=== PATIENT | female | born 1950 | race Caucasian/White ===

== ENCOUNTER 2020-03-06 08:06 | Outpatient (CLI) | payer MEDICARE, SELFPAY ==
--- NOTE | ~2020-03-06 | MM_ITS ---
EXAMINATION: MM screening [facility] BI w debra HISTORY: Screening TECHNIQUE: Craniocaudal and mediolateral oblique 3-D tomosynthesis images were obtained and synthetic 2-D images were generated. CAD analysis was submitted and interpreted. COMPARISON: Comparison to multiple prior studies sequentially, with oldest reviewed study dated 10/04. BREAST PARENCHYMAL COMPOSITION: There are scattered areas of fibroglandular density. FINDINGS: There is no evidence of suspicious mass, calcification, or architectural distortion to sugg est malignancy in either breast. There has been no suspicious interval change. IMPRESSION: 1. No mammographic evidence of malignancy. 2. Recommend routine screening mammography in one year. BI-RADS Category 1: Negative Reviewed, dictated and finalized at location A. ENGINEER
== END 2020-03-06 08:07 | disposition home or self-care (01) ==
LOC: ANHIMG 08:14
PROVIDERS: PCP Family Medicine; Visit Provider Family Medicine
DX: Z12.31 Encounter for screening mammogram for malignant neoplasm of breast (principal)
CPT/HCPCS: 77063; 77067

== ENCOUNTER 2020-03-23 08:46 | Outpatient (CLI) | payer MEDICARE, SELFPAY ==
--- NOTE | ~2020-03-23 | DEXA_ITS ---
Bone Density Report Name: Ankita Perez Age: 69 Sex: Female Ethnicity: White Date of : 1950 Indication: postmenopausal; Referring Provider: Kyle, Clive Us Study: Bone densitometry was performed. Exam Date: March 23, 2020 Accession number: [id number] Bone Density: Region BMD T-score Z-score Classification AP Spine (L1-L4) 1.008 -0.4 1.8 Normal Femoral Neck (Left) 0.648 -1.8 0.0 Osteopenia Total Hip (Left) 0.787 -1.3 0.3 Osteopenia Total Hip Bilateral Avg 0.811 -1.1 0.5 Osteopenia Femoral Neck (Right) 0.671 -1.6 0.2 Osteopenia Total Hip (Right) 0.835 -0.9 0.7 Normal World Health Organization criteria for BMD impression classify patients as: Normal (T-score at or above -1.0), Osteopenia (T-score between -1.0 and -2.5), or Osteoporosis (T-score at or below -2.5). 10-year Fracture Risk(1): Major Osteoporotic Fracture 10% Hip Fracture 1.8% Reported Risk Factors: [place] (), Neck BMD=0.648, BMI=23.2 (1) FRAX(R) Version 3.08. Fracture probability calculated for an untreated patient. Fracture probability may be lower if the patient has received treatment. Clinical Information Provided by Patient: Patient maximum height was 64 Menopause Age: 49 Drinks caffeinated beverages Onset of menses at age 11 Number of children 2 Impression: The patient has low bone mass, based on the Left Femoral Neck T-score. The patient has an estimated ten-year risk of hip fracture of 1.8% and an estimated ten-year risk of major fracture of 10%, based on the WHO FRAX algorithm. Discussion: BONE DENSITY IS LOW AT ONE OR MORE SKELETAL SITES. This patient's lowest T-score is low at one or more skeletal sites. It meets the World Health Organization's (WHO) criteria for ?low bone mass? (T-score between -1.0 and -2.5). The patient's 10-year risk of fracture as calculated by FRAX is less than the threshold where pharmacological therapy is recommended by the National Osteoporosis Foundation (NOF). However, all treatment decisions require clinical judgment and consideration of individual patient factors, including patient preferences, comorbidities, previous drug use, risk factors not captured in the FRAX model (e.g., frailty, falls, vitamin D deficiency, increased bone turnover, interval significant decline in bone density) and possible under or overestimation of fracture risk by FRAX. The patient should follow a healthful lifestyle (good nutrition with adequate calcium and vitamin D, and appropriate weight-bearing exercise). Follow-Up: Consider repeating this study in 2 to 3 years to reassess this patient's status, or sooner if there is some new clinical indication. Reported by: PHI on 03/23/2020 9:20:00 AM. Reviewed, dictated and finalized at location A.
== END 2020-03-23 08:47 | disposition home or self-care (01) ==
LOC: ANHIMG 08:48
PROVIDERS: PCP Family Medicine; Visit Provider Family Medicine
DX: Z78.0 Asymptomatic menopausal state (principal); M85.89 Other specified disorders of bone density and structure, multiple sites
CPT/HCPCS: 77080

== ENCOUNTER 2022-07-08 08:10 | Outpatient (CLI) | payer MEDICARE, SELFPAY ==
--- NOTE | ~2022-07-08 | DEXA_ITS ---
Bone Density Report Name: SHAGUFTA BESS Age: 71 Sex: Female Ethnicity: White Date of : 1950 Indication: osteopenia; postmenopausal Referring Provider: GANESH, RAJ Us Study: Bone densitometry was performed. Exam Date: July 08, 2022 Accession number: [id number] Bone Density: Region BMD T-score Z-score Classification AP Spine(L1-L4) 1.038 -0.1 2.2 Normal Femoral Neck (Left) 0.635 -1.9 0.0 Osteopenia Total Hip (Left) 0.795 -1.2 0.5 Osteopenia Femoral Neck (Right) 0.642 -1.9 0.1 Osteopenia Total Hip (Right) 0.866 -0.6 1.0 Normal Total Hip Mean 0.830 -0.9 0.8 Normal World Health Organization criteria for BMD impression classify patients as: Normal (T-score at or above -1.0), Osteopenia (T-score between -1.0 and -2.5), or Osteoporosis (T-score at or below -2.5). 10-year Fracture Risk(1): Major Osteoporotic Fracture 12% Hip Fracture 2.6% Reported Risk Factors: [place] (), Neck BMD=0.635, BMI=23.2 (1) FRAX(R) Version 3.08. Fracture probability calculated for an untreated patient. Fracture probability may be lower if the patient has received treatment. Previous Exams: Region Exam Age BMD T-score BMD Change BMD Change Date g/cm2 vs Baseline vs Previous AP Spine (L1-L4) 07/08/2022 71 1.038 -0.1 0.030 (3.0%)* 0.030 (3.0%)* 03/23/2020 69 1.008 -0.4 Total Hip(Left) 07/08/2022 71 0.795 -1.2 0.008 (1.0%) 0.008 (1.0%) 03/23/2020 69 0.787 -1.3 Total Hip(Right) 07/08/2022 71 0.866 -0.6 0.031 (3.7%)* 0.031 (3.7%)* 03/23/2020 69 0.835 -0.9 *Denotes significance at 95% confidence level, LSC for AP Spine = 0.022 g/cm2, LSC for Total Hip = 0.027 g/cm2 Clinical Information Provided by Patient: Has used the following medications: Calcium Patient maximum height was 64 Menopause Age: 49 Does not regularly consume dairy products Onset of menses at age 11 Number of children 2 Impression: The patient has low bone mass, based on the Left Femoral Neck T-score. The patient has an estimated ten-year risk of hip fracture of 2.6% and an estimated ten-year risk of major fracture of 12%, based on the WHO FRAX algorithm. No significant bone loss was observed. Discussion: BONE DENSITY IS LOW AT ONE OR MORE SKELETAL SITES. This patient's lowest T-score is low at one or more skeletal sites. It meets the World Health Organization's (WHO) criteria for ?low bone mass? (T-score between -1.0 and -2.5).
--- NOTE | ~2022-07-08 | MM_ITS ---
EXAMINATION: MM screening [facility] BI w debra HISTORY: Screening mammogram TECHNIQUE: Craniocaudal and mediolateral oblique 3-D tomosynthesis images were obtained and synthetic 2-D images were generated. CAD analysis was submitted and interpreted. COMPARISON: 03/06/2020, 02/11/2014 BREAST PARENCHYMAL COMPOSITION: There are scattered areas of fibroglandular density. FINDINGS: No suspicious mass, calcification, or architectural distortion are identified in either rosemary ast to suggest malignancy. There has been no suspicious interval change. IMPRESSION: 1. No mammographic evidence of malignancy. 2. Recommend routine screening mammography in one year. BI-RADS Category 1: Negative Reviewed, dictated and finalized at location A.
== END 2022-07-08 08:11 | disposition home or self-care (01) ==
PROVIDERS: PCP Family Medicine; Visit Provider Family Medicine
DX: Z12.31 Encounter for screening mammogram for malignant neoplasm of breast (principal); Z78.0 Asymptomatic menopausal state; M85.852 Other specified disorders of bone density and structure, left thigh; M85.851 Other specified disorders of bone density and structure, right thigh
CPT/HCPCS: 77063; 77067; 77080

== ENCOUNTER 2024-02-13 16:03 | Inpatient (IN) | payer MEDICARE, SELFPAY ==
--- NOTE | ~2024-02-13 | CT_ITS ---
EXAMINATION: CT brain wo con DATE: 02/13/2024 17:19 INDICATION: Confusion TECHNIQUE: Computed tomography (CT) of the head was performed without intravenous contrast. The mA wa s adjusted according to patient size. Iterative reconstruction technique was employed. Exam dose: 60 5.33 mGy-cm total exam DLP. COMPARISON: None FINDINGS: Prominent bilateral vertebral artery and carotid siphon internal carotid artery calcificati ons. Nonspecific diminished attenuation the cerebral white matter, likely due to chronic small vessel ischemic changes. Bilateral chronic lacunar basal ganglia infarcts. No intracranial mass lesion or hemorrhage, midline shift or mass effect. No subdural or epidural yobani bonilla. There is moderate cerebral and cerebellar volume loss. No fracture or bone destruction of the cranial vault. There is mild patchy soft tissue thickening in the ethmoid air cells. The paranasal sinuses and mastoid air cells are otherwise unremarkable. IMPRESSION: Cerebral atherosclerosis and chronic small vessel ischemic changes of the cerebral white matter Bilateral chronic basal ganglia lacunar infarcts No acute intracranial finding Reviewed, dictated and finalized at Location A. Reviewed, dictated and finalized at location A. OPERATOR
--- NOTE | ~2024-02-13 | XR_ITS ---
EXAMINATION: XR chest 1V portable DATE: 02/13/2024 19:47 INDICATION: Altered mental status. TECHNIQUE: A single frontal view of the chest was obtained. COMPARISON: None. FINDINGS: There is no pneumonia, pleural effusion, or pneumothorax. The heart size is normal. IMPRESSION: 1. No acute cardiopulmonary disease. Reviewed, dictated and finalized at location A. NTER HELPER
--- NOTE | ~2024-02-13 | MR_ITS ---
EXAMINATION: MR brain/brain stem wo/w con DATE: 02/16/2024 14:55 INDICATION: confusion TECHNIQUE: Magnetic resonance imaging (MRI) of the brain and brainstem was performed with 11 mL Multi Emily intravenous contrast. Sequences included sagittal and axial T1-weighted SE, axial diffusion-landen ghted FS EPI ASSET, axial T2*-weighted GRE, axial T2-weighted FLAIR Propeller, and axial T2-weighted Propeller. Postcontrast axial and coronal T1-weighted SE was obtained. Apparent diffusion coefficient (ADC) maps were created. COMPARISON: CT brain 02/13/2024. FINDINGS: No abnormal restricted diffusion to suggest acute ischemic infarct. Focal old bilateral basal ganglia lacunar infarcts. No MRI evidence of hemorrhage or extra-axial collection. No suspicious foci of rusty ceptibility to suggest prior intraparenchymal hemorrhage. Moderate patchy white matter hyperintensity , likely representing moderate small vessel ischemic disease. Mild generalized parenchymal volume los s. The basilar cisterns are patent. Flow voids are preserved. Ethmoid mucosal thickening, the remaini ng aerated spaces are clear. Left lens replacement. Globes and orbital contents are otherwise within normal limits. No abnormal enhancement. IMPRESSION: No acute intracranial process. Reviewed, dictated and finalized at location K. CLASSIFIER
--- NOTE | ~2024-02-13 | US_ITS ---
EXAMINATION: US thyroid DATE: 02/14/2024 11:09 INDICATION: Enlargement of right thyroid lobe. TECHNIQUE: Multiple ultrasound images of the thyroid were obtained. COMPARISON: None. FINDINGS: The right thyroid lobe measures 4.2 x 1.6 x 1.3 cm. The left thyroid lobe measures 3.6 x 1.3 x 1.0 c m. In the right thyroid lobe, there is a 7 mm solid, isoechoic, wider than tall nodule with ill-defi elissa margin and punctate echogenic foci (TI-RADS TR4). In the left thyroid lobe, there is a 5 mm solid , hypoechoic, wider than tall nodule with smooth margin without echogenic foci (TR4). IMPRESSION: 1. Small thyroid nodules, likely not clinically significant. No follow-up is needed. Reviewed, dictated and finalized at location A. IFIED PERSONAL CHEF IMPRESSION: 1. Small thyroid nodules, likely not clinically significant. No follow-up is ne eded.
--- NOTE | ~2024-02-13 | XR_ITS ---
EXAMINATION: XR lumbar puncture diagnostic DATE: 02/18/2024 17:26 INDICATION: Altered mental status TECHNIQUE: The procedure including the risks and benefits was discussed with the patient. Risks discu ssed included spinal headache, cerebrospinal fluid leak, bleeding, and infection. The patient underst ood the risks and agreed to proceed. A timeout was performed to verify the patient's name, date of , and procedure to be performed. The skin overlying the L4-L5 level was prepped and draped in usual sterile fashion. Subcutaneous 1% lidocaine was used for local anesthesia. A 22 gauge spinal n eedle was advanced under fluoroscopic guidance. The needle was removed and the entry site was cleaned and dressed. There were no immediate complications. A total of 2 fluoroscopic image(s) were obtaine d. The amount of fluoroscopy time used during this procedure was 0.2 minutes. Total DAP was 0.568 Gyc m^2. The patient was returned to the floor in unchanged condition. FINDINGS: Real-time fluoroscopy demonstrates the needle at the L4-L5 level. Opening pressure was 16 c m water. (Normal range is variably defined as 6-20 cm water and up to 25 cm water in obese patients. Pressure >25 cm water is one of the modified Dandy criteria for idiopathic intracranial hypertension) . 12 mL of clear, colorless fluid was collected in 4 tubes. IMPRESSION: 1. Successful fluoro-guided lumbar puncture with normal opening pressure of 16 cm water. Reviewed, dictated and finalized at location A. RY WRAPPER
--- NOTE | ~2024-02-13 | CT_ITS ---
EXAMINATION: CTA brain carotid DATE: 02/17/2024 14:01 INDICATION: Altered mental status. TECHNIQUE: Computed tomographic angiography (CTA) of the head was performed without and with 100 mL O mnipaque-350 intravenous contrast. CTA of the neck was performed with intravenous contrast. Automated exposure control and iterative reconstruction technique were employed. The dose-length product was 1 367.72 mGy-cm. Maximum intensity projection and volume rendered 3D-reconstructions were created by bry gamez technologist on a separate workstation. COMPARISON: Head CT 02/13/2024, brain MRI 02/16/2024 FINDINGS: HEAD CTA: There are scattered areas of low attenuation in the cerebral white matter. There is no intr acranial hemorrhage, acute infarction, or abnormal intracranial mass lesion. The ventricles are gloria l in size. There is mucosal thickening in the paranasal sinuses. There are likely changes of left ocu lar lens replacement surgery. The mastoid air cells are normal. Left vertebral artery is dominant. Th ere is no significant stenosis of basilar artery or the posterior cerebral arteries. There is no sign ificant stenosis of the intracranial internal carotid arteries or anterior or middle cerebral arterie s. Anterior communicating artery is normal. There is no aneurysm. The posterior communicating arterie s are normal. NECK CTA: There are no pathologically enlarged lymph nodes. There is no significant stenosis of the v ertebral arteries. There is plaque in the proximal internal carotid arteries. There is 0% stenosis of the proximal right internal carotid artery relative to normal distal artery lumen diameter (NASCET c riteria). There is 0% stenosis of the proximal left internal carotid artery relative to normal distal artery lumen diameter. There is severe cervical spondylosis. IMPRESSION: 1. Stable moderate nonspecific cerebral white matter disease, which likely represents chronic small v essel ischemic disease. 2. No aneurysm or significant intracranial axial stenosis. 3. 0% stenosis of the proximal internal carotid arteries relative to normal distal artery lumen diame ters (NASCET criteria). Reviewed, dictated and finalized at location A. MENT CONTROL MANAGER IMPRESSION: 1. Stable moderate nonspecific cerebral white matter disease, which likely repr esents chronic small vessel ischemic disease. 2. No aneurysm or significant intracranial axial stenosis. 3. 0% stenosis of the proximal internal carotid arteries relative to normal dis boris artery lumen diameters (NASCET criteria).
[2024-02-13 16:18] VITALS: BP 227/108; PULSE 82; RESP 20; TEMP 37.3; O2SAT 100
[2024-02-13 16:23] VITALS: O2SAT 100
--- NOTE | 2024-02-13 16:26 | ECG_ITS ---
Test Date: 2024-02-13 16:34:08 Measurements Intervals Tanner Rate: 81 P: 54 TN: 163 QRS: -5 QRSD: 92 T: 55 QT: 386 QTc: 449 Interpretive Statements SINUS RHYTHM MINIMAL VOLTAGE CRITERIA FOR LVH, CONSIDER NORMAL VARIANT [MEETS CRITERIA IN ONE OF: R(aVL), S(V1), R(V5), R(V5/V6)+S(V1)] NONSPECIFIC T-WAVE ABNORMALITY No previous ECG available for comparison Electronically Signed On 02-14-2024 14:47:20 FINE ARTIST by Adam Cameron M.D.
[2024-02-13 16:46] LABS: Basophils Percent Auto 0.7 % (0.2-1.2); Eosinophils Percent Auto 0.4 % (0-4.4); Hematocrit 33.2 % (37.0-47.0); Hemoglobin 11.2 g/dL (12.0-15.0); Immature Granulocyte Absolute 0.02 K/mm3 (0.00-0.031); Immature Granulocyte Percent A 0.4 % (0-0.5); Lymphocytes Absolute Auto 1.13 K/mm3 (0.9-3.2); Lymphocytes Percent Auto 20.5 % (18.3-44.2); Mean Corpuscular HGB Conc 33.7 g/dl (32-36); Mean Corpuscular Hemoglobin 37.8 pg (26-34); Mean Corpuscular Volume 112.2 fl (80-100); Monocytes Absolute Auto 0.4 K/mm3 (0.1-0.6); Monocytes Percent Auto 7.8 % (2.6-8.5); Neutrophils Absolute Auto 3.9 K/mm3 (1.3-6.7); Neutrophils Percent Auto 70.2 % (45.5-73.1); Platelet Count Result 638 k/mm3 (150-375); Red Blood Count 2.96 M/mm3 (4.2-5.4); Red Cell Distribution Width 14.1 % (11.5-14.5); White Blood Count 5.5 K/mm3 (4.5-10.0)
[2024-02-13 16:56] LABS: Alanine Aminotransferase 9 U/L (6-35); Albumin Level 4.1 g/dL (3.5-5.1); Alkaline Phosphatase 64 U/L (38-126); Anion Gap 7 mmol/L (4-12); Aspartate Amino Transferase 26 U/L (14-36); Bilirubin,Total 0.7 mg/dL (0.2-1.3); Blood Urea Nitrogen 23 mg/dL (7-17); Calcium 9.3 mg/dL (8.4-10.2); Carbon Dioxide 31 mmol/L (22-30); Chloride 95 mmol/L (98-107); Estimated CRCL calculation 30 ml/min; Estimated Glomerular Filt Rate 44; Glucose 228 mg/dL (65-110); Potassium 2.9 mmol/L (3.4-5.0); Sodium 133 mmol/L (137-145)
[2024-02-13 16:57] LABS: Prothrombin Time 13.6 Seconds (11.1-14.7)
[2024-02-13 16:58] LABS: Partial Thromboplastin Time 26.8 Seconds (22.3-36.8)
[2024-02-13 17:19] LABS: Platelet Estimate Increased (Adequate)
[2024-02-13 17:20] LABS: Macrocytosis 1+ (NORMAL); Schistocytes None Seen
[2024-02-13 17:37] VITALS: BP 215/103; PULSE 80; RESP 17; O2SAT 99
[2024-02-13 17:44] LABS: Add Urine Microscopic? YES; Appearance Urine Turbid (Clear); Bacteria Urine 4+ /hpf; Bilirubin Urine Negative (Negative); Blood Urine 1+ (Negative); Color Urine Yellow (Yellow); Glucose Urine UA Negative (Negative); Ketones Urine 1+ mg/dL (Negative); Leukocyte Esterase Ur Trace LEU/UL (Negative); Need Manual Microscopic Reviewed; Nitrate Urine Negative (Negative); Protein Urine 4+ mg/dL (Negative); Specific Grav Ur 1.021 (1.001-1.035); Squamous Epithelial Cell Urine None Seen /hpf (Few); Urobilinogen Urine 0.2 mg/dL (<2.0); WBC Urine 51-100 /hpf (0-3)
[2024-02-13 18:47] VITALS: BP 200/96; PULSE 83; RESP 20; O2SAT 100
[2024-02-13] MEDS: POTASSIUM CHLORIDE 20 MEQ ER TABLET 40 MEQ PO (19:39)
[2024-02-13] MEDS: SODIUM CHLORIDE 0.9% IV 1,000 ML 999 ML IV CONT (19:39)
[2024-02-13 19:44] VITALS: BP 199/101; PULSE 87; RESP 14; TEMP 36.8; O2SAT 100
[2024-02-13] MEDS: MAGNESIUM SULF 2 GM/WATER 50ML 2 GM/50 ML BAG IVPB (20:21)
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
[2024-02-13] MEDS: lisinopriL 20 MG TABLET PO (22:18)
[2024-02-13] MEDS: hydroCHLOROthiazide 25 MG TABLET PO (22:18)
[2024-02-13 23:19] LABS: Influenza A QL RT-PCR Negative (Negative); Influenza B QL RT-PCR Negative (Negative); RSV RNA, RT-PCR Negative (Negative); SARS-CoV-2 RNA PCR Negative (Negative)
[2024-02-13 23:26] VITALS: BP 191/90; PULSE 84; RESP 15; O2SAT 99
[2024-02-14] VITALS (23 sets, daily range): BP systolic 111–189; BP diastolic 68–92; PULSE 57–103; RESP 14–18; TEMP 36.6–36.9; O2SAT 94–100; BMI 21.1
--- NOTE | 2024-02-14 05:02 | ADMGEN ---
This patient, Ankita Perez, was admitted to IMU Room 205-01. Patient/family oriented to hospital policies and general routines including ID bracelet, bed and alarms, visiting hours, pain management, procedures, bathroom and other care routines, personal items, smoking policy, room service/diet, and visiting hours. Information on how to activate the Rapid Response Team has been discussed. Patient/Family are encouraged to report perceived risks to care and to ask questions if they do not understand what they are told or what they should do.
[2024-02-14] MEDS: hydrALAZINE HCL 20 MG/ML VIAL 10 MG IV PUSH (05:15)
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
[2024-02-14 07:30] LABS: Glucose Point of Care 249 mg/dl (65-105)
[2024-02-14 08:15] LABS: Hematocrit 33.8 % (37.0-47.0); Hemoglobin 11.2 g/dL (12.0-15.0); Mean Corpuscular HGB Conc 33.1 g/dl (32-36); Mean Corpuscular Hemoglobin 37.3 pg (26-34); Mean Corpuscular Volume 112.7 fl (80-100); Mean Platelet Volume 8.9 fl (7.4-10.4); Platelet Count Result 674 k/mm3 (150-375); Red Cell Distribution Width 14.1 % (11.5-14.5); White Blood Count 7.3 K/mm3 (4.5-10.0)
[2024-02-14] MEDS: METOPROLOL SUCCINATE EXT REL 25 MG TABCR PO (08:42)
[2024-02-14] MEDS: ATORVASTATIN 20 MG TABLET PO (08:42)
[2024-02-14] MEDS: ASPIRIN 81 MG ENTERIC TABLET PO (08:42)
[2024-02-14] MEDS: FERROUS SULFATE 325 MG TABLET DR PO ×2 (08:42→17:13)
[2024-02-14] MEDS: lisinopriL 20 MG TABLET PO (08:43)
[2024-02-14 08:56] LABS: Anion Gap 4 mmol/L (4-12); Blood Urea Nitrogen 17 mg/dL (7-17); Carbon Dioxide 31 mmol/L (22-30); Chloride 98 mmol/L (98-107); Estimated CRCL calculation 33 ml/min; Estimated Glomerular Filt Rate 49; Glucose 230 mg/dL (65-110); Magnesium 2.2 mg/dL (1.6-2.3); Potassium 3.3 mmol/L (3.4-5.0); Sodium 133 mmol/L (137-145)
[2024-02-14 10:00] LABS: Folic Acid 9.3 ng/mL (2.76->20); Vitamin B12 > 1000.0 pg/mL (239-931)
[2024-02-14 10:08] LABS: Hemoglobin A1C 7.3 % (<5.7)
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
[2024-02-14 11:33] LABS: Glucose Point of Care 266 mg/dl (65-105)
[2024-02-14] MEDS: POTASSIUM CHLORIDE 20 MEQ ER TABLET 40 MEQ PO (12:17)
[2024-02-14] MEDS: INSULIN ASPART (*BKC) 100 UNITS/ML SUB-Q (12:17)
[2024-02-14 16:03] LABS: Glucose Point of Care 140 mg/dl (65-105)
[2024-02-14 20:18] LABS: Glucose Point of Care 200 mg/dl (65-105)
[2024-02-15] VITALS (15 sets, daily range): BP systolic 145–181; BP diastolic 63–97; PULSE 52–77; RESP 16–20; TEMP 36.7–37.6; O2SAT 95–98
[2024-02-15 04:56] LABS: Potassium 3.9 mmol/L (3.4-5.0)
[2024-02-15 05:19] LABS: Anion Gap 4 mmol/L (4-12); Blood Urea Nitrogen 19 mg/dL (7-17); Carbon Dioxide 28 mmol/L (22-30); Chloride 101 mmol/L (98-107); Estimated CRCL calculation 30 ml/min; Estimated Glomerular Filt Rate 44; Glucose 172 mg/dL (65-110); Sodium 133 mmol/L (137-145)
[2024-02-15 08:12] LABS: Glucose Point of Care 214 mg/dl (65-105)
[2024-02-15] MEDS: FERROUS SULFATE 325 MG TABLET DR PO ×2 (08:33→16:46)
[2024-02-15] MEDS: ASPIRIN 81 MG ENTERIC TABLET PO (08:33)
[2024-02-15] MEDS: lisinopriL 20 MG TABLET PO (08:33)
[2024-02-15] MEDS: METOPROLOL SUCCINATE EXT REL 25 MG TABCR PO (08:33)
[2024-02-15] MEDS: ATORVASTATIN 20 MG TABLET PO (08:34)
[2024-02-15] MEDS: INSULIN ASPART (*BKC) 100 UNITS/ML SUB-Q ×2 (08:34→16:46)
[2024-02-15 12:01] LABS: Glucose Point of Care 196 mg/dl (65-105)
[2024-02-15 16:18] LABS: Glucose Point of Care 253 mg/dl (65-105)
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
[2024-02-15 20:24] LABS: Glucose Point of Care 149 mg/dl (65-105)
[2024-02-15] MEDS: INSULIN GLARGINE (*BKC) 100 UNITS/ML 8 UNITS SUB-Q (21:07)
--- NOTE | 2024-02-15 22:59 | PC.NURSE ---
patient arrived from IMU to room 258. patient oriented to new environment. no signs of distress at this time.
[2024-02-16] VITALS (8 sets, daily range): BP systolic 142–176; BP diastolic 67–90; PULSE 64–76; RESP 18–20; TEMP 35.8–36.9; O2SAT 94–100
[2024-02-16] MEDS: hydrALAZINE HCL 20 MG/ML VIAL 10 MG IV PUSH (06:50)
--- NOTE | 2024-02-16 09:00 | PC.NURSE ---
Patient disoriented and refusing care. Daughter is present at bedside to assist with mental status and orientation. Patient is refusing glucose checks and lab work. Daughter felt it's best to forgo lab work to potentially calm patient into having scheduled MRI today.
--- NOTE | 2024-02-16 09:29 | PCOTNOTE ---
Attempted OT evaluation. Patient and family declined evaluation this date due to altered mental status and patient refusing care. Will follow.
[2024-02-16 12:07] LABS: Glucose Point of Care 181 mg/dl (65-105)
[2024-02-16] MEDS: ATORVASTATIN 20 MG TABLET PO (12:35)
[2024-02-16] MEDS: ASPIRIN 81 MG ENTERIC TABLET PO (12:35)
[2024-02-16] MEDS: lisinopriL 20 MG TABLET PO (12:35)
[2024-02-16] MEDS: METOPROLOL SUCCINATE EXT REL 25 MG TABCR PO (12:36)
[2024-02-16] MEDS: FERROUS SULFATE 325 MG TABLET DR PO ×2 (12:38→17:35)
[2024-02-16] MEDS: HYDROXYUREA (*CHEMO) 500 MG CAPSULE PO (12:39)
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
[2024-02-16 13:03] LABS: Basophils Absolute Auto 0.1 K/mm3 (0.0-0.1); Basophils Percent Auto 0.9 % (0.2-1.2); Eosinophils Absolute Auto 0.1 K/mm3 (0-0.3); Eosinophils Percent Auto 0.9 % (0-4.4); Hematocrit 33.9 % (37.0-47.0); Hemoglobin 11.2 g/dL (12.0-15.0); Immature Granulocyte Absolute 0.02 K/mm3 (0.00-0.031); Immature Granulocyte Percent A 0.4 % (0-0.5); Lymphocytes Absolute Auto 1.23 K/mm3 (0.9-3.2); Lymphocytes Percent Auto 22.4 % (18.3-44.2); Mean Corpuscular Hemoglobin 37.6 pg (26-34); Mean Corpuscular Volume 113.8 fl (80-100); Mean Platelet Volume 8.7 fl (7.4-10.4); Monocytes Absolute Auto 0.5 K/mm3 (0.1-0.6); Monocytes Percent Auto 9.1 % (2.6-8.5); Neutrophils Absolute Auto 3.6 K/mm3 (1.3-6.7); Neutrophils Percent Auto 66.3 % (45.5-73.1); Platelet Count Result 622 k/mm3 (150-375); Red Blood Count 2.98 M/mm3 (4.2-5.4); Red Cell Distribution Width 14.6 % (11.5-14.5); White Blood Count 5.5 K/mm3 (4.5-10.0)
[2024-02-16 13:22] LABS: Albumin Level 3.7 g/dL (3.5-5.1); Anion Gap 2 mmol/L (4-12); Blood Urea Nitrogen 22 mg/dL (7-17); Calcium 9.1 mg/dL (8.4-10.2); Carbon Dioxide 32 mmol/L (22-30); Chloride 98 mmol/L (98-107); Estimated CRCL calculation 30 ml/min; Estimated Glomerular Filt Rate 44; Glucose 211 mg/dL (65-110); Magnesium 1.7 mg/dL (1.6-2.3); Phosphorus 3.4 mg/dL (2.5-4.5); Potassium 3.7 mmol/L (3.4-5.0); Sodium 132 mmol/L (137-145)
[2024-02-16 13:30] LABS: Macrocytosis 1+ (NORMAL); Platelet Estimate Adequate (Adequate); Schistocytes None Seen
[2024-02-16 13:39] LABS: Free T4 Free Thyroxine 1.54 ng/dL (0.78-2.19)
[2024-02-16 14:52] LABS: Folic Acid 8.7 ng/mL (2.76->20); Vitamin B12 > 1000.0 pg/mL (239-931)
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
[2024-02-16 17:23] LABS: Glucose Point of Care 174 mg/dl (65-105)
[2024-02-16 20:00] LABS: Glucose Point of Care 243 mg/dl (65-105)
[2024-02-16] MEDS: HALOPERIDOL LACTATE 5 MG/ML VIAL IM (21:21)
--- NOTE | 2024-02-17 | ECHO_ITS ---
Patient Info Name: Ankita Perez Age: 73 years : 1950 Gender: Female Ht: 63 in Wt: 123 lbs BSA: 1.58 m2 HR: 67 bpm BP: 172 / 72 mmHg Technical Quality: Fair Exam Date: 02/17/2024 2:15 PM Exam Location: Echo Lab Patient Status: Inpatient Admit Date: 02/15/2024 Staff Ordering Physician: Segundo De Leon MD Bulldozer Engineer: Torin Funez RDCS Attending Provider: Deann Mcleod DO Exam Type: CA echo doppler color flow Study Info Indications - confusion Complete two-dimensional, color flow and Doppler transthoracic echocardiogram is performed. Summary 1. Complete two-dimensional, color flow and Doppler transthoracic echocardiogram is performed. 2. Left ventricular chamber dimension is normal. 3. Left ventricular wall thickness is normal. 4. Left ventricular systolic function is normal with an ejection fraction by Biplane Method of Discs of 72 %. 5. The left ventricular diastolic function is grade I diastolic dysfunction. 6. Right ventricular chamber dimension is normal. 7. Right ventricular systolic function is normal. Left Ventricle Left ventricular chamber dimension is normal. Left ventricular wall thickness is normal. Left ventricular systolic function is normal with an ejection fraction by Biplane Method of Discs of 72 %. The left ventricular diastolic function is grade I diastolic dysfunction. Right Ventricle Right ventricular chamber dimension is normal. Right ventricular systolic function is normal. Left Atria Left atrial chamber dimension is normal. Right Atria Right atrial chamber dimension is normal. Aortic Valve There is no aortic valve stenosis with a peak velocity of 185 cm/s, mean gradient of 5 mmHg, and aortic valve area of 2.5 cm2. There is no aortic valve regurgitation. Mitral Valve There is no mitral valve regurgitation. There is no mitral valve stenosis. Moderate posterior mitral annular calcification. Tricuspid Valve There is mild tricuspid valve regurgitation. No pulmonary hypertension, estimated pulmonary arterial systolic pressure is 20 +/- 8. Pericardium/Pleural There is no pericardial effusion. Inferior Vena Cava Inferior vena cava is not well visualized. Aorta The prox ascending aorta size is normal. The ascending aorta arch size is normal. Left Ventricular Outflow Tract Name Value Normal LVOT 2D LVOT Diameter 2.0 cm LVOT Doppler LVOT Peak Gradient 7 mmHg LVOT Mean Gradient 3 mmHg LVOT VTI 26 cm LVOT VTI/AV VTI Ratio 0.8 LVOT Stroke Volume 81 ml LVOT CO 4.9 l/min LVOT CI 3.1 l/min/m2 Pulmonic Valve Name Value Normal PV Doppler PV Peak Gradient 3 mmHg Mitral Valve Name Value Normal MV Doppler MV Decel Patrick 389 cm/s2 MV PHT 81 ms MV Area (PHT) 2.7 cm2 4.0-5.0 MV Diastolic Function MV E Peak Velocity 109 cm/s MV A Peak Velocity 137 cm/s MV E/A 0.8 MV Decel Time 280 ms Tricuspid Valve Name Value Normal TV Regurgitation Doppler TR Peak Velocity 228 cm/s TR Peak Gradient 20 mmHg Aorta Name Value Normal Ascending Aorta Ao Root Diameter (MM) 2.8 cm Ao Root Diam Index (MM) 1.8 cm/m2 Aortic Valve Name Value Normal AV Doppler AV Peak Velocity 185 cm/s AV Peak Gradient 14 mmHg AV Mean Gradient 5 mmHg AV VTI 33 cm AV Area (Cont Eq VTI) 2.5 cm2 >=3.0 AV Area (Cont Eq Jean-Pierre) 2.2 cm2 AV Regurgitation 2D LVOT Area 3.2 cm2 Ventricles Name Value Normal LV Dimensions 2D/MM IVS Diastolic Thickness (2D) 1.0 cm 0.6-1.0 IVS Diastole Thickness (MM) 0.8 cm 0.6-0.9 LVID Diastole (2D) 4.2 cm 3.8-5.2 LVID Diastole (MM) 5.0 cm 3.8-5.2 LVIW Diastolic Thickness (2D) 1.0 cm 0.6-0.9 LVIW Diastolic Thickness (MM) 1.0 cm 0.6-0.9 LVID Systole (2D) 2.3 cm 2.2-3.5 LVID Systole (MM) 2.6 cm 2.2-3.5 LVOT Diameter 2.0 cm LV Mass (2D Cubed) 132.38 g 67.00-162.00 LV Mass Index (2D Cubed) 84 g/m2 43-95 Relative Wall Thickness (2D) 0.46 LV Mass (MM Cubed) 157.87 g 67.00-162.00 LV Mass Index (MM Cubed) 100 g/m2 43-95 Relative Wall Thickness (MM) 0.40 LV Fractional Shortening/Ejection Fraction 2D/MM LV Fractional Shortening (2D) 45 % 27-45 LV Fractional Shortening (MM) 47 % 27-45 LV EF (MM Teicholz) 78 % 54-74 LV EF (2D Teicholz) 77 % 54-74 LV Diastolic Volume (4C MOD) 76 ml LV EF (4C MOD) 71 % LV Diastolic Volume (2C MOD) 57 ml LV EF (2C MOD) 72 % LV Diastolic Volume (BP MOD) 67 ml 46-106 LV Diastolic Volume Index (BP MOD) 42 ml/m2 29-61 LV Systolic Volume (BP MOD) 18 ml 14-42 LV Systolic Volume Index (BP MOD) 12 ml/m2 8-24 LV EF (BP MOD) 72 % 54-74 LV Diastolic Length (4C) 7.7 cm LV Systolic Length (4C) 5.9 cm LV Stroke Volume (4C MOD) 54 ml Atria Name Value Normal LA Dimensions LA Dimension (MM) 4.3 cm 2.7-3.8 LA Volume (4C A-L) 55 ml LA Volume (BP A-L) 69 ml RA Dimensions RA Area (4C) 11.9 cm2 <=18.0 Report Signatures
[2024-02-17 04:00] VITALS: BP 172/72; PULSE 67; RESP 18; TEMP 36.8; O2SAT 98
[2024-02-17 05:55] LABS: Hematocrit 30.7 % (37.0-47.0); Hemoglobin 10.1 g/dL (12.0-15.0); Mean Corpuscular HGB Conc 32.9 g/dl (32-36); Mean Corpuscular Hemoglobin 37.7 pg (26-34); Mean Corpuscular Volume 114.6 fl (80-100); Mean Platelet Volume 9.1 fl (7.4-10.4); Platelet Count Result 483 k/mm3 (150-375); Red Blood Count 2.68 M/mm3 (4.2-5.4); Red Cell Distribution Width 14.5 % (11.5-14.5); White Blood Count 5.3 K/mm3 (4.5-10.0)
[2024-02-17 06:14] LABS: Anion Gap 2 mmol/L (4-12); Blood Urea Nitrogen 25 mg/dL (7-17); Calcium 8.7 mg/dL (8.4-10.2); Carbon Dioxide 28 mmol/L (22-30); Chloride 102 mmol/L (98-107); Estimated CRCL calculation 28 ml/min; Estimated Glomerular Filt Rate 40; Glucose 180 mg/dL (65-110); Potassium 3.5 mmol/L (3.4-5.0); Sodium 132 mmol/L (137-145)
[2024-02-17 08:00] VITALS: BP 158/78; PULSE 64; RESP 17; TEMP 36.6; O2SAT 98
[2024-02-17 08:18] LABS: Glucose Point of Care 196 mg/dl (65-105)
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
[2024-02-17 10:14] VITALS: PULSE 65
[2024-02-17] MEDS: METOPROLOL SUCCINATE EXT REL 25 MG TABCR PO (10:14)
[2024-02-17] MEDS: ASPIRIN 81 MG ENTERIC TABLET PO (10:15)
[2024-02-17] MEDS: amLODIPine BESYLATE 10 MG TABLET PO (10:15)
[2024-02-17] MEDS: ATORVASTATIN 20 MG TABLET PO (10:15)
[2024-02-17] MEDS: FERROUS SULFATE 325 MG TABLET DR PO ×2 (10:16→17:21)
[2024-02-17] MEDS: POTASSIUM CHLORIDE 20 MEQ PACKET (FOR LIQUID) PO (10:16)
[2024-02-17] MEDS: hydrALAZINE 5 MG TABLET PO ×2 (10:16→17:21)
[2024-02-17] MEDS: HEPARIN SODIUM 5,000 UNITS/ML VIAL 5000 UNITS SUB-Q ×2 (10:17→20:14)
[2024-02-17] MEDS: INSULIN ASPART (*BKC) 100 UNITS/ML SUB-Q ×4 (10:18→17:22)
--- NOTE | 2024-02-17 11:41 | PCOTNOTE ---
The patient treatment was not able to be completed. Patient having a test done at this time. Will plan to continue treatment per plan of care.
[2024-02-17 12:00] VITALS: BP 154/80; PULSE 68; RESP 19; TEMP 36.4; O2SAT 99
[2024-02-17 12:24] LABS: Glucose Point of Care 258 mg/dl (65-105)
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
--- NOTE | 2024-02-17 14:20 | PCOTNOTE ---
Attempted x 2 this afternoon to see Patient for OT treatment session. Patient going down for a head CT, then getting an ECHO. Will try back tomorrow.
[2024-02-17 16:00] VITALS: BP 150/82; PULSE 70; RESP 19; TEMP 36.5; O2SAT 98
[2024-02-17 17:13] LABS: Glucose Point of Care 136 mg/dl (65-105)
[2024-02-17 20:00] VITALS: BP 139/65; PULSE 66; RESP 16; TEMP 36.5; O2SAT 99
[2024-02-17] MEDS: INSULIN GLARGINE (*BKC) 100 UNITS/ML 8 UNITS SUB-Q (20:03)
[2024-02-17 20:32] LABS: Glucose Point of Care 163 mg/dl (65-105)
[2024-02-18] VITALS (9 sets, daily range): BP systolic 132–174; BP diastolic 58–86; PULSE 58–77; RESP 16–20; TEMP 36.1–36.9; O2SAT 95–100
[2024-02-18 07:57] LABS: Glucose Point of Care 155 mg/dl (65-105)
[2024-02-18 09:06] LABS: Basophils Absolute Auto 0.1 K/mm3 (0.0-0.1); Basophils Percent Auto 0.8 % (0.2-1.2); Eosinophils Percent Auto 0.6 % (0-4.4); Hematocrit 31.2 % (37.0-47.0); Hemoglobin 10.5 g/dL (12.0-15.0); Immature Granulocyte Absolute 0.02 K/mm3 (0.00-0.031); Immature Granulocyte Percent A 0.3 % (0-0.5); Lymphocytes Absolute Auto 0.92 K/mm3 (0.9-3.2); Lymphocytes Percent Auto 12.8 % (18.3-44.2); Mean Corpuscular HGB Conc 33.7 g/dl (32-36); Monocytes Absolute Auto 0.7 K/mm3 (0.1-0.6); Neutrophils Absolute Auto 5.4 K/mm3 (1.3-6.7); Neutrophils Percent Auto 75.5 % (45.5-73.1); Platelet Count Result 469 k/mm3 (150-375); Red Blood Count 2.76 M/mm3 (4.2-5.4); Red Cell Distribution Width 14.9 % (11.5-14.5); White Blood Count 7.2 K/mm3 (4.5-10.0)
[2024-02-18 09:16] LABS: Anion Gap 1 mmol/L (4-12); Blood Urea Nitrogen 22 mg/dL (7-17); Carbon Dioxide 29 mmol/L (22-30); Chloride 101 mmol/L (98-107); Estimated CRCL calculation 30 ml/min; Estimated Glomerular Filt Rate 44; Glucose 151 mg/dL (65-110); Potassium 3.6 mmol/L (3.4-5.0); Sodium 131 mmol/L (137-145)
[2024-02-18 09:27] LABS: Macrocytosis 1+ (NORMAL); Platelet Estimate Increased (Adequate)
[2024-02-18 09:28] LABS: Schistocytes None Seen
[2024-02-18] MEDS: hydrALAZINE 5 MG TABLET PO (09:46)
[2024-02-18] MEDS: FERROUS SULFATE 325 MG TABLET DR PO (09:47)
[2024-02-18] MEDS: METOPROLOL SUCCINATE EXT REL 25 MG TABCR PO (09:47)
[2024-02-18] MEDS: ASPIRIN 81 MG ENTERIC TABLET PO (09:47)
[2024-02-18] MEDS: amLODIPine BESYLATE 10 MG TABLET PO (09:49)
[2024-02-18] MEDS: HEPARIN SODIUM 5,000 UNITS/ML VIAL 5000 UNITS SUB-Q ×2 (09:49→20:34)
[2024-02-18] MEDS: ATORVASTATIN 20 MG TABLET PO (09:49)
[2024-02-18] MEDS: INSULIN ASPART (*BKC) 100 UNITS/ML SUB-Q ×3 (09:56→11:51)
[2024-02-18 11:25] LABS: Glucose Point of Care 303 mg/dl (65-105)
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
[2024-02-18 13:27] LABS: Vitamin D 25 Hydroxy 13.7 ng/mL
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
[2024-02-18 15:05] LABS: Glucose Point of Care 148 mg/dl (65-105)
[2024-02-18 15:22] LABS: Partial Thromboplastin Time 28.5 Seconds (22.3-36.8); Prothrombin Time 13.4 Seconds (11.1-14.7)
[2024-02-18 17:22] LABS: Glucose Point of Care 150 mg/dl (65-105)
[2024-02-18 17:28] LABS: Appearance CSF Clear (Clear); CSF source CSF; Color CSF Colorless (Colorless); Nucleated Cell CSF 1 /uL (0-5); Red Blood Cell CSF 1 (0-2)
[2024-02-18 17:29] LABS: Lymphocytes CSF 65 % (40-80); Monocytes CSF 35 % (15-45)
[2024-02-18 17:30] LABS: Glucose CSF 97 mg/dL (40-70); Total Protein CSF 51 mg/dL (12-60)
[2024-02-18 20:14] LABS: Glucose Point of Care 134 mg/dl (65-105)
[2024-02-18] MEDS: INSULIN GLARGINE (*BKC) 100 UNITS/ML 10 UNITS SUB-Q (20:57)
[2024-02-19] VITALS (8 sets, daily range): BP systolic 97–140; BP diastolic 46–69; PULSE 57–80; RESP 16–18; TEMP 36.1–37.1; O2SAT 97–100
[2024-02-19 05:44] LABS: Basophils Absolute Auto 0.1 K/mm3 (0.0-0.1); Basophils Percent Auto 0.4 % (0.2-1.2); Eosinophils Percent Auto 0.2 % (0-4.4); Immature Granulocyte Absolute 0.07 K/mm3 (0.00-0.031); Immature Granulocyte Percent A 0.4 % (0-0.5); Lymphocytes Absolute Auto 0.95 K/mm3 (0.9-3.2); Lymphocytes Percent Auto 5.8 % (18.3-44.2); Mean Corpuscular HGB Conc 33.3 g/dl (32-36); Mean Corpuscular Hemoglobin 37.6 pg (26-34); Mean Corpuscular Volume 112.8 fl (80-100); Mean Platelet Volume 9.2 fl (7.4-10.4); Monocytes Absolute Auto 1.3 K/mm3 (0.1-0.6); Monocytes Percent Auto 7.6 % (2.6-8.5); Neutrophils Percent Auto 85.6 % (45.5-73.1); Platelet Count Result 452 k/mm3 (150-375); Red Blood Count 2.66 M/mm3 (4.2-5.4); Red Cell Distribution Width 14.8 % (11.5-14.5); White Blood Count 16.4 K/mm3 (4.5-10.0)
[2024-02-19 05:53] LABS: Anion Gap 3 mmol/L (4-12); Blood Urea Nitrogen 27 mg/dL (7-17); Calcium 8.9 mg/dL (8.4-10.2); Carbon Dioxide 28 mmol/L (22-30); Chloride 103 mmol/L (98-107); Estimated CRCL calculation 28 ml/min; Estimated Glomerular Filt Rate 40; Glucose 132 mg/dL (65-110); Potassium 3.6 mmol/L (3.4-5.0); Sodium 134 mmol/L (137-145)
[2024-02-19 06:50] LABS: Macrocytosis 1+ (NORMAL); Platelet Estimate Increased (Adequate); Schistocytes None Seen
[2024-02-19 07:54] LABS: Glucose Point of Care 161 mg/dl (65-105)
[2024-02-19] MEDS: FERROUS SULFATE 325 MG TABLET DR PO ×2 (08:37→17:49)
[2024-02-19] MEDS: ATORVASTATIN 20 MG TABLET PO (08:37)
[2024-02-19] MEDS: METOPROLOL SUCCINATE EXT REL 25 MG TABCR PO (08:37)
[2024-02-19] MEDS: HEPARIN SODIUM 5,000 UNITS/ML VIAL 5000 UNITS SUB-Q ×2 (08:37→20:34)
[2024-02-19] MEDS: amLODIPine BESYLATE 10 MG TABLET PO (08:37)
[2024-02-19] MEDS: hydrALAZINE 5 MG TABLET PO (08:37)
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
[2024-02-19] MEDS: INSULIN ASPART (*BKC) 100 UNITS/ML 6 UNITS SUB-Q ×3 (09:33→17:49)
[2024-02-19 11:24] LABS: Glucose Point of Care 213 mg/dl (65-105)
[2024-02-19] MEDS: SODIUM CHLORIDE 0.9% IV 1,000 ML 100 ML IV CONT (11:47)
[2024-02-19] MEDS: cefTRIAXone 2 GM/NS 100 ML 2 GM/100 ML BAG IVPB (11:48)
[2024-02-19] MEDS: INSULIN ASPART (*BKC) 100 UNITS/ML SUB-Q ×2 (12:16→20:36)
[2024-02-19] MEDS: THIAMINE 500 MG/NS 100 ML 500 MG/100 ML BAG 200 MG IVPB ×2 (13:10→20:33)
[2024-02-19] MEDS: WATER IVPB (15:02)
[2024-02-19] MEDS: DEXTROSE 5% IVPB (15:02)
[2024-02-19] MEDS: ACYCLOVIR SODIUM IVPB (15:02)
[2024-02-19 16:27] LABS: Glucose Point of Care 161 mg/dl (65-105)
[2024-02-19 20:19] LABS: Glucose Point of Care 238 mg/dl (65-105)
[2024-02-19] MEDS: INSULIN GLARGINE (*BKC) 100 UNITS/ML 10 UNITS SUB-Q (20:35)
[2024-02-20] VITALS (8 sets, daily range): BP systolic 110–153; BP diastolic 52–82; PULSE 59–87; RESP 16–18; TEMP 36.3–36.9; O2SAT 96–100
[2024-02-20] MEDS: cefTRIAXone 2 GM/NS 100 ML 2 GM/100 ML BAG IVPB ×3 (00:29→23:49)
[2024-02-20] MEDS: ACYCLOVIR SODIUM IVPB ×2 (01:06→13:46)
[2024-02-20] MEDS: DEXTROSE 5% IVPB ×2 (01:06→13:46)
[2024-02-20] MEDS: WATER IVPB ×2 (01:06→13:46)
[2024-02-20] MEDS: THIAMINE 500 MG/NS 100 ML 500 MG/100 ML BAG 200 MG IVPB (03:48)
[2024-02-20 07:54] LABS: Glucose Point of Care 118 mg/dl (65-105)
[2024-02-20 08:33] LABS: Basophils Absolute Auto 0.1 K/mm3 (0.0-0.1); Basophils Percent Auto 0.4 % (0.2-1.2); Eosinophils Absolute Auto 0.1 K/mm3 (0-0.3); Eosinophils Percent Auto 0.7 % (0-4.4); Hematocrit 30.9 % (37.0-47.0); Hemoglobin 10.1 g/dL (12.0-15.0); Immature Granulocyte Absolute 0.05 K/mm3 (0.00-0.031); Immature Granulocyte Percent A 0.4 % (0-0.5); Immature Platelet Fraction Pct 3.5 % (0.9-11.2); Lymphocytes Absolute Auto 1.02 K/mm3 (0.9-3.2); Lymphocytes Percent Auto 8.7 % (18.3-44.2); Mean Corpuscular HGB Conc 32.7 g/dl (32-36); Mean Corpuscular Hemoglobin 37.4 pg (26-34); Mean Corpuscular Volume 114.4 fl (80-100); Mean Platelet Volume 9.8 fl (7.4-10.4); Monocytes Absolute Auto 0.8 K/mm3 (0.1-0.6); Monocytes Percent Auto 6.9 % (2.6-8.5); Neutrophils Absolute Auto 9.8 K/mm3 (1.3-6.7); Neutrophils Percent Auto 82.9 % (45.5-73.1); Platelet Count Result 494 k/mm3 (150-375); Red Cell Distribution Width 14.6 % (11.5-14.5); White Blood Count 11.8 K/mm3 (4.5-10.0)
[2024-02-20 08:55] LABS: Alanine Aminotransferase 7 U/L (6-35); Albumin Level 2.8 g/dL (3.5-5.1); Alkaline Phosphatase 57 U/L (38-126); Anion Gap 2 mmol/L (4-12); Aspartate Amino Transferase 24 U/L (14-36); Bilirubin,Total 0.3 mg/dL (0.2-1.3); Blood Urea Nitrogen 29 mg/dL (7-17); Calcium 8.5 mg/dL (8.4-10.2); Carbon Dioxide 26 mmol/L (22-30); Chloride 104 mmol/L (98-107); Estimated CRCL calculation 25 ml/min; Estimated Glomerular Filt Rate 34; Glucose 99 mg/dL (65-110); Potassium 3.4 mmol/L (3.4-5.0); Sodium 132 mmol/L (137-145)
[2024-02-20 09:02] LABS: Macrocytosis 2+ (NORMAL); Platelet Estimate Increased (Adequate); Schistocytes None Seen
[2024-02-20] MEDS: ATORVASTATIN 20 MG TABLET PO (10:07)
[2024-02-20] MEDS: FERROUS SULFATE 325 MG TABLET DR PO ×2 (10:07→17:23)
[2024-02-20] MEDS: amLODIPine BESYLATE 10 MG TABLET PO (10:07)
[2024-02-20] MEDS: METOPROLOL SUCCINATE EXT REL 25 MG TABCR PO (10:07)
[2024-02-20] MEDS: HEPARIN SODIUM 5,000 UNITS/ML VIAL 5000 UNITS SUB-Q ×2 (10:14→20:38)
[2024-02-20] MEDS: SODIUM CHLORIDE 0.9% IV 1,000 ML 100 ML IV CONT (12:22)
[2024-02-20 12:32] LABS: Glucose Point of Care 224 mg/dl (65-105)
[2024-02-20] MEDS: INSULIN ASPART (*BKC) 100 UNITS/ML 6 UNITS SUB-Q (12:33)
[2024-02-20] MEDS: INSULIN ASPART (*BKC) 100 UNITS/ML SUB-Q ×2 (12:33→20:38)
[2024-02-20 14:55] LABS: Add Urine Microscopic? YES; Appearance Urine Cloudy (Clear); Bacteria Urine None Seen /hpf; Bilirubin Urine Negative (Negative); Blood Urine 2+ (Negative); Color Urine Yellow (Yellow); Glucose Urine UA Negative (Negative); Ketones Urine Negative (Negative); Leukocyte Esterase Ur 2+ LEU/UL (Negative); Need Manual Microscopic Reviewed; Nitrate Urine Negative (Negative); Protein Urine 3+ mg/dL (Negative); Squamous Epithelial Cell Urine None Seen /hpf (Few); Urobilinogen Urine 0.2 mg/dL (<2.0); WBC Urine 51-100 /hpf (0-3)
[2024-02-20 15:04] LABS: Creatinine Urine 127.4 mg/dL
[2024-02-20 15:12] LABS: Sodium Urine Random 44 meq/L
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
[2024-02-20 16:47] LABS: Glucose Point of Care 94 mg/dl (65-105)
[2024-02-20 17:06] LABS: Anion Gap 3 mmol/L (4-12); Blood Urea Nitrogen 29 mg/dL (7-17); Calcium 8.5 mg/dL (8.4-10.2); Carbon Dioxide 25 mmol/L (22-30); Chloride 103 mmol/L (98-107); Estimated CRCL calculation 22 ml/min; Estimated Glomerular Filt Rate 29; Glucose 100 mg/dL (65-110); Potassium 3.5 mmol/L (3.4-5.0); Sodium 131 mmol/L (137-145)
[2024-02-20 17:46] LABS: HIV 1/2 Ab P24 Ag Result Negative (Negative)
[2024-02-20 20:02] LABS: Glucose Point of Care 213 mg/dl (65-105)
[2024-02-20] MEDS: INSULIN GLARGINE (*BKC) 100 UNITS/ML 10 UNITS SUB-Q (20:37)
[2024-02-21] VITALS (8 sets, daily range): BP systolic 140–169; BP diastolic 60–76; PULSE 60–82; RESP 14–18; TEMP 36.2–36.7; O2SAT 93–99
[2024-02-21] MEDS: DEXTROSE 5% IVPB (00:40)
[2024-02-21] MEDS: WATER IVPB (00:40)
[2024-02-21] MEDS: ACYCLOVIR SODIUM IVPB (00:40)
[2024-02-21] MEDS: SODIUM CHLORIDE 0.9% IV 1,000 ML 100 ML IV CONT ×2 (00:43→13:35)
[2024-02-21 08:10] LABS: Glucose Point of Care 161 mg/dl (65-105)
[2024-02-21 08:27] LABS: Alanine Aminotransferase 7 U/L (6-35); Albumin Level 2.9 g/dL (3.5-5.1); Alkaline Phosphatase 58 U/L (38-126); Anion Gap 4 mmol/L (4-12); Aspartate Amino Transferase 22 U/L (14-36); Bilirubin,Total 0.3 mg/dL (0.2-1.3); Blood Urea Nitrogen 21 mg/dL (7-17); Calcium 8.2 mg/dL (8.4-10.2); Carbon Dioxide 24 mmol/L (22-30); Chloride 105 mmol/L (98-107); Estimated CRCL calculation 28 ml/min; Estimated Glomerular Filt Rate 40; Glucose 161 mg/dL (65-110); Potassium 3.5 mmol/L (3.4-5.0); Sodium 133 mmol/L (137-145)
[2024-02-21 08:28] LABS: Vitamin B6 2.8 ng/mL (2.1-21.7)
[2024-02-21] MEDS: ATORVASTATIN 20 MG TABLET PO (09:00)
[2024-02-21] MEDS: amLODIPine BESYLATE 10 MG TABLET PO (09:00)
[2024-02-21] MEDS: FERROUS SULFATE 325 MG TABLET DR PO ×2 (09:00→17:10)
[2024-02-21] MEDS: METOPROLOL SUCCINATE EXT REL 25 MG TABCR PO (09:00)
[2024-02-21] MEDS: INSULIN ASPART (*BKC) 100 UNITS/ML 6 UNITS SUB-Q (09:02)
[2024-02-21 10:36] LABS: Rapid Plasma Reagin Non-Reactive (NonReactive)
[2024-02-21] MEDS: cefTRIAXone 2 GM/NS 100 ML 2 GM/100 ML BAG IVPB (11:24)
[2024-02-21 11:54] LABS: Glucose Point of Care 112 mg/dl (65-105)
[2024-02-21 17:01] LABS: Glucose Point of Care 189 mg/dl (65-105)
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
[2024-02-21] MEDS: hydrALAZINE 12.5 MG TABLET PO (17:59)
[2024-02-21] MEDS: QUEtiapine FUMARATE 25 MG TABLET 75 MG PO (19:56)
[2024-02-21] MEDS: INSULIN ASPART (*BKC) 100 UNITS/ML SUB-Q (19:57)
[2024-02-21] MEDS: HALOPERIDOL LACTATE 5 MG/ML VIAL IM (19:57)
[2024-02-21] MEDS: INSULIN GLARGINE (*BKC) 100 UNITS/ML 10 UNITS SUB-Q (19:59)
[2024-02-21 20:08] LABS: Vitamin B1 10 nmol/L (8-30)
[2024-02-22] VITALS (8 sets, daily range): BP systolic 124–154; BP diastolic 53–97; PULSE 54–91; RESP 12–18; TEMP 36.3–36.6; O2SAT 97–99
[2024-02-22] MEDS: cefTRIAXone 2 GM/NS 100 ML 2 GM/100 ML BAG IVPB ×2 (00:14→11:26)
[2024-02-22 04:10] LABS: Glucose Point of Care 254 mg/dl (65-105)
[2024-02-22] MEDS: SODIUM CHLORIDE 0.9% IV 1,000 ML 100 ML IV CONT (05:06)
[2024-02-22 07:03] LABS: Basophils Absolute Auto 0.1 K/mm3 (0.0-0.1); Basophils Percent Auto 0.8 % (0.2-1.2); Eosinophils Absolute Auto 0.2 K/mm3 (0-0.3); Eosinophils Percent Auto 2.2 % (0-4.4); Hematocrit 28.4 % (37.0-47.0); Hemoglobin 9.2 g/dL (12.0-15.0); Immature Granulocyte Absolute 0.03 K/mm3 (0.00-0.031); Immature Granulocyte Percent A 0.4 % (0-0.5); Lymphocytes Absolute Auto 1.53 K/mm3 (0.9-3.2); Lymphocytes Percent Auto 19.5 % (18.3-44.2); Mean Corpuscular HGB Conc 32.4 g/dl (32-36); Mean Corpuscular Hemoglobin 37.6 pg (26-34); Mean Corpuscular Volume 115.9 fl (80-100); Mean Platelet Volume 9.1 fl (7.4-10.4); Monocytes Percent Auto 12.5 % (2.6-8.5); Neutrophils Absolute Auto 5.1 K/mm3 (1.3-6.7); Neutrophils Percent Auto 64.6 % (45.5-73.1); Platelet Count Result 504 k/mm3 (150-375); Red Blood Count 2.45 M/mm3 (4.2-5.4); Red Cell Distribution Width 14.6 % (11.5-14.5); White Blood Count 7.8 K/mm3 (4.5-10.0)
[2024-02-22 07:19] LABS: Anion Gap 3 mmol/L (4-12); Blood Urea Nitrogen 16 mg/dL (7-17); Calcium 8.4 mg/dL (8.4-10.2); Carbon Dioxide 25 mmol/L (22-30); Chloride 110 mmol/L (98-107); Estimated CRCL calculation 30 ml/min; Estimated Glomerular Filt Rate 44; Glucose 67 mg/dL (65-110); Potassium 3.2 mmol/L (3.4-5.0); Sodium 138 mmol/L (137-145)
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
[2024-02-22 07:49] LABS: Macrocytosis 2+ (NORMAL); Platelet Estimate Increased (Adequate); Schistocytes None Seen
[2024-02-22 07:50] LABS: Glucose Point of Care 74 mg/dl (65-105)
[2024-02-22 08:27] LABS: Source CSF
[2024-02-22 08:28] LABS: Source Epstein Barr Virus CSF
[2024-02-22 08:29] LABS: Epstein Barr Virus DNA PCR Not Detected
[2024-02-22 08:30] LABS: Herpes Simplex Type 2 DNA PCR Not Detected
[2024-02-22 08:31] LABS: Herpes Simplex Type 1 DNA PCR Not Detected
[2024-02-22 08:32] LABS: CMV DNA Quant PCR IU/mL Not Detected; Cytomegalovirus DNA Source CSF
[2024-02-22] MEDS: FERROUS SULFATE 325 MG TABLET DR PO ×2 (09:42→16:52)
[2024-02-22] MEDS: hydrALAZINE 12.5 MG TABLET PO ×3 (09:42→16:52)
[2024-02-22] MEDS: amLODIPine BESYLATE 10 MG TABLET PO (09:42)
[2024-02-22] MEDS: ATORVASTATIN 20 MG TABLET PO (09:42)
[2024-02-22] MEDS: ASPIRIN 81 MG ENTERIC TABLET PO (09:42)
[2024-02-22] MEDS: METOPROLOL SUCCINATE EXT REL 25 MG TABCR PO (09:42)
[2024-02-22] MEDS: HEPARIN SODIUM 5,000 UNITS/ML VIAL 5000 UNITS SUB-Q ×2 (09:44→21:54)
[2024-02-22 11:50] LABS: Glucose Point of Care 174 mg/dl (65-105)
--- NOTE | 2024-02-22 13:24 | PCNWS ---
Weekly nutritional screen. Patient is tolerating current diet with adequate intake. No weight loss reported. No nutritional needs at this time.
[2024-02-22 13:37] LABS: Lyme Disease Ab (IgM), Blot NEGATIVE (NEGATIVE); Lyme Disease Ab(IgG), Blot NEGATIVE (NEGATIVE)
[2024-02-22 17:07] LABS: Glucose Point of Care 169 mg/dl (65-105)
[2024-02-22] MEDS: INSULIN ASPART (*BKC) 100 UNITS/ML SUB-Q (21:51)
[2024-02-22] MEDS: INSULIN GLARGINE (*BKC) 100 UNITS/ML 10 UNITS SUB-Q (21:51)
[2024-02-22] MEDS: QUEtiapine FUMARATE 25 MG TABLET 50 MG PO (21:52)
[2024-02-22 21:54] LABS: Glucose Point of Care 313 mg/dl (65-105)
[2024-02-23] MEDS: cefTRIAXone 2 GM/NS 100 ML 2 GM/100 ML BAG IVPB (02:44)
[2024-02-23 05:22] LABS: Basophils Absolute Auto 0.1 K/mm3 (0.0-0.1); Basophils Percent Auto 1.2 % (0.2-1.2); Eosinophils Absolute Auto 0.2 K/mm3 (0-0.3); Eosinophils Percent Auto 2.9 % (0-4.4); Hematocrit 28.2 % (37.0-47.0); Hemoglobin 9.1 g/dL (12.0-15.0); Immature Granulocyte Absolute 0.02 K/mm3 (0.00-0.031); Immature Granulocyte Percent A 0.3 % (0-0.5); Lymphocytes Absolute Auto 1.13 K/mm3 (0.9-3.2); Lymphocytes Percent Auto 15.1 % (18.3-44.2); Mean Corpuscular HGB Conc 32.3 g/dl (32-36); Mean Corpuscular Hemoglobin 37.6 pg (26-34); Mean Corpuscular Volume 116.5 fl (80-100); Mean Platelet Volume 9.3 fl (7.4-10.4); Monocytes Percent Auto 13.8 % (2.6-8.5); Neutrophils Percent Auto 66.7 % (45.5-73.1); Platelet Count Result 486 k/mm3 (150-375); Red Blood Count 2.42 M/mm3 (4.2-5.4); Red Cell Distribution Width 14.7 % (11.5-14.5); White Blood Count 7.5 K/mm3 (4.5-10.0)
[2024-02-23 05:45] LABS: Anion Gap -2 mmol/L (4-12); Blood Urea Nitrogen 15 mg/dL (7-17); Calcium 8.2 mg/dL (8.4-10.2); Carbon Dioxide 26 mmol/L (22-30); Chloride 109 mmol/L (98-107); Estimated CRCL calculation 33 ml/min; Estimated Glomerular Filt Rate 49; Glucose 87 mg/dL (65-110); Potassium 2.8 mmol/L (3.4-5.0); Sodium 133 mmol/L (137-145)
[2024-02-23 05:59] LABS: Anisocytosis 1+; Macrocytosis 1+ (NORMAL); Ovalocytes 1+; Platelet Estimate Increased (Adequate); Schistocytes None Seen
[2024-02-23 06:45] VITALS: BP 165/72; PULSE 64; RESP 16; TEMP 36.9; O2SAT 100
[2024-02-23 07:52] LABS: Glucose Point of Care 71 mg/dl (65-105)
[2024-02-23] MEDS: POTASSIUM CHLORIDE INJ 40 MEQ in SODIUM CHLORIDE 0.9% IV 500 ML 130 MEQ IVPB (08:48)
[2024-02-23 08:53] VITALS: BP 178/84; PULSE 81; RESP 16; TEMP 36.4; O2SAT 96
[2024-02-23] MEDS: POTASSIUM CHLORIDE 20 MEQ ER TABLET 60 MEQ PO (08:54)
[2024-02-23 08:55] VITALS: O2SAT 96
[2024-02-23] MEDS: ASPIRIN 81 MG ENTERIC TABLET PO (08:55)
[2024-02-23] MEDS: HEPARIN SODIUM 5,000 UNITS/ML VIAL 5000 UNITS SUB-Q ×2 (08:55→20:56)
[2024-02-23] MEDS: amLODIPine BESYLATE 10 MG TABLET PO (08:55)
[2024-02-23] MEDS: ATORVASTATIN 20 MG TABLET PO (08:55)
[2024-02-23] MEDS: FERROUS SULFATE 325 MG TABLET DR PO ×2 (08:55→16:23)
[2024-02-23 08:56] VITALS: PULSE 78
[2024-02-23 08:56] LABS: Magnesium 1.6 mg/dL (1.6-2.3)
[2024-02-23] MEDS: METOPROLOL SUCCINATE EXT REL 25 MG TABCR PO (08:56)
[2024-02-23] MEDS: hydrALAZINE 12.5 MG TABLET PO ×3 (08:56→16:23)
--- NOTE | 2024-02-23 10:15 | PM.DS ---
DS: Summary Time Spent with Patient Time attestation: Total time spent providing and/or coordinating discharge services: DS: Data Data Completed and Pending Completed studies during hospitalization: Pending at discharge 02/18/24 11:49 Cytology [PTH] Routine Labs on day of discharge: Labs from last 24 hours 02/23/24 02/23/24 02/23/24 07:37 05:09 05:06 WBC 7.5 RBC 2.42 L Hgb 9.1 L Hct 28.2 L MCV 116.5 H MCH 37.6 H MCHC 32.3 RDW 14.7 H Plt Count 486 H MPV 9.3 Immature Gran % (Auto) 0.3 Neut % (Auto) 66.7 Lymph % (Auto) 15.1 L [place] % (Auto) 13.8 H Eos % (Auto) 2.9 Baso % (Auto) 1.2 Lymph # (Auto) 1.13 [place] # (Auto) 1.0 H Eos # (Auto) 0.2 Baso # (Auto) 0.1 Abs Immat Gran (auto) 0.02 Absolute Neuts (auto) 5.0 Absolute Nucleated RBC 0.000 Nucleated RBC % 0.0 Platelet Estimate Increased Anisocytosis 1+ Macrocytosis 1+ Ovalocytes 1+ Schistocytes None seen Sodium 133 L Potassium 2.8 L* Chloride 109 H Carbon Dioxide 26 Anion Gap -2 L BUN 15 Creatinine 1.10 H Estim Creat Clear Calc 33 Estimated GFR 49 L Glucose 87 POC Capillary Glucose 71 Calcium 8.2 L Magnesium 1.6 Lyme IgG 18 kDa Band Lyme IgG 23 kDa Band Lyme IgG 28 kDa Band Lyme IgG 30 kDa Band Lyme IgG 39 kDa Band Lyme IgG 41 kDa Band Lyme IgG 45 kDa Band Lyme IgG 58 kDa Band Lyme IgG 66 kDa Band Lyme IgG 93 kDa Band Lyme IgG Ab (Immblot) Lyme IgM Ab (Immblot) Lyme IgM 23 kDa Band Lyme IgM 39 kDa Band Lyme IgM 41 kDa Band 02/22/24 02/22/24 02/22/24 21:35 17:01 11:45 WBC RBC Hgb Hct MCV MCH MCHC RDW Plt Count MPV Immature Gran % (Auto) Neut % (Auto) Lymph % (Auto) [place] % (Auto) Eos % (Auto) Baso % (Auto) Lymph # (Auto) [place] # (Auto) Eos # (Auto) Baso # (Auto) Abs Immat Gran (auto) Absolute Neuts (auto) Absolute Nucleated RBC Nucleated RBC % Platelet Estimate Anisocytosis Macrocytosis Ovalocytes Schistocytes Sodium Potassium Chloride Carbon Dioxide Anion Gap BUN Creatinine Estim Creat Clear Calc Estimated GFR Glucose POC Capillary Glucose 313 H 169 H 174 H Calcium Magnesium Lyme IgG 18 kDa Band Lyme IgG 23 kDa Band Lyme IgG 28 kDa Band Lyme IgG 30 kDa Band Lyme IgG 39 kDa Band Lyme IgG 41 kDa Band Lyme IgG 45 kDa Band Lyme IgG 58 kDa Band Lyme IgG 66 kDa Band Lyme IgG 93 kDa Band Lyme IgG Ab (Immblot) Lyme IgM Ab (Immblot) Lyme IgM 23 kDa Band Lyme IgM 39 kDa Band Lyme IgM 41 kDa Band 02/18/24 12:11 WBC RBC Hgb Hct MCV MCH MCHC RDW Plt Count MPV Immature Gran % (Auto) Neut % (Auto) Lymph % (Auto) [place] % (Auto) Eos % (Auto) Baso % (Auto) Lymph # (Auto) [place] # (Auto) Eos # (Auto) Baso # (Auto) Abs Immat Gran (auto) Absolute Neuts (auto) Absolute Nucleated RBC Nucleated RBC % Platelet Estimate Anisocytosis Macrocytosis Ovalocytes Schistocytes Sodium Potassium Chloride Carbon Dioxide Anion Gap BUN Creatinine Estim Creat Clear Calc Estimated GFR Glucose POC Capillary Glucose Calcium Magnesium Lyme IgG 18 kDa Band Non-reactive Lyme IgG 23 kDa Band Non-reactive Lyme IgG 28 kDa Band Non-reactive Lyme IgG 30 kDa Band Non-reactive Lyme IgG 39 kDa Band Non-reactive Lyme IgG 41 kDa Band Non-reactive Lyme IgG 45 kDa Band Non-reactive Lyme IgG 58 kDa Band Reactive A Lyme IgG 66 kDa Band Non-reactive Lyme IgG 93 kDa Band Non-reactive Lyme IgG Ab (Immblot) Negative Lyme IgM Ab (Immblot) Negative Lyme IgM 23 kDa Band Non-reactive Lyme IgM 39 kDa Band Non-reactive Lyme IgM 41 kDa Band Non-reactive Preliminary micro results at discharge 02/18/24 16:02 Fungal Culture and Stain - Preliminary Cerebral Spinal Fluid Discharge Plan Discharge Consulting providers: Amita Sykes Discharge Instructions: Per Care Coordination, patient to discharge with [facility] ([phone]) for PT /OT and senior living . Agency will call to arrange initial visit. Patient Instructions: Urinary Tract Infection in Older Adults (DC) Patient Language: Spanish Discharge Medications: No Action metformin 500 mg tablet 500 mg PO BID hydroxyurea 500 mg capsule 500 mg PO DAILY atorvastatin 20 mg tablet 20 mg PO DAILY lisinopril 20 mg tablet 20 mg PO DAILY ferrous sulfate [FeroSul] 325 mg (65 mg iron) tablet 325 mg PO BID hydrochlorothiazide 25 mg tablet 25 mg PO DAILY metoprolol succinate 25 mg tablet extended release 24 hr 25 mg PO DAILY Tradjenta 5 mg tablet 5 mg PO DAILY aspirin [Adult Aspirin EC Low Strength] 81 mg Tablet,Delayed Release (Dr/Ec) 81 mg PO DAILY Date of admission: 02/15/24 16:22 Primary Care Provider: Kyle,Clive Us Admitting Provider: Deann Mcleod Attending physician on admission: Sabrina Urbano Condition: Stable
[2024-02-23 11:48] LABS: Glucose Point of Care 157 mg/dl (65-105)
[2024-02-23 12:26] VITALS: BP 139/60; PULSE 73; RESP 16; TEMP 36.4; O2SAT 98
--- NOTE | 2024-02-23 12:31 | P.PNIM_ITS ---
Progress Note: A&P Assessment and Plan (1) Metabolic encephalopathy: Code(s): G93.41 - Metabolic encephalopathy Status: Resolved Assessment and Plan: [place] to be related to acute infection, underwent workup for meningitis but ultimately negative cultures with the exception of urine culture. Resolved (2) Altered mental status: Qualifiers: Altered mental status type: unspecified Qualified Code(s): R41.82 - Altered mental status, unspecified Code(s): R41.82 - Altered mental status, unspecified Status: Resolved Assessment and Plan: Seroquel 50 mg HS to help maintain wake/sleep cycles, feel this helped significantly. See above, resolved (3) Acute UTI: Code(s): N39.0 - Urinary tract infection, site not specified Status: Acute Assessment and Plan: Klebsiella on urine culture 02/12 (4) Hypertensive urgency: Code(s): I16.0 - Hypertensive urgency Status: Acute Assessment and Plan: Potentially a contributing factor to encephalopathy, medications changed and patient is improving. (5) Type 2 diabetes mellitus with hyperglycemia, without long-term current use of insulin: Code(s): E11.65 - Type 2 diabetes mellitus with hyperglycemia Status: Acute Assessment and Plan: Restart metformin, decrease Lantus to 8 units daily and continue moderate dose SSI, on discharge resume Tradjenta and discontinue Lantus, continue sliding scale as needed Plan DVT prophylaxis: Continue with heparin SQ Code status: Full Disposition: SNF placement pending insurance authorization Time Spent With Patient Time with patient: Greater than 35 minutes Subjective Date/time seen: 02/23/24 12:31 Interval history: Patient appears back to baseline status. Discharge plan set for [facility] with insurance auth started today. Will plan UA with culture in one week at [place], this has been ordered already. LONG discussion with patient's daughter Sarai regarding current condition, hospital course and plans for discharge. Patient would be stable for discharge today but only started to improve yesterday. Reviewed labs, supplemented potassium and magnesium. Discontinued antibiotics as Rocephin has been in place since 02/12 with Klebsiella UTI as only cultured infection found. Blood sugars have been low with morning checks. Decrease lantus back to 8 units HS, medium dose SSI and restart metformin. Patient will restart Trajenta on discharge with only SSI. Also discontinue lisinopril/HCTZ due to recent IQRA. BP improved with amlodipine and hydralazine. Addition of Seroquel at night also seems to be making a big difference. Review of Systems Review of Systems: All systems reviewed & are unremarkable except as noted in HPI and below Exam Narrative: GENERAL: Well-appearing, well-nourished, and in no acute distress. HEAD: Normocephalic, atraumatic. ENT:? Mucous membranes moist. CHEST: Clear to auscultation.? No respiratory distress. HEART: Regular rate and rhythm. ? Normal peripheral pulses. ABDOMEN: Soft, nontender, nondistended. EXTREMITIES: Normal range of motion. No peripheral edema. SKIN: Warm dry normal color NEURO: Alert and oriented x3. PSYCH: Normal mood and affect Objective Data Vital Signs Vital Signs: Vital Signs - 24 hr 02/22/24 12:44 02/22/24 16:00 02/22/24 20:00 Temperature 36.6 C 36.6 C Pulse Rate 73 66 Respiratory Rate 16 12 Blood Pressure 150/64 H 137/60 Pulse Oximetry 98 97 Oxygen Delivery Room Air 02/22/24 22:00 02/23/24 06:45 02/23/24 08:53 Temperature 36.4 C 36.9 C 36.4 C L Pulse Rate 54 L 64 81 Respiratory Rate 18 16 16 Blood Pressure 124/57 L 165/72 H 178/84 H Pulse Oximetry 99 100 96 Oxygen Delivery 02/23/24 08:55 02/23/24 08:56 02/23/24 12:26 Temperature 36.4 C L Pulse Rate 78 73 Respiratory Rate 16 Blood Pressure 139/60 Pulse Oximetry 96 98 Oxygen Delivery Room Air Intake/Output Intake/Output: Intake & Output 02/20/24 02/21/24 02/22/24 02/23/24 23:59 23:59 23:59 23:59 Intake Total 2961.8 3930.9 1580 440 Output Total 200 1050 1385 700 Balance 2761.8 2880.9 195 -260 Meds/Results Medications: Active Medications Generic Name Dose Route Start Last Admin Trade Name Freq PRN Reason Stop Dose Admin Amlodipine Besylate 10 mg 02/17/24 09:00 02/23/24 08:55 Amlodipine Besylate 10 Mg Tablet PO 10 mg DAILY [place] Administration Aspirin 81 mg 02/14/24 09:00 02/23/24 08:55 Aspirin 81 Mg Enteric Tablet PO 81 mg DAILY [place] Administration Atorvastatin Calcium 20 mg 02/14/24 09:00 02/23/24 08:55 Atorvastatin 20 Mg Tablet PO 20 mg DAILY [place] Administration Dextrose 12.5 gm 02/14/24 09:21 Dextrose 50% 25 Gm/50 Ml Syringe IV PUSH PRN PRN Hypoglycemia Protocol Ferrous Sulfate 325 mg 02/14/24 08:00 02/23/24 08:55 Ferrous Sulfate [address] PO 325 mg BIDWM [place] Administration Glucagon 1 mg 02/14/24 09:21 Glucagon For Inj 1 Mg Vial IM PRN PRN Hypoglycemia Protocol Glucose 15 gm 02/14/24 09:21 Glucose Oral Gel 15 Gm Of Glucse In 37.5 Gm Tube PO PRN PRN Hypoglycemia Protocol Heparin Sodium (Porcine) 5,000 units 02/17/24 09:00 02/23/24 08:55 Heparin Sodium 5,000 Units/Ml Vial SUB-Q 5,000 units Q12HR [place] Administration Hydralazine HCl 12.5 mg 02/21/24 17:00 02/23/24 12:28 Hydralazine 12.5 Mg Tablet PO 12.5 mg TID [place] Administration Dextrose 1,000 mls @ 100 mls/hr 02/14/24 09:21 Dextrose 5% 1,000 Ml IVPB PRN PRN Hypoglycemia Protocol Insulin Aspart 3 - 6 units 02/14/24 12:00 02/23/24 12:28 Insulin Aspart (*Bkc) 100 Units/Ml SUB-Q Not Given TIDWM [facility] Protocol Insulin Glargine 8 units 02/23/24 21:00 Insulin Glargine (*Bkc) 100 Units/Ml SUB-Q HS [facility] Lisinopril 20 mg 02/14/24 09:00 02/16/24 12:35 Lisinopril 20 Mg Tablet PO 20 mg DAILY [place] Administration Metformin HCl 500 mg 02/23/24 17:00 Metformin Hcl 500 Mg Tablet PO BIDWM [place] Metoprolol Succinate 25 mg 02/14/24 09:00 02/23/24 08:56 Metoprolol Succinate Ext Rel 25 Mg Tabcr PO 25 mg DAILY [place] Administration Quetiapine Fumarate 50 mg 02/22/24 21:00 02/22/24 21:52 Quetiapine Fumarate 25 Mg Tablet PO 50 mg HS [place] Administration Radiology Results: ITS Impressions Head CT 02/13/24 17:19 IMPRESSION: Cerebral atherosclerosis and chronic small vessel ischemic changes of the cerebral white matter Bilateral chronic basal ganglia lacunar infarcts No acute intracranial finding Chest X-Ray 02/13/24 20:38 IMPRESSION: 1. No acute cardiopulmonary disease. Thyroid Ultrasound 02/14/24 11:15 IMPRESSION: 1. Small thyroid nodules, likely not clinically significant. No follow-up is needed. Brain MRI 02/16/24 15:05 IMPRESSION: No acute intracranial process. Head/Neck CTA 02/17/24 15:01 IMPRESSION: 1. Stable moderate nonspecific cerebral white matter disease, which likely represents chronic small vessel ischemic disease. 2. No aneurysm or significant intracranial axial stenosis. 3. 0% stenosis of the proximal internal carotid arteries relative to normal distal artery lumen diameters (NASCET criteria). Lumbar Puncture Fluoroscopy 02/18/24 18:15 IMPRESSION: 1. Successful fluoro-guided lumbar puncture with normal opening pressure of 16 cm water. Labs Labs: Laboratory Results - last 24 hr 02/18/24 02/22/24 02/22/24 12:11 17:01 21:35 WBC RBC Hgb Hct MCV MCH MCHC RDW Plt Count MPV Immature Gran % (Auto) Neut % (Auto) Lymph % (Auto) [place] % (Auto) Eos % (Auto) Baso % (Auto) Lymph # (Auto) [place] # (Auto) Eos # (Auto) Baso # (Auto) Abs Immat Gran (auto) Absolute Neuts (auto) Absolute Nucleated RBC Nucleated RBC % Platelet Estimate Anisocytosis Macrocytosis Ovalocytes Schistocytes Sodium Potassium Chloride Carbon Dioxide Anion Gap BUN Creatinine Estim Creat Clear Calc Estimated GFR Glucose POC Capillary Glucose 169 H 313 H Calcium Magnesium Lyme IgG 18 kDa Band Non-reactive [place] IgG 23 kDa Band Non-reactive [place] IgG 28 kDa Band Non-reactive [place] IgG 30 kDa Band Non-reactive [place] IgG 39 kDa Band Non-reactive [place] IgG 41 kDa Band Non-reactive [place] IgG 45 kDa Band Non-reactive [place] IgG 58 kDa Band Reactive A [place] IgG 66 kDa Band Non-reactive [place] IgG 93 kDa Band Non-reactive [place] IgG Ab (Immblot) Negative Lyme IgM Ab (Immblot) Negative Lyme IgM 23 kDa Band Non-reactive [place]yme IgM 39 kDa Band Non-reactive [place] IgM 41 kDa Band Non-reactive 02/23/24 02/23/24 02/23/24 05:06 05:09 07:37 WBC 7.5 RBC 2.42 L Hgb 9.1 L Hct 28.2 L MCV 116.5 H MCH 37.6 H MCHC 32.3 RDW 14.7 H Plt Count 486 H MPV 9.3 Immature Gran % (Auto) 0.3 Neut % (Auto) 66.7 Lymph % (Auto) 15.1 L [place] % (Auto) 13.8 H Eos % (Auto) 2.9 Baso % (Auto) 1.2 Lymph # (Auto) 1.13 [place] # (Auto) 1.0 H Eos # (Auto) 0.2 Baso # (Auto) 0.1 Abs Immat Gran (auto) 0.02 Absolute Neuts (auto) 5.0 Absolute Nucleated RBC 0.000 Nucleated RBC % 0.0 Platelet Estimate Increased Anisocytosis 1+ Macrocytosis 1+ Ovalocytes 1+ Schistocytes None seen Sodium 133 L Potassium 2.8 L* Chloride 109 H Carbon Dioxide 26 Anion Gap -2 L BUN 15 Creatinine 1.10 H Estim Creat Clear Calc 33 Estimated GFR 49 L Glucose 87 POC Capillary Glucose 71 Calcium 8.2 L Magnesium 1.6 Lyme IgG 18 kDa Band Lyme IgG 23 kDa Band Lyme IgG 28 kDa Band Lyme IgG 30 kDa Band Lyme IgG 39 kDa Band Lyme IgG 41 kDa Band Lyme IgG 45 kDa Band Lyme IgG 58 kDa Band Lyme IgG 66 kDa Band Lyme IgG 93 kDa Band Lyme IgG Ab (Immblot) Lyme IgM Ab (Immblot) Lyme IgM 23 kDa Band Lyme IgM 39 kDa Band Lyme IgM 41 kDa Band 02/23/24 11:42 WBC RBC Hgb Hct MCV MCH MCHC RDW Plt Count MPV Immature Gran % (Auto) Neut % (Auto) Lymph % (Auto) [place] % (Auto) Eos % (Auto) Baso % (Auto) Lymph # (Auto) [place] # (Auto) Eos # (Auto) Baso # (Auto) Abs Immat Gran (auto) Absolute Neuts (auto) Absolute Nucleated RBC Nucleated RBC % Platelet Estimate Anisocytosis Macrocytosis Ovalocytes Schistocytes Sodium Potassium Chloride Carbon Dioxide Anion Gap BUN Creatinine Estim Creat Clear Calc Estimated GFR Glucose POC Capillary Glucose 157 H Calcium Magnesium Lyme IgG 18 kDa Band Lyme IgG 23 kDa Band Lyme IgG 28 kDa Band Lyme IgG 30 kDa Band Lyme IgG 39 kDa Band Lyme IgG 41 kDa Band Lyme IgG 45 kDa Band Lyme IgG 58 kDa Band Lyme IgG 66 kDa Band Lyme IgG 93 kDa Band Lyme IgG Ab (Immblot) Lyme IgM Ab (Immblot) Lyme IgM 23 kDa Band Lyme IgM 39 kDa Band Lyme IgM 41 kDa Band Pulse Oximetry SpO2 results: 96-100% room air Attestation: I personally reviewed and interpreted this pulse oximetry as follows: Interpretation: No need for supplemental oxygenation at this time ECG Attestation: I personally reviewed and interpreted this ECG as follows: Quality VTE Prophylaxis VTE prophylaxis: pharmacologic ordered Hospitalist [facility] Advance Care Plan I have confirmed that the patient's Advanced Care Plan is present, code status is documented, or surrogate decision maker is listed in patient medical record.: Yes Medication Reconciliation I have utilized all available resources to obtain, update and review the patients current medications (includes all prescriptions, OTC, herbals, cannabis, and nutritional supplements).: Yes
[2024-02-23] MEDS: MAGNESIUM SULF 2 GM/WATER 50ML 2 GM/50 ML BAG IVPB (13:00)
[2024-02-23] MEDS: metFORMIN HCL 500 MG TABLET PO (16:23)
[2024-02-23 16:54] LABS: Glucose Point of Care 219 mg/dl (65-105)
[2024-02-23] MEDS: INSULIN ASPART (*BKC) 100 UNITS/ML SUB-Q (17:10)
[2024-02-23] MEDS: QUEtiapine FUMARATE 25 MG TABLET 50 MG PO (20:56)
[2024-02-23] MEDS: INSULIN GLARGINE (*BKC) 100 UNITS/ML 8 UNITS SUB-Q (20:57)
[2024-02-23 21:15] VITALS: BP 137/62; PULSE 64; RESP 20; TEMP 36.5; O2SAT 98
[2024-02-24] VITALS (7 sets, daily range): BP systolic 125–148; BP diastolic 50–69; PULSE 60–75; RESP 16–20; TEMP 35.9–37.3; O2SAT 93–100
[2024-02-24 00:19] LABS: Glucose Point of Care 217 mg/dl (65-105)
[2024-02-24 05:47] LABS: Basophils Absolute Auto 0.1 K/mm3 (0.0-0.1); Basophils Percent Auto 0.7 % (0.2-1.2); Eosinophils Absolute Auto 0.2 K/mm3 (0-0.3); Hematocrit 28.5 % (37.0-47.0); Hemoglobin 9.3 g/dL (12.0-15.0); Immature Granulocyte Absolute 0.04 K/mm3 (0.00-0.031); Immature Granulocyte Percent A 0.4 % (0-0.5); Lymphocytes Absolute Auto 1.35 K/mm3 (0.9-3.2); Lymphocytes Percent Auto 14.4 % (18.3-44.2); Mean Corpuscular HGB Conc 32.6 g/dl (32-36); Mean Corpuscular Hemoglobin 37.8 pg (26-34); Mean Corpuscular Volume 115.9 fl (80-100); Mean Platelet Volume 9.4 fl (7.4-10.4); Monocytes Absolute Auto 1.1 K/mm3 (0.1-0.6); Monocytes Percent Auto 11.4 % (2.6-8.5); Neutrophils Absolute Auto 6.7 K/mm3 (1.3-6.7); Neutrophils Percent Auto 71.1 % (45.5-73.1); Platelet Count Result 523 k/mm3 (150-375); Red Blood Count 2.46 M/mm3 (4.2-5.4); Red Cell Distribution Width 14.7 % (11.5-14.5); White Blood Count 9.4 K/mm3 (4.5-10.0)
[2024-02-24 06:06] LABS: Anion Gap -1 mmol/L (4-12); Blood Urea Nitrogen 16 mg/dL (7-17); Calcium 8.4 mg/dL (8.4-10.2); Carbon Dioxide 26 mmol/L (22-30); Chloride 109 mmol/L (98-107); Estimated CRCL calculation 30 ml/min; Estimated Glomerular Filt Rate 44; Glucose 58 mg/dL (65-110); Potassium 4.2 mmol/L (3.4-5.0); Sodium 134 mmol/L (137-145)
[2024-02-24 06:24] LABS: Macrocytosis 2+ (NORMAL); Platelet Estimate Increased (Adequate); Schistocytes None Seen
[2024-02-24 07:03] LABS: Glucose Point of Care 59 mg/dl (65-105)
[2024-02-24 07:03] LABS: Glucose Point of Care 89 mg/dl (65-105)
[2024-02-24 07:46] LABS: Glucose Point of Care 151 mg/dl (65-105)
[2024-02-24 07:58] LABS: Methylmalonic Acid 175 nmol/L (69-390)
[2024-02-24] MEDS: ASPIRIN 81 MG ENTERIC TABLET PO (08:19)
[2024-02-24] MEDS: amLODIPine BESYLATE 10 MG TABLET PO (08:19)
[2024-02-24] MEDS: HEPARIN SODIUM 5,000 UNITS/ML VIAL 5000 UNITS SUB-Q ×2 (08:19→20:39)
[2024-02-24] MEDS: metFORMIN HCL 500 MG TABLET PO ×2 (08:19→16:52)
[2024-02-24] MEDS: FERROUS SULFATE 325 MG TABLET DR PO ×2 (08:19→16:52)
[2024-02-24] MEDS: hydrALAZINE 12.5 MG TABLET PO ×3 (08:19→16:52)
[2024-02-24] MEDS: ATORVASTATIN 20 MG TABLET PO (08:19)
[2024-02-24] MEDS: METOPROLOL SUCCINATE EXT REL 25 MG TABCR PO (08:20)
[2024-02-24 10:40] LABS: Cryptococcus Antigen Not Detected
[2024-02-24 10:41] LABS: Cryptococcus Specimen Source CSF
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
[2024-02-24 11:58] LABS: Glucose Point of Care 133 mg/dl (65-105)
[2024-02-24 18:20] LABS: Glucose Point of Care 190 mg/dl (65-105)
[2024-02-24] MEDS: QUEtiapine FUMARATE 25 MG TABLET 50 MG PO (20:34)
[2024-02-24 21:05] LABS: Glucose Point of Care 187 mg/dl (65-105)
[2024-02-25 05:31] VITALS: BP 131/63; PULSE 62; RESP 16; TEMP 36.8; O2SAT 97
[2024-02-25 07:00] LABS: Anion Gap -2 mmol/L (4-12); Blood Urea Nitrogen 18 mg/dL (7-17); Calcium 8.5 mg/dL (8.4-10.2); Carbon Dioxide 25 mmol/L (22-30); Chloride 105 mmol/L (98-107); Estimated CRCL calculation 26 ml/min; Estimated Glomerular Filt Rate 37; Glucose 148 mg/dL (65-110); Potassium 4.3 mmol/L (3.4-5.0); Sodium 128 mmol/L (137-145)
[2024-02-25 07:52] LABS: Glucose Point of Care 145 mg/dl (65-105)
[2024-02-25 08:22] VITALS: PULSE 62
[2024-02-25] MEDS: METOPROLOL SUCCINATE EXT REL 25 MG TABCR PO (08:22)
[2024-02-25] MEDS: metFORMIN HCL 500 MG TABLET PO ×2 (08:23→16:46)
[2024-02-25] MEDS: ATORVASTATIN 20 MG TABLET PO (08:23)
[2024-02-25] MEDS: FERROUS SULFATE 325 MG TABLET DR PO ×2 (08:23→16:46)
[2024-02-25] MEDS: ASPIRIN 81 MG ENTERIC TABLET PO (08:23)
[2024-02-25] MEDS: hydrALAZINE 12.5 MG TABLET PO ×3 (08:23→16:46)
[2024-02-25] MEDS: amLODIPine BESYLATE 10 MG TABLET PO (08:23)
[2024-02-25] MEDS: HEPARIN SODIUM 5,000 UNITS/ML VIAL 5000 UNITS SUB-Q (08:23)
[2024-02-25] MEDS: SODIUM CHLORIDE 0.9% IV 500 ML 100 ML IV CONT (08:23)
[2024-02-25 11:56] LABS: Glucose Point of Care 144 mg/dl (65-105)
[2024-02-25 12:21] LABS: Anion Gap 3 mmol/L (4-12); Blood Urea Nitrogen 19 mg/dL (7-17); Calcium 8.5 mg/dL (8.4-10.2); Carbon Dioxide 26 mmol/L (22-30); Chloride 104 mmol/L (98-107); Estimated CRCL calculation 26 ml/min; Estimated Glomerular Filt Rate 37; Glucose 147 mg/dL (65-110); Potassium 4.5 mmol/L (3.4-5.0); Sodium 133 mmol/L (137-145)
[2024-02-25 13:27] VITALS: BP 125/56; PULSE 78; RESP 16; TEMP 36.6; O2SAT 96
[2024-02-25 15:19] LABS: Cytomegalovirus DNA Quant PCR Not Detected Log IU/mL (Not Detected); Varicella IgG Antibody 3.58 S/CO; Varicella IgM Antibody 0.19
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
[2024-02-25 16:52] LABS: Glucose Point of Care 152 mg/dl (65-105)
[2024-02-25 17:27] LABS: West Nile Virus, IgM <0.90 index
[2024-02-25] MEDS: QUEtiapine FUMARATE 25 MG TABLET 50 MG PO (19:42)
[2024-02-29 09:36] LABS: VDRL Quantitative CSF Non-Reactive
== END 2024-02-25 20:00 | DRG 304 ==
LOC: ANHED 02-14 00:46 → ANHIMU 02-14 07:38 → ANH2MED 02-15 22:55
PROVIDERS: Internal Medicine; Nurse Practitioner; Nurse Practitioner Acute Care; Nurse Practitioner Adult Health; Psychiatry & Neurology Neurology; Student in an Organized Health Care Education/Training Program; Admitting Provider Internal Medicine; Emergency Provider Emergency Medicine; PCP Family Medicine; Visit Provider Internal Medicine
DX: I16.0 Hypertensive urgency (principal); G93.41 Metabolic encephalopathy; N39.0 Urinary tract infection, site not specified; E87.1 Hypo-osmolality and hyponatremia; N17.9 Acute kidney failure, unspecified; I67.4 Hypertensive encephalopathy; E11.65 Type 2 diabetes mellitus with hyperglycemia; E11.22 Type 2 diabetes mellitus with diabetic chronic kidney disease; G40.909 Epilepsy, unspecified, not intractable, without status epilepticus; N18.9 Chronic kidney disease, unspecified; E87.6 Hypokalemia; D47.3 Essential (hemorrhagic) thrombocythemia; E78.5 Hyperlipidemia, unspecified; I49.9 Cardiac arrhythmia, unspecified; D50.9 Iron deficiency anemia, unspecified; Z96.1 Presence of intraocular lens; Z98.42 Cataract extraction status, left eye
CPT/HCPCS: 36415; 62328; 70450; 70496; 70498; 70553; 71045; 76536; 80048; 80053; 80069; 81001; 82306; 82570; 82607; 82746; 82945; 82948; 83036; 83605; 83735; 83921; 84157; 84207; 84300; 84425; 84436; 84439; 84443; 85025; 85027; 85055; 85610; 85730; 86140; 86403; 86592; 86617; 86703; 86787; 86788; 87040; 87070; 87086; 87102; 87186; 87206; 87497; 87529; 87637; 87798; 88108; 89051; 93005; 93306; 95816; 96365; 96367; 96375; 97110; 97116; 97161; 97166; 97530; 97535; 99285; A9270; A9577; G0378; G0432; J0133; J0360; J0696; J1630; J1644; J1815; J3411; J3475; J3480; J7030; J7040; J7060; Q9967

== ENCOUNTER 2024-03-03 08:46 | Outpatient (CLI) | payer MEDICARE, SELFPAY ==
[2024-03-03 09:54] LABS: Appearance Urine Clear (Clear); Color Urine Colorless (Yellow); Glucose Urine UA Negative (Negative); Ketones Urine Negative (Negative); Protein Urine 2+ mg/dL (Negative)
[2024-03-03 09:55] LABS: Add Urine Microscopic? YES; Bilirubin Urine Negative (Negative); Blood Urine Trace-intact (Negative); Leukocyte Esterase Ur Negative LEU/UL (Negative); Nitrate Urine Negative (Negative); Urobilinogen Urine 0.2 mg/dL (<2.0)
--- OUTSIDE RECORDS SUMMARY | 2024-03-10 20:14 | XMS_ITS | Encounter Summary ---
Author Organization [facility] Healthcare Address [address] [place] [address] Care Team Providers Care Tile Professional Name Role Phone Clive Wright MD Primary Care Provider [phone] Karthikeyan Elaine DO Unavailable [phone] Encounter Details Date Type Department Care Team (Late st Contact Info) Description 01/28/2024 8:30 AM METAL LOADER Lab [facility] Medical Office Bldg 3 OP Lab [facility] [address] [address] 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, without long-term current use of insulin ([facility]/HCC) (HCC); Essential hypertension; Mixed hyperlipidemia Social History Tobacco Use Types Packs/Day Years Used Date Smoking Tobacco: Never Smokeless Tobacco: Never Alcohol Use Standard Drinks/Week Comments Not Currently 0 (1 standard drink = 0.6 oz pur e alcohol) occasion AUDIT-C Answer Date Recorded Q1: How often do you have a drink containing alc ohol? Never 04/30/2023 Average Number of Drinks Not on file 024 Frequency of Binge Drinking Not on file 04/10 PHQ-2 Answer Date Recorded PHQ-2 Total Score (If total score is 3 or more points, staff should administer the PHQ-9) 0 11/05/2023 Comments Unknown Sex and Gender Information Value Date Recorded Sex Assigned at Not on file Legal Sex Female 8:44 PM METAL LOADER Gender Identity Not on file Sexual Orientation Not on file Occupation Industry Job Start Date Job End Date Retired Not on file Not on file Not on file documented as of this encounter Plan of Treatment Not on file documented as of this encounter Procedures Procedure Name Priority Date/Time Associated Diagnosis Comments ALBUMIN CREATININE RATIO, URINE Routine 01/28/2024 9:21 AM METAL LOADER 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, without long-term current use of insulin ([facility]) (HCC) EGFR Routine 01/28/2024 8:48 AM METAL LOADER Essential hypertension Mixed hyperlipidemia DIFFERENTIAL AUTO Routine 01/28/2024 8:4 8 AM METAL LOADER Essential hypertension CBC WITH AUTO DIFFERENTIAL Routine 01/28/2024 8:48 AM METAL LOADER Essential hypertension HEMOGLOBIN A1C Routine 01/28/2024 8:48 AM METAL LOADER 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, without long-term current use of insulin ([facility]) (HCC) LIPID PANEL Routine 01/28/2024 8:48 AM METAL LOADER Mixed hyperlipidemia COMPREHENSIVE METABOLIC PANEL Routine 01/28/2024 8:48 AM METAL LOADER Essential hypertension Mixed hyperlipidemia documented in this encounter Results * (ABNORMAL) Albumin Creatinine Ratio, Urine (01/28/2024 9:21 AM METAL LOADER) Albumin Ur 3,802.0 mg/L Comment: Interpretive Data No reference range established. Current interpretive data was last revised 2018. Creatinine Ur 94.8 mg/dL [facility] Comment: Interpretive Data No reference range established. Current interpretive data was last revised 2018. Albumin Creatinine Ratio, Ur 4,011(H) 1 - 29 mg/g [facility] Urine 01/28/2024 9:21 AM METAL LOADER 01/28/2024 1:12 PM METAL LOADER us Clive Wright MD LAB URINE ORDERABLES Final Re sult [facility] [address] [facility] Department [place] [address] * eGFR (01/28/2024 8:48 AM METAL LOADER) eGFR 64 >=60 mL/min/1. 73 m2 Comment: Interpretive Data Reference Interval Normal ?>/= 90 mL/min/1.73m2 Mildly decreased* ? 60 - 89 mL/min/1.73m2 Mildly to moderately decreased ?45 - 59 mL/min/1.73m2 Moderately to severely decreased ??30 - 44 mL/min/1.73m2 Severely decreased ?15 - 29 mL/min/1.73m2 Kidney Failure ?< 15 ??mL/min/1.73m2 *Relative to young adult level Estimated glomerular filtration rate is determined by the 2020 CKD-EPI equation recommended by the National Kidney Foundation (A Unifying Approach to GFR Estimation: Recommendations of the NKF-ASK Task Force on Reassessing the Inclusion of Race in Diagnosing Kidney Disease, JASN 2020). The CKD-EPI equation should not be used for patients with unstable renal function and has not been validated in children and those over 70. Current interpretive data was last reviewed 2021. Blood 01/28/2024 8:48 AM METAL LOADER 01/28/2024 12:45 PM METAL LOADER Clive Wright MD LAB BLOOD ORDERABLES Final Re sult [facility] [address] [facility] Department [place] [address] * (ABNORMAL) Differential, auto (01/28/2024 8:48 AM METAL LOADER) Pathologist [facility] Neutrophil abs 7.3(H) 1.5 - 6.5 K/cumm Imm gran abs 0.0 0.0 - 0.1 K/cumm [facility] Lymphocyte abs 1.4 0.8 - 3.3 K/cumm [facility] Monocyte abs 0.5 0.2 - 0.8 K/cumm [facility] Eosinophil abs 0.1 0.0 - 0.5 K/cumm [facility] Basophil abs 0.1 0.0 - 0.1 K/cumm [facility] Neutrophil pct 77.9 % [facility] Comment: Interpretive Data Percent cell count reference ranges are not reported, since discordance with absolute values may lead to misinterpretation of CBC data. Current Interpretive Data was last revised on 2017. Imm gran pct 0.3 % [facility] Comment: Interpretive Data Percent cell count reference ranges are not reported, since discordance with absolute values may lead to misinterpretation of CBC data. Current Interpretive Data was last revised on 2017. Lymphocyte pct 15.2 % [facility] Comment: Interpretive Data Percent cell count reference ranges are not reported, since discordance with absolute values may lead to misinterpretation of CBC data. Current Interpretive Data was last revised on 2017. Monocyte pct 5.3 % [facility] Comment: Interpretive Data Percent cell count reference ranges are not reported, since discordance with absolute values may lead to misinterpretation of CBC data. Current Interpretive Data was last revised on 2017. Eosinophil pct 0.7 % [facility] Comment: Interpretive Data Percent cell count reference ranges are not reported, since discordance with absolute values may lead to misinterpretation of CBC data. Current Interpretive Data was last revised on 2017. Basophil pct 0.6 % [facility] Comment: Interpretive Data Percent cell count reference ranges are not reported, since discordance with absolute values may lead to misinterpretation of CBC data. Current Interpretive Data was last revised on 2017. Blood 01/28/2024 8:48 AM METAL LOADER 01/28/2024 12:48 PM METAL LOADER us Clive Wright MD LAB BLOOD ORDERABLES Final Re sult [facility] [address] [facility] Department [place] [address] * (ABNORMAL) Hemoglobin A1c (01/28/2024 8:48 AM METAL LOADER) Hgb A1C 7.1(H) 4.0 - 5.6 % Estimated Average Glucose 157 mg/dL [facility] Comment: The ADA recommends reporting an estimated Average Glucose (eAG) with all Hemoglobin A1c results using the equation derived from a study of 507 normal and diabetic adults. ??Minority populations were underrepresented and children were not included. ?? (Diabetes Care 31:5928-2499, 2008). ??The eAG is not equivalent to a fasting glucose. Blood 01/28/2024 8:48 AM METAL LOADER 01/28/2024 12:48 PM METAL LOADER us Clive Wright MD LAB BLOOD ORDERABLES Final Re sult [facility] [address] [facility] Department [place] [address] * Lipid panel (01/28/2024 8:48 AM METAL LOADER) Cholesterol 184 30 - 199 mg/dL Comment: Interpretive Data Ages < or = 19 years ??Acceptable: ? <170 mg/dL ??Borderline high: ??170-199 mg/dL ??High: ? >or= 200 mg/dL Ages > or = 20 years ??Desirable: ?<200 mg/dL ??Borderline high: ??200-239 mg/dL ??High: ? >or= 240 mg/dL Literature References: 1. Expert Panel on Integrated Guidelines for Cardiovascular Health and Risk Reduction in Children and Adolescents. Pediatrics 2011;128:S213 2. NCEP Expert Panel. Circulation 2004;110:227 Current Interpretive Data was last revised on 2017. Triglycerides 145 <=149 mg/dL [facility] Comment: Interpretive Data Ages < or = 9 years ??Acceptable: ? <75 mg/dL ??Borderline high: ??75-99 mg/dL ??High: ? >or= 100 mg/dL Ages 10 to 20 years ??Acceptable: ? <90 mg/dL ??Borderline high: ??90-129 mg/dL ??High: ? >or= 130 mg/dL Ages > or = 20 years ??Desirable: ?<150 mg/dL ??Borderline high: ??150-199 mg/dL ??High: ? 200-499 mg/dL ?Very high: ?? >or= 499 mg/dL Literature References: 1. Expert Panel on Integrated Guidelines for Cardiovascular Health and Risk Reduction in Children and Adolescents. Pediatrics 2011;128:S213 2. NCEP Expert Panel. Circulation 2004;110:227 Current Interpretive Data was last revised on 2017. HDL 59 >=40 mg/dL [facility] Comment: Interpretive Data Ages < or = 19 years ??Acceptable: ? >45 mg/dL ??Borderline low: ?? 40-45 mg/dL ??Low: ? <40 mg/dL Ages > or = 20 years ??Desirable: ?>or= 60 mg/dL ??Low: ? <40 mg/dL Literature References: 1. Expert Panel on Integrated Guidelines for Cardiovascular Health and Risk Reduction in Children and Adolescents. Pediatrics 2011;128:S213 2. NCEP Expert Panel. Circulation 2004;110:227 Current Interpretive Data was last revised on 2017. LDL, calculated 100 <=129 mg/dL [facility] Comment: Interpretive Data Ages < or = 19 years ??Acceptable: ? <110 mg/dL ??Borderline high: ??110-129 mg/dL ??High: ?>or= 130 mg/dL Ages > or = 20 years ??Optimal: ? <100 mg/dL ??Near optimal: ?100-129 mg/dL ??Borderline high: ?? 130-159 mg/dL ??High: ?>160 mg/dL Calculated using the Izaguirre LDL-C estimating equation. This equation was implemented on 2023. Prior to this date LDL-C was estimated using the Friedewald equation. Literature References: 1. Expert Panel on Integrated Guidelines for Cardiovascular Health and Risk Reduction in Children and Adolescents. Pediatrics 2011;128:S213 2. NCEP Expert Panel. Circulation 2004;110:227 3. Dmitriy Blackwell et al. CARRIE Cardiol. 2019July 07;5(5):540-548. doi: 10.1001/[email or web address].2020.0013 Current Interpretive Data was last revised on 2023. Non-HDL Cholesterol 125 mg/dL [facility] Comment: Interpretive Data Ages < or = 19 years ??Acceptable: ?<120 mg/dL ??Borderline high: ??120-144 mg/dL ??High: ?>145 mg/dL Ages > or = 20 years ??When triglycerides are >200 mg/dL, Non-HDL cholesterol is a secondary target of ? therapy with treatment goals that are 30 mg/dL greater than the LDL cholesterol target. ? Literature References: 1. Expert Panel on Integrated Guidelines for Cardiovascular Health and Risk Reduction in Children and Adolescents. Pediatrics 2011;128:S213 2. NCEP Expert Panel. Circulation 2004;110:227 Current Interpretive Data was last revised on 2017. Chol/HDL ratio 3 [facility] Blood 01/28/2024 8:48 AM METAL LOADER 01/28/2024 12:45 PM METAL LOADER Clive Wright MD LAB BLOOD ORDERABLES Final Re sult [facility] [address] [facility] Department [place] [address] * (ABNORMAL) Comprehensive metabolic panel (01/28/2024 8:48 AM METAL LOADER) Pathologist [facility] Sodium 137 135 - 145 mmol/L Potassium, pl 4.1 3.3 - 4.9 mmol/L [facility] Chloride 99 97 - 110 mmol/L [facility] CO2 25 22 - 32 mmol/L [facility] Anion gap 13 2 - 15 mmol/L [facility] BUN 17 6 - 25 mg/dL [facility] Creatinine 0.94 0.60 - 1.10 mg/dL [facility] Glucose 181 70 - 199 mg/dL [facility] Comment: Interpretive Data Fasting glucose >/= 126 mg/dl is diagnostic for diabetes. ?? Fasting is defined as no caloric intake for at least 8 hours. Fasting glucose between 100 mg/dl to 125 mg/dl is diagnostic of prediabetes. In a patient with classic symptoms of hyperglycemia or hyperglycemic crisis, a random glucose >/= 200 mg/dl is diagnostic for diabetes. In the absence of unequivocal hyperglycemia, results should be confirmed by repeat testing. The classification and Diagnosis of Diabetes Diabetes Care 2021; 46: S19-S40. Current interpretive data was last revised 2022. Calcium 9.5 8.5 - 10.3 mg/dL [facility] Bilirubin, total 0.4 0.1 - 1.2 mg/dL [facility] Protein, pl 6.9 6.5 - 8.5 g/dL [facility] Albumin 4.0 3.5 - 5.0 g/dL [facility] Alk phos 51 40 - 130 Units/L [facility] ALT <5(L) 7 - 45 Units/L [facility] Comment:Specimen is Lipemic; results may be inaccurate due to high levels of lipids. AST 24 10 - 45 Units/L [facility] Comment:Specimen is Lipemic; results may be inaccurate due to high levels of lipids. Blood 01/28/2024 8:48 AM METAL LOADER 01/28/2024 12:45 PM METAL LOADER Clive Wright MD LAB BLOOD ORDERABLES Final Re sult [facility] [address] [facility] Department [place] [address] * (ABNORMAL) CBC with auto differential (01/28/2024 8:48 AM METAL LOADER) Pathologist [facility] WBC 9.4 3.8 - 9.9 K/cumm Hgb 11.5(L) 11.9 - 15.5 g/dL [facility] Hct 35.0(L) 35.6 - 45.5 % [facility] Plt 672(H) 150 - 400 K/cumm [facility] MPV 9.5 9.1 - 12.3 fL [facility] RBC 3.06(L) 3.90 - 5.20 M/cumm [facility] MCV 114.4(H) 81.3 - 96.4 fL [facility] MCH 37.6(H) 27.1 - 33.3 pg [facility] MCHC 32.9 32.3 - 35.7 g/dL [facility] RDW CV 13.1 11.1 - 14.9 % [facility] RDW SD 54.0(H) 35.7 - 48.1 fL [facility] NRBC abs 0.00 0.00 - 0.01 K/cumm [facility] Blood 01/28/2024 8:48 AM METAL LOADER 01/28/2024 12:48 PM METAL LOADER us Clive Wright MD LAB BLOOD ORDERABLES Final Re sult [facility] [address] [facility] Department [place] [address] documented in this encounter Visit Diagnoses Diagnosis 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, without long-term current use of insulin (CMS/HCC) (HCC) Essential hypertension Unspecified essential hypertension Mixed hyperlipidemia documented in this encounter Care Teams Tile Professional Relationship Specialty Start Date End Date Clive Wright MD PCP - General Family Medicine 09/15/18 Karthikeyan Elaine DO [address] [place] [address] Medical Oncologist/Gardening Supervisor Hematology and Oncology 10/27/18 documented as of this encounter
--- OUTSIDE RECORDS SUMMARY | 2024-03-10 20:14 | XMS_ITS | Encounter Summary ---
Author Organization [facility] Healthcare Address [address] [place] [address] Care Team Providers Care Director Gift Name Role Phone Clive Wright MD Primary Care Provider [phone] Karthikeyan Elaine DO Unavailable [phone] Alyssa Jones RN Unavailable [phone] Encounter Details Date Type Department Care Team (Late st Contact Info) Description 02/23/2024 Telephone [facility] Family Medicine at [address] [place] [address] Clive Wright MD [facility] [address] [address] Social History Tobacco Use Types Packs/Day Years [...] on file 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 Gender Identity Not on file Sexual Orientation Not on file Occupation Industry Job Start Date Job End Date Retired Not on file Not on file Not on file documented as of this encounter Plan of Treatment Not on file documented as of this encounter Visit Diagnoses Not on filedocumented in this encounter Care Teams Director Gift Relationship Specialty Start Date End Date Clive Wright MD PCP - General Family Medicine 09/15/18 Karthikeyan Elaine DO [address] [place] [address] Medical Oncologist/Form Maker Plaster Hematology and Oncology 10/27/18 Alyssa Jones, JAMES [address] [place] [address] [address] [place] [address] Manager Enterprise Content Management 02/29/24 documented as of this encounter
--- OUTSIDE RECORDS SUMMARY | 2024-03-10 20:14 | XMS_ITS | Encounter Summary ---
Author Organization [facility] Healthcare Address [address] [place] [address] Care Team Providers Care Preparing Box Tender Name Role Phone Clive Wright MD Primary Care Provider [phone] Karthikeyan Elaine DO Unavailable [phone] Reason for Visit * Reason Onset Date Comments ROMÁN Questions 02/26/2024 Encounter Details Date Type Department Care Team (Late st Contact Info) Description 02/26/2024 Telephone [facility] Medical Group Family Medicine at [address] [place] [address] Clive Wright MD [address] [place] [id number] ROMÁN Questions Social History Tobacco Use Types Packs/Day Years [...] on file 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 Gender Identity Not on file Sexual Orientation Not on file Occupation Industry Job Start Date Job End Date Retired Not on file Not on file Not on file documented as of this encounter Miscellaneous Notes * Telephone Encounter - Nenita Barahona RN - 02/26/2024 12:36 PM CST TRANSITION OF CARE Called and talked to patient today regarding the following: Hospital patient was admitted to: [facility] Date patient was admitted to hospital: 02/13/24 Date patient was discharged from hospital: 02/25/24 Reason for patient's admission to hospital: Altered Mental status How is patient feeling since being released from hospital? Admitted to assisted living- still with some confusion Was patient prescribed any new medications? Yes If patient was prescribed new medications are they taking them as prescribed? yes Any symptoms? Still with some confusion. Appt 03/07/24 Kori Mulligan RN have personally reviewed pertinent Hospital/ER data including [employer] and Care Everywhere if available. This patient's discharge medication list has been reviewed and reconciled with her medication list in the office chart and has also been reviewed with patient and/or caregiver. I have noted any changes. If patient has any questions or concerns, please feel free to call back T PATHOLOGIST * Telephone Encounter - Etta June - 02/26/2024 12:08 PM CST ROMÁN Questions (Message from [facility]-Piano Accompanist): Has patient been discharged at time of call? Yes Date Admitted: 02/12 Date Discharged: 02/24 Facility Admitted To: [facility] Reason for Stay? Altered mental status If prescribed new medications, do you have any questions or concerns? yes Do you have enough medication to get you to your follow-up appointment? yes Since being released do you feel better, the same, or worse? better Date of ROMÁN Appointment: 03/07 Do you have transportation to the appointment? yes Additional Comments: please call the daughter if needed Does message need to be routed? Yes-Action Needed T PATHOLOGIST documented in this encounter Plan of Treatment Not on file documented as of this encounter Visit Diagnoses Not on filedocumented in this encounter Discontinued Medications Medication Sig Discontinue Reason Start Date End Da te lisinopriL (PRINIVIL,ZESTRIL) 20 mg tablet Take 1 tablet by mouth once daily Alternate therapy 02/12/2024 02/26/2024 Tradjenta 5 mg tablet Take 1 tablet (5 mg total) by mouth daily Alternate therapy 04/30/2023 02/26/2024 documented as of this encounter Historical Medications * This list may reflect changes made after this encounter. hydrALAZINE (APRESOLINE) 25 mg tablet Take 0.5 tablets (12.5 mg total) by mouth 3 (three) times a day 02/25/2024 QUEtiapine (SEROquel) 50 mg tablet Take 1 tablet (50 mg total) by mouth nightly 02/25/2024 amLODIPine (NORVASC) 10 mg tablet Take 1 tablet (10 mg total) by mouth daily 02/25/2024 03/09/2024 added in this encounter Care Teams Preparing Box Tender Relationship Specialty Start Date End Date Clive Wright MD PCP - General Family Medicine 09/15/18 Karthikeyan Elaine DO [address] [place] [id number] Medical Oncologist/Bridges Supervisor Hematology and Oncology 10/27/18 documented as of this encounter
--- OUTSIDE RECORDS SUMMARY | 2024-03-10 20:14 | XMS_ITS | Encounter Summary ---
Author Organization [facility] Healthcare Address [address] [place] [address] Care Team Providers Care Head Of Cytogenetics Name Role Phone Clive Wright MD Primary Care Provider [phone] Karthikeyan Elaine DO Unavailable [phone] Reason for Visit * Reason Onset Date Comments Medical Question/Miscellaneous 01/26/2024 Encounter Details Date Type Department Care Team (Late st Contact Info) Description 01/26/2024 Telephone [facility] Medical Group Family Medicine at [address] [place] [address] Clive Wright MD [address] [place] [phone] Medical Question/Miscellaneous Social History Tobacco Use Types Packs/Day Years [...] on file 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 G[employer] SALES [employer] MARKET[employer] * Telephone Encounter - Genoveva Macario - 01/26/2024 9:34 AM CST Medical Question/Miscellaneous Caller???s Concern: Patient has labs that were ordered on 11/05/23 that she's going to get done tomorrow but they were entered for [facility], she's changed her mind and wants to come to our building to get them done. Can someone please re- enter them for [facility]? Does message need to be routed? Yes-Action Needed G[employer]ETING documented in this encounter Plan of Treatment Not on file documented as of this encounter Visit Diagnoses Not on filedocumented in this encounter Care Teams Head Of Cytogenetics Relationship Specialty Start Date End Date Clive Wright MD PCP - General Family Medicine 09/15/18 Karthikeyan Elaine DO [address] [place] [id number] Medical Oncologist/Telegraphic Typewriter Operator Chief Hematology and Oncology 10/27/18 documented as of this encounter
--- OUTSIDE RECORDS SUMMARY | 2024-03-10 20:14 | XMS_ITS | Encounter Summary ---
Author Organization [facility] Healthcare Address [address] [place] [address] Care Team Providers Care Cut File Clerk Name Role Phone Clive Wright MD Primary Care Provider [phone] Karthikeyan Elaine DO Unavailable [phone] Encounter Details Date Type Department Care Team (Late st Contact Info) Description 02/16/2024 Orders Only [facility] Health Information Management [address] [place] [id number] Clive Wright MD 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 Gender Identity Not on file Sexual Orientation Not on file Occupation Industry Job Start Date Job End Date Retired Not on file Not on file Not on file documented as of this encounter Plan of Treatment Not on file documented as of this encounter Procedures Procedure Name Priority Date/Time Associated Diagnosis Comments SCAN - RADIOLOGY/IMAGING 02/16/2024 documented in this encounter Results * SCAN - RADIOLOGY/IMAGING (02/16/2024) Anatomical Region Laterality Modality Other us Clive Wright MD Final Result documented in this encounter Visit Diagnoses Not on filedocumented in this encounter Care Teams Cut File Clerk Relationship Specialty Start Date End Date Clive Wright MD PCP - General Family Medicine 09/15/18 Karthikeyan Elaine DO [address] [place] [id number] Medical Oncologist/Operations [place] [facility] 10/27/18 documented as of this encounter
--- OUTSIDE RECORDS SUMMARY | 2024-03-10 20:14 | XMS_ITS | Referral Summary ---
Author Organization [facility] Address [address] [place] [address] Care Team Providers Care Media Technician Name Role Phone Clive Wright MD Primary Care Provider Karthikeyan Elaine DO Unavailable [phone] Alyssa Jones RN Unavailable Encounters Date Type Department Care Team Description 03/10/2024 Telephone [facility] at [address] [phone] Clive Wright MD Med Refill 03/07/2024 10:45 AM EMPLOYMENT SERVICE SPECIALIST Office Visit [facility] at [address] [place] [phone] Clive Wright MD Acute cystitis without hematuria (Primary Dx); Encephalopathy, unspecified type; Mild cognitive impairment; Essential hypertension; 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, without long-term current use of insulin ([facility]/HCC) (HCC); Thrombocytosis; Edema, lower extremity; Nonspecific abnormal electroencephalogram (EEG) 03/03/2024 Orders Only [facility] Health Information Management [address] [place] [address] Clive Wright MD 02/26/2024 Telephone [facility] Family [facility] at [address] [place] [address] Clive Wright MD ROMÁN Questions 02/23/2024 Telephone [facility] Family Medicine at [address] [place] [address] Clive Wright MD 02/22/2024 Telephone [facility] Family Medicine at [address] [place] [address] Clive Wright MD Medical Question/Miscellaneous 02/18/2024 Orders Only [facility] Health Information Management [address] [place] [address] Gaby Swartz MD 02/17/2024 Orders Only [facility] Health Information Management [address] [place] [address] Clive Wright MD 02/16/2024 Orders Only [facility] Health Information Management [address] [place] [address] Clive Wright MD 02/14/2024 Orders Only [facility] Health Information Management [address] [place] [address] Deann Mcleod DO 02/13/2024 Orders Only [facility] Health Information Management [address] [place] [address] Clive Wright MD 01/28/2024 8:30 AM EMPLOYMENT SERVICE SPECIALIST Lab [facility] Medical Office Bldg [address] [place] [address] 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, without long-term current use of insulin (CMS/HCC) (HCC); Essential hypertension; Mixed hyperlipidemia 01/26/2024 Telephone [facility] Family Medicine at [address] [place] [address] Clive Wright MD Medical Question/Miscellaneous 01/15/2024 9:30 AM EMPLOYMENT SERVICE SPECIALIST Office Visit [facility] Oncology [address] [place] [address] [address] [place] [address] Karthikeyan Elaine DO Myeloproliferative disease (HCC) (Primary Dx); Thrombocytosis; Macrocytic anemia 12/21/2023 Telephone [facility] Organization [address] [place] [address] Philly Oneal Unsuccessful Phone Call 1 ([employer] dm eye exam) from Last 3 Months Allergies No known active allergies Medications aspirin 81 mg enteric coated tablet Take 1 tablet (81 mg total) by mouth daily 30 tablet 11/03/19 19 Active cyanocobalami n (Vitamin B-12) 1,000 mcg tabletIndicat ions:Preventi on of Vitamin B12 Deficiency Take 1 tablet (1,000 mcg total) by mouth daily Active ascorbic acid (VITAMIN C) 500 mg tablet,chewab le Take 1 tablet/chew tab (500 mg total) by mouth daily Active blood glucose diagnostic (Proofpointuch Ultra Blue Test Strip) stripIndicati ons: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, without long-term current use of insulin (CMS/HCC) ([facility]) 1 each by other route as directed Checks blood sugar daily 100 each 3 10/23/19 22 Active blood-glucose meter miscIndicatio ns: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, without long-term current use of insulin (CMS/HCC) ([facility]) Use daily or as directed for monitoring of diabetes. 1 each 10/23/19 22 Active vitamin D3-vitamin K2 25 mcg (1,000 unit)-90 mcg tablet,disint egrating Take 1,000 Units by mouth daily Active hydroxyurea (HYDREA) 500 mg capsule Take 2 capsules by mouth once daily 60 capsule 9 03/13/19 24 Active Additional Information Patient not taking.Reported on 03/07/2024 metoprolol XL (TOPROL-XL) 25 mg extended release tablet Take 1 tablet (25 mg total) by mouth daily 90 tablet 3 04/30/19 24 Active metFORMIN (GLUCOPHAGE) 500 mg tabletIndicat ions: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, without long-term current use of insulin (CMS/HCC) ([facility]) Take 1 tablet (500 mg total) by mouth 2 (two) times a day 180 tablet 3 04/30/19 24 Active atorvastatin (LIPITOR) 20 mg tablet Take 1 tablet (20 mg total) by mouth daily 90 tablet 3 04/30/19 24 Active Iron, ferrous sulfate, 325 mg (65 mg iron) tablet Take 1 tablet by mouth twice daily 180 tablet 12/01/19 24 Active QUEtiapine (SEROquel) 50 mg tablet Take 1 tablet (50 mg total) by mouth nightly 02/25/20 24 Active hydrALAZINE (APRESOLINE) 25 mg tablet Take 0.5 tablets (12.5 mg total) by mouth 3 (three) times a day 02/25/20 Active hydroCHLOROth iazide (HYDRODIURIL) 25 mg tablet Take 1 tablet (25 mg total) by mouth daily 03/07/20 24 Active Tradjenta 5 mg tablet Take 1 tablet (5 mg total) by mouth daily 90 tablet 3 04/30/19 24 024 Discontinued(Al ternate therapy) lisinopriL (PRINIVIL,ZES TRIL) 20 mg tablet Take 1 tablet by mouth once daily 90 tablet 3 04/30/19 24 024 Discontinued hydroCHLOROth iazide (HYDRODIURIL) 25 mg tablet Take 1 tablet (25 mg total) by mouth daily 90 tablet 3 04/30/19 24 024 Discontinued(Re order) lisinopriL (PRINIVIL,ZES TRIL) 20 mg tablet Take 1 tablet by mouth once daily 90 tablet 02/12/20 24 024 Discontinued(Al ternate therapy) amLODIPine (NORVASC) 10 mg tablet Take 1 tablet (10 mg total) by mouth daily 02/25/20 24 025 Discontinued(Th erapy completed) Active Problems Problem Noted Date Diagnosed Date Myeloproliferative disease 04/28/2022 Iron deficiency anemia 09/15/2018 Thrombocytosis 09/15/2018 Essential hypertension 03/25/2016 Overview (09/15/2018): controlled Mixed hyperlipidemia 07/18/2015 Overview (09/15/2018): Controlled with atorvastatin Type 2 diabetes mellitus wit h stage 2 chronic kidney disease, without long-term current use of insulin ([facility]) 07/18/2015 Overview (09/15/2018): Controlled Resolved Problems Problem Noted Date Diagnosed Date Resolved Date CKD (chronic kidney disease) stage 3, GFR 30-59 ml/min 10/22/2021 03/07/2024 Chronic kidney disease, stage III (moderate) 6 09/15/2018 Overview (09/15/2018): stable Immunizations Name Administration Dates Next Due Influenza, Unspecified 12/08/2022(Deferr ed: Patient Refused),01/16/2022(Deferred: Patient Refused),01/05/2022(Deferred: Patient Refused),04/22/2021(Deferred: Patient Refused),12/07/2018(Deferred: Patient Refused) Social History Tobacco Use Types Packs/Day Years Used Date Smoking Tobacco: Never Smokeless Tobacco: Never Tobacco Cessation:Counseling Given: Not Answered Alcohol Use Standard Drinks/Week Comments Not Currently 0 (1 standard drink = 0.6 oz pur e alcohol) occasion [facility] Utilities Answer Date Recorded In the past 12 months has [employer], gas, oil, or water [employer] threatened to shut off services in your home? No 03/01/2024 Social Connection and Isolat ion Panel [NHANES] Answer Date Recorded In a typical week, how many times do you talk on the phone with family, friends, or neighbors? More than three times a week 03/01/2024 How often do you get togethe r with friends or relatives? Once a week 03/01/2024 How often do you attend chur ch or christian services? Never 03/01/2024 Do you belong to any clubs o r organizations such as taoism groups, unions, fraternal or athletic groups, or school groups? No 03/01/2024 How often do you attend meet ings of the clubs or organizations you belong to? Never 03/01/2024 Are you , , di vorced, , never , or living with a partner? 03/01/2024 AUDIT-C Answer Date Recorded Q1: How often do you have a drink containing alcohol? Never 03/07/2024 Q2: How many drinks containi ng alcohol do you have on a typical day when you are drinking? Patient does not drink Frequency of Binge Drinking Not on file 02/08 Overall Financial Resource Strain (CARDIA) Answe r Date Recorded How hard is it for you to pa y for the very basics like food, housing, medical care, and heating? Not hard at all 03/01/2024 PHQ-2 Answer Date Recorded PHQ-2 Total Score (If total score is 3 or more points, staff should administer the PHQ-9) 0 11/05/2023 Hunger Vital Sign Answer Date Recorded Within the past 12 months, y ou worried that your food would run out before you got the money to buy more. Never true 03/01/20 Within the past 12 months, t he food you bought just didn't last and you didn't have money to get more. Never true 03/01/2024 PRAPARE - Transportation Answer Date Re corded In the past 12 months, has l ack of transportation kept you from medical appointments or from getting medications? No 02/07 In the past 12 months, has l ack of transportation kept you from meetings, work, or from getting things needed for daily living? No 03/01/2024 Housing Stability Vital Sign Answer Glen e Recorded In the last 12 months, was t here a time when you were not able to pay the mortgage or rent on time? No 03/01/2024 In the past 12 months, how m any times have you moved where you were living? 0 03/01/2024 At any time in the past 12 m [facility], were you homeless or living in a half-way (including now)? No 03/01/2024 Comments Unknown Sex and Gender Information Value Date Recorded Sex Assigned at Not on file Legal Sex Female 8:44 PM EMPLOYMENT SERVICE SPECIALIST Gender Identity Not on file Sexual Orientation Not on file Occupation Industry Job Start Date Job End Date Retired Not on file Not on file Not on file Last Filed Vital Signs Vital Sign Reading Time Taken Comments Blood Pressure 130/70 03/07/2024 11:13 AM EMPLOYMENT SERVICE SPECIALIST Pulse 69 03/07/2024 11:13 AM EMPLOYMENT SERVICE SPECIALIST Temperature 37.1 ??C (98.7 ??F) 03/07/2024 1 1:13 AM EMPLOYMENT SERVICE SPECIALIST Respiratory Rate 18 03/07/2024 11:1 3 AM EMPLOYMENT SERVICE SPECIALIST Oxygen Saturation 95% 03/07/2024 11: 13 AM EMPLOYMENT SERVICE SPECIALIST Inhaled Oxygen Concentration - - Weight 64.7 kg (142 lb 11.2 oz) 024 11:13 AM EMPLOYMENT SERVICE SPECIALIST Height 161.3 cm (5' 3.5 ) 03/07/2024 11 :13 AM EMPLOYMENT SERVICE SPECIALIST Body Mass Index 24.88 03/07/2024 11:13 AM EMPLOYMENT SERVICE SPECIALIST Plan of Treatment Not on file Procedures Procedure Name Priority Date/Time Associated Diagnosis Comments SCAN - LABS 03/03/2024 SCAN - RADIOLOGY/IMAGING 02/18/2024 SCAN - NEUROLOGY 02/17/2024 CARDIOLOGY DOCUMENT SCAN 02/17/2024 SCAN - RADIOLOGY/IMAGING 02/17/2024 SCAN - RADIOLOGY/IMAGING 02/16/2024 SCAN - RADIOLOGY/IMAGING 02/14/2024 SCAN - RADIOLOGY/IMAGING 02/13/2024 ALBUMIN CREATININE RATIO, URINE Routine 01/28/2024 9:21 AM EMPLOYMENT SERVICE SPECIALIST 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, without long-term current use of insulin ([facility]) ([facility]) EGFR Routine 01/28/2024 8:48 AM EMPLOYMENT SERVICE SPECIALIST Essential hypertension Mixed hyperlipidemia DIFFERENTIAL AUTO Routine 01/28/2024 8:4 8 AM EMPLOYMENT SERVICE SPECIALIST Essential hypertension HEMOGLOBIN A1C Routine 01/28/2024 8:48 AM EMPLOYMENT SERVICE SPECIALIST 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, without long-term current use of insulin ([facility]) ([facility]) LIPID PANEL Routine 01/28/2024 8:48 AM EMPLOYMENT SERVICE SPECIALIST Mixed hyperlipidemia COMPREHENSIVE METABOLIC PANEL Routine 01/28/2024 8:48 AM EMPLOYMENT SERVICE SPECIALIST Essential hypertension Mixed hyperlipidemia CBC WITH AUTO DIFFERENTIAL Routine 01/28/2024 8:48 AM EMPLOYMENT SERVICE SPECIALIST Essential hypertension COMPREHENSIVE METABOLIC PANEL Routine 01/13/2024 7:52 AM EMPLOYMENT SERVICE SPECIALIST Thrombocytosis CBC WITH AUTO DIFFERENTIAL Routine 01/13/2024 7:52 AM EMPLOYMENT SERVICE SPECIALIST Thrombocytosis DEXA AXIAL SKELETON BONE DENSITY 1 OR MORE SITES Schedule Routine, Read Routine (OP Routine) 07/08/2022 Postmenopausal SCREENING MAMMOGRAM BILATERAL W ARPAN Schedule Routine, Read Routine (OP Routine) 07/08/2022 Encounter for screening mammogram for malignant neoplasm of breast STOOL DNA ? COLOGUARD Routine 11/15/2021 9:05 AM CDT Screening for colon cancer from Last 3 Months or Most Recently Relevant to Health Maintenance Results * SCAN - LABS (03/03/2024) Result José Wright MD Final Result * SCAN - RADIOLOGY/IMAGING (02/18/2024) Anatomical Region Laterality Modality Other us Gaby Swartz MD Final Result * SCAN - RADIOLOGY/IMAGING (02/17/2024) Anatomical Region Laterality Modality Other Result José Wright MD Final Result * SCAN - NEUROLOGY (02/17/2024) Anatomical Region Laterality Modality Other Result José Wright MD Final Result * Cardiology Document Scan (02/17/2024) Anatomical Region Laterality Modality Other Result José Wright MD CV CARDIAC SERVICES PROCEDURE S Final Result * SCAN - RADIOLOGY/IMAGING (02/16/2024) Anatomical Region Laterality Modality Other Result José Wright MD Final Result * SCAN - RADIOLOGY/IMAGING (02/14/2024) Anatomical Region Laterality Modality Other Result José Mcleod DO Final Result * SCAN - RADIOLOGY/IMAGING (02/13/2024) Anatomical Region Laterality Modality Other Result José Wright MD Edited Result - Final * (ABNORMAL) Albumin Creatinine Ratio, Urine (01/28/2024 9:21 AM EMPLOYMENT SERVICE SPECIALIST) Albumin Ur 3,802.0 mg/L Comment: Interpretive Data No reference range established. Current interpretive data was last revised 2018. Creatinine Ur 94.8 mg/dL JUAN F Comment: Interpretive Data No reference range established. Current interpretive data was last revised 2018. Albumin Creatinine Ratio, Ur 4,011(H) 1 - 29 mg/g [facility]UAN F [facility]S Urine 01/28/2024 9:21 AM EMPLOYMENT SERVICE SPECIALIST 01/28/2024 1:12 PM EMPLOYMENT SERVICE SPECIALIST us Clive Wright MD LAB URINE ORDERABLES Final Re sult JUAN F [address] [facility] Department [place] [address] * eGFR (01/28/2024 8:48 AM EMPLOYMENT SERVICE SPECIALIST) eGFR 64 >=60 mL/min/1. 73 m2 Comment: [...] last reviewed 2021. Blood 01/28/2024 8:48 AM EMPLOYMENT SERVICE SPECIALIST 01/28/2024 12:45 PM EMPLOYMENT SERVICE SPECIALIST Clive Wright MD LAB BLOOD ORDERABLES Final Re sult JUAN F [address] [facility] Department [place] [address] * (ABNORMAL) Differential, auto (01/28/2024 8:48 AM EMPLOYMENT SERVICE SPECIALIST) Neutrophil abs 7.3(H) 1.5 - 6.5 K/cumm Imm gran abs 0.0 0.0 - 0.1 K/cumm [facility] Lymphocyte abs 1.4 0.8 - 3.3 K/cumm [facility] Monocyte abs 0.5 0.2 - 0.8 K/cumm [facility] Eosinophil abs 0.1 0.0 - 0.5 K/cumm [facility] Basophil abs 0.1 0.0 - 0.1 K/cumm [facility] Neutrophil pct 77.9 % [facility] Comment: Interpretive Data Percent cell count reference ranges are not reported, since discordance with absolute values may lead to misinterpretation of CBC data. Current Interpretive Data was last revised on 2017. Imm gran pct 0.3 % [facility] Comment: Interpretive Data Percent cell count reference ranges are not reported, since discordance with absolute values may lead to misinterpretation of CBC data. Current Interpretive Data was last revised on 2017. Lymphocyte pct 15.2 % [facility] Comment: Interpretive Data Percent cell count reference ranges are not reported, since discordance with absolute values may lead to misinterpretation of CBC data. Current Interpretive Data was last revised on 2017. Monocyte pct 5.3 % [facility] Comment: Interpretive Data Percent cell count reference ranges are not reported, since discordance with absolute values may lead to misinterpretation of CBC data. Current Interpretive Data was last revised on 2017. Eosinophil pct 0.7 % [facility] Comment: Interpretive Data Percent cell count reference ranges are not reported, since discordance with absolute values may lead to misinterpretation of CBC data. Current Interpretive Data was last revised on 2017. Basophil pct 0.6 % [facility] Comment: Interpretive Data Percent cell count reference ranges are not reported, since discordance with absolute values may lead to misinterpretation of CBC data. Current Interpretive Data was last revised on 2017. Blood 01/28/2024 8:48 AM EMPLOYMENT SERVICE SPECIALIST 01/28/2024 12:48 PM EMPLOYMENT SERVICE SPECIALIST Clive Wright MD LAB BLOOD ORDERABLES Final Re sult Performing Organization Address [facility] Co de Phone Number [address] [employer] [place], [place] [id number] * (ABNORMAL) CBC with auto differential (01/28/2024 8:48 AM EMPLOYMENT SERVICE SPECIALIST) WBC 9.4 3.8 - 9.9 K/cumm Hgb 11.5(L) 11.9 - 15.5 g/dL [facility] Hct 35.0(L) 35.6 - 45.5 % [facility] Plt 672(H) 150 - 400 K/cumm [facility] MPV 9.5 9.1 - 12.3 fL [facility] RBC 3.06(L) 3.90 - 5.20 M/cumm [facility] MCV 114.4(H) 81.3 - 96.4 fL [facility] MCH 37.6(H) 27.1 - 33.3 pg [facility] MCHC 32.9 32.3 - 35.7 g/dL [facility] RDW CV 13.1 11.1 - 14.9 % [facility] RDW SD 54.0(H) 35.7 - 48.1 fL [facility] NRBC abs 0.00 0.00 - 0.01 K/cumm [facility] Blood 01/28/2024 8:48 AM EMPLOYMENT SERVICE SPECIALIST 01/28/2024 12:48 PM EMPLOYMENT SERVICE SPECIALIST Clive Wright MD LAB BLOOD ORDERABLES Final Re sult Performing Organization Address [facility] Co de Phone Number [address] [employer] [place], [place] [phone] * (ABNORMAL) Hemoglobin A1c (01/28/2024 8:48 AM EMPLOYMENT SERVICE SPECIALIST) Hgb A1C 7.1(H) 4.0 - 5.6 % Estimated Average Glucose 157 mg/dL [facility]S Comment: The ADA recommends reporting an estimated Average Glucose (eAG) with all Hemoglobin A1c results using the equation derived from a study of 507 normal and diabetic adults. ??Minority populations were underrepresented and children were not included. ?? (Diabetes Care 31:5244-8317, 2008). ??The eAG is not equivalent to a fasting glucose. Blood 01/28/2024 8:48 AM EMPLOYMENT SERVICE SPECIALIST 01/28/2024 12:48 PM EMPLOYMENT SERVICE SPECIALIST us Clive Wright MD LAB BLOOD ORDERABLES Final Re sult JUAN F [address] [facility] Department [place] [address] * Lipid panel (01/28/2024 8:48 AM EMPLOYMENT SERVICE SPECIALIST) Cholesterol 184 30 - 199 mg/dL Comment: [...] 2017. HDL 59 >=40 mg/dL JUAN F Comment: Interpretive Data Ages < or = [...] mg/dL ??High: ?>160 mg/dL Calculated using the Dmitriy LDL-C estimating equation. This equation was implemented on 2023. Prior to this date LDL-C was estimated using the Friedewald equation. Literature References: 1. Expert Panel on Integrated Guidelines for Cardiovascular Health and Risk Reduction in Children and Adolescents. Pediatrics 2011;128:S213 2. NCEP Expert Panel. Circulation 2004;110:227 3. Dmitriy Blackwell et al. CARRIE Cardiol. 2020 July 07;5(5):540-548. doi: 10.1001/jamacardio.2020.0013 Current Interpretive Data was last revised on 2023. Non-HDL Cholesterol 125 mg/dL [facility]S Comment: Interpretive Data [...] last revised on 2017. Chol/HDL ratio 3 JUAN F Blood 01/28/2024 8:48 AM EMPLOYMENT SERVICE SPECIALIST 01/28/2024 12:45 PM EMPLOYMENT SERVICE SPECIALIST us Clive Wright MD LAB BLOOD ORDERABLES Final Re sult JUAN F [address] [facility] Department [place] [address] * (ABNORMAL) Comprehensive metabolic panel (01/28/2024 8:48 AM EMPLOYMENT SERVICE SPECIALIST) Sodium 137 135 - 145 mmol/L Potassium, pl 4.1 3.3 - 4.9 mmol/L JUAN F Chloride 99 97 - 110 mmol/L [facility] CO2 25 22 - 32 mmol/L [facility] Anion gap 13 2 - 15 mmol/L [facility] BUN 17 6 - 25 mg/dL [facility] Creatinine 0.94 0.60 - 1.10 mg/dL [facility] Glucose 181 70 - 199 mg/dL [facility] Comment: Interpretive Data Fasting glucose >/= [...] 2022. Calcium 9.5 8.5 - 10.3 mg/dL [facility] Bilirubin, total 0.4 0.1 - 1.2 mg/dL [facility] Protein, pl 6.9 6.5 - 8.5 g/dL [facility] Albumin 4.0 3.5 - 5.0 g/dL [facility] Alk phos 51 40 - 130 Units/L [facility] ALT <5(L) 7 - 45 Units/L [facility] Comment:Specimen is Lipemic; results may be inaccurate due to high levels of lipids. AST 24 10 - 45 Units/L [facility] Comment:Specimen is Lipemic; results may be inaccurate due to high levels of lipids. Blood 01/28/2024 8:48 AM EMPLOYMENT SERVICE SPECIALIST 01/28/2024 12:45 PM EMPLOYMENT SERVICE SPECIALIST us Clive Wright MD LAB BLOOD ORDERABLES Final Re sult [facility] [address] [facility] Department [place] [address] * (ABNORMAL) CBC with auto differential (01/13/2024 7:52 AM EMPLOYMENT SERVICE SPECIALIST) WBC 7.6 3.8 - 10.8 Thousand/u L [facility] RBC, POC 3.04(L) 3.80 - 5.10 Million/uL [facility] Hgb 11.5(L) 11.7 - 15.5 g/dL [facility] Hct 34.4(L) 35.0 - 45.0 % [facility] MCV 113.2(H) 80.0 - 100.0 fL [facility] MCH 37.8(H) 27.0 - 33.0 pg [facility] MCHC 33.4 32.0 - 36.0 g/dL [facility] Comment: For adults, a slight decrease in the calculated MCHC value (in the range of 30 to 32 g/dL) is most likely not clinically significant; however, it should be interpreted with caution in correlation with other red cell parameters and the patient's clinical condition. Rdw 11.7 11.0 - 15.0 % [facility] Platelets 748(H) 140 - 400 Thousand/u L [facility] MPV 9.3 7.5 - 12.5 fL [facility] Neutrophils, abs 5,670 1,500 - 7,800 cells/uL [facility] Lymphocytes, abs 1,148 850 - 3,900 cells/uL [facility] Monocyte abs 646 200 - 950 cells/uL [facility] Eosinophils, abs 99 15 - 500 cells/uL [facility] Basophils, abs 38 0 - 200 cells/uL [facility] Neutrophils 74.6 % [facility] Lymphocyte pct 15.1 % [facility] Monocytes 8.5 % [facility] Eosinophils 1.3 % [facility] Basophils 0.5 % [facility] Blood 01/13/2024 7:52 AM EMPLOYMENT SERVICE SPECIALIST 01/13/2024 7:52 AM EMPLOYMENT SERVICE SPECIALIST us Karthikeyan Elaine DO LAB BLOOD ORDERABLES Final R esult [facility] [place] [address] [address] [phone] * (ABNORMAL) Comprehensive metabolic panel (01/13/2024 7:52 AM EMPLOYMENT SERVICE SPECIALIST) Glucose 226(H) 65 - 99 mg/dL [facility] Comment: ? Fasting reference interval For someone without known diabetes, a glucose value >125 mg/dL indicates that they may have diabetes and this should be confirmed with a follow-up test. BUN 25 7 - 25 mg/dL [facility] Creatinine 1.20(H) 0.60 - 1.00 mg/dL [facility] [facility] eGFR 48(L) > OR = 60 mL/min/1.7 3m2 [facility] BUN/creat ratio 21 6 - 22 (calc) [facility] Sodium 138 135 - 146 mmol/L [facility] Potassium, pl 4.7 3.5 - 5.3 mmol/L [facility] Chloride 100 98 - 110 mmol/L [facility] CO2 29 20 - 32 mmol/L [facility] Calcium 10.0 8.6 - 10.4 mg/dL [facility] Protein, sr 6.8 6.1 - 8.1 g/dL [facility] Albumin 3.9 3.6 - 5.1 g/dL [facility] GLOBULIN 2.9 1.9 - 3.7 g/dL (calc) [facility] Alb/glob ratio 1.3 1.0 - 2.5 (calc) [facility] Bilirubin, total 0.4 0.2 - 1.2 mg/dL [facility] Alk phos 46 37 - 153 U/L [facility] AST 13 10 - 35 U/L [facility] ALT (SGPT) 7 6 - 29 U/L [facility] Blood 01/13/2024 7:52 AM EMPLOYMENT SERVICE SPECIALIST 01/13/2024 7:52 AM EMPLOYMENT SERVICE SPECIALIST Karthikeyan Elaine DO LAB BLOOD ORDERABLES Final R esult [facility] [employer] [address] [facility] [place] [address] * SCREENING MAMMOGRAM BILATERAL W ARPAN (07/08/2022) Anatomical Region Laterality Modality Breast Bilateral Mammography 07/08/2022 Clive Wright MD IMG MAMMO PROCEDURES Final Re sult * Dexa Axial Skeleton Bone Density 1 Or 2 Site (07/08/2022) Anatomical Region Laterality Modality Body N/A Radiographic Sonal ging 07/08/2022 Clive Wright MD [facility] DXA PROCEDURES Final Resu lt * Stool DNA - Cologuard (11/15/2021 9:05 AM CDT) Stool DNA - Cologuard Negative Negative [facility] (CLIA #:[id number]) Comment: NEGATIVE TEST RESULT. A negative Cologuard result indicates a low likelihood that a colorectal cancer (CRC) or advanced adenoma (adenomatous polyps with more advanced pre-malignant features) ??is present. The chance that a person with a negative Cologuard test has a colorectal cancer is less than 1 in 1500 (negative predictive value >99.9%) or has an ??advanced adenoma is less than ??5.3% (negative predictive value 94.7%). These data are based on a prospective cross-sectional study of 10,000 individuals at average risk for colorectal cancer who were screened with both Cologuard and colonoscopy. (Corona Espinoza al, N Engl J Med 2014;370(14):1286- 1297) The normal value (reference range) for this assay is negative. COLOGUARD RE-SCREENING RECOMMENDATION: Periodic colorectal cancer screening is an important part of preventive healthcare for asymptomatic individuals at average risk for colorectal cancer. ??Following a negative Cologuard result, the [place] [employer] and U.S. Multi-Society Task Force screening guidelines recommend a Cologuard re-screening interval of 3 years. References: [place] [employer] Guideline for Colorectal Cancer Screening: https://www.cancer.org/cancer/gpxan-nersix-mfmtkq/rxgthpbto-iebqmahsy-tzsrzwf/ac s-rec ommendations.html.; Tio OLEARY, Urbano PANCHAL, Sam MILAN, Colorectal Cancer Screening: Recommendations for Physicians and Patients from the U.S. Multi-Society Task Force on Colorectal Cancer Screening , Am J Gastroenterology 2017; 112:2707-7819. TEST DESCRIPTION: Composite algorithmic analysis of stool DNA-biomarkers with hemoglobin immunoassay. ?? Quantitative values of individual biomarkers are not reportable and are not associated with individual biomarker result reference ranges. Cologuard is intended for colorectal cancer screening of adults of either sex, 45 years or older, who are at average-risk for colorectal cancer (CRC). Cologuard has been approved for use by the U.S. FDA. The performance of Cologuard was established in a cross sectional study of average-risk adults aged 50-84. Cologuard performance in patients ages 45 to 49 years was estimated by sub-group analysis of near-age groups. Colonoscopies performed for a positive result may find as the most clinically significant lesion: colorectal cancer [4.0%], advanced adenoma (including sessile serrated polyps greater than or equal to 1cm diameter) [20%] or non- advanced adenoma [31%]; or no colorectal neoplasia [45%]. These estimates are derived from a prospective cross-sectional screening study of 10,000 individuals at average risk for colorectal cancer who were screened with both Cologuard and colonoscopy. (Corona Hughes et al, N Engl J Med 2014;370(14):4481-1112.) Cologuard may produce a false negative or false positive result (no colorectal cancer or precancerous polyp present at colonoscopy follow up). A negative Cologuard test result does not guarantee the absence of CRC or advanced adenoma (pre-cancer). The current Cologuard screening interval is every 3 years. ([place] [employer] and U.S. Multi-Society Task Force). Cologuard performance data in a 10,000 patient pivotal study using colonoscopy as the reference method can be accessed at the following location: www.[employer]/results. Additional description of the Cologuard test process, warnings and precautions can be found at www.cologuard.com. Stool 11/15/2021 9:05 AM CDT 11/16/2021 6:26 PM CDT us Clive Wright MD LAB BODY FLUIDS AND STOOLS OR DERABLES Final Result [facility] (CLIA #:[id number]) [address] [place] [address] from Last 3 Months or Most Recently Relevant to Health Maintenance Insurance [place] [employer] [facility] [employer] [facility] [employer] [facility] [employer] Advance Directives For more information, please contact: [phone] Documents on File Type Date Recorded Patient Check Grader Expl anation Power of Assistant Shift Supervisor 03/07/2024 10:52 AM pow er of environmental attorney 2024 Care Teams Media Technician Relationship Specialty Start Date End Date Clive Wright MD PCP - General Family Medicine 09/15/18 Karthikeyan Elaine DO [address] [place] [id number] Medical Oncologist/Senior Firewall Engineer Hematology and Oncology 10/27/18 Alyssa Jones, RN [address] [place] [address] [address] [place] [address] Vp Customer Service 02/29/24
--- OUTSIDE RECORDS SUMMARY | 2024-03-10 20:14 | XMS_ITS | Encounter Summary ---
Author Organization [facility] Healthcare Address [address] [place] [address] Care Team Providers Care Hand Shoe Cutter Name Role Phone Clive Wright MD Primary Care Provider [phone] Karthikeyan Elaine DO Unavailable [phone] Encounter Details Date Type Department Care Team (Late st Contact Info) Description 02/17/2024 Orders Only [facility] [address] [place] [id number] Clive Wright MD [facility] [address] [id number] Social History Tobacco Use Types Packs/Day Years [...] on file Legal 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 Gender Identity Not on file Sexual Orientation Not on file Occupation Industry Job Start Date Job End Date Retired Not on file Not on file Not on file documented as of this encounter Plan of Treatment Not on file documented as of this encounter Procedures Procedure Name Priority Date/Time Associated Diagnosis Comments SCAN - RADIOLOGY/IMAGING 02/17/2024 SCAN - NEUROLOGY 02/17/2024 CARDIOLOGY DOCUMENT SCAN 02/17/2024 documented in this encounter Results * Cardiology Document Scan (02/17/2024) Anatomical Region Laterality Modality Other us Clive Wright MD [facility] CARDIAC SERVICES PROCEDURE S Final Result * SCAN - NEUROLOGY (02/17/2024) Anatomical Region Laterality Modality Other us Clive Wright MD Final Result * SCAN - RADIOLOGY/IMAGING (02/17/2024) Anatomical Region Laterality Modality Other us Clive Wright MD Final Result documented in this encounter Visit Diagnoses Not on filedocumented in this encounter Care Teams Hand Shoe Cutter Relationship Specialty Start Date End Date Clive Wright MD PCP - General Family Medicine 09/15/18 Karthikeyan Elaine DO [address] [place] [id number] Medical Oncologist/Superintendent Distribution Hematology and Oncology 10/27/18 documented as of this encounter
--- OUTSIDE RECORDS SUMMARY | 2024-03-10 20:14 | XMS_ITS | Clinical Summary ---
Author Organization [facility] at [facility] Address [address] [place] [address] Care Team Providers Care Client Analyst Name Role Phone Clive Wright MD Primary Care Provider [phone] Karthikeyan Elaine DO Unavailable [phone] Alyssa Jones RN Unavailable [phone] Allergies No known active allergies Medications aspirin [...] by mouth daily Active blood glucose diagnostic (OneTouch Ultra Blue Test Strip) stripIndicati ons: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, without long-term current use of insulin (CMS/HCC) ([facility]) 1 each by other route as directed Checks blood sugar daily 100 each 3 10/23/19 22 Active blood-glucose meter miscIndicatio ns: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, without long-term current use of insulin (CMS/HCC) ([facility]) Use daily or as directed for monitoring of diabetes. 1 each 10/23/19 22 Active vitamin D3-vitamin K2 25 mcg (1,000 unit)-90 mcg tablet,disint egrating Take 1,000 Units by mouth daily Active hydroxyurea (HYDREA) 500 mg capsule Take 2 capsules by mouth once daily 60 capsule 9 03/13/19 Active Additional Information Patient not taking.Reported on 03/07/2024 metoprolol XL (TOPROL-XL) 25 mg extended release tablet Take 1 tablet (25 mg total) by mouth daily 90 tablet 3 04/30/19 24 Active metFORMIN (GLUCOPHAGE) 500 mg tabletIndicat ions: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, without long-term current use of insulin (CMS/HCC) (HCC) Take 1 tablet (500 mg total) by [...] (50 mg total) by mouth nightly 02/25/20 Active hydrALAZINE (APRESOLINE) 25 mg tablet Take [...] disease, without long-term current use of insulin ([facility]) 07/18/2015 Overview (09/15/2018): Controlled Resolved Problems Problem Noted Date Diagnosed Date Resolved Date CKD (chronic kidney disease) stage 3, GFR 30-59 ml/min 10/22/2021 03/07/2024 Chronic kidney disease, stage III (moderate) 6 09/15/2018 Overview (09/15/2018): stable Encounters Date Type Department Care Team Description 03/10/2024 Telephone [facility] Family Medicine at [address] [address] Clive Wright MD Med Refill 03/07/2024 10:45 AM BLOCKING MACHINE OPERATOR Office Visit [facility] at [address] [address] Clive Wright MD Acute cystitis without hematuria (Primary Dx); Encephalopathy, unspecified type; Mild cognitive impairment; Essential hypertension; 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, without long-term current use of insulin ([facility]) ([facility]); Thrombocytosis; Edema, lower extremity; Nonspecific abnormal electroencephalogram (EEG) 03/03/2024 Orders Only [facility] Information Management [address] [place] [address] Clive Wright MD 02/26/2024 Telephone [facility] Family [facility] at [address] [address] Clive Wright MD ROMÁN Questions 02/23/2024 Telephone [facility] Medical [facility] Family Medicine at [address] [place] [address] Clive Wright MD 02/22/2024 Telephone [facility] Medicine at [address] [place] [address] Clive Wright MD Medical Question/Miscellaneous 02/18/2024 Orders Only [facility] [place] [address] [place] [address] Gaby Swartz MD 02/17/2024 Orders Only [facility] Information Management [address] [place] [address] Clive Wright MD 02/16/2024 Orders Only [facility] Information Management [address] [place] [address] Clive Wright MD 02/14/2024 Orders Only [facility] Information Management [address] [place] [address] Deann Mcleod DO 02/13/2024 Orders Only [facility] Information Management [address] [place] [address] Clive Wright MD 01/28/2024 8:30 AM BLOCKING MACHINE OPERATOR Lab [facility] B[address] [place] [address] 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, without long-term current use of insulin (CMS/HCC) (HCC); Essential hypertension; Mixed hyperlipidemia 01/26/2024 Telephone [facility] Family Medicine at [address] [place] [address] Clive Wright MD Medical Question/Miscellaneous 01/15/2024 9:30 AM BLOCKING MACHINE OPERATOR Office Visit [facility] Oncology [address] [place] [address] [address] [place] [address] Karthikeyan Elaine DO Myeloproliferative disease (HCC) (Primary Dx); Thrombocytosis; Macrocytic anemia 12/21/2023 Telephone [facility] Accountable Care Organization [address] [place], [place] [id number] Philly Oneal Unsuccessful Phone Call 1 ([employer] dm eye exam) from Last 3 Months Immunizations Name Administration Dates Next Due Influenza, Unspecified 12/08/2022(Deferr ed: Patient Refused),01/16/2022(Deferred: Patient Refused),01/05/2022(Deferred: Patient Refused),04/22/2021(Deferred: Patient Refused),12/07/2018(Deferred: Patient Refused) Surgical History Surgery Date Site/Laterality Comments CATARACT EXTRACTION 03/09/2011 - 03/08/2012 Left Medical History Medical History Date Comments Diabetes mellitus (HCC) Hypertension Hyperlipidemia Family History Medical History Relation Name Comments No Known Problems Father No Known Problems Maternal Grandfather No Known Problems Maternal Grandmother Diabetes Mother Heart disease Mother Hypertension Mother No Known Problems Paternal Grandfather No Known Problems Paternal Grandmother Stomach cancer Sister Relation Name Status Comments Father Maternal Grandfather Maternal Grandmother Mother Paternal Grandfather Paternal Grandmother Sister Social History Tobacco Use Types Packs/Day Years Used Date Smoking Tobacco: Never Smokeless Tobacco: Never Tobacco Cessation:Counseling Given: Not Answered Alcohol Use Standard Drinks/Week Comments Not Currently 0 (1 standard drink = 0.6 oz pur e alcohol) occasion [facility] Utilities Answer Date Recorded In the past 12 months has e electric, gas, oil, or water company threatened to shut off services in your [...] often do you attend chur ch or christianity services? Never 03/01/2024 Do you belong to any clubs o r organizations such as confucianism groups, unions, fraternal or athletic groups, or [...] any time in the past 12 [facility], were you homeless or living in a long-term (including now)? No 03/01/2024 Comments Unknown Sex and Gender Information Value Date Recorded Sex Assigned at Not on file Legal Sex Female 8:44 PM BLOCKING MACHINE OPERATOR Gender Identity Not on file Sexual Orientation Not on file Occupation Industry Job Start Date Job End Date Retired Not on file Not on file Not on file Obstetrics History Last Filed Vital Signs Vital Sign Reading Time Taken Comments Blood Pressure 130/70 03/07/2024 11:13 AM BLOCKING MACHINE OPERATOR Pulse 69 03/07/2024 11:13 AM BLOCKING MACHINE OPERATOR Temperature 37.1 ??C (98.7 ??F) 03/07/2024 1 1:13 AM BLOCKING MACHINE OPERATOR Respiratory Rate 18 03/07/2024 11:1 3 AM BLOCKING MACHINE OPERATOR Oxygen Saturation 95% 03/07/2024 11: 13 AM BLOCKING MACHINE OPERATOR Inhaled Oxygen Concentration - - Weight 64.7 kg (142 lb 11.2 oz) 024 11:13 AM BLOCKING MACHINE OPERATOR Height 161.3 cm (5' 3.5 ) 03/07/2024 11 :13 AM BLOCKING MACHINE OPERATOR Body Mass Index 24.88 03/07/2024 11:13 AM BLOCKING MACHINE OPERATOR Plan of Treatment Health Maintenance Due Date Last Done Comments Hepatitis C Screening 1950 Dilated Eye Exam 1950 Pneumococcal vaccine 65+ (1 of 2 - PCV) 08/12/1955 DTaP/Tdap/Td Vaccine (1 - Tdap) 1960 Hepatitis B Screening 08/12/1967 Zoster Vaccine (1 of 2) 1968 Breast Cancer Screening-Mammogram 07/09/2023 023 Osteoporosis Screening-Bone Density Scan 07/08/2024 07/08/2022 Hemoglobin A1C 07/27/2024 01/28/2024, 05/0 03/2023, 04/15/2023, Additional history exists Depression Screening 11/04/2024 11/05/2023, 10/27/2022, 10/22/2021, Additional history exists Fall Risk Assessment 11/04/2024 11/05/2023, 10/27/2022, 10/22/2021, Additional history exists Foot Exam 11/04/2024 11/05/2023, 04/10, 04/22/2021, Additional history exists Well Visit 65+ 11/04/2024 11/05/2023, 10/08, 10/22/2021, Additional history exists Colon Cancer Screening-DNA Stool 11/15/2024 11/16/19 22 Albumin Creatinine Ratio, Urine 01/27/2025 01/28/2024, 10/16/2022, 10/17/2021, Additional history exists Lipid Panel 01/27/2025 01/28/2024, 03/2023, 04/15/2023, Additional history exists eGFR 01/27/2025 01/28/2024, 08/2023, 07/08/2023, Additional history exists Colon Cancer Screening-FIT Discontinued 11/15/2021, Influenza Vaccine Discontinued Procedures Procedure Name Priority Date/Time Associated Diagnosis Comments SCAN - LABS 03/03/2024 SCAN - RADIOLOGY/IMAGING 02/18/2024 SCAN - NEUROLOGY 02/17/2024 CARDIOLOGY DOCUMENT SCAN 02/17/2024 SCAN - RADIOLOGY/IMAGING 02/17/2024 SCAN - RADIOLOGY/IMAGING 02/16/2024 SCAN - RADIOLOGY/IMAGING 02/14/2024 SCAN - RADIOLOGY/IMAGING 02/13/2024 ALBUMIN CREATININE RATIO, URINE Routine 01/28/2024 9:21 AM BLOCKING MACHINE OPERATOR 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, without long-term current use of insulin ([facility] ([facility]) EGFR Routine 01/28/2024 8:48 AM BLOCKING MACHINE OPERATOR Essential hypertension Mixed hyperlipidemia DIFFERENTIAL AUTO Routine 01/28/2024 8:4 8 AM BLOCKING MACHINE OPERATOR Essential hypertension HEMOGLOBIN A1C Routine 01/28/2024 8:48 AM BLOCKING MACHINE OPERATOR 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, without long-term current use of insulin ([facility]) ([facility]) LIPID PANEL Routine 01/28/2024 8:48 AM BLOCKING MACHINE OPERATOR Mixed hyperlipidemia COMPREHENSIVE METABOLIC PANEL Routine 01/28/2024 8:48 AM BLOCKING MACHINE OPERATOR Essential hypertension Mixed hyperlipidemia CBC WITH AUTO DIFFERENTIAL Routine 01/28/2024 8:48 AM BLOCKING MACHINE OPERATOR Essential hypertension COMPREHENSIVE METABOLIC PANEL Routine 01/13/2024 7:52 AM BLOCKING MACHINE OPERATOR Thrombocytosis CBC WITH AUTO DIFFERENTIAL Routine 01/13/2024 7:52 AM BLOCKING MACHINE OPERATOR Thrombocytosis DEXA AXIAL SKELETON BONE DENSITY 1 [...] Albumin Creatinine Ratio, Urine (01/28/2024 9:21 AM BLOCKING MACHINE OPERATOR) Albumin Ur 3,802.0 mg/L Comment: Interpretive Data No reference range established. Current interpretive data was last revised 2018. Creatinine Ur 94.8 mg/dL [facility] Comment: Interpretive Data No reference range established. Current interpretive data was last revised 2018. Albumin Creatinine Ratio, Ur 4,011(H) 1 - 29 mg/g JUAN F Urine 01/28/2024 9:21 AM BLOCKING MACHINE OPERATOR 01/28/2024 1:12 PM BLOCKING MACHINE OPERATOR us Clive Wright MD LAB URINE ORDERABLES Final Re sult JUAN F [address] [facility] [place] [address] * eGFR (01/28/2024 8:48 AM BLOCKING MACHINE OPERATOR) Pathologist [facility] eGFR 64 >=60 mL/min/1. 73 m2 Comment: [...] last reviewed 2021. Blood 01/28/2024 8:48 AM BLOCKING MACHINE OPERATOR 01/28/2024 12:45 PM BLOCKING MACHINE OPERATOR us Clive Wright MD LAB BLOOD ORDERABLES Final Re sult [facility] [address] [facility] [place] [address] * (ABNORMAL) Differential, auto (01/28/2024 8:48 AM BLOCKING MACHINE OPERATOR) Neutrophil abs 7.3(H) 1.5 - 6.5 K/cumm Imm gran abs 0.0 0.0 - 0.1 K/cumm [facility] Lymphocyte abs 1.4 0.8 - 3.3 K/cumm [facility] Monocyte abs 0.5 0.2 - 0.8 K/cumm [facility] Eosinophil abs 0.1 0.0 - 0.5 K/cumm [facility] Basophil abs 0.1 0.0 - 0.1 K/cumm [facility] Neutrophil pct 77.9 % [facility] Comment: Interpretive Data Percent cell count reference ranges are not reported, since discordance with absolute values may lead to misinterpretation of CBC data. Current Interpretive Data was last revised on 2017. Imm gran pct 0.3 % [facility] Comment: Interpretive Data Percent cell count reference ranges are not reported, since discordance with absolute values may lead to misinterpretation of CBC data. Current Interpretive Data was last revised on 2017. Lymphocyte pct 15.2 % [facility] Comment: Interpretive Data Percent cell count reference ranges are not reported, since discordance with absolute values may lead to misinterpretation of CBC data. Current Interpretive Data was last revised on 2017. Monocyte pct 5.3 % [facility] Comment: Interpretive Data Percent cell count reference ranges are not reported, since discordance with absolute values may lead to misinterpretation of CBC data. Current Interpretive Data was last revised on 2017. Eosinophil pct 0.7 % [facility] Comment: Interpretive Data Percent cell count reference ranges are not reported, since discordance with absolute values may lead to misinterpretation of CBC data. Current Interpretive Data was last revised on 2017. Basophil pct 0.6 % [facility] Comment: Interpretive Data Percent cell count reference ranges are not reported, since discordance with absolute values may lead to misinterpretation of CBC data. Current Interpretive Data was last revised on 2017. Blood 01/28/2024 8:48 AM BLOCKING MACHINE OPERATOR 01/28/2024 12:48 PM BLOCKING MACHINE OPERATOR us Clive Wright MD LAB BLOOD ORDERABLES Final Re sult [facility] [address] [facility] [place] [address] * (ABNORMAL) CBC with auto differential (01/28/2024 8:48 AM BLOCKING MACHINE OPERATOR) Pathologist [facility] WBC 9.4 3.8 - 9.9 K/cumm Hgb 11.5(L) 11.9 - 15.5 g/dL [facility] Hct 35.0(L) 35.6 - 45.5 % [facility] Plt 672(H) 150 - 400 K/cumm [facility] MPV 9.5 9.1 - 12.3 fL [facility] RBC 3.06(L) 3.90 - 5.20 M/cumm [facility] MCV 114.4(H) 81.3 - 96.4 fL [facility] MCH 37.6(H) 27.1 - 33.3 pg [facility] MCHC 32.9 32.3 - 35.7 g/dL [facility] RDW CV 13.1 11.1 - 14.9 % [facility] RDW SD 54.0(H) 35.7 - 48.1 fL [facility] NRBC abs 0.00 0.00 - 0.01 K/cumm [facility] Blood 01/28/2024 8:48 AM BLOCKING MACHINE OPERATOR 01/28/2024 12:48 PM BLOCKING MACHINE OPERATOR Clive Wright MD LAB BLOOD ORDERABLES Final Re sult [address] [place] [address] * (ABNORMAL) Hemoglobin A1c (01/28/2024 8:48 AM BLOCKING MACHINE OPERATOR) [facility] Hgb A1C 7.1(H) 4.0 - 5.6 % Estimated Average Glucose 157 mg/dL [facility]UAN F Comment: The ADA recommends reporting an estimated Average Glucose (eAG) with all Hemoglobin A1c results using the equation derived from a study of 507 normal and diabetic adults. ??Minority populations were underrepresented and children were not included. ?? (Diabetes Care 31:9289-8622, 2008). ??The eAG is not equivalent to a fasting glucose. Blood 01/28/2024 8:48 AM BLOCKING MACHINE OPERATOR 01/28/2024 12:48 PM BLOCKING MACHINE OPERATOR Clive Wright MD LAB BLOOD ORDERABLES Final [facility] Performing Organization Address [facility] de Phone Number [place] [address] [facility] [place] [place] [address] * Lipid panel (01/28/2024 8:48 AM BLOCKING MACHINE OPERATOR) [facility] Cholesterol 184 30 - 199 mg/dL Comment: [...] 2017. Triglycerides 145 <=149 mg/dL [facility] Comment: Interpretive Data Ages [...] 2023. Non-HDL Cholesterol 125 mg/dL [facility] Comment: Interpretive Data Ages [...] 3 JUAN F Blood 01/28/2024 8:48 AM BLOCKING MACHINE OPERATOR 01/28/2024 12:45 PM BLOCKING MACHINE OPERATOR us Clive Wright MD LAB BLOOD ORDERABLES Final Re sult [facility] [address] [facility] Department [place] [address] * (ABNORMAL) Comprehensive metabolic panel (01/28/2024 8:48 AM BLOCKING MACHINE OPERATOR) Sodium 137 135 - 145 mmol/L Potassium, pl 4.1 3.3 - 4.9 mmol/L [facility] Chloride 99 97 - 110 mmol/L [facility] CO2 25 22 - 32 mmol/L [facility] Anion gap 13 2 - 15 mmol/L [facility] BUN 17 6 - 25 mg/dL [facility] Creatinine 0.94 0.60 - 1.10 mg/dL [facility] Glucose 181 70 - 199 mg/dL [facility] Comment: Interpretive Data Fasting glucose >/= [...] 2022. Calcium 9.5 8.5 - 10.3 mg/dL [facility] Bilirubin, total 0.4 0.1 - 1.2 mg/dL [facility] Protein, pl 6.9 6.5 - 8.5 g/dL [facility] Albumin 4.0 3.5 - 5.0 g/dL [facility] Alk phos 51 40 - 130 Units/L [facility] ALT <5(L) 7 - 45 Units/L [facility] Comment:Specimen is Lipemic; results may be inaccurate due to high levels of lipids. AST 24 10 - 45 Units/L [facility] Comment:Specimen is Lipemic; results may be inaccurate due to high levels of lipids. Blood 01/28/2024 8:48 AM BLOCKING MACHINE OPERATOR 01/28/2024 12:45 PM BLOCKING MACHINE OPERATOR us Clive Wright MD LAB BLOOD ORDERABLES Final Re sult [facility] [address] [facility] [place] [address] * (ABNORMAL) CBC with auto differential (01/13/2024 7:52 AM BLOCKING MACHINE OPERATOR) [facility] WBC 7.6 3.8 - 10.8 Thousand/u L [...] [facility] Blood 01/13/2024 7:52 AM BLOCKING MACHINE OPERATOR 01/13/2024 7:52 AM BLOCKING MACHINE OPERATOR Karthikeyan Elaine DO LAB BLOOD ORDERABLES Final R esult [facility] [address] [address] * (ABNORMAL) Comprehensive metabolic panel (01/13/2024 7:52 AM BLOCKING MACHINE OPERATOR) Glucose 226(H) 65 - 99 mg/dL [facility] [...] [facility] Blood 01/13/2024 7:52 AM BLOCKING MACHINE OPERATOR 01/13/2024 7:52 AM BLOCKING MACHINE OPERATOR Karthikeyan Elaine DO LAB BLOOD ORDERABLES Final R esult [facility] [address] [address] * SCREENING MAMMOGRAM BILATERAL W ARPAN (07/08/2022) Anatomical Region Laterality Modality Breast Bilateral Mammography 07/08/2022 Clive Wright MD IMG MAMMO PROCEDURES Final Re sult * Dexa Axial Skeleton Bone Density 1 Or 2 Site (07/08/2022) Anatomical Region Laterality Modality Body N/A Radiographic Sonal ging 07/08/2022 Clive Wright MD [facility] DXA PROCEDURES Final Resu lt * Stool DNA - Cologuard (11/15/2021 9:05 AM CDT) Stool DNA - Cologuard Negative Negative [facility] (CLIA #:[id number]) Comment: NEGATIVE TEST RESULT. A negative Cologuard [...] cancer. ??Following a negative Cologuard result, the [place] [employer] Society and U.S. Multi-Society Task Force screening guidelines recommend a Cologuard re-screening interval of 3 years. References: [place] [employer] Guideline for Colorectal Cancer Screening: https://www.cancer.org/cancer/vmyre-vsaeyl-cbuugz/xbyttnqss-irtgrmgdy-gqsjkay/ac s-rec ommendations.html.; Tio DK, Urbano CR, Sam NevilleK, Colorectal Cancer Screening: Recommendations for Physicians and Patients from the U.S. Multi-Society Task Force on Colorectal Cancer Screening , Am J Gastroenterology 2017; 112:3901-1387. TEST DESCRIPTION: Composite algorithmic analysis of stool [...] (Corona Espinoza al, N Engl J Med 2014;370(14):9470-1600.) Cologuard may produce a false negative or false positive result (no colorectal cancer or precancerous polyp present at colonoscopy follow up). A negative Cologuard test result does not guarantee the absence of CRC or advanced adenoma (pre-cancer). The current Cologuard screening interval is every 3 years. ([place] [employer] and U.S. Multi-Society Task Force). Cologuard performance data in a 10,000 patient pivotal study using colonoscopy as the reference method can be accessed at the following location: www.TapTap.Synchronica/results. Additional description of the Cologuard test process, warnings and precautions can be found at www.colCliftonrd.com. Stool 11/15/2021 9:05 AM CDT 11/16/2021 6:26 PM CDT us Clive Wright MD LAB BODY FLUIDS AND STOOLS OR DERABLES Final Result [facility] (CLIA #:[id number]) [address] [place] [address] from Last 3 Months or Most Recently Relevant to Health Maintenance [place] [address] [address] [facility] [employer] [facility] [employer] [facility] ADVANT Advance Directives For more information, please contact: [phone] Documents on File Type Date Recorded Patient Newspaper Carriers Supervisor Expl anation Power of Inspector [employer] 03/07/2024 10:52 AM [facility] er of banking attorney 2024 Care Teams Client Analyst Relationship Specialty Start Date End Date Clive Wright MD PCP - General Family Medicine 09/15/18 Karthikeyan Elaine DO [address] [place] [address] Medical Oncologist/[place] Upholsterer Hematology and Oncology 10/27/18 Alyssa Jones RN [address] [place] [address] [address] [place] [address] Meat And Seafood Manager 02/29/24
--- OUTSIDE RECORDS SUMMARY | 2024-03-10 20:14 | XMS_ITS | Encounter Summary ---
Author Organization [facility] Healthcare Address [address] [place] [address] Care Team Providers Care Marketing Communication Manager Name Role Phone Clive Wright MD Primary Care Provider [phone] Karthikeyan Elaine DO Unavailable [phone] Encounter Details Date Type Department Care Team (Late st Contact Info) Description 02/18/2024 Orders Only [facility] [place] Information Management [address] [place] [address] Gaby Swartz MD [address] [place] [address] [place] [address] Social History Tobacco Use Types Packs/Day Years [...] on file Legal Sex Female 8:44 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 Gender Identity Not on file Sexual Orientation Not on file Occupation Industry Job Start Date Job End Date Retired Not on file Not on file Not on file documented as of this encounter Plan of Treatment Not on file documented as of this encounter Procedures Procedure Name Priority Date/Time Associated Diagnosis Comments SCAN - RADIOLOGY/IMAGING 02/18/2024 documented in this encounter Results * SCAN - RADIOLOGY/IMAGING (02/18/2024) Anatomical Region Laterality Modality Other us Gaby Swartz MD Final Result documented in this encounter Visit Diagnoses Not on filedocumented in this encounter Care Teams Marketing Communication Manager Relationship Specialty Start Date End Date Clive Wright MD PCP - General Family Medicine 09/15/18 Karthikeyan Elaine DO [address] [place] [address] Medical Oncologist/Bedspread Cutter Hematology and Oncology 10/27/18 documented as of this encounter
--- OUTSIDE RECORDS SUMMARY | 2024-03-10 20:14 | XMS_ITS | Encounter Summary ---
Author Organization [facility] Healthcare Address [address] [place] [address] Care Team Providers Care School Guard Name Role Phone Clive Wright MD Primary Care Provider [phone] Karthikeyan Elaine DO Unavailable [phone] Encounter Details Date Type Department Care Team (Late st Contact Info) Description 02/13/2024 Orders Only [facility] [place] Information Management [address] [place] [address] Clive Wright MD [facility] [address] [id number] Social History Tobacco Use Types Packs/Day Years [...] on file 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 Gender Identity Not on file Sexual Orientation Not on file Occupation Industry Job Start Date Job End Date Retired Not on file Not on file Not on file documented as of this encounter Plan of Treatment Not on file documented as of this encounter Procedures Procedure Name Priority Date/Time Associated Diagnosis Comments SCAN - RADIOLOGY/IMAGING 02/13/2024 documented in this encounter Results * SCAN - RADIOLOGY/IMAGING (02/13/2024) Anatomical Region Laterality Modality Other us Clive Wright MD Edited Result - Final documented in this encounter Visit Diagnoses Not on filedocumented in this encounter Care Teams School Guard Relationship Specialty Start Date End Date Clive Wright MD PCP - General Family Medicine 09/15/18 Karthikeyan Elaine DO [address] [place] [address] Medical Oncologist/Pulp Plant Supervisor Hematology and Oncology 10/27/18 documented as of this encounter
--- OUTSIDE RECORDS SUMMARY | 2024-03-10 20:14 | XMS_ITS | Encounter Summary ---
Author Organization [facility] Healthcare Address [address] [place] [address] Care Team Providers Care Bead Cutter Name Role Phone Clive Wright MD Primary Care Provider [phone] Karthikeyan Elaine DO Unavailable [phone] Encounter Details Date Type Department Care Team (Late st Contact Info) Description 02/14/2024 Orders Only [facility] [place] [address] [place] [address] Deann Mcleod DO [address] [place] [address] Social History Tobacco Use Types Packs/Day Years [...] on file Legal Sex Female 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 Gender Identity Not on file Sexual Orientation Not on file Occupation Industry Job Start Date Job End Date Retired Not on file Not on file Not on file documented as of this encounter Plan of Treatment Not on file documented as of this encounter Procedures Procedure Name Priority Date/Time Associated Diagnosis Comments SCAN - RADIOLOGY/IMAGING 02/14/2024 documented in this encounter Results * SCAN - RADIOLOGY/IMAGING (02/14/2024) Anatomical Region Laterality Modality Other us Deann Mcleod DO Final Result documented in this encounter Visit Diagnoses Not on filedocumented in this encounter Care Teams Bead Cutter Relationship Specialty Start Date End Date Clive Wright MD PCP - General Family Medicine 09/15/18 Karthikeyan Elaine DO [address] [place] [address] Medical Oncologist/Disbursing Agent Hematology and Oncology 10/27/18 documented as of this encounter
--- OUTSIDE RECORDS SUMMARY | 2024-03-10 20:14 | XMS_ITS | Encounter Summary ---
Author Organization [facility] Healthcare Address [address] [place] [address] Care Team Providers Care Cpr Ambulance Driver Name Role Phone Clive Wright MD Primary Care Provider [phone] Karthikeyan Elaine DO Unavailable [phone] Reason for Visit * Reason Onset Date Comments Medical Question/Miscellaneous 02/22/2024 Encounter Details Date Type Department Care Team (Late st Contact Info) Description 02/22/2024 Telephone [facility] Medical Group Family Medicine at [address] [place] [address] Clive Wright MD [address] [place] [address] Medical Question/Miscellaneous Social History Tobacco Use [...] on file Legal Sex Female 8:44 PM PELOTA MAKER Gender Identity Not on file Sexual Orientation Not on file Occupation Industry Job Start Date Job End Date Retired Not on file Not on file Not on file documented as of this encounter Miscellaneous Notes * Telephone Encounter - Nenita Barahona RN - 02/24/2024 3:56 PM CST Gave verbal auth that we will follow her HC per Dr Wright. TA MAKER * Telephone Encounter - Nenita Jacob - 02/24/2024 3:53 PM CST Call Back Caller???s Concern: Klarissa returning call, AC reviewed notes and warm transferred to the backline. Does message need to be routed? No TA MAKER * Telephone Encounter - Nenita Barahona RN - 02/24/2024 3:14 PM CST Left VM to call back TA MAKER * Telephone Encounter - Garima Bal - 02/24/2024 2:09 PM CST Medical Question/Miscellaneous Caller???s Concern: Klarissa is calling to get a verbal that Dr. Wright will follow for patient's nursing, PT, and OT home health. Please advise. Does message need to be routed? Yes-Action Needed TA MAKER * Telephone Encounter - Desirae Higginbotham - 02/23/2024 9:19 AM CST Call Back Caller???s Concern: Patient's daughter, Sarai calling to say that [facility] informed her yesterday that they wouldn't released the records to her. Was able to confirm for her that we had received some information from [facility] already (referenced the Media Tab). She was happy to hear that and stated she would be in touch. She wasn't aware that they had sent anything over. She wanted to ensure that Dr Wright knew what was going on. Mom is still currently in the hospital. Does message need to be routed? Yes-FYI Only TA MAKER * Telephone Encounter - Nenita Barahona RN - 02/22/2024 3:55 PM CST Spoke with Sarai and the provider there will not do the paperwork for memory care as he hasn't knownher long enough but her memory isn't improving at all. She will have them fax over last couple evaluations and her last scan. Informed she will need FU here to do the papers as we haven't seen since October and no mention of dementia. Sarai will call back and we will work her in for ROMÁN and papers. TA MAKER * Telephone Encounter - Fabiola Barron - 02/22/2024 3:21 PM CST Call Back Caller???s Concern: Pt's daughter Sarai calling back asking if Nenita can return her call regarding belwo Does message need to be routed? Yes-Action Needed TA MAKER * Telephone Encounter - Nenita Barahona RN - 02/22/2024 9:42 AM CST Spoke with daughter and informed the neonatal social worker at the hospital will help her get admitted. Informed we could remain her PCP but they would have to bring her to appointments but if too cumbersome can have the MD on staff at the facility care for her mother. TA MAKER * Telephone Encounter - Genoveva Macario - 02/22/2024 8:38 AM CST Medical Question/Miscellaneous Caller???s Concern: Patient's daughter Sarai called, on HIPAA, Patient is currently admitted to [facility] in [place]. She drove over a street sign but didn't stop and drove home. Police arrived and when she spoke to them patient told them she was 46 and she didn't know what year it was or who the president was. Patient had a severe UTI which is now clearing up but her memory deficits arenot. Hospital doctor thinks she may have dementia. Family is considering having her placed in a memory care clinic and not bringing her home. Sarai is asking if this is something Dr. Wright would helpadmit her to or if the hospital does this? Does patient need an office visit appointment? Sarai is new to all of this and is asking for advice and call back please. Does message need to be routed? Yes-Action Needed TA MAKER documented in this encounter Plan of Treatment Not on file documented as of this encounter Visit Diagnoses Not on filedocumented in this encounter Care Teams Cpr Ambulance Driver Relationship Specialty Start Date End Date Clive Wright MD PCP - General Family Medicine 09/15/18 Karthikeyan Elaine DO [address] [place] [address] Medical Oncologist/Occupational Therapist Rehab Manager Hematology and Oncology 10/27/18 documented as of this encounter
--- OUTSIDE RECORDS SUMMARY | 2024-03-10 20:14 | XMS_ITS | Encounter Summary ---
Author Organization [facility] Address [address] [place] [address] Phone Care Team Providers Care Fire Range Technician Name Role Phone Clive Wright MD Primary Care Provider [phone] Sarai Vargas DO Unavailable [phone] Reason for Visit * Reason Comments Follow-up * Consultation (Routine) - Authorized Specialty Diagnoses / Procedures Referred By Estrella kapadia Referred To Contact Oncology Diagnoses Myeloproliferative disease (HCC) Macrocytic anemia Sarai Vargas DO [address] [place] [address] Phone: tel: fax: [facility] [address] [place] [phone] Phone: tel: fax: Referral ID Status Reason Start Date Expiration Date Visits Requested Visits Authorized [id number] Authorized Specialty Services Required 01/29/2025 99 99 Encounter Details Date Type Department Care Team (Latest Contact Info) Description 01/15/2024 9:30 AM ENGRAVED ROLLER INSPECTOR Office Visit [facility] Oncology [address] [place] [address] [address] [place] [address] Sarai Vargas DO [address] [place] [address] Myeloproliferative disease (HCC) (Primary Dx); Thrombocytosis; Macrocytic anemia Social History Tobacco Use Types Packs/Day Years [...] on file Legal Sex Female 8:44 PM ENGRAVED ROLLER INSPECTOR Gender Identity Not on file Sexual Orientation Not on file Occupation Industry Job Start Date Job End Date Retired Not on file Not on file Not on file documented as of this encounter Last Filed Vital Signs Vital Sign Reading Time Taken Comments Blood Pressure 183/101 01/15/2024 9:02 AM ENGRAVED ROLLER INSPECTOR RN notified Pulse 82 01/15/2024 9:02 AM ENGRAVED ROLLER INSPECTOR Temperature 36.5 ??C (97.7 ??F) 01/15/2024 9 :02 AM ENGRAVED ROLLER INSPECTOR Respiratory Rate 18 01/15/2024 9:02 AM ENGRAVED ROLLER INSPECTOR Oxygen Saturation 98% 01/15/2024 9:0 2 AM ENGRAVED ROLLER INSPECTOR Inhaled Oxygen Concentration - - Weight 56.6 kg (124 lb 12.5 oz) 01/15/2024 9:02 AM ENGRAVED ROLLER INSPECTOR Height - - Body Mass Index 21.76 11/05/2023 11:06 AM CDT documented in this encounter Progress Notes * Sarai Vargas, - 01/15/2024 9:30 AM CST Patient ID: Ankita Perez is a 73 y.o. female. Primary Care Provider: Clive Wright MD Assessment/Plan Chronic myeloproliferative disorder with thrombocytosis -JAK2 negative. Chronic macrocytic anemia. -secondary to nutritional deficiencies plus Hydrea side effect Recommendations: 1. Due the fact that her platelet count has increased over the past 3-6 months, I will now increaseher Hydrea to 1500 mg daily. 2. She will continue with surveillance CBC every 3 months. 3. I will see her back here in 1 year for follow-up. 4. Regarding her anemia, this has slowly improved over the last year. 5. She will continue with 81 mg of aspirin for anti-platelet effect. 6. She will continue with ferrous sulfate 325 mg b.i.d. for her ongoing iron- deficiency anemia. My total encounter time on 01/15/2024 was 20 minutes which was spent in the activities documented inthe note. This includes time spent prior to the visit and after the visit in direct care of the patient. This time does not include time spent in any separately reportable services. Patient Active Problem List Diagnosis Essential hypertension Mixed hyperlipidemia 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, without long-term current use of insulin ([facility]/HCC) (HCC) Iron deficiency anemia Thrombocytosis CKD (chronic kidney disease) stage 3, GFR 30-59 ml/min (HCC) Myeloproliferative disease (HCC) Diagnoses and all orders for this visit: Myeloproliferative disease (HCC) (Primary) - Comprehensive metabolic panel; Future - CBC with auto differential; Future - Clinic Appointment Request Follow up; SARAI VARGAS MD; Clinic Appointment Location: [facility] ([facility]); Future - Clinic Appointment Request Follow up; SARAI VARGAS; Clinic Appointment Location: [facility] - Ambulatory referral to Oncology Thrombocytosis - CBC with auto differential; Future - Comprehensive metabolic panel; Future - Comprehensive metabolic panel; Future - CBC with auto differential; Future - Clinic Appointment Request Follow up; SARAI VARGAS MD; Clinic Appointment Location: [facility] ([facility]); Future - CBC with auto differential; Future - Comprehensive metabolic panel; Future - CBC with auto differential; Standing Macrocytic anemia - Comprehensive metabolic panel; Future - CBC with auto differential; Future - Clinic Appointment Request Follow up; SARAI VARGAS MD; Clinic Appointment Location: [facility] ([facility]); Future - Ambulatory referral to Oncology Subjective Interval History: A. Chronic myeloproliferative disorder 1. Patient changed primary care physicians in August 2018 and saw for the 1st time Dr. Wright. He performed extensive evaluation of the patient including laboratory assessment. 2. CBC at that time showed hemoglobin of 9.0 with an elevated platelet count of 860. 3. He repeated the CBC in September 2018 showing the same type of anemia with a hemoglobin of 9.3 and the platelet count was still elevated. 4. She underwent stool sample for occult blood and this was negative. She refuses a colonoscopy andtherefore she has never had this type of procedure before. 5. Laboratory testing in October 2018 showed the following: FRANSISCO 2 mutation negative. JULIA is positive. C reactive protein is negative/normal at 0.47. TSH, vitamin B12 and RBC folate were all normal. Platelet count in early fall was up to 932 6. Patient was started on hydroxyurea 500 mg in December 2018. Subsequently thereafter, I titrate her hydroxyurea to a 1000 mg to normalize her platelet count completely. 7. One year follow-up visit: Patient is currently on hydroxyurea 1000 mg daily. Patient is complain of fatigue. She is currently on ferrous sulfate 325 mg b.i.d.. Recent CBC shows increase in platelet count to 748 Interval Notes: I have reviewed: allergies, current medications, past family history, past medical history, past social history, past surgical history and problem list HPI Review of Systems Constitutional: Positive for fatigue. Negative for appetite change and chills. HENT: Negative. Eyes: Negative. Respiratory: Negative. Cardiovascular: Negative. Gastrointestinal: Negative. Negative for abdominal distention, abdominal pain, blood in stool, constipation, diarrhea and nausea. Endocrine: Negative. Genitourinary: Negative. Musculoskeletal: Negative for arthralgias and back pain. Skin: Negative. Neurological: Positive for extremity weakness, light-headedness and numbness. Hematological: Bruises/bleeds easily. Psychiatric/Behavioral: Negative. Objective Physical Exam: Vital Signs for this encounter: BSA: 1.59 meters squared BP (!) 183/101 (BP Location: Left arm) Comment: RN notified Pulse 82 Temp 36.5 ??C (97.7 ??F) (Oral) Resp 18 Wt 56.6 kg (124 lb 12.5 oz) SpO2 98% BMI 21.76 kg/m?? Physical Exam Constitutional: Appearance: She is well-developed. HENT: Head: Normocephalic and atraumatic. Right Ear: External ear normal. Left Ear: External ear normal. Nose: Nose normal. Eyes: Conjunctiva/sclera: Conjunctivae normal. Pupils: Pupils are equal, round, and reactive to light. Cardiovascular: Rate and Rhythm: Normal rate and regular rhythm. Heart sounds: Normal heart sounds. Pulmonary: Effort: Pulmonary effort is normal. Breath sounds: Normal breath sounds. Abdominal: General: Bowel sounds are normal. Palpations: Abdomen is soft. Musculoskeletal: General: Normal range of motion. Cervical back: Normal range of motion and neck supple. Skin: General: Skin is warm and dry. Coloration: Skin is pale. Neurological: Mental Status: She is alert and oriented to person, place, and time. Motor: Tremor present. Psychiatric: Behavior: Behavior normal. Performance Status: Asymptomatic Results: WBC Date Value Ref Range Status 01/13/2024 7.6 3.8 - 10.8 Thousand/uL Final 01/04/2019 9.3 3.4 - 10.8 x10E3/uL Final Hgb Date Value Ref Range Status 01/13/2024 11.5 (L) 11.7 - 15.5 g/dL Final 01/04/2019 10.8 (L) 11.1 - 15.9 g/dL Final Hct Date Value Ref Range Status 01/13/2024 34.4 (L) 35.0 - 45.0 % Final 01/04/2019 33.8 (L) 34.0 - 46.6 % Final Platelets Date Value Ref Range Status 01/13/2024 748 (H) 140 - 400 Thousand/uL Final 01/04/2019 932 (HH) 150 - 450 x10E3/uL Final Comment: Results verified by repeat testing Lactate dehydrogenase (LDH) Date Value Ref Range Status 10/19/2018 164 119 - 226 IU/L Final Lactate Dehydrogenase Date Value Ref Range Status 10/04/2019 131 100 - 250 U/L Final Creatinine Date Value Ref Range Status 01/13/2024 1.20 (H) 0.60 - 1.00 mg/dL Final AST Date Value Ref Range Status 01/13/2024 13 10 - 35 U/L Final AVED ROLLER INSPECTOR documented in this encounter Plan of Treatment Scheduled Orders Name Type Priority Associated Diagnoses Orde r Schedule Comprehensive metabolic panel Lab Routine Thrombocytosis Myeloproliferative disease (HCC) Macrocytic anemia Expected: 01/15/2024, Expires: 01/14/2025 CBC with auto differential Lab Routine Thrombocytosis Myeloproliferative disease (HCC) Macrocytic anemia Expected: 01/15/2024, Expires: 01/14/2025 CBC with auto differential Lab Routine Thrombocytosis Expected: 02/25/2024, Expires: 01/14/2025 Comprehensive metabolic panel Lab Routine Thrombocytosis Expected: 01/13/2025, Expires: 01/14/2025 CBC with auto differential Lab Routine Thrombocytosis Every 3 months for 4 Occurrences starting 01/15/2024 until 01/14/2025 documented as of this encounter Procedures Procedure Name Priority Date/Time Associated Diagnosis Comments CBC WITH AUTO DIFFERENTIAL Routine 01/13/2024 7:52 AM ENGRAVED ROLLER INSPECTOR Thrombocytosis COMPREHENSIVE METABOLIC PANEL Routine 01/13/2024 7:52 AM ENGRAVED ROLLER INSPECTOR Thrombocytosis documented in this encounter Results * (ABNORMAL) Comprehensive metabolic panel (01/13/2024 7:52 AM ENGRAVED ROLLER INSPECTOR) Glucose 226(H) 65 - 99 mg/dL [facility] [...] [facility] Blood 01/13/2024 7:52 AM ENGRAVED ROLLER INSPECTOR 01/13/2024 7:52 AM ENGRAVED ROLLER INSPECTOR Sarai Vargas DO LAB BLOOD ORDERABLES Final R esult [facility] [address] [facility] [place] [address] * (ABNORMAL) CBC with auto differential (01/13/2024 7:52 AM ENGRAVED ROLLER INSPECTOR) WBC 7.6 3.8 - 10.8 Thousand/u L [...] [facility] Blood 01/13/2024 7:52 AM ENGRAVED ROLLER INSPECTOR 01/13/2024 7:52 AM ENGRAVED ROLLER INSPECTOR Sarai Vargas DO LAB BLOOD ORDERABLES Final R esult [facility] [address] [place] [address] documented in this encounter Visit Diagnoses Diagnosis Myeloproliferative disease (HCC)- Primary 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 Thrombocytosis Essential thrombocythemia Macrocytic anemia documented in this encounter Orders Outpatient Referral Count Last Ordered Date Fir st Ordered Date AMB REFERRAL TO ONCOLOGY 1 01/15/2024 Appointment Requests Count Last Ordered Date Fi rst Ordered Date ONCBCN CLINIC APPOINTMENT REQUEST 2 024 documented in this encounter Care Teams Fire Range Technician Relationship Specialty Start Date End Date Clive Wright MD PCP - General Family Medicine 09/15/18 Sarai Vargas DO [address] [place] [address] Medical Oncologist/Assembler Arranger Hematology and Oncology 10/27/18 documented as of this encounter
--- OUTSIDE RECORDS SUMMARY | 2024-03-10 20:15 | XMS_ITS | Encounter Summary ---
Author Organization [facility] Address [address] [place] [address] Phone Care Team Providers Care Turbine Measurements Engineer Name Role Phone Clive Wright MD Primary Care Provider [phone] Karthikeyan Elaine DO Unavailable [phone] Encounter Details Date Type Department Care Team (Late st Contact Info) Description 07/31/2020 11:00 AM CDT Lab [facility] Oncology [address] [place] [phone] Thrombocytosis (CMS/HCC) Social History Tobacco Use Types Packs/Day Years Used Date Smoking Tobacco: Never Smokeless Tobacco: Never Alcohol Use Standard Drinks/Week Comments Not Currently 0 (1 standard drink = 0.6 oz pur e alcohol) occasion AUDIT-C Answer Date Recorded Frequency of Alcohol Consumption Never 04/14/2019 Average Number of Drinks Not on file 020 Frequency of Binge Drinking Not on file 08/2019 PHQ-2 Answer Date Recorded PHQ-2 Total Score (If total score is 3 or more points, staff should administer the PHQ-9) 2 10/13/2019 Comments Unknown Sex and Gender Information Value Date Recorded Sex Assigned at Not on file Legal Sex Female 8:44 PM WOUND CARE TECHNICIAN Gender Identity Not on file Sexual Orientation Not on file Occupation Industry Job Start Date Job End Date Retired Not on file Not on file Not on file documented as of this encounter Plan of Treatment Not on file documented as of this encounter Visit Diagnoses Diagnosis Thrombocytosis Essential thrombocythemia documented in this encounter Orders Appointment Requests Count Last Ordered Date Fi rst Ordered Date ONCBCN LAB APPOINTMENT 1 07/31/2020 documented in this encounter Care Teams Turbine Measurements Engineer Relationship Specialty Start Date End Date Clive Wright MD PCP - General Family Medicine 09/15/18 Karthikeyan Elaine DO [address] [place] [address] Medical Oncologist/Marking Machine Operator Hematology and Oncology 10/27/18 documented as of this encounter
--- OUTSIDE RECORDS SUMMARY | 2024-03-10 20:15 | XMS_ITS | Encounter Summary ---
Author Organization [facility] Medical Group Address [address] [place] [address] [address] [place] [address] Care Team Providers Care Plant Protection Superintendent Name Role Phone Clive Wright MD Primary Care Provider [phone] Karthikeyan Elaine DO Unavailable [phone] Reason for Visit * Reason Onset Date Comments Successful Phone Call 09/26/2022 DM eye exa m Encounter Details Date Type Department Care Team (Late st Contact Info) Description 09/26/2022 Telephone [facility] Accountable Care Organization [address] [place] [address] Ashley Ridley [address] [address] Successful Phone Call (DM eye exam ) Social History Tobacco Use Types Packs/Day Years Used Date Smoking Tobacco: Never Smokeless Tobacco: Never Alcohol Use Standard Drinks/Week Comments Not Currently 0 (1 standard drink = 0.6 oz pur e alcohol) occasion AUDIT-C Answer Date Recorded Q1: How often do you have a drink containing alc ohol? Never 10/16/2020 Average Number of Drinks Not on file 021 Q3: How often do you have si x or more drinks on one occasion? Never 10/16/2020 PHQ-2 Answer Date Recorded PHQ-2 Total Score (If total score is 3 or more points, staff should administer the PHQ-9) 0 10/22/2021 Comments Unknown Sex and Gender Information Value Date Recorded Sex Assigned at Not on file Legal Sex Female 8:44 PM SUPERVISOR STEEL DIVISION Gender Identity Not on file Sexual Orientation Not on file Occupation Industry Job Start Date Job End Date Retired Not on file Not on file Not on file documented as of this encounter Miscellaneous Notes * Telephone Encounter - Ashley Ridley MA - 09/26/2022 9:22 AM CDT Patient has been identified by their insurance plan to have a DM eye exam gap in care. Chart has been scrubbed and Patient will get on scheduled . Current open gaps in care: DM eye exam LOGAN Stiles Patient Quality Commercial Loan Analyst [facility] ([facility]) [phone] documented in this encounter Plan of Treatment Not on file documented as of this encounter Visit Diagnoses Not on filedocumented in this encounter Care Teams Plant Protection Superintendent Relationship Specialty Start Date End Date Clive Wright MD PCP - General Family Medicine 09/15/18 Karthikeyan Elaine DO [address] [place] [address] Medical Oncologist/Assistant Professor Of Drama Hematology and Oncology 10/27/18 documented as of this encounter
--- OUTSIDE RECORDS SUMMARY | 2024-03-10 20:15 | XMS_ITS | Encounter Summary ---
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 Gender Identity Not on file Sexual Orientation Not on file Occupation Industry Job Start Date Job End Date Retired Not on file Not on file Not on file documented as of this encounter Plan of Treatment Not on file documented as of this encounter Procedures Procedure Name Priority Date/Time Associated Diagnosis Comments DIFFERENTIAL AUTO Routine 08/28/2020 10: 57 AM CDT Thrombocytosis (CMS/HCC) CBC WITH AUTO DIFFERENTIAL Routine 08/28/2020 10:57 AM CDT Thrombocytosis (CMS/HCC) documented in this encounter Results * Differential, auto (08/28/2020 10:57 AM CDT) Neutrophil abs 3.3 1.7 - 6.5 K/cumm JUAN F Comment:Testing performed by : [address] [address] Lymphocyte abs 1.3 0.8 - 3.3 K/cumm JUAN F Comment:Testing performed by : [address] [address] Monocyte abs 0.5 0.2 - 0.8 K/cumm JUAN F Comment:Testing performed by : [address] [address] Eosinophil abs 0.1 0.0 - 0.5 K/cumm JUAN F Comment:Testing performed by : [address] [address] Neutrophil pct 63.0 % JUAN F Comment: Interpretive Data Percent cell count reference ranges are not reported, since discordance with absolute values may lead to misinterpretation of CBC data. Current Interpretive Data was last revised on 2017. Testing performed by: [address] [address] Imm gran pct 0.2 % JUAN F Comment: Interpretive Data Percent cell count reference ranges are not reported, since discordance with absolute values may lead to misinterpretation of CBC data. Current Interpretive Data was last revised on 2017. Testing performed by: [address] [address] Lymphocyte pct 24.8 % CERELISA Comment: Interpretive Data Percent cell count reference ranges are not reported, since discordance with absolute values may lead to misinterpretation of CBC data. Current Interpretive Data was last revised on 2017. Testing performed by: [address] [address] Monocyte pct 10.2 % JUAN F Comment: Interpretive Data Percent cell count reference ranges are not reported, since discordance with absolute values may lead to misinterpretation of CBC data. Current Interpretive Data was last revised on 2017. Testing performed by: [address] [address] Eosinophil pct 1.2 % JUAN F Comment: Interpretive Data Percent cell count reference ranges are not reported, since discordance with absolute values may lead to misinterpretation of CBC data. Current Interpretive Data was last revised on 2017. Testing performed by: [address] [address] Basophil pct 0.6 % JUAN F Comment: Interpretive Data Percent cell count reference ranges are not reported, since discordance with absolute values may lead to misinterpretation of CBC data. Current Interpretive Data was last revised on 2017. Testing performed by: [address] [address] Blood specimen (specimen) 08/28/2020 10:57 AM CDT 08/28/2020 10:58 AM CDT Karthikeyan Elaine DO LAB BLOOD ORDERABLES Final R esult [place] [address] [facility] Department [place] [address] * (ABNORMAL) CBC with auto differential (08/28/2020 10:57 AM CDT) WBC 5.2 3.8 - 9.9 K/cumm JUAN F Comment:Testing performed by : [address] [address] Hgb 10.7(L) 11.9 - 15.5 g/dL JUAN F Comment:Testing performed by : [address] [address] Hct 31.1(L) 35.6 - 45.5 % JUAN F Comment:Testing performed by : [address] [address] Plt 457(H) 150 - 400 K/cumm JUAN F Comment:Testing performed by : [address] [address] MPV 9.2 9.1 - 12.3 fL JUAN F Comment:Testing performed by : [facility], [address] [place] [address]., [address] RBC 2.42(L) 3.90 - 5.20 M/cumm JUAN F [place] Comment:Testing performed by : [address] [address] MCV 128.5(H) 81.3 - 96.4 fL JUAN F Comment:Testing performed by : [address] [address] MCH 44.2(H) 27.1 - 33.3 pg JUAN F Comment:Testing performed by : [address] [address] MCHC 34.4 32.3 - 35.7 g/dL JUAN F Comment:Testing performed by : [address] [address] RDW CV 12.3 11.1 - 14.9 % JUAN F Comment:Testing performed by : [address], [address] RDW SD 58.6(H) 35.7 - 48.1 fL JUAN F Comment:Testing performed by : [address] [address] Blood specimen (specimen) 08/28/2020 10:57 AM CDT 08/28/2020 10:58 AM CDT Karthikeyan Elaine DO LAB BLOOD ORDERABLES Final R esult JUAN F [address] [facility] Department [place] [address] documented in this encounter Visit Diagnoses Diagnosis Thrombocytosis Essential thrombocythemia documented in this encounter Orders Appointment Requests Count Last Ordered Date Fi rst Ordered Date ONCBCN LAB APPOINTMENT 1 08/28/2020 documented in this encounter Care Teams Customer Insight Analyst Relationship Specialty Start Date End Date Clive Wright MD PCP - General Family Medicine 09/15/18 Karthikeyan Elaine DO [address] [place] [address] Medical Oncologist/Router Setter Hematology and Oncology 10/27/18 documented as of this encounter
--- OUTSIDE RECORDS SUMMARY | 2024-03-10 20:15 | XMS_ITS | Encounter Summary ---
Author Organization [facility] Healthcare Address [address] [place] [address] Care Team Providers Care Small Appliance Assembly Supervisor Name Role Phone Clive Wright MD Primary Care Provider [phone] Karthikeyan Elaine DO Unavailable [phone] Reason for Visit * Reason Onset Date Comments Unsuccessful Phone Call 3 02/12/2023 [employer] DM eye exam Encounter Details Date Type Department Care Team (Late st Contact Info) Description 02/12/2023 Telephone [facility] Accountable Care Organization [address] [place] [address] Ashley Ridley [address] [place], [place] [id number] Unsuccessful Phone Call 3 ([employer] DM eye exam ) Social History Tobacco Use [...] points, staff should administer the PHQ-9) 0 10/27/2022 Comments Unknown Sex and Gender Information Value Date Recorded Sex Assigned at Not on file 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 Chart has been scrubbed and Patient has been called and left message. Current open gaps in care: [employer] DM eye exam LOGAN Stiles Patient Quality Merchant Banker [facility] care [facility] [place] [phone] TRACER documented in this encounter Plan of Treatment Not on file documented as of this encounter Visit Diagnoses Not on filedocumented in this encounter Care Teams Small Appliance Assembly Supervisor Relationship Specialty Start Date End Date Clive Wright MD PCP - General Family Medicine 09/15/18 Karthikeyan Elaine DO [address] [place] [address] Medical Oncologist/Teleprinter Hematology and Oncology 10/27/18 documented as of this encounter
--- OUTSIDE RECORDS SUMMARY | 2024-03-10 20:15 | XMS_ITS | Encounter Summary ---
Author Organization [facility] Address [address] [place] [address] Phone Care Team Providers Care Extruding Press Operator Name Role Phone Clive Wright MD Primary Care Provider Karthikeyan Elaine DO Unavailable [phone] Encounter Details Date Type Department Care Team (Late st Contact Info) Description 07/03/2020 11:00 AM CDT Lab [facility] Oncology [address] [place] [address] [place] [phone] Thrombocytosis (CMS/HCC); Other iron deficiency anemia Social History Tobacco Use Types Packs/Day [...] on file 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 Gender Identity Not on file Sexual Orientation Not on file Occupation Industry Job Start Date Job End Date Retired Not on file Not on file Not on file documented as of this encounter Plan of Treatment Not on file documented as of this encounter Visit Diagnoses Diagnosis Thrombocytosis Essential thrombocythemia Other iron deficiency anemia documented in this encounter Orders Appointment Requests Count Last Ordered Date Fi rst Ordered Date ONCBCN LAB APPOINTMENT 1 07/03/2020 documented in this encounter Care Teams Extruding Press Operator Relationship Specialty Start Date End Date Clive Wright MD PCP - General Family Medicine 09/15/18 Karthikeyan Elaine DO [address] [place] [address] Medical Oncologist/Supervisor Cooler Service Hematology and Oncology 10/27/18 documented as of this encounter
--- OUTSIDE RECORDS SUMMARY | 2024-03-10 20:15 | XMS_ITS | Encounter Summary ---
Author Organization [facility] Medical Group Address [address] [facility] [address] [place] [address] Care Team Providers Care Attending Anesthesiologist Name Role Phone Clive Wright MD Primary Care Provider [phone] Karthikeyan Elaine DO Unavailable [phone] Reason for Visit * Reason Onset Date Comments Additional Services Or Orders 10/14/2021 Encounter Details Date Type Department Care Team (Late st Contact Info) Description 10/14/2021 Telephone [facility] Medicine [address] [facility] [address] [place] [address] Clive Wright MD [address] [place] [address] Additional Services Or Orders Social History Tobacco Use Types Packs/Day Years [...] points, staff should administer the PHQ-9) 0 10/16/2020 Comments Unknown Sex and Gender Information Value Date Recorded Sex Assigned at Not on file 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 Tried calling patient and voicemail full. * Telephone Encounter - Steff Dupont - 10/14/2021 9:30 AM CDT Additional Services or Orders Type of Service Requested:Labs Reason for Request: Labs already ordered Details Regarding Additional Services : Lab Order Where will services be performed? [facility] Caller's Callback #: [phone] Additional Comments: Patient would like her lab order sent to [facility]. [facility]. Please call her when this is done as she went to [facility] this morning and there was no order there. Please advise. Does message need to be routed?Yes-Action Needed documented in this encounter Plan of Treatment Not on file documented as of this encounter Visit Diagnoses Not on filedocumented in this encounter Care Teams Attending Anesthesiologist Relationship Specialty Start Date End Date Clive Wright MD PCP - General Family Medicine 09/15/18 Karthikeyan Elaine DO [address] [place] [address] Medical Oncologist/Poultice Machine Operator Hematology and Oncology 10/27/18 documented as of this encounter
--- OUTSIDE RECORDS SUMMARY | 2024-03-10 20:15 | XMS_ITS | Encounter Summary ---
Author Organization [facility] Medical Group Address [address] [facility] [address] [place] [address] Care Team Providers Care Financial Internship Name Role Phone Clive Wright MD Primary Care Provider [phone] Karthikeyan Elaine DO Unavailable [phone] Reason for Visit * Reason Onset Date Comments Medical Question/Miscellaneous 11/21/2022 Encounter Details Date Type Department Care Team (Late st Contact Info) Description 11/21/2022 Telephone [facility] Medical Group Family Medicine [address] [facility] [address] [place] [address] Clive Wright MD [address] [place] [address] Medical Question/Miscellaneous Social History Tobacco Use [...] on file 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 Yes-FYI Only documented in this encounter Plan of Treatment Not on file documented as of this encounter Visit Diagnoses Not on filedocumented in this encounter Care Teams Financial Internship Relationship Specialty Start Date End Date Clive Wright MD PCP - General Family Medicine 09/15/18 Karthikeyan Elaine DO [address] [place] [address] Medical Oncologist/Scrapper Hematology and Oncology 10/27/18 documented as of this encounter
--- OUTSIDE RECORDS SUMMARY | 2024-03-10 20:15 | XMS_ITS | Encounter Summary ---
Author Organization [facility] Medical Group Address [address] [facility] [address] [place] [address] Care Team Providers Care Pari Mutuel Clerk Name Role Phone Clive Wright MD Primary Care Provider [phone] Karthikeyan Elaine DO Unavailable [phone] Encounter Details Date Type Department Care Team (Late st Contact Info) Description 10/10/2020 Orders Only [facility] Medical [facility] Family Medicine [address] [facility] [address] [place] [address] Clive Wright MD [address] [place] [address] [address] [place] [address] Social History Tobacco Use Types Packs/Day Years [...] on file 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 Gender Identity Not on file Sexual Orientation Not on file Occupation Industry Job Start Date Job End Date Retired Not on file Not on file Not on file documented as of this encounter Plan of Treatment Not on file documented as of this encounter Procedures Procedure Name Priority Date/Time Associated Diagnosis Comments CBC MORPHOLOGY Routine 10/10/2020 8:52 AM CDT CBC WITH AUTO DIFFERENTIAL Routine 10/10/2020 8:52 AM CDT HEMOGLOBIN A1C Routine 10/10/2020 8:52 AM CDT LIPID PANEL Routine 10/10/2020 8:52 AM CDT COMPREHENSIVE METABOLIC PANEL Routine 10/10/2020 8:52 AM CDT documented in this encounter Results * (ABNORMAL) Hemoglobin A1c (10/10/2020 8:52 AM CDT) Hgb A1C 6.4(H) <5.7 % of total Hgb [facility] Comment: For someone without known diabetes, a hemoglobin A1c value between 5.7% and 6.4% is consistent with prediabetes and should be confirmed with a follow-up test. For someone with known diabetes, a value <7% indicates that their diabetes is well controlled. A1c targets should be individualized based on duration of diabetes, age, comorbid conditions, and other considerations. This assay result is consistent with an increased risk of diabetes. Currently, no consensus exists regarding use of hemoglobin A1c for diagnosis of diabetes for children. 10/10/2020 8:52 AM CDT 10/10/2020 8:54 AM CDT Narrative [facility] - 10/11/2020 9:17 AM CDT FASTING:YES FASTING: YES us Clive Wright MD LAB BLOOD ORDERABLES Final Re sult [facility] [address] [facility] [place] [address] * (ABNORMAL) Comprehensive metabolic panel (10/10/2020 8:52 AM CDT) Glucose 148(H) 65 - 99 mg/dL [facility] Comment: ? Fasting reference interval For someone without known diabetes, a glucose value >125 mg/dL indicates that they may have diabetes and this should be confirmed with a follow-up test. BUN 37(H) 7 - 25 mg/dL [facility] Creatinine 1.17(H) 0.60 - 0.93 mg/dL [facility] Comment: For patients >49 years of age, the reference limit for Creatinine is approximately 13% higher for people identified as -Monegasque. eGFR NON-AFR. KENYAN 47(L) > OR = 60 mL/min/1. 73m2 [facility] EGFR 54(L) > OR = 60 mL/min/1. 73m2 [facility] BUN/creat ratio 32(H) 6 - 22 (calc) [facility] Sodium 135 135 - 146 mmol/L [facility] Potassium, pl 4.7 3.5 - 5.3 mmol/L [facility] Chloride 100 98 - 110 mmol/L [facility] CO2 23 20 - 32 mmol/L [facility] Calcium 10.0 8.6 - 10.4 mg/dL [facility] Protein, sr 7.3 6.1 - 8.1 g/dL [facility] Albumin 4.3 3.6 - 5.1 g/dL [facility] GLOBULIN 3.0 1.9 - 3.7 g/dL (calc) [facility] Alb/glob ratio 1.4 1.0 - 2.5 (calc) [facility] Bilirubin, total 0.5 0.2 - 1.2 mg/dL [facility] Alk phos 40 37 - 153 U/L [facility] AST 15 10 - 35 U/L [facility] ALT (SGPT) 9 6 - 29 U/L [facility] 10/10/2020 8:52 AM CDT 10/10/2020 8:54 AM CDT Narrative [facility] - 10/11/2020 9:17 AM CDT FASTING:YES FASTING: YES Clive Wright MD LAB BLOOD ORDERABLES Final Re sult Performing Organization Address [facility]/ZIP Co de Phone Number [facility] [address] [facility] [address] * (ABNORMAL) Lipid panel (10/10/2020 8:52 AM CDT) Cholesterol 173 <200 mg/dL [facility] HDL 57 > OR = 50 mg/dL [facility] Triglycerides 163(H) <150 mg/dL [facility] LDL 90 mg/dL (calc) [facility] Comment: Reference range: <100 Desirable range <100 mg/dL for primary prevention; ?? <70 mg/dL for patients with CHD or diabetic patients with > or = 2 CHD risk factors. LDL-C is now calculated using the Rishi-Jordan calculation, which is a validated novel method providing better accuracy than the Friedewald equation in the estimation of LDL-C. Rishi SS et al. CARRIE. 2013;310(19): 3054-9943 (http://education.Yushino/faq/SMY406) Chol/HDL ratio 3.0 <5.0 (calc) [facility] Non-HDL, (LDL+VLDL) 116 <130 mg/dL (calc) [facility] Comment: For patients with diabetes plus 1 major ASCVD risk factor, treating to a non-HDL-C goal of <100 mg/dL (LDL-C of <70 mg/dL) is considered a therapeutic option. 10/10/2020 8:52 AM CDT 10/10/2020 8:54 AM CDT Narrative [facility] - 10/11/2020 9:17 AM CDT FASTING:YES FASTING: YES us Clive Wright MD LAB BLOOD ORDERABLES Final Re sult Performing Organization Address City/[facility]/ZIP Co de Phone Number [facility] [address] [address] [address] * CBC MORPHOLOGY (10/10/2020 8:52 AM CDT) CBC MORPHOLOGY NORMAL [facility] Comment: Macrocytosis 3 + Polychromasia 1 + Ovalocytes 1 + Crenated red blood cells 1 + 10/10/2020 8:52 AM CDT 10/10/2020 8:54 AM CDT Narrative [facility] - 10/11/2020 9:17 AM CDT FASTING:YES FASTING: YES us Clive Wright MD LAB BLOOD ORDERABLES Final Re sult [facility] [address] [facility] [place] [address] * (ABNORMAL) CBC with auto differential (10/10/2020 8:52 AM CDT) WBC 4.6 3.8 - 10.8 Thousand/u L [facility] RBC, POC 2.59(L) 3.80 - 5.10 Million/uL [facility] Hgb 11.3(L) 11.7 - 15.5 g/dL [facility] Hct 31.9(L) 35.0 - 45.0 % [facility] MCV 123.2(H) 80.0 - 100.0 fL [facility] MCH 43.6(H) 27.0 - 33.0 pg [facility] MCHC 35.4 32.0 - 36.0 g/dL [facility] Rdw 11.7 11.0 - 15.0 % [facility] Platelets 515(H) 140 - 400 Thousand/u L [facility] MPV 9.7 7.5 - 12.5 fL [facility] Neutrophils, abs 2,907 1,500 - 7,800 cells/uL [facility] Lymphocytes, abs 1,256 850 - 3,900 cells/uL [facility] Monocyte abs 345 200 - 950 cells/uL [facility] Eosinophils, abs 60 15 - 500 cells/uL [facility] Basophils, abs 32 0 - 200 cells/uL [facility] Neutrophils 63.2 % [facility] Lymphocyte pct 27.3 % [facility] Monocytes 7.5 % [facility] Eosinophils 1.3 % [facility] Basophils 0.7 % [facility] 10/10/2020 8:52 AM CDT 10/10/2020 8:54 AM CDT Narrative [facility] - 10/11/2020 9:17 AM CDT FASTING:YES FASTING: YES us Clive Wright MD LAB BLOOD ORDERABLES Final Re sult [facility] [address] [place] [address] documented in this encounter Visit Diagnoses Not on filedocumented in this encounter Care Teams Pari Mutuel Clerk Relationship Specialty Start Date End Date Clive Wright MD PCP - General Family Medicine 09/15/18 Karthikeyan Elaine DO [address] [place] [address] Medical Oncologist/Night Stocker Hematology and Oncology 10/27/18 documented as of this encounter
--- OUTSIDE RECORDS SUMMARY | 2024-03-10 20:15 | XMS_ITS | Encounter Summary ---
Author Organization [facility] Address [address] [place] [address] Care Team Providers Care Divorce Attorney Name Role Phone Clive Wright MD Primary Care Provider [phone] Karthikeyan Elaine DO Unavailable Encounter Details Date Type Department Care Team (Late st Contact Info) Description 10/14/2021 Orders Only [facility] Medical [facility] Family Medicine [address] [place] [address] Clive Wright MD [address] [place] [address] [address] [place] [address] 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, without long-term current use of insulin (CMS/HCC) (HCC) (Primary Dx); Essential hypertension; Mixed hyperlipidemia; Thrombocytosis Social History Tobacco Use Types Packs/Day Years [...] on file 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 Gender Identity Not on file Sexual Orientation Not on file Occupation Industry Job Start Date Job End Date Retired Not on file Not on file Not on file documented as of this encounter Plan of Treatment Not on file documented as of this encounter Procedures Procedure Name Priority Date/Time Associated Diagnosis Comments PLATELET ESTIMATION Routine 10/17/2021 7:08 AM CDT CBC MORPHOLOGY Routine 10/17/2021 7:08 AM CDT CBC WITH AUTO DIFFERENTIAL Routine 10/17/2021 7:08 AM CDT Thrombocytosis ALBUMIN CREATININE RATIO, URINE Routine 10/17/2021 7:08 AM CDT 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, without long-term current use of insulin (CMS/HCC) (HCC) HEMOGLOBIN A1C Routine 10/17/2021 7:08 AM CDT 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, without long-term current use of insulin (CMS/HCC) (HCC) HEPATIC FUNCTION PANEL Routine 10/17/2021 7:08 AM CDT 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, without long-term current use of insulin (CMS/HCC) (HCC) Essential hypertension LIPID PANEL Routine 10/17/2021 7:08 AM CDT Essential hypertension Mixed hyperlipidemia BASIC METABOLIC PANEL Routine 10/17/2021 7:08 AM CDT 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, without long-term current use of insulin (CMS/HCC) (HCC) documented in this encounter Results * CBC MORPHOLOGY (10/17/2021 7:08 AM CDT) CBC MORPHOLOGY NORMAL [facility] Comment: Macrocytosis 2 + Ovalocytes 1 + 10/17/2021 7:08 AM CDT 10/17/2021 7:09 AM CDT Narrative [facility] - 10/21/2021 4:51 PM CDT FASTING:YES FASTING: YES Clive Wright MD LAB BLOOD ORDERABLES Final Re sult Performing Organization Address [facility] Co de Phone Number [facility] [address] [place] [address] * (ABNORMAL) PLATELET ESTIMATION (10/17/2021 7:08 AM CDT) PLATELET ESTIMATION INCREASED( A) ADEQUATE [facility] 10/17/2021 7:08 AM CDT 10/17/2021 7:09 AM CDT Narrative [facility] - 10/21/2021 4:51 PM CDT FASTING:YES FASTING: YES Clive Wright MD LAB BLOOD ORDERABLES Final Re sult Performing Organization Address [facility] de Phone Number [facility] [address] [place] [address] * (ABNORMAL) Albumin Creatinine Ratio, Urine (10/17/2021 7:08 AM CDT) Pathologist [facility] Creatinine, ur 73 20 - 275 mg/dL [facility] Microalbumin, ur 4.5 See Note: mg/dL [facility] Comment: Reference Range: Reference Range Not established Microalbumin/creat ratio 62(H) <30 mcg/mg creat [facility] Comment: The ADA defines abnormalities in albumin excretion as follows: Albuminuria Category ?Result (mcg/mg creatinine) Normal to Mildly increased ?? <30 Moderately increased ? 30-299 Severely increased ? > OR = 300 The ADA recommends that at least two of three specimens collected within a 3-6 month period be abnormal before considering a patient to be within a diagnostic category. Urine 10/17/2021 7:08 AM CDT 10/17/2021 7:09 AM CDT Narrative [facility] - 10/21/2021 4:51 PM CDT FASTING:YES FASTING: YES Clive Wright MD LAB URINE ORDERABLES Final Re [facility] Performing Organization Address [facility] de Phone Number [facility] [address] [place] [address] * Hepatic function panel (10/17/2021 7:08 AM CDT) Pathologist [facility] Protein, Total 7.7 6.4 - 8.4 g/dL [facility] Albumin 4.2 3.6 - 5.1 g/dL [facility] Globulin 3.5 2.2 - 4.0 g/dL (calc) [facility] Alb/glob ratio 1.2 0.9 - 2.3 (calc) [facility] Bilirubin, total 0.4 0.2 - 1.2 mg/dL [facility] Bilirubin, direct 0.1 < OR = 0.2 mg/dL [facility] Bilirubin, indirect 0.3 0.2 - 1.2 mg/dL (calc) [facility] Alk phos 48 37 - 153 U/L [facility] AST 14 10 - 35 U/L [facility] ALT (SGPT) 8 6 - 29 U/L [facility] Blood specimen (specimen) 10/17/2021 7:08 AM CDT 10/17/2021 7:09 AM CDT Narrative [facility] - 10/21/2021 4:51 PM CDT FASTING:YES FASTING: YES Clive Wright MD LAB BLOOD ORDERABLES Final Re [facility] Performing Organization Address [facility] Co de Phone Number [facility] [address] [place] [address] * (ABNORMAL) Basic metabolic panel (10/17/2021 7:08 AM CDT) Pathologist [facility] Glucose 175(H) 65 - 99 mg/dL [facility] Comment: ? Fasting reference interval For someone without known diabetes, a glucose value >125 mg/dL indicates that they may have diabetes and this should be confirmed with a follow-up test. BUN 28(H) 7 - 25 mg/dL [facility] Creatinine 1.07(H) 0.60 - 1.00 mg/dL [facility] eGFR 55(L) > OR = 60 mL/min/1.7 3m2 [facility] Comment: The eGFR is based on the CKD-EPI 2020 equation. To calculate the new eGFR from a previous Creatinine or Cystatin C result, go to https://www.kidney.org/professionals/ kdoqi/gfr%5Fcalculator BUN/creat ratio 26(H) 6 - 22 (calc) [facility] Sodium 135 135 - 146 mmol/L [facility] Potassium, pl 4.8 3.5 - 5.3 mmol/L [facility] Chloride 99 98 - 110 mmol/L [facility] CO2 26 20 - 32 mmol/L [facility] Calcium 9.9 8.6 - 10.4 mg/dL [facility] Blood specimen (specimen) 10/17/2021 7:08 AM CDT 10/17/2021 7:09 AM CDT Narrative [facility] - 10/21/2021 4:51 PM CDT FASTING:YES FASTING: YES us Clive Wright MD LAB BLOOD ORDERABLES Final Re sult [facility] [address] [place] [address] * (ABNORMAL) Hemoglobin A1c (10/17/2021 7:08 AM CDT) Hgb A1C 6.4(H) <5.7 % of total Hgb [facility] Comment: For someone without known diabetes, a [...] A1c for diagnosis of diabetes for children. Blood specimen (specimen) 10/17/2021 7:08 AM CDT 10/17/2021 7:09 AM CDT Narrative [facility] - 10/21/2021 4:51 PM CDT FASTING:YES FASTING: YES Clive Wright MD LAB BLOOD ORDERABLES Final [facility] [address] [place] [address] * (ABNORMAL) Lipid panel (10/17/2021 7:08 AM CDT) Pathologist [facility] Cholesterol 159 <200 mg/dL [facility] HDL 60 > OR = 50 mg/dL [facility] Triglycerides 175(H) <150 mg/dL [facility] LDL 74 mg/dL (calc) [facility] Comment: Reference range: <100 Desirable range <100 mg/dL for primary prevention; ?? <70 mg/dL for patients with CHD or diabetic patients with > or = 2 CHD risk factors. LDL-C is now calculated using the Rishi-Jordan calculation, which is a validated novel method providing better accuracy than the Friedewald equation in the estimation of LDL-C. Rishi ZAMORA et al. CARRIE. 2013;310(19): 1336-8799 (http://education.1DayLater.CITYBIZLIST/faq/CBJ500) Chol/HDL ratio 2.7 <5.0 (calc) [facility] Non-HDL, (LDL+VLDL) 99 <130 mg/dL (calc) [facility] Comment: For patients with diabetes plus 1 major ASCVD risk factor, treating to a non-HDL-C goal of <100 mg/dL (LDL-C of <70 mg/dL) is considered a therapeutic option. Blood specimen (specimen) 10/17/2021 7:08 AM CDT 10/17/2021 7:09 AM CDT Narrative [facility] - 10/21/2021 4:51 PM CDT FASTING:YES FASTING: YES us Clive Wright MD LAB BLOOD ORDERABLES Final Re sult [facility] [address] [place] [address] * (ABNORMAL) CBC with auto differential (10/17/2021 7:08 AM CDT) WBC 6.6 3.8 - 10.8 Thousand/u L [facility] RBC, POC 2.63(L) 3.80 - 5.10 Million/uL [facility] Hgb 11.3(L) 11.7 - 15.5 g/dL [facility] Hct 33.0(L) 35.0 - 45.0 % [facility] MCV 125.5(H) 80.0 - 100.0 fL [facility] MCH 43.0(H) 27.0 - 33.0 pg [facility] MCHC 34.2 32.0 - 36.0 g/dL [facility] Rdw 11.5 11.0 - 15.0 % [facility] Platelets 573(H) 140 - 400 Thousand/u L [facility] MPV 9.7 7.5 - 12.5 fL [facility] Neutrophils, abs 4,409 1,500 - 7,800 cells/uL [facility] Lymphocytes, abs 1,511 850 - 3,900 cells/uL [facility] Monocyte abs 548 200 - 950 cells/uL [facility] Eosinophils, abs 99 15 - 500 cells/uL [facility] Basophils, abs 33 0 - 200 cells/uL [facility] Neutrophils 66.8 % [facility] Lymphocyte pct 22.9 % [facility] Monocytes 8.3 % [facility] Eosinophils 1.5 % [facility] Basophils 0.5 % [facility] Blood specimen (specimen) 10/17/2021 7:08 AM CDT 10/17/2021 7:09 AM CDT Narrative [facility] - 10/21/2021 4:51 PM CDT FASTING:YES FASTING: YES us Clive Wright MD LAB BLOOD ORDERABLES Final Re sult [facility] [address] [place] [address] documented in this encounter Visit Diagnoses Diagnosis 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, without long-term current use of insulin (CMS/HCC) (HCC)- Primary Essential hypertension Unspecified essential hypertension Mixed hyperlipidemia Thrombocytosis Essential thrombocythemia documented in this encounter Care Teams Divorce Attorney Relationship Specialty Start Date End Date Clive Wright MD PCP - General Family Medicine 09/15/18 Karthikeyan Elaine DO [address] [place] [address] Medical Oncologist/Middle School Assistant Principal Hematology and Oncology 10/27/18 documented as of this encounter
--- OUTSIDE RECORDS SUMMARY | 2024-03-10 20:15 | XMS_ITS | Encounter Summary ---
Author Organization [facility] Address [address] [place] [address] Care Team Providers Care Psych Rn Name Role Phone Clive Wright MD Primary Care Provider [phone] Karthikeyan Elaine DO Unavailable [phone] Encounter Details Date Type Department Care Team (Late st Contact Info) Description 04/22/2022 Orders Only [facility] Family Medicine [address] [place] [address] Clive Wright MD [address] [place] [address] [address] [place], [place] [id number] Social History Tobacco Use Types Packs/Day Years [...] on file 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 Gender Identity Not on file Sexual Orientation Not on file Occupation Industry Job Start Date Job End Date Retired Not on file Not on file Not on file documented as of this encounter Plan of Treatment Not on file documented as of this encounter Procedures Procedure Name Priority Date/Time Associated Diagnosis Comments CBC WITH AUTO DIFFERENTIAL Routine 04/22/2022 7:42 AM REGULATORY ASSOCIATE HEMOGLOBIN A1C Routine 04/22/2022 7:42 AM REGULATORY ASSOCIATE LIPID PANEL Routine 04/22/2022 7:42 AM REGULATORY ASSOCIATE COMPREHENSIVE METABOLIC PANEL Routine 04/22/2022 7:42 AM REGULATORY ASSOCIATE documented in this encounter Results * (ABNORMAL) Comprehensive metabolic panel (04/22/2022 7:42 AM REGULATORY ASSOCIATE) Glucose 178(H) 65 - 99 mg/dL [facility] Comment: ? Fasting reference interval For someone without known diabetes, a glucose value >125 mg/dL indicates that they may have diabetes and this should be confirmed with a follow-up test. BUN 19 7 - 25 mg/dL [facility] Creatinine 0.95 0.60 - 1.00 mg/dL [facility] eGFR 64 > OR = 60 mL/min/1. 73m2 [facility] Comment: The eGFR is based on the CKD-EPI 2020 equation. To calculate the new eGFR from a previous Creatinine or Cystatin C result, go to https://www.kidney.org/professionals/ kdoqi/gfr%5Fcalculator BUN/creat ratio NOT APPLICABLE 6 - 22 (calc) [facility] Sodium 137 135 - 146 mmol/L [facility] Potassium, pl 4.3 3.5 - 5.3 mmol/L [facility] Chloride 99 98 - 110 mmol/L [facility] CO2 32 20 - 32 mmol/L [facility] Calcium 9.2 8.6 - 10.4 mg/dL [facility] Protein, sr 6.5 6.1 - 8.1 g/dL [facility] Albumin 3.8 3.6 - 5.1 g/dL [facility] GLOBULIN 2.7 1.9 - 3.7 g/dL (calc) [facility] Alb/glob ratio 1.4 1.0 - 2.5 (calc) [facility] Bilirubin, total 0.4 0.2 - 1.2 mg/dL [facility] Alk phos 51 37 - 153 U/L [facility] AST 16 10 - 35 U/L [facility] ALT (SGPT) 10 6 - 29 U/L [facility] 04/22/2022 7:42 AM REGULATORY ASSOCIATE 04/22/2022 7:43 AM REGULATORY ASSOCIATE Narrative [facility] - 04/23/2022 1:55 AM REGULATORY ASSOCIATE FASTING:YES FASTING: YES us Clive Wright MD LAB BLOOD ORDERABLES Final Re sult [facility] [address] [place] [address] * Lipid panel (04/22/2022 7:42 AM REGULATORY ASSOCIATE) Cholesterol 149 <200 mg/dL [facility] HDL 56 > OR = 50 mg/dL [facility] Triglycerides 137 <150 mg/dL [facility] LDL 71 mg/dL (calc) [facility] Comment: Reference [...] LDL-C. Rishi ZAMORA et al. CARRIE. 2013;310(19): 7614-2176 (http://education.SignaCert.Cardio control/faq/OFR720) Chol/HDL ratio 2.7 <5.0 (calc) [facility] Non-HDL, (LDL+VLDL) 93 <130 mg/dL (calc) [facility] Comment: For patients with diabetes plus 1 major ASCVD risk factor, treating to a non-HDL-C goal of <100 mg/dL (LDL-C of <70 mg/dL) is considered a therapeutic option. 04/22/2022 7:42 AM REGULATORY ASSOCIATE 04/22/2022 7:43 AM REGULATORY ASSOCIATE Narrative [facility] - 04/23/2022 1:55 AM REGULATORY ASSOCIATE FASTING:YES FASTING: YES us Clive Wright MD LAB BLOOD ORDERABLES Final Re sult [facility] [address] [place] [address] * (ABNORMAL) CBC with auto differential (04/22/2022 7:42 AM REGULATORY ASSOCIATE) WBC 4.8 3.8 - 10.8 Thousand/u L [facility] RBC, POC 2.52(L) 3.80 - 5.10 Million/uL [facility] Hgb 11.1(L) 11.7 - 15.5 g/dL [facility] Hct 30.8(L) 35.0 - 45.0 % [facility] MCV 122.2(H) 80.0 - 100.0 fL [facility] MCH 44.0(H) 27.0 - 33.0 pg [facility] MCHC 36.0 32.0 - 36.0 g/dL [facility] Rdw 12.7 11.0 - 15.0 % [facility] Platelets 448(H) 140 - 400 Thousand/u L [facility] MPV 9.8 7.5 - 12.5 fL [facility] Neutrophils, abs 3,139 1,500 - 7,800 cells/uL [facility] Lymphocytes, abs 1,181 850 - 3,900 cells/uL [facility] Monocyte abs 389 200 - 950 cells/uL [facility] Eosinophils, abs 72 15 - 500 cells/uL [facility] Basophils, abs 19 0 - 200 cells/uL [facility] Neutrophils 65.4 % [facility] Lymphocyte pct 24.6 % [facility] Monocytes 8.1 % [facility] Eosinophils 1.5 % [facility] Basophils 0.4 % [facility] Comment [facility] Comment: Hypersegmented neutrophils noted Review of peripheral smear confirms automated results. 04/22/2022 7:42 AM REGULATORY ASSOCIATE 04/22/2022 7:43 AM REGULATORY ASSOCIATE Narrative [facility] - 04/23/2022 1:55 AM REGULATORY ASSOCIATE FASTING:YES FASTING: YES us Clive Wright MD LAB BLOOD ORDERABLES Final Re sult [facility] [address] [place] [address] * (ABNORMAL) Hemoglobin A1c (04/22/2022 7:42 AM REGULATORY ASSOCIATE) Hgb A1C 6.7(H) <5.7 % of total Hgb [facility] Comment: For someone without known diabetes, a hemoglobin A1c value of 6.5% or greater indicates that they may have diabetes and this should be confirmed with a follow-up test. For someone with known diabetes, a value <7% indicates that their diabetes is well controlled and a value greater than or equal to 7% indicates suboptimal control. A1c targets should be individualized based on duration of diabetes, age, comorbid conditions, and other considerations. Currently, no consensus exists regarding use of hemoglobin A1c for diagnosis of diabetes for children. ?? 04/22/2022 7:42 AM REGULATORY ASSOCIATE 04/22/2022 7:43 AM REGULATORY ASSOCIATE Narrative [facility] - 04/23/2022 1:55 AM REGULATORY ASSOCIATE FASTING:YES FASTING: YES us Clive Wright MD LAB BLOOD ORDERABLES Final Re sult [facility] [address] [place] [address] documented in this encounter Visit Diagnoses Not on filedocumented in this encounter Care Teams Psych Rn Relationship Specialty Start Date End Date Clive Wright MD PCP - General Family Medicine 09/15/18 Karthikeyan Elaine DO [address] [place] [address] Medical Oncologist/Line Rider Hematology and Oncology 10/27/18 documented as of this encounter
--- OUTSIDE RECORDS SUMMARY | 2024-03-10 20:15 | XMS_ITS | Encounter Summary ---
Author Organization [facility] Healthcare Address [address] [place] [address] Care Team Providers Care Motor Vehicle Field Representative Name Role Phone Clive Wright MD Primary Care Provider [phone] Karthikeyan Elaine DO Unavailable [phone] Reason for Visit * Reason Comments Successful Phone Call [employer] DM eye exam Encounter Details Date Type Department Care Team (Late st Contact Info) Description 01/02/2023 ACO Quality [facility] Accountable Care Organization [address] [place] [address] Sasha Rosenberg CMA [address] [place] [address] [address] [place], [place] [id number] Social History Tobacco Use Types Packs/Day Years [...] on file 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 Chart has been scrubbed and patient will call to schedule . Current open gaps in care: [employer] DM eye exam Thank you, Sasha Rosenberg CMA [facility] ACO Care Irs Agent [phone] documented in this encounter Plan of Treatment Not on file documented as of this encounter Visit Diagnoses Not on filedocumented in this encounter Care Teams Motor Vehicle Field Representative Relationship Specialty Start Date End Date Clive Wright MD PCP - General Family Medicine 09/15/18 Karthikeyan Elaine DO [address] [place] [address] Medical Oncologist/Quantitative Equity Head Hematology and Oncology 10/27/18 documented as of this encounter
--- OUTSIDE RECORDS SUMMARY | 2024-03-10 20:15 | XMS_ITS | Encounter Summary ---
Author Organization [facility] Medical [facility] Address [address] [place] [address] Care Team Providers Care Power Originator Name Role Phone Raj Wright MD Primary Care Provider [phone] Karthikeyan Elaine DO Unavailable [phone] Reason for Referral * Diagnostic Imaging (Routine) - Closed Specialty Diagnoses / Procedures Referred By Contac t Referred To Contact Diagnoses Encounter for screening mammogram for malignant neoplasm of breast Procedures SCREENING MAMMOGRAM BILATERAL W ARPAN Raj Wright MD [address] [place] [address] [address] Phone: tel: fax: [address] [address] Phone: tel: Referral ID Status Reason Start Date Expiration Date Visits Re quested Visits Authorized [id number] Closed 10/22/2021 11/21/2022 1 1 Reason for Visit * Reason Comments Medicare Wellness Encounter Details Date Type Department Care Team (Late st Contact Info) Description 10/22/2021 11:00 AM CDT Office Visit [facility] Family Medicine [address] [place] [address] Raj Wright MD [address] [place] [address] [address] Encounter for screening mammogram for malignant neoplasm of breast (Primary Dx); 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, without long-term current use of insulin ([facility]) ([facility]); Medicare annual wellness visit, subsequent; Thrombocytosis; Essential hypertension; Other iron deficiency anemia; Mixed hyperlipidemia; Stage 3a chronic kidney disease ([facility]); Screening for colon cancer Social History Tobacco Use Types Packs/Day Years [...] on file Legal Sex Female 8:44 PM [employer] Gender Identity Not on file Sexual Orientation Not on file Occupation Industry Job Start Date Job End Date Retired Not on file Not on file Not on file documented as of this encounter Last Filed Vital Signs Vital Sign Reading Time Taken Comments Blood Pressure 158/90 10/22/2021 10:57 AM CDT Pulse 72 10/22/2021 10:57 AM CDT Temperature 36.4 ??C (97.5 ??F) 10/22/2021 10:57 AM C DT Respiratory Rate 16 10/22/2021 10:57 AM CDT Oxygen Saturation 99% 10/22/2021 10:57 AM CDT Inhaled Oxygen Concentration - - Weight 62.1 kg (137 lb) 10/22/2021 10:57 AM CDT Height 161.3 cm (5' 3.5 ) 10/22/2021 10:57 AM CD T Body Mass Index 23.89 10/22/2021 10:57 AM CDT documented in this encounter Ordered Prescriptions Prescription Sig Dispense Quantity Refills Last Filled Start Date End Date blood-glucose meter miscIndications:Ty pe 2 diabetes 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, without long-term current use of insulin ([facility]) ([facility]) Use daily or as directed for monitoring of diabetes. 1 each 10/22/2021 blood glucose diagnostic (OneTouch Ultra Blue Test Strip) stripIndications:T ype 2 diabetes 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, without long-term current use of insulin ([facility]) ([facility]) 1 each by other route as directed Checks blood sugar daily 100 each 3 10/22/2021 lisinopriL (PRINIVIL,ZESTRIL) 20 mg tablet 1 tab BID 60 tablet 5 10/22/2021 3 Tradjenta 5 mg tablet Take 1 tablet (5 mg total) by mouth daily 90 tablet 1 10/22/2021 3 metoprolol XL (TOPROL-XL) 25 mg extended release tablet Take 1 tablet (25 mg total) by mouth daily 90 tablet 1 10/22/2021 3 metFORMIN (GLUCOPHAGE) 500 mg tabletIndications: 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, without long-term current use of insulin ([facility]) ([facility]) Take 1 tablet (500 mg total) by mouth 2 (two) times a day 180 tablet 1 10/22/2021 3 lisinopriL (PRINIVIL,ZESTRIL) 20 mg tablet Take 1 tablet (20 mg total) by mouth daily 90 tablet 1 10/22/2021 2 hydroCHLOROthiazid e (HYDRODIURIL) 25 mg tablet Take 1 tablet (25 mg total) by mouth daily 90 tablet 1 10/22/2021 3 atorvastatin (LIPITOR) 20 mg tablet Take 1 tablet (20 mg total) by mouth daily 90 tablet 1 10/22/2021 3 documented in this encounter Progress Notes * Raj Wright MD - 10/22/2021 11:00 AM CDT Images from the original note were not included. MEDICARE/MANAGED CARE ANNUAL WELLNESS VISIT Patient Name: Ankita Perez Date Of : 1950 Date Of Service: @DATEOFSERVICE@ Medicare Health Risk Assessment Basic Information In general, would you say your health is: Good Do you have an advance directive, such as a living will or durable power of assistant city attorney?: No Would you like information regarding Advanced Directiv (Living Will) and/or Durable Power of Supreme Court Justice?: No Do you have to strain or struggle to hear/understand conversations?: No Have you experienced any of the following problems currently or recently? Eating: No Grooming: No Bathing: No Walking: No Using the toilet: No Memory problems: No Difficulty speaking: No Pain: No Sexual Health: No Fatigue: No Have you experienced any of the following problems currently or recently? Laundry and/or housekeeping: No Handling Money: No Shopping: No Food preparation: No Transportation: No Taking and/or getting your own medications: No Do you use prescription drugs that are not prescribed for you?: No HPI: 89ear-old female. Currently doing well. She did her labs. Platelets [id number]. Seeing Hematology. Shechecks her blood pressure at home it has been controlled. No shortness of breath or chest pain. Sheotherwise active weight stable habits negative. ROS Review of Systems Constitutional: Positive for malaise/fatigue. Negative for chills and fever. Eyes: Negative for blurred vision and double vision. Respiratory: Negative for cough and shortness of breath. Cardiovascular: Negative for chest pain and leg swelling. Gastrointestinal: Negative for nausea and vomiting. Genitourinary: Negative for frequency and urgency. Musculoskeletal: Positive for joint pain. Negative for back pain. Neurological: Negative for weakness and headaches. Psychiatric/Behavioral: Negative for depression. The patient is not nervous/anxious. Problem List, Past Medical and Surgical History: Patient Active Problem List Diagnosis ??? Essential hypertension ??? Mixed hyperlipidemia ??? 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, without long- term current use of insulin ([facility] ([facility]) ??? Iron deficiency anemia ??? Thrombocytosis ??? CKD (chronic kidney disease) stage 3, GFR 30-59 ml/min ([facility]) Past Medical History: Diagnosis Date ??? Diabetes mellitus ([facility]) ??? Hyperlipidemia ??? Hypertension Past Surgical History: Procedure Laterality Date ??? CATARACT EXTRACTION Left 2011 Family History: Family History Problem Relation Age of Onset ??? Diabetes Mother ??? Hypertension Mother ??? Heart disease Mother ??? No Known Problems Father ??? Stomach cancer Sister ??? No Known Problems Maternal Grandmother ??? No Known Problems Maternal Grandfather ??? No Known Problems Paternal Grandmother ??? No Known Problems Paternal Grandfather Social History: Social History Socioeconomic History ??? Marital status: Spouse name: Not on file ??? Number of children: Not on file ??? Years of education: Not on file ??? Highest education level: Not on file Occupational History ??? Occupation: Retired Tobacco Use ??? Smoking status: Never Smoker ??? Smokeless tobacco: Never Used Vaping Use ??? Vaping Use: Never used Substance and Sexual Activity ??? Alcohol use: Not Currently Comment: occasion ??? Drug use: Never ??? Sexual activity: Yes Other Topics Concern ??? Not on file Social History Narrative ??? Not on file Social Determinants of Health Financial Resource Strain: ??? Difficulty of Paying Living Expenses: Food Insecurity: ??? Worried About Running Out of Food in the Last Year: ??? Ran Out of Food in the Last Year: Transportation Needs: ??? Lack of Transportation (Medical): ??? Lack of Transportation (Non-Medical): Physical Activity: ??? Days of Exercise per Week: ??? Minutes of Exercise per Session: Stress: ??? Feeling of Stress : Social Connections: ??? Frequency of Communication with Friends and Family: ??? Frequency of Social Gatherings with Friends and Family: ??? Attends Sikh Services: ??? Active Member of Clubs or Organizations: ??? Attends Club or Organization Meetings: ??? Marital Status: Intimate Partner Violence: ??? Fear of Current or Ex-Partner: ??? Emotionally Abused: ??? Physically Abused: ??? Sexually Abused: Allergies: No Known Allergies Medications: Current Outpatient Medications: ??? ascorbic acid (VITAMIN C) 500 mg tablet,chewable, Take 500 mg by mouth daily , Disp: , Rfl: ??? aspirin 81 mg enteric coated tablet, Take 1 tablet (81 mg total) by mouth daily, Disp: 30 tablet, Rfl: 0 ??? cyanocobalamin (Vitamin B-12) 1,000 mcg tablet, Take 1,000 mcg by mouth daily, Disp: , Rfl: ??? hydroxyurea (HYDREA) 500 mg capsule, Take 2 capsules (1,000 mg total) by mouth daily, Disp: 180capsule, Rfl: 1 ??? Iron, ferrous sulfate, 325 mg (65 mg iron) tablet, Take 1 tablet by mouth twice daily, Disp: 180 tablet, Rfl: 0 ??? atorvastatin (LIPITOR) 20 mg tablet, Take 1 tablet (20 mg total) by mouth daily, Disp: 90 tablet, Rfl: 1 ??? blood glucose diagnostic (OneTouch Ultra Blue Test Strip) strip, 1 each by other route as directed Checks blood sugar daily, Disp: 100 each, Rfl: 3 ??? blood-glucose meter [facility], Use daily or as directed for monitoring of diabetes., Disp: 1 each, Rfl: 0 ??? hydroCHLOROthiazide (HYDRODIURIL) 25 mg tablet, Take 1 tablet (25 mg total) by mouth daily, Disp: 90 tablet, Rfl: 1 ??? lisinopriL (PRINIVIL,ZESTRIL) 20 mg tablet, 1 tab BID, Disp: 60 tablet, Rfl: 5 ??? metFORMIN (GLUCOPHAGE) 500 mg tablet, Take 1 tablet (500 mg total) by mouth 2 (two) times a day, Disp: 180 tablet, Rfl: 1 ??? metoprolol XL (TOPROL-XL) 25 mg extended release tablet, Take 1 tablet (25 mg total) by mouth daily, Disp: 90 tablet, Rfl: 1 ??? Tradjenta 5 mg tablet, Take 1 tablet (5 mg total) by mouth daily, Disp: 90 tablet, Rfl: 1 Depression Screen: PHQ Screening Over the last 2 weeks, how often have you been bothered by any of the following problems? Little Interest or Pleasure in Doing Things: Not at all Feeling Down, Depressed, or Hopeless: Not at all PHQ-2 Total Score (If total score is 3 or more points, staff should administer the PHQ-9): 0 Over the past 2 weeks, how often have you been bothered by any of the following problems? Little Interest or Pleasure in Doing Things: Not at all Feeling Down, Depressed, or Hopeless: Not at all PHQ-2 Total Score (If total score is 3 or more points, staff should administer the PHQ-9): 0 Vitals: Vitals BP 158/90 Pulse 72 Temp 36.4 ??C (97.5 ??F) Resp 16 Ht 161.3 cm (5' 3.5 ) Wt 62.1 kg (137 lb) SpO2 99% BMI 23.89 kg/m?? Body mass index is 23.89 kg/m??. 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 Cardiovascular: Rate and Rhythm: Normal rate and regular rhythm. Heart sounds: Normal heart sounds. Pulmonary: Effort: Pulmonary effort is normal. Breath sounds: Normal breath sounds. Abdominal: General: Bowel sounds are normal. Palpations: Abdomen is soft. Skin: General: Skin is warm and dry. Neurological: Mental Status: She is alert and oriented to person, place, and time. Psychiatric: Speech: Speech normal. Care Team Providers: Patient Care Team: Raj Wright MD as PCP - General (Family Medicine) Karthikeyan Elaine DO as Medical Oncologist/Workers Compensation Paralegal (Hematology and Oncology) Primary Pharmacy/DME suppliers: [facility] - [place], [place] - [address] [address] [facility] [address] [id number] [place], [place] - [address] [facility] [address] [facility] [id number] Detection of Cognitive Impairment: The patient does not have cognitive impairment based on direct observation, discussion with patientor family, or review of medical records. Health Maintenance: Health Maintenance Topics with due status: Overdue Topic Date Due Breast Cancer Screening-Mammogram Never done Colon Cancer Screening-Colonoscopy Never done Hepatitis C Screening Never done Dilated Eye Exam Never done Pneumococcal vaccine 65+ Never done Zoster Vaccines Never done Health Maintenance Topics with due status: Postponed Topic Postponed Until DTaP/Tdap/Td Vaccine 10/22/2022 (Originally 1961) Health Maintenance Topics with due status: Not Due Topic Last Completion Date Foot Exam 04/22/2021 Lipid Panel 10/17/2021 Hemoglobin A1C 10/17/2021 Urine Microalbumin 10/17/2021 Fall Risk Assessment 10/22/2021 Depression Screening-PHQ 10/22/2021 Well Visit 65+ 10/22/2021 Osteoporosis Screening-Bone Density Scan Not Due Influenza Vaccine Not Due Counseling and Referral of Preventative Services: Mamm due Bone dexa due cologuard will order Labs UTD Habits neg Immunizations reviewed, refusing Lifestyle Recommendations Increase Physical Activity, Stop Using Tobacco, Reduce Weight and ImproveDiet Advanced Directive Durable Power of Supreme Court Justice: Discussed Today Living Will: Discussed Today Assessment and Plan: Diagnoses and all orders for this visit: Medicare annual wellness visit, subsequent (Primary) - completed Essential hypertension - organ increase lisinopril to 40 mg daily. She will check her blood pressures at home. Goal is less than 130. 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 Repeat labs 6 months.Her A1c has been good she has got a good diet her weight stable - New change, decrease rx Thrombocytosis ([facility]) - seeing heme Iron deficiency anemia - better, 11 CKD - stable, stage 3a Advance Care Planning Advance Care Planning/Resuscitation Status Conversation - completed Patient here for annual Medicare wellness visit and for review of complete medical problem list. All the elements of the plan were completed as outlined by [facility]. A copy of the prevention plan was given to the patient. I reviewed Medicare Wellness Questionnaire (other physicians involved in care, depression screen, advanced directives), cognitive/memory, and functional assessment. I reviewed and updated the complete problem list, medication list, family history, and immunization records with the patient. I provided preventive counseling and early detection interventions to the patient through summary of today's office visit. Raj Wright MD Orders Placed This Encounter ??? SCREENING MAMMOGRAM BILATERAL W ARPAN [place]man Standing Status: Future Number of Occurrences: 1 Standing Expiration Date: 12/22/2022 Order Specific Question: Where should this order be performed? Answer: External Order [171] ??? atorvastatin (LIPITOR) 20 mg tablet Sig: Take 1 tablet (20 mg total) by mouth daily Dispense: 90 tablet Refill: 1 ??? blood glucose diagnostic (OneTouch Ultra Blue Test Strip) strip Si each by other route as directed Checks blood sugar daily Dispense: 100 each Refill: 3 ??? hydroCHLOROthiazide (HYDRODIURIL) 25 mg tablet Sig: Take 1 tablet (25 mg total) by mouth daily Dispense: 90 tablet Refill: 1 ??? DISCONTD: lisinopriL (PRINIVIL,ZESTRIL) 20 mg tablet Sig: Take 1 tablet (20 mg total) by mouth daily Dispense: 90 tablet Refill: 1 ??? metFORMIN (GLUCOPHAGE) 500 mg tablet Sig: Take 1 tablet (500 mg total) by mouth 2 (two) times a day Dispense: 180 tablet Refill: 1 ??? metoprolol XL (TOPROL-XL) 25 mg extended release tablet Sig: Take 1 tablet (25 mg total) by mouth daily Dispense: 90 tablet Refill: 1 ??? Tradjenta 5 mg tablet Sig: Take 1 tablet (5 mg total) by mouth daily Dispense: 90 tablet Refill: 1 ??? blood-glucose meter misc Sig: Use daily or as directed for monitoring of diabetes. Dispense: 1 each Refill: 0 One touch ??? lisinopriL (PRINIVIL,ZESTRIL) 20 mg tablet Si tab BID Dispense: 60 tablet Refill: 5 documented in this encounter Miscellaneous Notes * Addendum Note - Raj Wright MD - 10/22/2021 11:00 AM CDTAddended by: RAJ WRIGHT on: 10/22/2021 11:58 AM Modules accepted: Orders * Addendum Note - Mckayla Clemens Ma, MA - 10/22/2021 11:00 AM CDTAddended by: MCKAYLA CLEMENS on: 10/22/2021 12:02 PM Modules accepted: Orders documented in this encounter Plan of Treatment Scheduled Orders Name Type Priority Associated Diagnoses Orde r Schedule SCREENING MAMMOGRAM BILATERAL W ARPAN Imaging Schedule Routine, Read Routine (OP Routine) Encounter for screening mammogram for malignant neoplasm of breast Expected: 10/22/2021, Expires: 12/22/2022 CBC with auto differential Lab Routine Medicare annual wellness visit, subsequent Essential hypertension Other iron deficiency anemia Expected: 04/17/2022, Expires: 10/22/2022 Comprehensive metabolic panel Lab Routine 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 COLOGUARD Routine 11/15/2021 9:05 AM CDT Screening for colon cancer documented in this encounter Results * Stool DNA - Cologuard (11/15/2021 9:05 AM CDT) Stool DNA - Cologuard Negative Negative [facility] (CLIA #:[id number]) Comment: NEGATIVE TEST RESULT. A negative Cologuard [...] cancer. ??Following a negative Cologuard result, the [place] [employer] and U.S. Multi-Society Task Force screening guidelines recommend a Cologuard re-screening interval of 3 years. References: [place] [employer] Guideline for Colorectal Cancer Screening: https://www.cancer.org/cancer/wjgse-yzvzjc-cepvyz/jdqcqghxe-xujvnxcsj-juaqnui/ac s-rec ommendations.html.; Tio DK, Urbano CR, Sam NevilleK, Colorectal Cancer Screening: Recommendations for Physicians and Patients from the U.S. Multi-Society Task Force on Colorectal Cancer Screening , Am J Gastroenterology 2017; 112:0798-2861. TEST DESCRIPTION: Composite algorithmic analysis of stool [...] (Corona Espinoza al, N Engl J Med 2014;370(14):6999-6807.) Cologuard may produce a false negative or false positive result (no colorectal cancer or precancerous polyp present at colonoscopy follow up). A negative Cologuard test result does not guarantee the absence of CRC or advanced adenoma (pre-cancer). The current Cologuard screening interval is every 3 years. ([place] [employer] and U.S. Multi-Society Task Force). Cologuard performance data in a 10,000 patient pivotal study using colonoscopy as the reference method can be accessed at the following location: www.KnowledgeTree.TodoCast TV/results. Additional description of the Cologuard test process, warnings and precautions can be found at www.colHuodongxingrd.com. Stool 11/15/2021 9:05 AM CDT 11/16/2021 6:26 PM CDT Raj Wright MD LAB BODY FLUIDS AND STOOLS OR DERABLES Final Result [employer] [facility] (CLIA #:[id number]) [address] [place] [address] documented in this encounter Visit Diagnoses Diagnosis Encounter for screening mammogram for malignant neoplasm of breast- Primary 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, without long-term current use of insulin ([facility] ([facility]) Medicare annual wellness visit, subsequent Thrombocytosis Essential thrombocythemia Essential hypertension Unspecified essential hypertension Other iron deficiency anemia Mixed hyperlipidemia Stage 3a chronic kidney disease ([facility]) Screening for colon cancer Special screening for malignant neoplasms, colon documented in this encounter Discontinued Medications Medication Sig Discontinue Reason Start Date End Da te blood glucose diagnostic (glucose blood) strip Test once daily 09/15/2018 09/15/2019 blood glucose diagnostic (OneTouch Ultra Blue Test Strip) stripIndications: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, without long-term current use of insulin ([facility]) ([facility]) 1 each by other route as directed Checks blood sugar daily Reorder 10/13/2019 10/22/2021 metFORMIN (GLUCOPHAGE) 500 mg tabletIndications: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, without long-term current use of insulin ([facility]) ([facility]) Take 1 tablet by mouth twice daily Reorder 06/17/2021 10/22/2021 metoprolol XL (TOPROL-XL) 25 mg extended release tablet Take 1 tablet by mouth once daily Reorder 06/28/2021 10/22/2021 hydroCHLOROthiazide (HYDRODIURIL) 25 mg tablet Take 1 tablet by mouth once daily Reorder 08/27/2021 10/22/2021 atorvastatin (LIPITOR) 20 mg tablet Take 1 tablet by mouth once daily Reorder 08/27/2021 10/22/2021 Tradjenta 5 mg tablet Take 1 tablet by mouth once daily Reorder 08/27/2021 10/22/2021 lisinopriL (PRINIVIL,ZESTRIL) 20 mg tablet Take 1 tablet by mouth once daily Reorder 08/27/2021 10/22/2021 lisinopriL (PRINIVIL,ZESTRIL) 20 mg tablet Take 1 tablet (20 mg total) by mouth daily Reorder 10/22/2021 10/22/2021 documented as of this encounter Care Teams Power Originator Relationship Specialty Start Date End Date Raj Wright MD PCP - General Family Medicine 09/15/18 Karthikeyan Elaine DO [address] [place] [id number] Medical Oncologist/Workers Compensation Paralegal Hematology and Oncology 10/27/18 documented as of this encounter
--- OUTSIDE RECORDS SUMMARY | 2024-03-10 20:15 | XMS_ITS | Encounter Summary ---
Author Organization [facility] Healthcare Address [address] [place] [address] Care Team Providers Care Weight Reduction Specialist Name Role Phone Clive Wright MD Primary Care Provider [phone] Karthikeyan Elaine DO Unavailable [phone] Reason for Visit * Reason Comments Medicare Wellness Encounter Details Date Type Department Care Team (Late st Contact Info) Description 11/05/2023 11:00 AM CDT Office Visit [facility] Family Medicine at [address] [place] [address] Clive Wright MD [address] [place] [id number] Medicare annual wellness visit, subsequent (Primary Dx); Essential hypertension; Mixed hyperlipidemia; Myeloproliferative disease (HCC); 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, without long-term current use of insulin (CMS/HCC) (HCC) Social History Tobacco Use Types Packs/Day Years [...] on file 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97 11/05/2023 11:06 AM CDT documented in this encounter Progress Notes * Clive Wright MD - 11/05/2023 11:00 AM CDT Images from the original note were not included. Ankita Perez is a 73 y.o. year old White Non- female here an for Annual Wellness Visit. 73-year-old female. She is doing pretty good. She is on her meds. She does see hematology. Otherwise active. Habits negative. Medicare Health Risk Assessment Basic Information In general, would you say your health is: Fair Do you have an advance directive, such as a living will or durable power of energy attorney?: (!) No Would you like information regarding Advanced Directive (Living Will) and/or Durable Power of Alarm Mechanic?: No Do you have to strain or struggle to hear/understand conversations?: No Over the last 2 weeks, how often have you been bothered by any of the following problems? Little Interest or Pleasure in Doing Things: Not at all Feeling Down, Depressed, or Hopeless: Not at all PHQ-2 Total Score (If total score is 3 or more points, staff should administer the PHQ-9): 0 In the past year, patient experienced: One or more falls in the last year: No Do you feel unsteady when standing or walking?: Yes Do you worry about falling?: Yes Safety Do you have a working smoke detector in your home?: Yes Does your home have throw rugs, poor lighting, or a slippery bath tub/shower?: (!) Yes Do you always fasten your seatbelt when you are in a vehicle?: Yes What is your typical mode of transportation: Car Physical Activity How many days a week do you usually exercise?: 1-3 days per week How intense is your typical exercise?: Light (like stretching or slow walking) Nutrition How would you rate your appetite?: Good How would you describe the condition of your mouth and teeth/dentures?: (!) Poor On a typical day, how many servings of fruits and vegetables do you eat?: 2 On a typical day, how many servings of high fiber/whole-grain foods do you eat?: 2 On a typical day, how many servings of high fat/fried foods do you eat?: 3 Have you experienced any of the following problems currently or recently? Eating: No Grooming: No Bathing: No Walking: No Using the toilet: No Memory problems: No Difficulty speaking: No Dressing: No Balance: No Pain: No Sexual Health: No Fatigue: No Depression: No Life Satisfaction: No Stress: No Anger: No Loneliness or Social Isolation: No Suicide: No Have you experienced any of the following problems currently or recently? Laundry and/or housekeeping: No Handling money: No Shopping: No Using the Phone: No Food preparation: No Transportation: No Taking and/or getting your own medications: No Do you use prescription drugs that are not prescribed for you?: No Based on my observation of the patient, review of Health Risk Assessment (HRA) and other records, this is my assessment and recommendation regarding fall risk, hearing impairment, home safety, ADLs, or any other issues identified in the HRA: Reviewed Problem List, Past Medical and Surgical History: Patient Active Problem List Diagnosis Essential hypertension Mixed hyperlipidemia 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, without long-term current use of insulin (CMS/HCC) (HCC) Iron deficiency anemia Thrombocytosis CKD (chronic kidney disease) stage 3, GFR 30-59 ml/min (HCC) Myeloproliferative disease (HCC) Past Medical History: Diagnosis Date Diabetes mellitus (HCC) Hyperlipidemia Hypertension Past Surgical History: Procedure Laterality Date CATARACT EXTRACTION Left 2011 Family History: Family History Problem Relation Age of Onset Diabetes Mother Hypertension Mother Heart disease Mother No Known Problems Father Stomach cancer Sister No Known Problems Maternal Grandmother No Known Problems Maternal Grandfather No Known Problems Paternal Grandmother No Known Problems Paternal Grandfather Social History: Social History Tobacco Use Smoking status: Never Smokeless tobacco: Never Substance and Sexual Activity Drug use: Never Sexual activity: Yes Alcohol Use: Not At Risk (04/30/2023) AUDIT-C Frequency of Alcohol Consumption: Never Average Number of Drinks: Not on file Frequency of Binge Drinking: Not on file Allergies: No Known Allergies Medications: Current Outpatient Medications: ascorbic acid (VITAMIN C) 500 mg tablet,chewable, Take 1 tablet/chew tab (500 mg total) by mouth daily, Disp: , Rfl: aspirin 81 mg enteric coated tablet, Take 1 tablet (81 mg total) by mouth daily, Disp: 30 tablet, Rfl: 0 atorvastatin (LIPITOR) 20 mg tablet, Take 1 tablet (20 mg total) by mouth daily, Disp: 90 tablet, Rfl: 3 blood glucose diagnostic (OneTouch Ultra Blue Test Strip) strip, 1 each by other route as directed Checks blood sugar daily, Disp: 100 each, Rfl: 3 blood-glucose meter mis, Use daily or as directed for monitoring of diabetes., Disp: 1 each, Rfl: 0 cyanocobalamin (Vitamin B-12) 1,000 mcg tablet, Take 1 tablet (1,000 mcg total) by mouth daily, Disp: , Rfl: hydroCHLOROthiazide (HYDRODIURIL) 25 mg tablet, Take 1 tablet (25 mg total) by mouth daily, Disp: 90 tablet, Rfl: 3 hydroxyurea (HYDREA) 500 mg capsule, Take 2 capsules by mouth once daily, Disp: 60 capsule, Rfl: 9 Iron, ferrous sulfate, 325 mg (65 mg iron) tablet, Take 1 tablet by mouth twice daily, Disp: 180 tablet, Rfl: 0 lisinopriL (PRINIVIL,ZESTRIL) 20 mg tablet, Take 1 tablet by mouth once daily, Disp: 90 tablet, Rfl: 3 metFORMIN (GLUCOPHAGE) 500 mg tablet, Take 1 tablet (500 mg total) by mouth 2 (two) times a day, Disp: 180 tablet, Rfl: 3 metoprolol XL (TOPROL-XL) 25 mg extended release tablet, Take 1 tablet (25 mg total) by mouth daily, Disp: 90 tablet, Rfl: 3 Tradjenta 5 mg tablet, Take 1 tablet (5 mg total) by mouth daily, Disp: 90 tablet, Rfl: 3 vitamin D3-vitamin K2 25 mcg (1,000 unit)-90 mcg tablet,disintegrating, Take 1,000 Units by mouth daily, Disp: , Rfl: Depression Screen: PHQ Screening Over the past 2 weeks, how often have you been bothered by any of the following problems? Little Interest or Pleasure in Doing Things: Not at all Feeling Down, Depressed, or Hopeless: Not at all PHQ-2 Total Score (If total score is 3 or more points, staff should administer the PHQ-9): 0 Vitals: Vitals BP 164/86 (BP Location: Left arm, Patient Position: Sitting) Pulse 76 Temp 36.9 ??C (98.5 ??F) (Oral) Ht 161.3 cm (5' 3.5 ) Wt 57.2 kg (126 lb) SpO2 98% BMI 21.97 kg/m?? Body mass index is 21.97 kg/m??. Exam: Physical Exam Constitutional: Appearance: She is well-developed. Cardiovascular: Rate and Rhythm: Normal rate and regular rhythm. Heart sounds: Normal heart sounds. Pulmonary: Effort: Pulmonary effort is normal. Breath sounds: Normal breath sounds. Abdominal: General: Bowel sounds are normal. Palpations: Abdomen is soft. Feet: Right Foot: Protective Sensation: 5 sites tested. 4 sites sensed. Left Foot: Protective Sensation: 5 sites tested. 4 sites sensed. Skin: General: Skin is warm and dry. Neurological: Mental Status: She is alert and oriented to person, place, and time. Psychiatric: Speech: Speech normal. Care Team Providers: Patient Care Team: Clive Wright MD as PCP - General (Family Medicine) Karthikeyan Elaine DO as Medical Oncologist/Community Organization Worker (Hematology and Oncology) Primary Pharmacy/DME suppliers: [facility] - [place], [place] - [address] [address] [id number] - [place], [place] - [address] [facility] [address] [facility] [id number] I reviewed the patient???s home and community safety, including driving, and made the following recommendations NA. Detection of Cognitive Impairment: The patient does not have cognitive impairment based on direct observation, discussion with patientor family, or review of medical records. Health Maintenance: Health Maintenance Topics with due status: Overdue Topic Date Due Hepatitis C Screening Never done Dilated Eye Exam Never done Pneumococcal vaccine 65+ Never done DTaP/Tdap/Td Vaccine Never done Hepatitis B Screening Never done Zoster Vaccine Never done Foot Exam 04/28/2023 Breast Cancer Screening-Mammogram 07/09/2023 Albumin Creatinine Ratio, Urine 10/17/2023 Health Maintenance Topics with due status: Due On Topic Date Due Well Visit 65+ 10/28/2023 Health Maintenance Topics with due status: Not Due Topic Last Completion Date Colon Cancer Screening-DNA Stool 11/15/2021 Osteoporosis Screening-Bone Density Scan 07/08/2022 Lipid Panel 07/08/2023 Hemoglobin A1C 07/08/2023 eGFR 07/08/2023 Fall Risk Assessment 11/05/2023 Depression Screening 11/05/2023 Health Maintenance Topics with due status: Discontinued Topic Date Due Colon Cancer Screening-FIT Discontinued Influenza Vaccine Discontinued Counseling and Referral of Preventative Services: Lifestyle Recommendations Increase Physical Activity, Increase Social Engagement, and Improve Diet Advanced Directive Durable Power of Alarm Mechanic: Discussed Today: Living Will: Discussed Today: Assessment and Plan: Diagnoses and all orders for this visit: Medicare annual wellness visit, subsequent (Primary) Annual/[facility] Wellness- due 11/05/24 Mammogram- due 07/09/23 Colonoscopy- Cologuard due 11/15/24 Dexa (hx fx only)- due 07/08/24 Diabetic eye exam- due now Fall Risk- due 11/05/24 PHQ9- due 11/05/24 FLU- due 2023 Pneumo- due now, Patient refuses BIC Labs- All due 10/17/23 BMI- NA Statin- atorvastatin Antiplatelets- aspirin Mood labile Habits neg 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 Doing well. Otherwise active. Continue to follow Essential tremors no change Patient here for annual Medicare wellness visit and for review of complete medical problem list. All the elements of the plan were completed as outlined by [facility]. A copy of the prevention plan was given to the patient. I reviewed Medicare Wellness Questionnaire (other physicians involved in care, depression screen, advanced directives), cognitive/memory, and functional assessment. I reviewed and updated the complete problem list, medication list, family history, and immunization records with the patient. I provided preventive counseling and early detection interventions to the patient through health maintenance update and summary of today's office visit. Clive Wright MD documented in this encounter Miscellaneous Notes * Addendum Note - Nenita Sanders RN - 11/05/2023 11:00 AM CDTAddended by: NENITA SANDERS on: 11/05/2023 11:39 AM Modules accepted: Orders * Addendum Note - Nenita Sanders RN - 11/05/2023 11:00 AM CDTAddended by: ENNITA SANDERS on: 01/26/2024 10:17 AM Modules accepted: Orders NG MACHINE ADJUSTER documented in this encounter Plan of Treatment Not on file documented as of this encounter Results * (ABNORMAL) Albumin Creatinine Ratio, Urine (01/28/2024 9:21 AM GLUING MACHINE ADJUSTER) Albumin Ur 3,802.0 mg/L Comment: Interpretive Data No reference range established. Current interpretive data was last revised 2018. Creatinine Ur 94.8 mg/dL [facility] Comment: Interpretive Data No reference range established. Current interpretive data was last revised 2018. Albumin Creatinine Ratio, Ur 4,011(H) 1 - 29 mg/g [facility] Urine 01/28/2024 9:21 AM GLUING MACHINE ADJUSTER 01/28/2024 1:12 PM GLUING MACHINE ADJUSTER Clive Wright MD LAB URINE ORDERABLES Final Re sult Performing Organization Address [facility] Co de Phone Number JUAN F [address] [place] [address] * (ABNORMAL) CBC with auto differential (01/28/2024 8:48 AM GLUING MACHINE ADJUSTER) Pathologist [facility] WBC 9.4 3.8 - 9.9 K/cumm Hgb 11.5(L) 11.9 - 15.5 g/dL [facility] Hct 35.0(L) 35.6 - 45.5 % [facility] Plt 672(H) 150 - 400 K/cumm [facility] MPV 9.5 9.1 - 12.3 fL [facility] RBC 3.06(L) 3.90 - 5.20 M/cumm [facility] MCV 114.4(H) 81.3 - 96.4 fL [facility] MCH 37.6(H) 27.1 - 33.3 pg [facility] MCHC 32.9 32.3 - 35.7 g/dL [facility] RDW CV 13.1 11.1 - 14.9 % [facility] RDW SD 54.0(H) 35.7 - 48.1 fL [facility] NRBC abs 0.00 0.00 - 0.01 K/cumm [facility] Blood 01/28/2024 8:48 AM GLUING MACHINE ADJUSTER 01/28/2024 12:48 PM GLUING MACHINE ADJUSTER Clive Wright MD LAB BLOOD ORDERABLES Final Re sult Performing Organization Address City/[facility]/ZIP Co de Phone Number JUAN F [address] [employer] [place], [place] [id number] * (ABNORMAL) Comprehensive metabolic panel (01/28/2024 8:48 AM GLUING MACHINE ADJUSTER) Pathologist [facility] Sodium 137 135 - 145 mmol/L Potassium, pl 4.1 3.3 - 4.9 mmol/L [facility] Chloride 99 97 - 110 mmol/L [facility] CO2 25 22 - 32 mmol/L [facility] Anion gap 13 2 - 15 mmol/L [facility] BUN 17 6 - 25 mg/dL [facility] Creatinine 0.94 0.60 - 1.10 mg/dL [facility] Glucose 181 70 - 199 mg/dL [facility] Comment: Interpretive Data Fasting glucose >/= [...] 2022. Calcium 9.5 8.5 - 10.3 mg/dL [facility] Bilirubin, total 0.4 0.1 - 1.2 mg/dL [facility] Protein, pl 6.9 6.5 - 8.5 g/dL [facility] Albumin 4.0 3.5 - 5.0 g/dL [facility] Alk phos 51 40 - 130 Units/L [facility] ALT <5(L) 7 - 45 Units/L [facility] Comment:Specimen is Lipemic; results may be inaccurate due to high levels of lipids. AST 24 10 - 45 Units/L [facility] Comment:Specimen is Lipemic; results may be inaccurate due to high levels of lipids. Blood 01/28/2024 8:48 AM GLUING MACHINE ADJUSTER 01/28/2024 12:45 PM GLUING MACHINE ADJUSTER us Clive Wright MD LAB BLOOD ORDERABLES Final Re sult [facility] [address] [facility] Department [place] [address] * Lipid panel (01/28/2024 8:48 AM GLUING MACHINE ADJUSTER) Cholesterol 184 30 - 199 mg/dL Comment: [...] 3 [facility] Blood 01/28/2024 8:48 AM GLUING MACHINE ADJUSTER 01/28/2024 12:45 PM GLUING MACHINE ADJUSTER Clive Wright MD LAB BLOOD ORDERABLES Final [facility] Performing Organization Address [facility] de Phone Number [address] [place] [address] * (ABNORMAL) Hemoglobin A1c (01/28/2024 8:48 AM GLUING MACHINE ADJUSTER) Hgb A1C 7.1(H) 4.0 - 5.6 % Estimated Average Glucose 157 mg/dL [facility] Comment: The ADA recommends reporting an estimated Average Glucose (eAG) with all Hemoglobin A1c results using the equation derived from a study of 507 normal and diabetic adults. ??Minority populations were underrepresented and children were not included. ?? (Diabetes Care 31:6843-7534, 2008). ??The eAG is not equivalent to a fasting glucose. 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
--- OUTSIDE RECORDS SUMMARY | 2024-03-10 20:15 | XMS_ITS | Encounter Summary ---
Author Organization [facility] Address [address] [place] [address] Phone Care Team Providers Care Lean Manager Name Role Phone Clive Wright MD Primary Care Provider [phone] Karthikeyan Elaine DO Unavailable [phone] Encounter Details Date Type Department Care Team (Late st Contact Info) Description 08/28/2020 Orders Only [facility] Physicians [facility] Oncology [address] [facility] [address] [place] [phone] Karthikeyan Elaine DO [address] 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 Gender Identity Not on file Sexual Orientation Not on file Occupation Industry Job Start Date Job End Date Retired Not on file Not on file Not on file documented as of this encounter Plan of Treatment Not on file documented as of this encounter Results * (ABNORMAL) CBC with auto differential (08/28/2020 10:57 AM CDT) [facility] Signature WBC 5.2 3.8 - 9.9 K/cumm [facility] Comment:Testing performed by : [address] [address] Hgb 10.7(L) 11.9 - 15.5 g/dL [facility] Comment:Testing performed by : [address] [address] Hct 31.1(L) 35.6 - 45.5 % [facility] Comment:Testing performed by : [address] [address] Plt 457(H) 150 - 400 K/cumm [facility] Comment:Testing performed by : [address] [address] MPV 9.2 9.1 - 12.3 fL [facility] Comment:Testing performed by : [address] [address] RBC 2.42(L) 3.90 - 5.20 M/cumm [facility] Comment:Testing performed by : [address] [address] MCV 128.5(H) 81.3 - 96.4 fL [facility] Comment:Testing performed by : [address] [address] MCH 44.2(H) 27.1 - 33.3 pg [facility] Comment:Testing performed by : [address] [address] MCHC 34.4 32.3 - 35.7 g/dL [facility] Comment:Testing performed by : [address] [address] RDW CV 12.3 11.1 - 14.9 % [facility] Comment:Testing performed by : [address], [address] RDW SD 58.6(H) 35.7 - 48.1 fL [facility] F Comment:Testing performed by : [facility], [address] [place]., [address] Blood specimen (specimen) 08/28/2020 10:57 AM CDT 08/28/2020 10:58 AM CDT Karthikeyan Elaine DO LAB BLOOD ORDERABLES Final R esult [facility] [address] [facility] Department [place] [address] documented in this encounter Visit Diagnoses Diagnosis Thrombocytosis- Primary Essential thrombocythemia documented in this encounter Care Teams Lean Manager Relationship Specialty Start Date End Date Clive Wright MD PCP - General Family Medicine 09/15/18 Karthikeyan Elaine DO [address] [place] [address] Medical Oncologist/Loan Analyst Hematology and Oncology 10/27/18 documented as of this encounter
--- OUTSIDE RECORDS SUMMARY | 2024-03-10 20:15 | XMS_ITS | Encounter Summary ---
Author Organization [facility] Address [address] [place] [address] Care Team Providers Care Recruitment Director Name Role Phone Clive Wright MD Primary Care Provider [phone] Karthikeyan Elaine DO Unavailable [phone] Reason for Visit * Reason Comments Hypertension Hyperlipidemia Encounter Details Date Type Department Care Team (Late st Contact Info) Description 04/22/2021 11:00 AM CALL WORKER PERSON Office Visit [facility] Family Medicine [address] [place] [address] Clive Wright MD [address] [place] [address] [address] [place] [address] Essential hypertension (Primary Dx); Mixed hyperlipidemia; 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, without long-term current use of insulin ([facility]) ([facility]) Social History Tobacco Use Types Packs/Day Years Used Date Smoking Tobacco: Never Smokeless Tobacco: Never Tobacco Cessation:Counseling Given: No Alcohol Use Standard Drinks/Week Comments Not Currently [...] on file Legal Sex Female 8:44 PM CALL WORKER PERSON Gender Identity Not on file Sexual Orientation Not on file Occupation Industry Job Start Date Job End Date Retired Not on file Not on file Not on file documented as of this encounter Last Filed Vital Signs Vital Sign Reading Time Taken Comments Blood Pressure 140/80 04/22/2021 11:10 AM CALL WORKER PERSON Pulse 72 04/22/2021 10:55 AM CALL WORKER PERSON Temperature 36.7 ??C (98 ??F) 04/22/2021 10:55 AM CALL WORKER PERSON Respiratory Rate 16 04/22/2021 10:55 AM CALL WORKER PERSON Oxygen Saturation 98% 04/22/2021 10:55 AM CALL WORKER PERSON Inhaled Oxygen Concentration - - Weight 58.5 kg (129 lb) 04/22/2021 10:55 AM CALL WORKER PERSON Height 161.3 cm (5' 3.5 ) 04/22/2021 10:55 AM CS T Body Mass Index 22.49 04/22/2021 10:55 AM CALL WORKER PERSON documented in this encounter Progress Notes * Clive Wright MD - 04/22/2021 11:00 AM CST Images from the original note were not included. Subjective/Objective Patient ID: Ankita Perez is a 70 y.o. female. Chief Complaint Hypertension and Hyperlipidemia 70-year-old female. Her home blood pressure checks are good. Always under 140. She does not smoke weight stable. Having some dental issues. Current Outpatient Medications Medication Sig Dispense Refill ??? ascorbic acid (VITAMIN C) 500 mg tablet,chewable Take 500 mg by mouth daily ??? aspirin 81 mg enteric coated tablet Take 1 tablet (81 mg total) by mouth daily 30 tablet 0 ??? atorvastatin (LIPITOR) 20 mg tablet Take 1 tablet (20 mg total) by mouth daily 90 tablet 3 ??? blood glucose diagnostic ([employer] Ultra Blue Test Strip) strip 1 each by other route as directed Checks blood sugar daily 100 each 3 ??? cyanocobalamin (Vitamin B-12) 1,000 mcg tablet Take 1,000 mcg by mouth daily ??? ferrous sulfate (Iron, ferrous sulfate,) 325 mg (65 mg of elemental iron) tablet Take 1 tablet (325 mg total) by mouth 2 (two) times a day 180 tablet 1 ??? hydroCHLOROthiazide (HYDRODIURIL) 25 mg tablet Take 1 tablet (25 mg total) by mouth daily 90 tablet 3 ??? hydroxyurea (HYDREA) 500 mg capsule Take 2 capsules (1,000 mg total) by mouth daily 180 capsule1 ??? lisinopriL (PRINIVIL,ZESTRIL) 20 mg tablet Take 1 tablet (20 mg total) by mouth daily 90 tablet3 ??? metFORMIN (GLUCOPHAGE) 500 mg tablet Take 1 tablet by mouth twice daily 180 tablet 0 ??? metoprolol XL (TOPROL-XL) 25 mg extended release tablet Take 1 tablet (25 mg total) by mouth daily 90 tablet 3 ??? Tradjenta 5 mg tablet Take 1 tablet (5 mg total) by mouth daily 90 tablet 3 No current facility-administered medications for this visit. Review of Systems Constitutional: Negative for fatigue and fever. Respiratory: Negative for cough and shortness of breath. Cardiovascular: Negative for chest pain and leg swelling. Gastrointestinal: Negative for abdominal pain and nausea. Musculoskeletal: Negative for back pain and neck pain. Neurological: Negative for seizures and headaches. Psychiatric/Behavioral: Negative for confusion. The patient is not nervous/anxious. Recent Results (from the past 336 hour(s)) Lipid panel Collection Time: 04/13/21 8:04 AM Result Value Ref Range Cholesterol 154 <200 mg/dL HDL 57 > OR = 50 mg/dL Triglycerides 148 <150 mg/dL LDL 74 mg/dL (calc) Chol/HDL ratio 2.7 <5.0 (calc) Non-HDL, (LDL+VLDL) 97 <130 mg/dL (calc) Comprehensive metabolic panel Collection Time: 04/13/21 8:04 AM Result Value Ref Range Glucose 177 (H) 65 - 99 mg/dL BUN 24 7 - 25 mg/dL Creatinine 1.04 (H) 0.60 - 0.93 mg/dL eGFR NON-AFR. BOLIVIAN 54 (L) > OR = 60 mL/min/1.73m2 EGFR 63 > OR = 60 mL/min/1.73m2 BUN/creat ratio 23 (H) 6 - 22 (calc) Sodium 135 135 - 146 mmol/L Potassium, pl 4.4 3.5 - 5.3 mmol/L Chloride 99 98 - 110 mmol/L CO2 28 20 - 32 mmol/L Calcium 9.8 8.6 - 10.4 mg/dL Protein, sr 7.1 6.1 - 8.1 g/dL Albumin 4.2 3.6 - 5.1 g/dL GLOBULIN 2.9 1.9 - 3.7 g/dL (calc) Alb/glob ratio 1.4 1.0 - 2.5 (calc) Bilirubin, total 0.5 0.2 - 1.2 mg/dL Alk phos 45 37 - 153 U/L AST 11 10 - 35 U/L ALT (SGPT) 8 6 - 29 U/L CBC with auto differential Collection Time: 04/13/21 8:04 AM Result Value Ref Range WBC 6.3 3.8 - 10.8 Thousand/uL RBC, POC 2.64 (L) 3.80 - 5.10 Million/uL Hgb 11.0 (L) 11.7 - 15.5 g/dL Hct 32.1 (L) 35.0 - 45.0 % MCV 121.6 (H) 80.0 - 100.0 fL MCH 41.7 (H) 27.0 - 33.0 pg MCHC 34.3 32.0 - 36.0 g/dL Rdw 11.6 11.0 - 15.0 % Platelets 531 (H) 140 - 400 Thousand/uL MPV 10.1 7.5 - 12.5 fL Neutrophils, abs 4,221 1,500 - 7,800 cells/uL Lymphocytes, abs 1,367 850 - 3,900 cells/uL Monocyte abs 573 200 - 950 cells/uL Eosinophils, abs 101 15 - 500 cells/uL Basophils, abs 38 0 - 200 cells/uL Neutrophils 67 % Lymphocyte pct 21.7 % Monocytes 9.1 % Eosinophils 1.6 % Basophils 0.6 % CBC MORPHOLOGY Collection Time: 04/13/21 8:04 AM Result Value Ref Range CBC MORPHOLOGY NORMAL Vitals BP 140/80 (BP Location: Left arm) Pulse 72 Temp 36.7 ??C (98 ??F) Resp 16 Ht 161.3 cm (5' 3.5 ) Wt 58.5 kg (129 lb) SpO2 98% BMI 22.49 kg/m?? Physical Exam Constitutional: Appearance: She is well-developed. Cardiovascular: Rate and Rhythm: Normal rate and regular rhythm. Heart sounds: Normal heart sounds. Pulmonary: Effort: Pulmonary effort is normal. Breath sounds: Normal breath sounds. Abdominal: General: Bowel sounds are normal. Palpations: Abdomen is soft. Feet: Right Foot: Monofilament exam: normal. Left Foot: Monofilament exam: normal. Skin: General: Skin is warm and dry. Neurological: Mental Status: She is alert and oriented to person, place, and time. Psychiatric: Speech: Speech normal. Assessment/Plan Diagnoses and all orders for this visit: Essential hypertension (I10) (Primary) - her home blood pressure checks are good. Continue present management. Mixed hyperlipidemia (E78.2) - continue present management. - LDL 74. Repeat labs 6 months 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, without long-term current use of insulin (CMS/HCC) (HCC) (E11.22, N18.2) - Albumin Creatinine Ratio, Urine; Future - Basic metabolic panel; Future - Hemoglobin A1c; Future - Her fingerstick A1c 6.4. Continue present management. We discussed low carb diet annual eye examsfoot exams and no peripheral neuropathy History of thrombocytosis. With chronic myeloproliferative disorder check to negative - sees Hematology Clive Wright MD Orders Placed This Encounter ??? Albumin Creatinine Ratio, Urine Standing Status: Future Standing Expiration Date: 04/22/2022 ??? Basic metabolic panel Standing Status: Future Standing Expiration Date: 04/22/2022 ??? Hemoglobin A1c Standing Status: Future Standing Expiration Date: 04/22/2022 ??? CBC with auto differential Standing Status: Future Standing Expiration Date: 04/22/2022 ??? Lipid panel Standing Status: Future Standing Expiration Date: 04/22/2022 ??? Hepatic function panel Standing Status: Future Standing Expiration Date: 04/22/2022 WORKER PERSON documented in this encounter Plan of Treatment Not on file documented as of this encounter Procedures Procedure Name Priority Date/Time Associated Diagnosis Comments POCT HEMOGLOBIN A1C Routine 04/22/2021 1 2:09 PM CALL WORKER PERSON 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, without long-term current use of insulin (CMS/HCC) (HCC) documented in this encounter Results * POCT hemoglobin A1c (04/22/2021 12:09 PM CALL WORKER PERSON) Hemoglobin A1C, POC 6.4 Blood spot 04/22/2021 12:0 9 PM CALL WORKER PERSON us Clive Wright MD POINT OF CARE TEST ORDERABLES Final Result documented in this encounter Visit Diagnoses Diagnosis Essential hypertension- Primary Unspecified essential hypertension Mixed hyperlipidemia 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, without long-term current use of insulin (CMS/HCC) (HCC) documented in this encounter Care Teams Recruitment Director Relationship Specialty Start Date End Date Clive Wright MD PCP - General Family Medicine 09/15/18 Karthikeyan Elaine DO [address] [place] [id number] Medical Oncologist/Order Processor Hematology and Oncology 10/27/18 documented as of this encounter
--- OUTSIDE RECORDS SUMMARY | 2024-03-10 20:15 | XMS_ITS | Encounter Summary ---
Author Organization [facility] Address [address] [place] [address] Care Team Providers Care Assistant Vice President Name Role Phone Clive Wright MD Primary Care Provider [phone] Karthikeyan Elaine DO Unavailable [phone] Encounter Details Date Type Department Care Team (Late st Contact Info) Description 05/08/2020 10:40 AM SPECIAL OFFICER AUTOMAT - 06/06/2020 11:59 PM CDT Hospital Encounter [facility] Karthikeyan Elaine DO [address] [id number] Social History Tobacco Use Types Packs/Day Years [...] on file Legal Sex Female 8:44 PM SPECIAL OFFICER AUTOMAT Gender Identity Not on file Sexual Orientation Not on file Occupation Industry Job Start Date Job End Date Retired Not on file Not on file Not on file documented as of this encounter Medications at Time of Discharge ascorbic acid (VITAMIN C) 500 mg tablet,chewable Take 1 tablet/chew tab (500 mg total) by mouth daily aspirin 81 mg enteric coated tablet Take 1 tablet (81 mg total) by mouth daily 30 tablet 11/02/2018 cyanocobalamin (Vitamin B-12) 1,000 mcg tabletIndication s:Prevention of Vitamin B12 Deficiency Take 1 tablet (1,000 mcg total) by mouth daily atorvastatin (LIPITOR) 20 mg tablet Take 1 tablet (20 mg total) by mouth daily 90 tablet 3 04/18/2020 06/03/2021 blood glucose diagnostic ([employer] Ultra Blue Test Strip) stripIndications :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, without long-term current use of insulin ([facility]) ([facility]) 1 each by other route as directed Checks blood sugar daily 100 each 3 10/13/2019 10/22/2021 ferrous sulfate (Iron, ferrous sulfate,) 325 mg (65 mg of elemental iron) tablet Take 1 tablet (325 mg total) by mouth 2 (two) times a day 180 tablet 2 01/03/2020 01/04/2021 hydroCHLOROthiaz julianne (HYDRODIURIL) 25 mg tablet Take 1 tablet (25 mg total) by mouth daily 90 tablet 3 04/18/2020 06/03/2021 hydroxyurea (HYDREA) 500 mg capsule Take 2 capsules by mouth once daily 60 capsule 05/25/2020 07/03/2020 lisinopriL (PRINIVIL,ZESTRI L) 20 mg tablet Take 1 tablet (20 mg total) by mouth daily 90 tablet 3 04/18/2020 06/03/2021 metFORMIN (GLUCOPHAGE) 500 mg tabletIndication s: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, without long-term current use of insulin ([facility]) ([facility]) Take 1 tablet (500 mg total) by mouth 2 (two) times a day 90 tablet 1 04/18/2020 12/17/2020 metoprolol XL (TOPROL-XL) 25 mg extended release tablet Take 1 tablet (25 mg total) by mouth daily 90 tablet 3 04/18/2020 06/28/2021 Tradjenta 5 mg tablet Take 1 tablet (5 mg total) by mouth daily 90 tablet 3 04/18/2020 06/03/2021 documented as of this encounter Plan of Treatment Not on file documented as of this encounter Visit Diagnoses Not on filedocumented in this encounter Care Teams Assistant Vice President Relationship Specialty Start Date End Date Clive Wright MD PCP - General Family Medicine 09/15/18 Karthikeyan Elaine DO [address] [place] [id number] Medical Oncologist/Barrel Leveler Hematology and Oncology 10/27/18 documented as of this encounter
--- OUTSIDE RECORDS SUMMARY | 2024-03-10 20:15 | XMS_ITS | Encounter Summary ---
Author Organization [facility] Address [address] [place] [address] Care Team Providers Care Test Automation Architect Name Role Phone Clive Wright MD Primary Care Provider [phone] Karthikeyan Elaine DO Unavailable [phone] Reason for Visit * Reason Comments Medicare Wellness Encounter Details Date Type Department Care Team (Late st Contact Info) Description 10/27/2022 11:00 AM CDT Office Visit [facility] Family Medicine [address] [place] [address] Clive Wright MD [address] [place] [id number] Medicare annual wellness visit, subsequent (Primary Dx); Essential hypertension; Mixed hyperlipidemia; 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, without long-term current use of insulin (CMS/HCC) (HCC); Myeloproliferative disease (HCC) Social History Tobacco Use Types Packs/Day [...] on file Legal Sex Female 8:44 PM TALKBACK HOST Gender Identity Not on file Sexual Orientation Not on file Occupation Industry Job Start Date Job End Date Retired Not on file Not on file Not on file documented as of this encounter Last Filed Vital Signs Vital Sign Reading Time Taken Comments Blood Pressure 160/98 10/27/2022 11:23 AM CDT Pulse 77 10/27/2022 11:23 AM CDT Temperature 36.8 ??C (98.2 ??F) 10/27/2022 11:23 AM C DT Respiratory Rate - - Oxygen Saturation 98% 10/27/2022 11:23 AM CDT Inhaled Oxygen Concentration - - Weight 61.8 kg (136 lb 3.2 oz) 10/27/2022 11:23 AM CDT Height 161.3 cm (5' 3.5 ) 10/27/2022 11:23 AM CD T Body Mass Index 23.75 10/27/2022 11:23 AM CDT documented in this encounter Progress Notes * Clive Wright MD - 10/27/2022 11:00 AM CDT Images from the original note were not included. MEDICARE/MANAGED CARE ANNUAL WELLNESS VISIT Patient Name: Ankita Perez Date Of : 1950 Date Of Service: @DATEOFSERVICE@ Medicare Health Risk Assessment Basic Information In general, would you say your health is: Good Do you have an advance directive, such as a living will or durable power of director life sales?: No Would you like information regarding Advanced Directiv (Living Will) and/or Durable Power of Manager Electrical?: No Do you have trouble hearing the television or radio when other do not?: Yes Do you have to strain or struggle to hear/understand conversations?: Yes Have you experienced any of the following problems currently or recently? Eating: No Grooming: No Bathing: No Walking: No Using the toilet: No Memory problems: No Difficulty speaking: No Have you experienced any of the following problems currently or recently? Laundry and/or housekeeping: No Handling Money: No Shopping: No Food preparation: No Transportation: No Taking and/or getting your own medications: No HPI: 72-year-old female. She doing pretty good. Otherwise active. Overall about the same. ROS Review of Systems Constitutional: Positive for [...] disease, without long-term current use of insulin ([facility]) ([facility]) Iron deficiency anemia Thrombocytosis (CMS/HCC) ([facility]) Past Medical History: Diagnosis Date Diabetes mellitus [...] Grandfather Social History: Social History Socioeconomic History Marital status: Spouse name: Not on file Number of children: Not on file Years of education: Not on file Highest education level: Not on file Occupational History Occupation: Retired Tobacco Use Smoking status: Never Smoker Smokeless tobacco: Never Used Vaping Use Vaping Use: Never used Substance and Sexual Activity Alcohol use: Not Currently Comment: occasion Drug use: Never Sexual activity: Yes Other Topics Concern Not on file Social History Narrative Not on file Social Determinants of Health Financial Resource Strain: Difficulty of Paying Living Expenses: Food Insecurity: Worried About Running Out of Food in the Last Year: Ran Out of Food in the Last Year: Transportation Needs: Lack of Transportation (Medical): Lack of Transportation (Non-Medical): Physical Activity: Days of Exercise per Week: Minutes of Exercise per Session: Stress: Feeling of Stress : Social Connections: Frequency of Communication with Friends and Family: Frequency of Social Gatherings with Friends and Family: Attends [employer] Services: Active Member of Clubs or Organizations: Attends Club or Organization Meetings: Marital Status: Intimate Partner Violence: Fear of Current or Ex-Partner: Emotionally Abused: Physically Abused: Sexually Abused: Allergies: No Known Allergies Medications: Current Outpatient Medications: ascorbic acid (ascorbic acid with rachel hips) 500 mg tablet,chewable, Take 500 mg by mouth daily , Disp: , Rfl: aspirin 81 mg enteric coated tablet, Take 1 tablet (81 mg total) by mouth daily, Disp: 30 tablet, Rfl: 0 atorvastatin (LIPITOR) 20 mg tablet, Take 1 tablet (20 mg total) by mouth daily, Disp: 90 tablet, Rfl: 3 blood glucose diagnostic ([employer] Ultra Blue Test Strip) strip, 1 each by other route as directed Checks blood sugar daily, Disp: 100 each, Rfl: 3 cyanocobalamin (Vitamin B-12) 1,000 mcg tablet, Take 1,000 mcg by mouth daily, Disp: , Rfl: ferrous sulfate (Iron, ferrous sulfate,) 325 mg (65 mg of elemental iron) tablet, Take 1 tablet (325 mg total) by mouth 2 (two) times a day, Disp: 180 tablet, Rfl: 2 hydroCHLOROthiazide (HYDRODIURIL) 25 mg tablet, Take 1 tablet (25 mg total) by mouth daily, Disp: 90 tablet, Rfl: 3 hydroxyurea (HYDREA) 500 mg capsule, Take 2 capsules (1,000 mg total) by mouth daily, Disp: 60 capsule, Rfl: 3 lisinopriL (PRINIVIL,ZESTRIL) 20 mg tablet, Take 1 tablet (20 mg total) by mouth daily, Disp: 90 tablet, Rfl: 3 metFORMIN (GLUCOPHAGE) 500 mg tablet, Take 1 tablet (500 mg total) by mouth 2 (two) times a day, Disp: 90 tablet, Rfl: 1 metoprolol XL (TOPROL-XL) 25 mg extended release tablet, Take 1 tablet (25 mg total) by mouth daily, Disp: 90 tablet, Rfl: 3 Tradjenta 5 mg tablet, Take 1 tablet (5 mg total) by mouth daily, Disp: 90 tablet, Rfl: 3 Depression Screen: PHQ Screening Over the last [...] administer the PHQ-9): 0 Vitals: Vitals BP 164/80 (BP Location: Left arm, Patient Position: Sitting) Pulse 64 Temp 37.1 ??C (98.7 ??F) (Temporal) Resp 16 Ht 161.3 cm (5' 3.5 ) Wt 59.9 kg (132 lb) SpO2 96% BMI 23.02 kg/m?? Body mass index is 23.02 kg/m??. Hearing and Vision Screening: Age related [...] (Family Medicine) Karthikeyan Elaine DO as Medical Oncologist/Superintendent [employer] (Hematology and Oncology) [facility]DME [facility] [address] [place] [address] [address] [facility] [address] [facility] [address] [id number] [place], [place] [address] [facility] [place] [address] [facility] [address] Detection of Cognitive Impairment: The patient does not have cognitive impairment based on direct observation, discussion with patientor family, or review of medical records. Health Maintenance: Health Maintenance Topics with due status: Overdue Topic Date Due Breast Cancer Screening-Mammogram Never done Colon Cancer Screening-Colonoscopy Never done Hepatitis C Screening Never done Dilated Eye Exam Never done DTaP/Tdap/Td Vaccine Never done Zoster Vaccines Never done Pneumococcal (PCV13 & PPSV23) 65+ yrs Never done Urine Microalbumin 08/27/2019 Foot Exam 04/14/2020 Health Maintenance Topics with due status: Not Due Topic Last Completion Date Lipid Panel 10/10/2020 Hemoglobin A1C 10/10/2020 Fall Risk Assessment 10/16/2020 Depression Screening-PHQ 10/16/2020 Regular Well Visit/Exam 10/16/2020 Osteoporosis Screening-Bone Density Scan Not Due Influenza Vaccine Not Due Counseling and Referral of Preventative Services: Mamm 02/26 Bone dexa 03/29 cologuard get date. Labs UTD Habits neg Immunizations reviewed, refusing Lifestyle Recommendations Increase Physical Activity, Stop Using Tobacco, Reduce Weight and ImproveDiet Advanced Directive Durable Power of Manager Electrical: Discussed Today Living Will: Discussed Today Assessment and Plan: Diagnoses and all orders for this visit: Medicare annual wellness visit, subsequent (Primary) - completed Essential hypertension - Home BP checks good, doing well, labs neg Mixed hyperlipidemia - CPM, LDL 69 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, without long-term current use of insulin ([facility]) - A1C 6.4, diet / exercise, sees optho / UTD, no PN - creat 1.12 Thrombocytosis ([facility])/P disorder - seeing heme Iron deficiency anemia - better Advance Care Planning Advance Care Planning/Resuscitation Status Conversation - POLST form filled out, Full code POA reviewed Patient here for annual Medicare wellness visit and for review of complete medical problem list. All the elements of the plan were completed as outlined by [facility]. A copy of the prevention plan was [...] patient through summary of today's office visit. Clive Wright MD No orders of the defined types were placed in this encounter. documented in this encounter Miscellaneous Notes * Addendum Note - Mckayla Clemens Ma, MA - 10/27/2022 11:00 AM CDTAddended by: MCKAYLA CLEMENS on: 10/27/2022 12:15 PM Modules accepted: Orders documented in this encounter Plan of Treatment Not on file documented as of this encounter Procedures Procedure Name Priority Date/Time Associated Diagnosis Comments CBC MORPHOLOGY Routine 04/15/2023 6:58 AM TALKBACK HOST TEST AUTHORIZATION Routine 04/15/2023 6: 58 AM TALKBACK HOST CBC WITH AUTO DIFFERENTIAL Routine 04/15/2023 6:58 AM TALKBACK HOST Essential hypertension HEMOGLOBIN A1C Routine 04/15/2023 6:58 AM TALKBACK HOST 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, without long-term current use of insulin ([facility]/HCC) (HCC) VITAMIN B12 Routine 04/15/2023 6:58 AM TALKBACK HOST LIPID PANEL Routine 04/15/2023 6:58 AM TALKBACK HOST Essential hypertension Mixed hyperlipidemia COMPREHENSIVE METABOLIC PANEL Routine 04/15/2023 6:58 AM TALKBACK HOST Essential hypertension 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, without long-term current use of insulin ([facility]/HCC) (HCC) documented in this encounter Results * (ABNORMAL) Vitamin B12 (04/15/2023 6:58 AM TALKBACK HOST) Vitamin B12 >2000(H) 200 - 1100 pg/mL [facility] 04/15/2023 6:58 AM TALKBACK HOST 04/15/2023 6:59 AM TALKBACK HOST us Clive Wright MD LAB BLOOD ORDERABLES Final Re sult [facility] [address] [place] [address] * TEST AUTHORIZATION (04/15/2023 6:58 AM TALKBACK HOST) Test name VITAMIN B12 [facility] TEST CODE: 927SB [facility] CLIENT CONTACT: PINEDA PAULINO [facility] Report Always Message Signature [facility] Comment: The laboratory testing on this patient was verbally requested or confirmed by the ordering physician or his or her authorized veterans service representative after contact with an employee of [email or web address]. Federal regulations require that we maintain on file written authorization for all laboratory testing. ??Accordingly we are asking that the ordering physician or his or her authorized veterans service representative sign a copy of this report and promptly return it to the client support coordinator. Signature: Comment [facility] Comment: Fax number: [phone] 04/15/2023 6:58 AM TALKBACK HOST 04/15/2023 6:59 AM TALKBACK HOST us Clive Wright MD LAB BLOOD ORDERABLES Final Re sult Performing Organization Address [facility] Co de Phone Number [facility] [address] [place] [address] * CBC MORPHOLOGY (04/15/2023 6:58 AM TALKBACK HOST) Pathologist [facility] CBC MORPHOLOGY NORMAL [facility] Comment: Spherocytes 1 + Macrocytosis 3 + Polychromasia 1 + Ovalocytes 1 + 04/15/2023 6:58 AM TALKBACK HOST 04/15/2023 6:59 AM TALKBACK HOST us Clive Wright MD LAB BLOOD ORDERABLES Final Re sult Performing Organization Address [facility] Co de Phone Number [facility] [address] [place] [address] * (ABNORMAL) Hemoglobin A1c (04/15/2023 6:58 AM TALKBACK HOST) Hgb A1C 6.4(H) <5.7 % of total Hgb [facility] Comment: For someone without known diabetes, [...] A1c for diagnosis of diabetes for children. HbA1c performed on [employer] platform. ?? Blood 04/15/2023 6:58 AM TALKBACK HOST 04/15/2023 6:59 AM TALKBACK HOST us Clive Wright MD LAB BLOOD ORDERABLES Final Re sult [facility] [address] [place] [address] * (ABNORMAL) Lipid panel (04/15/2023 6:58 AM TALKBACK HOST) Pathologist [facility] Cholesterol 146 <200 mg/dL [facility] HDL 47(L) > OR = 50 mg/dL [facility] Triglycerides 170(H) <150 mg/dL [facility] LDL 74 mg/dL (calc) [facility] Comment: Reference range: <100 Desirable range <100 mg/dL for primary prevention; ?? <70 mg/dL for patients with CHD or diabetic patients with > or = 2 CHD risk factors. LDL-C is now calculated using the Rishi-Nikki calculation, which is a validated novel method providing better accuracy than the Friedewald equation in the estimation of LDL-C. Rishi SS et al. CARRIE. 2013;310(19): 5733-5959 (http://education.[employer]/faq/DDL199) Chol/HDL ratio 3.1 <5.0 (calc) [facility] Non-HDL, (LDL+VLDL) 99 <130 mg/dL (calc) [facility] Comment: For patients with diabetes plus 1 major ASCVD risk factor, treating to a non-HDL-C goal of <100 mg/dL (LDL-C of <70 mg/dL) is considered a therapeutic option. Blood 04/15/2023 6:58 AM TALKBACK HOST 04/15/2023 6:59 AM TALKBACK HOST us Clive Wright MD LAB BLOOD ORDERABLES Final Re sult [facility] [address] [place] [address] * (ABNORMAL) Comprehensive metabolic panel (04/15/2023 6:58 AM TALKBACK HOST) Glucose 177(H) 65 - 99 mg/dL [facility] Comment: ? Fasting reference interval For someone without known diabetes, a glucose value >125 mg/dL indicates that they may have diabetes and this should be confirmed with a follow-up test. BUN 26(H) 7 - 25 mg/dL [facility] Creatinine 0.97 0.60 - 1.00 mg/dL [facility] eGFR 62 > OR = 60 mL/min/1.7 3m2 [facility] BUN/creat ratio 27(H) 6 - 22 (calc) [facility] Sodium 135 135 - 146 mmol/L [facility] Potassium, pl 4.1 3.5 - 5.3 mmol/L [facility] Chloride 97(L) 98 - 110 mmol/L [facility] CO2 28 20 - 32 mmol/L [facility] Calcium 9.0 8.6 - 10.4 mg/dL [facility] Protein, sr 6.6 6.1 - 8.1 g/dL [facility] Albumin 4.1 3.6 - 5.1 g/dL [facility] GLOBULIN 2.5 1.9 - 3.7 g/dL (calc) [facility] Alb/glob ratio 1.6 1.0 - 2.5 (calc) [facility] Bilirubin, total 0.4 0.2 - 1.2 mg/dL [facility] Alk phos 43 37 - 153 U/L [facility] AST 13 10 - 35 U/L [facility] ALT (SGPT) 8 6 - 29 U/L [facility] Blood 04/15/2023 6:58 AM TALKBACK HOST 04/15/2023 6:59 AM TALKBACK HOST us Clive Wright MD LAB BLOOD ORDERABLES Final Re sult [facility] [address] [place], [place] [address] * (ABNORMAL) CBC with auto differential (04/15/2023 6:58 AM TALKBACK HOST) WBC 4.2 3.8 - 10.8 Thousand/u L [facility] RBC, POC 2.43(L) 3.80 - 5.10 Million/uL [facility] Hgb 10.7(L) 11.7 - 15.5 g/dL [facility] Hct 29.5(L) 35.0 - 45.0 % [facility] MCV 121.4(H) 80.0 - 100.0 fL [facility] MCH 44.0(H) 27.0 - 33.0 pg [facility] MCHC 36.3(H) 32.0 - 36.0 g/dL [facility] Rdw 12.4 11.0 - 15.0 % [facility] Platelets 430(H) 140 - 400 Thousand/u L [facility] MPV 9.9 7.5 - 12.5 fL [facility] Neutrophils, abs 2,860 1,500 - 7,800 cells/uL [facility] Lymphocytes, abs 907 850 - 3,900 cells/uL [facility] Monocyte abs 382 200 - 950 cells/uL [facility] Eosinophils, abs 42 15 - 500 cells/uL [facility] Basophils, abs 8 0 - 200 cells/uL [facility] Neutrophils 68.1 % [facility] Lymphocyte pct 21.6 % [facility] Monocytes 9.1 % [facility] Eosinophils 1.0 % [facility] Basophils 0.2 % [facility] Blood 04/15/2023 6:58 AM TALKBACK HOST 04/15/2023 6:59 AM TALKBACK HOST us Clive Wright MD LAB BLOOD ORDERABLES Final Re sult [facility] [address] [place] [address] documented in this encounter Visit Diagnoses Diagnosis Medicare annual wellness visit, subsequent- Primary Essential hypertension Unspecified essential hypertension Mixed hyperlipidemia 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, without long-term current use of insulin (CMS/HCC) (HCC) Myeloproliferative disease (HCC) 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 vitamin D3-vitamin K2 25 mcg (1,000 unit)-90 mcg tablet,disintegrat ing Take 1,000 Units by mouth daily added in this encounter Care Teams Test Automation Architect Relationship Specialty Start Date End Date Clive Wright MD PCP - General Family Medicine 09/15/18 Karthikeyan Elaine DO [address] [place] [address] Medical Oncologist/Superintendent [employer] Hematology and Oncology 10/27/18 documented as of this encounter
--- OUTSIDE RECORDS SUMMARY | 2024-03-10 20:15 | XMS_ITS | Encounter Summary ---
Author Organization [facility] Address [address] [place] [address] Care Team Providers Care Preflight Mechanic Name Role Phone Clive Wright MD Primary Care Provider [phone] Karthikeyan Elaine DO Unavailable [phone] Reason for Visit * Reason Comments Medicare Wellness Encounter Details Date Type Department Care Team (Late st Contact Info) Description 10/16/2020 10:30 AM CDT Office Visit [facility] Family Medicine [address] [place] [address] Clive Wright MD [address] [place] [address] Medicare annual wellness visit, subsequent (Primary Dx); Essential hypertension; Mixed hyperlipidemia; 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, without long-term current use of insulin ([facility]) (HCC); Thrombocytosis ([facility]) ([facility]) Social History Tobacco Use Types Packs/Day Years [...] on file Legal Sex Female 8:44 PM SCRIPT WRITER Gender Identity Not on file Sexual Orientation Not on file Occupation Industry Job Start Date Job End Date Retired Not on file Not on file Not on file documented as of this encounter Last Filed Vital Signs Vital Sign Reading Time Taken Comments Blood Pressure 164/80 10/16/2020 11:21 AM CDT Pulse 64 10/16/2020 11:21 AM CDT Temperature 37.1 ??C (98.7 ??F) 10/16/2020 11:21 AM C DT Respiratory Rate 16 10/16/2020 11:21 AM CDT Oxygen Saturation 96% 10/16/2020 11:21 AM CDT Inhaled Oxygen Concentration - - Weight 59.9 kg (132 lb) 10/16/2020 11:21 AM CDT Height 161.3 cm (5' 3.5 ) 10/16/2020 11:21 AM CD T Body Mass Index 23.02 10/16/2020 11:21 AM CDT documented in this encounter Progress Notes * Clive Wright MD - 10/16/2020 10:30 AM CDT Images from the original note were not included. MEDICARE/MANAGED CARE ANNUAL WELLNESS VISIT Patient Name: Ankita Perez Date Of : 1950 Date Of Service: @DATEOFSERVICE@ Medicare Health Risk Assessment Basic Information In general, would you say your health is: Good Do you have an advance directive, such as a living will or durable power of corporate attorney?: No Would you like information regarding Advanced Directiv (Living Will) and/or Durable Power of Supervisory Air Intercept Controller?: No Do you have trouble hearing the [...] and/or getting your own medications: No HPI: 89ear-old female. Currently doing well. She did her labs. Platelets 259641. Seeing Hematology. Shechecks her blood pressure at [...] without long- term current use of insulin (CMS/HCC) (HCC) ??? Iron deficiency anemia ??? Thrombocytosis (CMS/HCC) (HCC) Past Medical History: Diagnosis Date ??? Diabetes mellitus (HCC) ??? Hyperlipidemia ??? Hypertension Past Surgical History: Procedure Laterality Date ??? CATARACT EXTRACTION Left 2012 Family History: Family History Problem Relation Age [...] Gatherings with Friends and Family: ??? Attends Jewish Services: ??? Active Member of Clubs or Organizations: ??? Attends Club or Organization Meetings: ??? Marital Status: Intimate Partner Violence: ??? Fear of Current or Ex-Partner: ??? Emotionally Abused: ??? Physically Abused: ??? Sexually Abused: Allergies: No Known Allergies Medications: Current Outpatient Medications: ??? ascorbic acid (ascorbic acid with rachel hips) 500 mg tablet,chewable, Take 500 mg by mouth daily, Disp: , Rfl: ??? aspirin 81 mg enteric coated tablet, Take 1 tablet (81 mg total) by mouth daily, Disp: 30 tablet, Rfl: 0 ??? atorvastatin (LIPITOR) 20 mg tablet, Take 1 tablet (20 mg total) by mouth daily, Disp: 90 tablet, Rfl: 3 ??? blood glucose diagnostic (OneTouch Ultra Blue Test Strip) strip, 1 each by other route as directed Checks blood sugar daily, Disp: 100 each, Rfl: 3 ??? cyanocobalamin (Vitamin B-12) 1,000 mcg tablet, Take 1,000 mcg by mouth daily, Disp: , Rfl: ??? ferrous sulfate (Iron, ferrous sulfate,) 325 mg (65 mg of elemental iron) tablet, Take 1 tablet(325 mg total) by mouth 2 (two) times a day, Disp: 180 tablet, Rfl: 2 ??? hydroCHLOROthiazide (HYDRODIURIL) 25 mg tablet, Take 1 tablet (25 mg total) by mouth daily, Disp: 90 tablet, Rfl: 3 ??? hydroxyurea (HYDREA) 500 mg capsule, Take 2 capsules (1,000 mg total) by mouth daily, Disp: 60 capsule, Rfl: 3 ??? lisinopriL (PRINIVIL,ZESTRIL) 20 mg tablet, Take 1 tablet (20 mg total) by mouth daily, Disp: 90 tablet, Rfl: 3 ??? metFORMIN (GLUCOPHAGE) 500 mg tablet, Take 1 tablet (500 mg total) by mouth 2 (two) times a day, Disp: 90 tablet, Rfl: 1 ??? metoprolol XL (TOPROL-XL) 25 mg extended release tablet, Take 1 tablet (25 mg total) by mouth daily, Disp: 90 tablet, Rfl: 3 ??? Tradjenta 5 mg tablet, Take 1 [...] (Family Medicine) Karthikeyan Elaine DO as Medical Oncologist/Circular Gang Saw Operator (Hematology and Oncology) Primary Pharmacy/DME suppliers: [facility] - [place], [place] - [address] [facility] [address] [id number] - [place], [place] - [address] [facility] [address] [facility] [address] Detection of Cognitive Impairment: The patient does [...] and ImproveDiet Advanced Directive Durable Power of Supervisory Air Intercept Controller: Discussed Today Living Will: Discussed Today Assessment and Plan: Diagnoses and all orders for this visit: Medicare annual wellness visit, subsequent (Primary) - completed Essential hypertension - Home BP checks good, doing well, labs neg Mixed hyperlipidemia - CPM, lDL at goal 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, without long-term current use of insulin ([facility]) - A1C 6.4, diet / exercise, sees optho / UTD, no PN - creat 1.117 Thrombocytosis ([facility]/HCC) - seeing heme Iron deficiency anemia - better Advance Care Planning Advance Care Planning/Resuscitation Status Conversation Individuals present for voluntary advance care planning conversation: ACP discussion participants: Patient Pertinent details of conversation (including direct quotes from patient or surrogate): Improve or maintain current quality of life Outcome of conversation: ACP Conversation Outcome: Continue full scope of treatment Documents completed as a result of this conversation: ACP Documents: Advance Directive Other documents present, which outline patient/surrogate wishes: ACP Documents Present: Advance Directive I spent ACP Time Spent with Patient: >16 minutes discussing the patient's wishes and goals as detailed in the above note. POLST form filled out, Full code POA reviewed Patient here for annual Medicare wellness visit and for review of complete medical problem list. All the elements of the plan were completed as outlined by [facility]. A copy of the prevention plan was [...] Note - Mckayla Clemens Ma, MA - 10/16/2020 10:30 AM CDTAddended by: MCKAYLA CLEMENS on: 10/16/2020 12:00 PM Modules accepted: Orders documented in this encounter Plan of Treatment Not on file documented as of this encounter Visit Diagnoses Diagnosis Medicare annual wellness visit, subsequent- Primary Essential hypertension Unspecified essential hypertension Mixed hyperlipidemia 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, without long-term current use of insulin ([facility]) ([facility]) Thrombocytosis Essential thrombocythemia documented in this encounter Orders Lab Orders Without Results Count Last Ordered D ate First Ordered Date CBC WITH AUTO DIFFERENTIAL 1 10/16/2020 COMPREHENSIVE METABOLIC PANEL 1 10/16/2020 LIPID PANEL 1 10/16/2020 documented in this encounter Care Teams Preflight Mechanic Relationship Specialty Start Date End Date Clive Wright MD PCP - General Family Medicine 09/15/18 Karthikeyan Elaine DO [address] [place] [id number] Medical Oncologist/Circular Gang Saw Operator Hematology and Oncology 10/27/18 documented as of this encounter
--- OUTSIDE RECORDS SUMMARY | 2024-03-10 20:15 | XMS_ITS | Encounter Summary ---
Author Organization [facility] Address [address] [place] [address] Phone Care Team Providers Care Physical Education Teacher Name Role Phone Clive Wright MD Primary Care Provider [phone] Karthikeyan Elaine DO Unavailable [phone] Encounter Details Date Type Department Care Team (Late st Contact Info) Description 03/31/2022 Telephone [facility] Oncology [address] [place] [phone] Mary Sousa, JAMES Social History Tobacco Use Types Packs/Day Years [...] on file Legal Sex Female 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 Gender Identity Not on file Sexual Orientation Not on file Occupation Industry Job Start Date Job End Date Retired Not on file Not on file Not on file documented as of this encounter Ordered Prescriptions Prescription Sig Dispense Quantity Refills Last Filled Start Date End Date hydroxyurea (HYDREA) 500 mg capsule Take 2 capsules (1,000 mg total) by mouth daily 60 capsule 03/31/2022 documented in this encounter Miscellaneous Notes * Telephone Encounter - Amita Guevara CMA - 03/31/2022 2:36 PM MAPLE PRODUCTS SUPERVISOR Patient returned call to office to inform she had [facility] today Verbal to RN E PRODUCTS SUPERVISOR * Telephone Encounter - Mary Sousa RN - 03/31/2022 10:54 AM MAPLE PRODUCTS SUPERVISOR 30 day supply of Hydrea sent to pharmacy. Date updated on [facility] order. E PRODUCTS SUPERVISOR * Telephone Encounter - Amita Guevara CMA - 03/31/2022 10:42 AM MAPLE PRODUCTS SUPERVISOR Patient called returning RN call; she states was not aware that she was to have labs done in February; she will have the CBC done at [facility] in the next few days FYI E PRODUCTS SUPERVISOR * Telephone Encounter - Mary Sousa RN - 03/31/2022 9:46 AM MAPLE PRODUCTS SUPERVISOR Received refill request for Hydrea. Per Dr. Elaine's last note patient was to have repeat labs done in February. Called patient and left a message for her to call the office. Patient needs to have a CBC done to assess if she is on the correct dose of Hydrea. Refill can be sent for a 30 days supply after patient has contacted the office. E PRODUCTS SUPERVISOR documented in this encounter Plan of Treatment Not on file documented as of this encounter Visit Diagnoses Not on filedocumented in this encounter Discontinued Medications Medication Sig Discontinue Reason Start Date End Da te hydroxyurea (HYDREA) 500 mg capsule Take 2 capsules (1,000 mg total) by mouth daily Reorder 07/19/2021 03/31/2022 documented as of this encounter Care Teams Physical Education Teacher Relationship Specialty Start Date End Date Clive Wright MD PCP - General Family Medicine 09/15/18 Karthikeyan Elaine DO [address] [place] [id number] Medical Oncologist/Cable Splicer Assistant Hematology and Oncology 10/27/18 documented as of this encounter
--- OUTSIDE RECORDS SUMMARY | 2024-03-10 20:15 | XMS_ITS | Encounter Summary ---
Author Organization [facility] Address [address] [place] [address] Care Team Providers Care Data Systems Manager Name Role Phone Clive Wright MD Primary Care Provider [phone] Karthikeyan Elaine DO Unavailable [phone] Reason for Visit * Reason Onset Date Comments schedule medicare wellness 10/02/2023 Encounter Details Date Type Department Care Team (Late st Contact Info) Description 10/02/2023 Telephone [facility] Family Medicine at [address] [place] [address] Clive Wright MD [address] [place] [address] schedule medicare wellness Social History Tobacco Use Types Packs/Day Years [...] on file 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 Gender Identity Not on file Sexual Orientation Not on file Occupation Industry Job Start Date Job End Date Retired Not on file Not on file Not on file documented as of this encounter Miscellaneous Notes * Telephone Encounter - Olimpia Garcia - 10/02/2023 8:29 AM CDT Called patient to schedule medicare wellness no answer VM was not set up documented in this encounter Plan of Treatment Not on file documented as of this encounter Visit Diagnoses Not on filedocumented in this encounter Care Teams Data Systems Manager Relationship Specialty Start Date End Date Clive Wright MD PCP - General Family Medicine 09/15/18 Karthikeyan Elaine DO [address] [place] [id number] Medical Oncologist/Ceramic Tile Setter Hematology and Oncology 10/27/18 documented as of this encounter
--- OUTSIDE RECORDS SUMMARY | 2024-03-10 20:15 | XMS_ITS | Encounter Summary ---
Author Organization [facility] Address [address] [place] [address] Phone Care Team Providers Care Supervisor Nutritional Yeast Name Role Phone Clive Wright MD Primary Care Provider [phone] Karthikeyan Elaine DO Unavailable [phone] Encounter Details Date Type Department Care Team (Late st Contact Info) Description 12/31/2022 Telephone [facility] Oncology [facility] [facility] [address] [place] [phone] Amita Guevara CMA Social History Tobacco Use Types Packs/Day Years [...] on file 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 Gender Identity Not on file Sexual Orientation Not on file Occupation Industry Job Start Date Job End Date Retired Not on file Not on file Not on file documented as of this encounter Miscellaneous Notes * Telephone Encounter - Amita Guevara CMA - 12/31/2022 10:00 AM CDT Patient called asking if needs labs prior to her ROV on 01/16/[address] Elaine in [place]; looked in order review, patient to have CBC,CMP done, orders in for [facility]; mailed orders to her aswell documented in this encounter Plan of Treatment Not on file documented as of this encounter Visit Diagnoses Not on filedocumented in this encounter Care Teams Supervisor Nutritional Yeast Relationship Specialty Start Date End Date Clive Wright MD PCP - General Family Medicine 09/15/18 Karthikeyan Elaine DO [address] [place] [id number] Medical Oncologist/Director Of Parks And Recreation Hematology and Oncology 10/27/18 documented as of this encounter
--- OUTSIDE RECORDS SUMMARY | 2024-03-10 20:15 | XMS_ITS | Encounter Summary ---
Author Organization [facility] Address [address] [place] [address] Care Team Providers Care Inseamer Name Role Phone Clive Wright MD Primary Care Provider [phone] Karthikeyan Elaine DO Unavailable [phone] Reason for Visit * Reason Onset Date Comments Unsuccessful Phone Call 1 12/21/2023 [employer] dm eye exam Encounter Details Date Type Department Care Team (Late st Contact Info) Description 12/21/2023 Telephone [facility] Accountable Care Organization [address] [place] [address] Philly Oneal [address] [place] [address] [address] [facility] [address] [place], [place] [phone] Unsuccessful Phone Call 1 ([employer] dm eye exam) Social History Tobacco Use Types Packs/Day Years [...] on file 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 Chart has been scrubbed and Patient has been called and no answer, no message left. Thank you, Philly Oneal Patient Quality Cae Engineer [facility] documented in this encounter Plan of Treatment Not on file documented as of this encounter Visit Diagnoses Not on filedocumented in this encounter Care Teams Inseamer Relationship Specialty Start Date End Date Clive Wright MD PCP - General Family Medicine 09/15/18 Karthikeyan Elaine DO [address] [place] [id number] Medical Oncologist/Sales Agent [employer] Hematology and Oncology 10/27/18 documented as of this encounter
--- OUTSIDE RECORDS SUMMARY | 2024-03-10 20:15 | XMS_ITS | Encounter Summary ---
Author Organization [facility] Address [address] [place] [address] Phone Care Team Providers Care Senior National Account Manager Name Role Phone Clive Wright MD Primary Care Provider [phone] Sarai Vargas DO Unavailable [phone] Reason for Referral * Consultation (Routine) - Closed Specialty Diagnoses / Procedures Referred By Estrella kapadia Referred To Contact Oncology Diagnoses Thrombocytosis Sarai Vargas DO [address] [place] [address] Phone: tel: fax: Sarai Vargas DO [address] [place] [address] Phone: tel: fax: Referral ID Status Reason Start Date Expiration Date V isits Requested Visits Authorized [id number] Closed Specialty Services Required 01/02/2022 03/08/2022 99 99 Question Answer Please select the performing region: [facility] (All Locations) [[id number]] Please select the performing department: [facility] IM ONC MHE2 [id number] [[id number]] Is this referral for Breast Health Multi-Disciplinary Clinic? No Does the patient have a diagnosis of a Head and Neck cancer? No To provider: SARAI VARGAS [[id number]] # of visits: 1 Reason for Visit * Reason Comments Follow-up * Consultation (Routine) - Closed Specialty Diagnoses / Procedures Referred By Estrella kapadia Referred To Contact Oncology Diagnoses Thrombocytosis Sarai Vargas, DO [address] [address] Phone: tel: fax: Sarai Vargas, DO [address] [facility] [address] [place] [address] Phone: tel: fax: Referral ID Status Reason Start Date Expiration Date V isits Requested Visits Authorized [id number] Closed Specialty Services Required 01/02/2022 03/08/2022 99 99 Encounter Details Date Type Department Care Team (Latest Contact Info) Description 01/17/2022 9:[address] BAILIFF Office Visit [facility] Oncology [address] [place] [address] [address] [place] [id number] Sarai Vargas, DO [address] [place] [address] [phone] Thrombocytosis (Primary Dx) Social History Tobacco Use Types [...] on file Legal Sex Female 8:[address] BAILIFF Gender Identity Not on file Sexual Orientation Not on file Occupation Industry Job Start Date Job End Date Retired Not on file Not on file Not on file documented as of this encounter Last Filed Vital Signs Vital Sign Reading Time Taken Comments Blood Pressure 181/76 01/17/2022 9:[address] BAILIFF Pulse 68 01/17/2022 9:[address] BAILIFF Temperature 36.6 ??C (97.9 ??F) 01/17/2022 9:14 AM CS T Respiratory Rate 16 01/17/2022 9:[address] BAILIFF Oxygen Saturation 96% 01/17/2022 9:[address] BAILIFF Inhaled Oxygen Concentration - - Weight 63.4 kg (139 lb 12.4 oz) 01/17/2022 9:[address] BAILIFF Height 161.3 cm (5' 3.5 ) 01/17/2022 9:[address] BAILIFF Body Mass Index 24.37 01/17/2022 9:[address] BAILIFF documented in this encounter Progress Notes * Sarai Vargas, DO - 01/17/2022 9:15 AM CST Patient ID: Ankita Perez is a 71 y.o. female. Primary Care Provider: Clive Wright MD Assessment/Plan Chronic myeloproliferative disorder with thrombocytosis -JAK2 negative. Chronic macrocytic anemia. -secondary to nutritional deficiencies plus Hydrea side effect Recommendations: 1. Unfortunately, her CBC has increased up to 620. 2. She will continue with hydroxyurea 1000 mg daily and I will repeat another CBC in 4 weeks and make further adjustments at that time. 3. After that, I will continue with monitoring her CBC every 6 months and see her back in 1 year for follow-up. My total encounter time on 01/17/2022 was 20 minutes which was spent in the activities documented in the note. This includes time spent prior to the visit and after the visit in direct care of the patient. This time does not include time spent in any separately reportable services. Patient Active Problem List Diagnosis Essential hypertension Mixed hyperlipidemia 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, without long-term current use of insulin ([facility]) ([facility]) Iron deficiency anemia Thrombocytosis CKD (chronic kidney disease) stage 3, GFR 30-59 ml/min ([facility]) Diagnoses and all orders for this visit: Thrombocytosis (Primary) - Ambulatory referral to Oncology; Future - CBC with auto differential; Future - Comprehensive metabolic panel; Future - CBC with auto differential; Future - Clinic Appointment Request Follow up; SARAI VARGAS; Clinic Appointment Location: [facility] 140; Future - Comprehensive metabolic panel; Future - Clinic Appointment Request Follow up; SARAI VARGAS; Clinic Appointment Location: [facility] 140 - CBC with auto differential; Future - CBC with auto differential; Future Other orders - CBC MORPHOLOGY Subjective Interval History: A. Chronic myeloproliferative disorder-FRANSISCO 2-analysis. 1. Patient changed primary care physicians in [...] to normalize her platelet count completely. 7. Six month follow-up visit. She continues to be on hydroxyurea 1000 mg daily and aspirin 81 mg daily. She has missed several doses over the past month or 2. Interval Notes: I have reviewed: allergies, current [...] Exam: Vital Signs for this encounter: BSA: 1.69 meters squared BP (!) 181/76 (BP Location: Left arm) Pulse 68 Temp 36.6 ??C (97.9 ??F) (Oral) Resp 16 Ht 161.3 cm (5' 3.5 ) Wt 63.4 kg (139 lb 12.4 oz) SpO2 96% BMI 24.37 kg/m?? Physical Exam Constitutional: Appearance: She is [...] Results: WBC Date Value Ref Range Status 01/15/2022 6.7 3.8 - 10.8 Thousand/uL Final 01/04/2019 9.3 3.4 - 10.8 x10E3/uL Final Hgb Date Value Ref Range Status 01/15/2022 11.3 (L) 11.7 - 15.5 g/dL Final 01/04/2019 10.8 (L) 11.1 - 15.9 g/dL Final Hct Date Value Ref Range Status 01/15/2022 32.3 (L) 35.0 - 45.0 % Final 01/04/2019 33.8 (L) 34.0 - 46.6 % Final Platelets Date Value Ref Range Status 01/15/2022 620 (H) 140 - 400 Thousand/uL Final 01/04/2019 932 (HH) 150 - 450 x10E3/uL Final Comment: Results verified by repeat testing Lactate dehydrogenase (LDH) Date Value Ref Range Status 10/19/2018 164 119 - 226 IU/L Final Lactate Dehydrogenase Date Value Ref Range Status 10/04/2019 131 100 - 250 U/L Final Creatinine Date Value Ref Range Status 01/15/2022 1.06 (H) 0.60 - 1.00 mg/dL Final AST Date Value Ref Range Status 01/15/2022 17 10 - 35 U/L Final T BAILIFF documented in this encounter Miscellaneous Notes * Addendum Note - Samantha Alvarez RN - 01/17/2022 9:15 AM CSTAddended by: SAMANTHA ALVAREZ on: 03/31/2022 10:53 AM Modules accepted: Orders T BAILIFF * Addendum Note - Samantha Alvarez RN - 01/17/2022 9:15 AM CSTAddended by: SAMANTHA ALVAREZ on: 03/31/2022 10:53 AM Modules accepted: Orders T BAILIFF documented in this encounter Plan of Treatment Scheduled Orders Name Type Priority Associated Diagnoses Orde r Schedule CBC with auto differential Lab Routine Thrombocytosis Expected: 08/20/2022, Expires: 01/17/2023 CBC with auto differential Lab Routine Thrombocytosis Expected: 01/12/2023, Expires: 01/17/2023 Scheduled Referrals Name Type Priority Associated Diagnoses Order Schedule Ambulatory referral to Oncology Outpatient Referral Routine Thrombocytosis Expected: 01/16/2022 (Approximate), Expires: 01/02/2023 documented as of this encounter Procedures Procedure Name Priority Date/Time Associated Diagnosis Comments PLATELET ESTIMATION Routine 01/10/2023 1 0:11 AM CDT CBC MORPHOLOGY Routine 01/10/2023 10:11 AM CDT CBC WITH AUTO DIFFERENTIAL Routine 01/10/2023 10:11 AM CDT COMPREHENSIVE METABOLIC PANEL Routine 01/10/2023 10:11 AM CDT Thrombocytosis CBC MORPHOLOGY Routine 03/31/2022 11:[address] BAILIFF CBC WITH AUTO DIFFERENTIAL Routine 03/31/2022 11:[address] BAILIFF Thrombocytosis CBC MORPHOLOGY Routine 01/15/2022 2:[address] BAILIFF CBC WITH AUTO DIFFERENTIAL Routine 01/15/2022 2:[address] BAILIFF Thrombocytosis COMPREHENSIVE METABOLIC PANEL Routine 01/15/2022 2:[address] BAILIFF Thrombocytosis documented in this encounter Results * CBC MORPHOLOGY (01/10/2023 10:11 AM CDT) [facility] CBC MORPHOLOGY NORMAL [facility] Comment: Macrocytosis 2 + Polychromasia 1 + 01/10/2023 10:1 1 AM CDT 01/10/2023 10:13 AM CDT Narrative [facility] - 01/11/2023 8:[address] BAILIFF FASTING:NO FASTING: NO Sarai Vargas DO LAB BLOOD ORDERABLES Final R esult Performing Organization Address [facility] de Phone Number [facility] [address] [place] [address] * (ABNORMAL) PLATELET ESTIMATION (01/10/2023 10:11 AM CDT) [facility] PLATELET ESTIMATION INCREASED( A) ADEQUATE [facility] 01/10/2023 10:1 1 AM CDT 01/10/2023 10:13 AM CDT Narrative [facility] - 01/11/2023 8:[address] BAILIFF FASTING:NO FASTING: NO Sarai Vargas [employer] LAB BLOOD ORDERABLES Final R esult Performing Organization Address [facility] Co de Phone Number [facility] [address] [place] [address] * (ABNORMAL) CBC with auto differential (01/10/2023 10:11 AM CDT) [facility] WBC 4.7 3.8 - 10.8 Thousand/u L [facility] RBC, POC 2.50(L) 3.80 - 5.10 Million/uL [facility] Hgb 10.8(L) 11.7 - 15.5 g/dL [facility] Hct 30.9(L) 35.0 - 45.0 % [facility] MCV 123.6(H) 80.0 - 100.0 fL [facility] MCH 43.2(H) 27.0 - 33.0 pg [facility] MCHC 35.0 32.0 - 36.0 g/dL [facility] Rdw 11.8 11.0 - 15.0 % [facility] Platelets 603(H) 140 - 400 Thousand/u L [facility] MPV 9.6 7.5 - 12.5 fL [facility] Neutrophils, abs 2,989 1,500 - 7,800 cells/uL [facility] Lymphocytes, abs 1,222 850 - 3,900 cells/uL [facility] Monocyte abs 418 200 - 950 cells/uL [facility] Eosinophils, abs 42 15 - 500 cells/uL [facility] Basophils, abs 28 0 - 200 cells/uL [facility] Neutrophils 63.6 % [facility] Lymphocyte pct 26.0 % [facility] Monocytes 8.9 % [facility] Eosinophils 0.9 % [facility] Basophils 0.6 % [facility] 01/10/2023 10:1 1 AM CDT 01/10/2023 10:13 AM CDT Narrative [facility] - 01/11/2023 8:[address] BAILIFF FASTING:NO FASTING: NO Sarai Vargas DO LAB BLOOD ORDERABLES Final R esult [facility] [address] [place] [address] * (ABNORMAL) Comprehensive metabolic panel (01/10/2023 10:11 AM CDT) [facility] Glucose 228(H) 65 - 139 mg/dL [facility] Comment: ? Non-fasting reference interval BUN 28(H) 7 - 25 mg/dL [facility] Creatinine 1.13(H) 0.60 - 1.00 mg/dL [facility] eGFR 51(L) > OR = 60 mL/min/1.7 3m2 [facility] BUN/creat ratio 25(H) 6 - 22 (calc) [facility] Sodium 136 135 - 146 mmol/L [facility] Potassium, pl 4.4 3.5 - 5.3 mmol/L [facility] Chloride 97(L) 98 - 110 mmol/L [facility] CO2 27 20 - 32 mmol/L [facility] Calcium 9.6 8.6 - 10.4 mg/dL [facility] Protein, sr 6.7 6.1 - 8.1 g/dL [facility] Albumin 3.9 3.6 - 5.1 g/dL [facility] GLOBULIN 2.8 1.9 - 3.7 g/dL (calc) [facility] Alb/glob ratio 1.4 1.0 - 2.5 (calc) [facility] Bilirubin, total 0.3 0.2 - 1.2 mg/dL [facility] Alk phos 53 37 - 153 U/L [facility] AST 13 10 - 35 U/L [facility] ALT (SGPT) 9 6 - 29 U/L [facility] Blood 01/10/2023 10:1 1 AM CDT 01/10/2023 10:13 AM CDT Narrative [facility] - 01/11/2023 8:[address] BAILIFF FASTING:NO FASTING: NO us Sarai Vargas DO LAB BLOOD ORDERABLES Final R esult [facility] [address] [place] [address] * CBC MORPHOLOGY (03/31/2022 11:[address] BAILIFF) CBC MORPHOLOGY NORMAL [facility] Comment: Macrocytosis 3 + Ovalocytes 1 + 03/31/2022 11:[address] BAILIFF 03/31/2022 11:[address] BAILIFF Sarai Vargas DO LAB BLOOD ORDERABLES Final R esult [facility] [address] [place] [address] * (ABNORMAL) CBC with auto differential (03/31/2022 11:[address] BAILIFF) WBC 5.6 3.8 - 10.8 Thousand/u L [facility] RBC, POC 2.50(L) 3.80 - 5.10 Million/uL [facility] Hgb 10.7(L) 11.7 - 15.5 g/dL [facility] Hct 30.4(L) 35.0 - 45.0 % [facility] MCV 121.6(H) 80.0 - 100.0 fL [facility] MCH 42.8(H) 27.0 - 33.0 pg [facility] MCHC 35.2 32.0 - 36.0 g/dL [facility] Rdw 13.5 11.0 - 15.0 % [facility] Platelets 520(H) 140 - 400 Thousand/u L [facility] MPV 10.2 7.5 - 12.5 fL [facility] Neutrophils, abs 3,718 1,500 - 7,800 cells/uL [facility] Lymphocytes, abs 1,249 850 - 3,900 cells/uL [facility] Monocyte abs 554 200 - 950 cells/uL [facility] Eosinophils, abs 50 15 - 500 cells/uL [facility] Basophils, abs 28 0 - 200 cells/uL [facility] Neutrophils 66.4 % [facility] Lymphocyte pct 22.3 % [facility] Monocytes 9.9 % [facility] Eosinophils 0.9 % [facility] Basophils 0.5 % [facility] Blood 03/31/2022 11:[address] BAILIFF 03/31/2022 11:[address] BAILIFF Sarai VillanuevaKathleen Vargas DO LAB BLOOD ORDERABLES Final R [facility] Performing Organization Address [facility] de Phone Number [facility] [address] [place] [address] * CBC MORPHOLOGY (01/15/2022 2:[address] BAILIFF) Pathologist [facility] CBC MORPHOLOGY NORMAL [facility] Comment: Macrocytosis 3 + Ovalocytes 1 + 01/15/2022 2:[address] BAILIFF 01/15/2022 2:[address] BAILIFF Narrative [facility] - 01/16/2022 8:[address] BAILIFF FASTING:NO FASTING: NO Sarai Vargas DO LAB BLOOD ORDERABLES Final [facility] Performing Organization Address [facility] de Phone Number [employer] [facility] [address] [place] [address] * (ABNORMAL) Comprehensive metabolic panel (01/15/2022 2:[address] BAILIFF) Glucose 204(H) 65 - 139 mg/dL [facility] Comment: ? Non-fasting reference interval BUN 24 7 - 25 mg/dL [facility] Creatinine 1.06(H) 0.60 - 1.00 mg/dL [facility] eGFR 56(L) > OR = 60 mL/min/1.7 3m2 [facility] Comment: The eGFR is based on the CKD-EPI 2020 equation. To calculate the new eGFR from a previous Creatinine or Cystatin C result, go to https://www.kidney.org/professionals/ kdoqi/gfr%5Fcalculator BUN/creat ratio 23(H) 6 - 22 (calc) [facility] Sodium 137 135 - 146 mmol/L [facility] Potassium, pl 4.6 3.5 - 5.3 mmol/L [facility] Chloride 98 98 - 110 mmol/L [facility] CO2 28 20 - 32 mmol/L [facility] Calcium 10.0 8.6 - 10.4 mg/dL [facility] Protein, sr 6.9 6.1 - 8.1 g/dL [facility] Albumin 4.2 3.6 - 5.1 g/dL [facility] GLOBULIN 2.7 1.9 - 3.7 g/dL (calc) [facility] Alb/glob ratio 1.6 1.0 - 2.5 (calc) [facility] Bilirubin, total 0.3 0.2 - 1.2 mg/dL [facility] Alk phos 57 37 - 153 U/L [facility] AST 17 10 - 35 U/L [facility] ALT (SGPT) 13 6 - 29 U/L [facility] Blood 01/15/2022 2:[address] BAILIFF 01/15/2022 2:[address] BAILIFF Narrative [facility] - 01/16/2022 8:[address] BAILIFF FASTING:NO FASTING: NO us Sarai Vargas DO LAB BLOOD ORDERABLES Final R esult [facility] [address] [place] [address] * (ABNORMAL) CBC with auto differential (01/15/2022 2:[address] BAILIFF) WBC 6.7 3.8 - 10.8 Thousand/u L [facility] RBC, POC 2.68(L) 3.80 - 5.10 Million/uL [facility] Hgb 11.3(L) 11.7 - 15.5 g/dL [facility] Hct 32.3(L) 35.0 - 45.0 % [facility] MCV 120.5(H) 80.0 - 100.0 fL [facility] MCH 42.2(H) 27.0 - 33.0 pg [facility] MCHC 35.0 32.0 - 36.0 g/dL [facility] Rdw 11.5 11.0 - 15.0 % [facility] Platelets 620(H) 140 - 400 Thousand/u L [facility] MPV 9.6 7.5 - 12.5 fL [facility] Neutrophils, abs 4,489 1,500 - 7,800 cells/uL [facility] Lymphocytes, abs 1,548 850 - 3,900 cells/uL [facility] Monocyte abs 496 200 - 950 cells/uL [facility] Eosinophils, abs 127 15 - 500 cells/uL [facility] Basophils, abs 40 0 - 200 cells/uL [facility] Neutrophils 67 % [facility] Lymphocyte pct 23.1 % [facility] Monocytes 7.4 % [facility] Eosinophils 1.9 % [facility] Basophils 0.6 % [facility] Blood 01/15/2022 2:[address] BAILIFF 01/15/2022 2:[address] BAILIFF Narrative [facility] - 01/16/2022 8:[address] BAILIFF FASTING:NO FASTING: NO us Sarai Vargas DO LAB BLOOD ORDERABLES Final R esult [facility] [address] [place] [address] documented in this encounter Visit Diagnoses Diagnosis Thrombocytosis- Primary Essential thrombocythemia documented in this encounter Orders Appointment Requests Count Last Ordered Date Fi rst Ordered Date ONCBCN CLINIC APPOINTMENT REQUEST 2 023 01/17/2022 documented in this encounter Care Teams Senior National Account Manager Relationship Specialty Start Date End Date Clive Wright MD PCP - General Family Medicine 09/15/18 Sarai Vargas DO [address] [place] [address] Medical Oncologist/Printing Manager Hematology and Oncology 10/27/18 documented as of this encounter
--- OUTSIDE RECORDS SUMMARY | 2024-03-10 20:15 | XMS_ITS | Encounter Summary ---
Author Organization 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 Gender Identity Not on file Sexual Orientation Not on file Occupation Industry Job Start Date Job End Date Retired Not on file Not on file Not on file documented as of this encounter Last Filed Vital Signs Vital Sign Reading Time Taken Comments Blood Pressure 138/80 04/30/2023 10:11 AM ROPE LAYING MACHINE OPERATOR Pulse 72 04/30/2023 10:11 AM ROPE LAYING MACHINE OPERATOR Temperature 36.3 ??C (97.4 ??F) 04/30/2023 10:[address] Respiratory Rate - - Oxygen Saturation 97% 04/30/2023 10:11 AM ROPE LAYING MACHINE OPERATOR Inhaled Oxygen Concentration - - Weight 58.1 kg (128 lb) 04/30/2023 10:11 AM ROPE LAYING MACHINE OPERATOR Height 161.3 cm (5' 3.5 ) 04/30/2023 10:11 AM CS T Body Mass Index 22.32 04/30/2023 10:11 AM ROPE LAYING MACHINE OPERATOR documented in this encounter Ordered Prescriptions Prescription Sig Dispense Quantity Refills Last Filled Start Date End Date atorvastatin (LIPITOR) 20 mg tablet Take 1 tablet (20 mg total) by mouth daily 90 tablet 3 04/30/2023 metFORMIN (GLUCOPHAGE) 500 mg tabletIndications: 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, without long-term current use of insulin ([facility]) ([facility]) Take 1 tablet (500 mg total) by mouth 2 (two) times a day 180 tablet 3 04/30/2023 metoprolol XL (TOPROL-XL) 25 mg extended release tablet Take 1 tablet (25 mg total) by mouth daily 90 tablet 3 04/30/2023 hydroCHLOROthiazid e (HYDRODIURIL) 25 mg tablet Take 1 tablet (25 mg total) by mouth daily 90 tablet 3 04/30/2023 03/07/2024 lisinopriL (PRINIVIL,ZESTRIL) 20 mg tablet Take 1 tablet by mouth once daily 90 tablet 3 04/30/2023 02/12/2024 Tradjenta 5 mg tablet Take 1 tablet (5 mg total) by mouth daily 90 tablet 3 04/30/2023 02/26/2024 documented in this encounter Progress Notes * Clive Wright MD - 04/30/2023 11:00 AM CST Images from the original note were not included. Subjective/Objective Patient ID: Ankita Perez is a 72 y.o. female. Chief Complaint Hypertension, Hyperlipidemia, and Diabetes 72-year-old female. She is doing pretty good. Sees Hematology. Did her labs. Blood pressures been controlled. She takes her meds. Otherwise active. Good diet. Hypertension Pertinent negatives include no chest pain, headaches, neck pain or shortness of breath. Hyperlipidemia Pertinent negatives include no chest pain or shortness of breath. Diabetes Pertinent negatives for hypoglycemia include no confusion, headaches, nervousness/anxiousness or seizures. Associated symptoms include fatigue. Pertinent negatives for diabetes include no chest pain. Review of Systems Constitutional: Positive for fatigue. Negative for fever. Respiratory: Negative for cough and shortness of breath. Cardiovascular: Negative for chest pain and leg swelling. Gastrointestinal: Negative for abdominal pain and nausea. Musculoskeletal: Positive for back pain. Negative for neck pain. Neurological: Negative for seizures and headaches. Psychiatric/Behavioral: Negative for confusion. The patient is not nervous/anxious. No results found for this or any previous visit (from the past 336 hour(s)). Vitals BP 138/80 Pulse 72 Temp 36.3 ??C (97.4 ??F) Ht 161.3 cm (5' 3.5 ) Wt 58.1 kg (128 lb) SpO2 97% BMI 22.32 kg/m?? Physical Exam Constitutional: Appearance: She is [...] this visit: Essential hypertension (I10) (Primary) - Her blood pressure is good. Continue present management. Labs done in April. Are all good. Mixed hyperlipidemia (E78.2) - LDL 74 continue present management labs 6 months 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, without long-term current use of insulin ([facility]) (HCC) (E11.22, N18.2) - her A1c 6.4. She does see our Dermatology for her diabetic eye exams. No peripheral neuropathy. Continue present management. Stage 3a chronic kidney disease (HCC) (N18.31) - Creatinine stable. Myeloproliferative disease (HCC) (D47.1) - She sees hematology. Labs reviewed. Will follow labs every 6 months. Long-term relationship. Chronic medical management Return in about 6 months (around 10/29/2023). Clive Wright MD Orders Placed This Encounter Tradjenta 5 mg tablet Sig: Take 1 tablet (5 mg total) by mouth daily Dispense: 90 tablet Refill: 3 metoprolol XL (TOPROL-XL) 25 mg extended release tablet Sig: Take 1 tablet (25 mg total) by mouth daily Dispense: 90 tablet Refill: 3 metFORMIN (GLUCOPHAGE) 500 mg tablet Sig: Take 1 tablet (500 mg total) by mouth 2 (two) times a day Dispense: 180 tablet Refill: 3 lisinopriL (PRINIVIL,ZESTRIL) 20 mg tablet Sig: Take 1 tablet by mouth once daily Dispense: 90 tablet Refill: 3 atorvastatin (LIPITOR) 20 mg tablet Sig: Take 1 tablet (20 mg total) by mouth daily Dispense: 90 tablet Refill: 3 hydroCHLOROthiazide (HYDRODIURIL) 25 mg tablet Sig: Take 1 tablet (25 mg total) by mouth daily Dispense: 90 tablet Refill: 3 LAYING MACHINE OPERATOR documented in this encounter Miscellaneous Notes * Addendum Note - Ivan Maldonado RN - 04/30/2023 11:00 AM CSTAddended by: IVAN MALDONADO on: 04/30/2023 11:02 AM Modules accepted: Orders LAYING MACHINE OPERATOR documented in this encounter Plan of Treatment Not on file documented as of this encounter Procedures Procedure Name Priority Date/Time Associated Diagnosis Comments CBC MORPHOLOGY Routine 07/08/2023 7:03 AM CDT CBC WITH AUTO DIFFERENTIAL Routine 07/08/2023 7:03 AM CDT Essential hypertension Stage 3a chronic kidney disease (HCC) HEMOGLOBIN A1C Routine 07/08/2023 7:03 AM CDT 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, without long-term current use of insulin (CMS/HCC) (HCC) LIPID PANEL Routine 07/08/2023 7:03 AM CDT Mixed hyperlipidemia COMPREHENSIVE METABOLIC PANEL Routine 07/08/2023 7:03 AM CDT 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, without long-term current use of insulin (CMS/HCC) (HCC) Stage 3a chronic kidney disease (HCC) documented in this encounter Results * CBC MORPHOLOGY (07/08/2023 7:03 AM CDT) CBC MORPHOLOGY NORMAL [facility] Comment: Tear-drop cells 1 + Macrocytosis 3 + Polychromasia 1 + Ovalocytes 1 + 07/08/2023 7:03 AM CDT 07/08/2023 7:03 AM CDT Narrative [facility] - 07/09/2023 5:19 AM CDT FASTING:YES FASTING: YES us Clive Wright MD LAB BLOOD ORDERABLES Final Re sult [facility] [address] [place] [address] * (ABNORMAL) Hemoglobin A1c (07/08/2023 7:03 AM CDT) Hgb A1C 6.8(H) <5.7 % of total Hgb [facility] [...] A1c for diagnosis of diabetes for children. ? This test was performed on the Anitha abebe c503 platform. Effective 05/25/23, a change in test platforms from the [employer] Picture Camera Lens Technician to the Anitha abebe c503 may have shifted HbA1c results compared to historical results. Based on laboratory validation testing conducted at [facility], the Anitha platform relative to the Coffman platform had an average increase in HbA1c value of < or = 0.3%. This difference is within accepted variability established by the National Glycohemoglobin Standardization Program. Note that not all individuals will have had a shift in their results and direct comparisons between historical and current results for testing conducted on different platforms is not recommended. Blood 07/08/2023 7:03 AM CDT 07/08/2023 7:03 AM CDT Narrative [facility] - 07/09/2023 5:19 AM CDT FASTING:YES FASTING: YES Clive Wright MD LAB BLOOD ORDERABLES Final Re sult [facility] [address] [place] [address] * (ABNORMAL) Lipid panel (07/08/2023 7:03 AM CDT) [facility] Cholesterol 168 <200 mg/dL [facility] HDL 59 > OR = 50 mg/dL [facility] Triglycerides 151(H) <150 mg/dL [facility] LDL 84 mg/dL (calc) [facility] Comment: Reference range: <100 Desirable range <100 mg/dL for primary prevention; ?? <70 mg/dL for patients with CHD or diabetic patients with > or = 2 CHD risk factors. LDL-C is now calculated using the Rishi-Nikki calculation, which is a validated novel method providing better accuracy than the Friedewald equation in the estimation of LDL-C. Rishi SS et al. CARRIE. 2013;310(19): 1915-4247 (http://education.Fabbeo/faq/DXT099) Chol/HDL ratio 2.8 <5.0 (calc) [facility] Non-HDL, (LDL+VLDL) 109 <130 mg/dL (calc) [facility] Comment: For patients with diabetes plus 1 major ASCVD risk factor, treating to a non-HDL-C goal of <100 mg/dL (LDL-C of <70 mg/dL) is considered a therapeutic option. Blood 07/08/2023 7:03 AM CDT 07/08/2023 7:03 AM CDT Narrative [facility] - 07/09/2023 5:19 AM CDT FASTING:YES FASTING: YES Clive Wright MD LAB BLOOD ORDERABLES Final Re sult [facility] [address] [place] [address] * (ABNORMAL) Comprehensive metabolic panel (07/08/2023 7:03 AM CDT) Glucose 176(H) 65 - 99 mg/dL [facility] [...] mL/min/1.7 3m2 [facility] BUN/creat ratio 23(H) 6 - 22 (calc) [facility] Sodium 139 135 - 146 mmol/L [facility] Potassium, pl 4.5 3.5 - 5.3 mmol/L [facility] Chloride 100 98 - 110 mmol/L [facility] CO2 29 20 - 32 mmol/L [facility] Calcium 9.8 8.6 - 10.4 mg/dL [facility] Protein, sr 6.9 6.1 - 8.1 g/dL [facility] Albumin 4.0 3.6 - 5.1 g/dL [facility] GLOBULIN 2.9 1.9 - 3.7 g/dL (calc) [facility] Alb/glob ratio 1.4 1.0 - 2.5 (calc) [facility] Bilirubin, total 0.5 0.2 - 1.2 mg/dL [facility] Alk phos 44 37 - 153 U/L [facility] AST 13 10 - 35 U/L [facility] ALT (SGPT) 9 6 - 29 U/L [facility] Blood 07/08/2023 7:03 AM CDT 07/08/2023 7:03 AM CDT Narrative [facility] - 07/09/2023 5:19 AM CDT FASTING:YES FASTING: YES us Clive Wright MD LAB BLOOD ORDERABLES Final Re sult [facility] [address] [place] [address] * (ABNORMAL) CBC with auto differential (07/08/2023 7:03 AM CDT) Pathologist [facility] WBC 6.4 3.8 - 10.8 Thousand/u L [facility] RBC, POC 2.64(L) 3.80 - 5.10 Million/uL [facility] Hgb 11.4(L) 11.7 - 15.5 g/dL [facility] Hct 32.9(L) 35.0 - 45.0 % [facility] MCV 124.6(H) 80.0 - 100.0 fL [facility] MCH 43.2(H) 27.0 - 33.0 pg [facility] MCHC 34.7 32.0 - 36.0 g/dL [facility] Rdw 11.8 11.0 - 15.0 % [facility] Platelets 597(H) 140 - 400 Thousand/u L [facility] MPV 9.6 7.5 - 12.5 fL [facility] Neutrophils, abs 4,749 1,500 - 7,800 cells/uL [facility] Lymphocytes, abs 1,126 850 - 3,900 cells/uL [facility] Monocyte abs 442 200 - 950 cells/uL [facility] Eosinophils, abs 51 15 - 500 cells/uL [facility] Basophils, abs 32 0 - 200 cells/uL [facility] Neutrophils 74.2 % [facility] Lymphocyte pct 17.6 % [facility] Monocytes 6.9 % [facility] Eosinophils 0.8 % [facility] Basophils 0.5 % [facility] Comment [facility] Comment:Hypersegmented neutr ophils noted Blood 07/08/2023 7:03 AM CDT 07/08/2023 7:03 AM CDT Narrative [facility] - 07/09/2023 5:19 AM CDT FASTING:YES FASTING: YES Clive Wright MD LAB BLOOD ORDERABLES Final Re sult [facility] [address] [place] [address] documented in this encounter Visit Diagnoses Diagnosis Essential hypertension- Primary Unspecified essential hypertension Mixed hyperlipidemia 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, without long-term current use of insulin (CMS/HCC) (HCC) Stage 3a chronic kidney disease (HCC) Myeloproliferative disease (HCC) 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 documented in this encounter Discontinued Medications Medication Sig Discontinue Reason Start Date End Da te lisinopriL (PRINIVIL,ZESTRIL) 20 mg tablet Take 1 tablet by mouth once daily Reorder 11/04/2022 04/30/2023 hydroCHLOROthiazide (HYDRODIURIL) 25 mg tablet Take 1 tablet by mouth once daily Reorder 11/23/2022 04/30/2023 Tradjenta 5 mg tablet Take 1 tablet by mouth once daily Reorder 11/25/2022 04/30/2023 atorvastatin (LIPITOR) 20 mg tablet Take 1 tablet by mouth once daily Reorder 12/03/2022 04/30/2023 metFORMIN (GLUCOPHAGE) 500 mg tabletIndications: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, without long-term current use of insulin (CMS/HCC) (HCC) Take 1 tablet by mouth twice daily Reorder 12/17/2022 04/30/2023 metoprolol XL (TOPROL-XL) 25 mg extended release tablet Take 1 tablet by mouth once daily Reorder 12/23/2022 04/30/2023 documented as of this encounter Care Teams Entry Level Drafter Relationship Specialty Start Date End Date Clive Wright MD PCP - General Family Medicine 09/15/18 Karthikeyan Elaine DO [address] [place] [id number] Medical Oncologist/Typewriter Tester Hematology and Oncology 10/27/18 documented as of this encounter
--- OUTSIDE RECORDS SUMMARY | 2024-03-10 20:15 | XMS_ITS | Encounter Summary ---
Author Organization [facility] Address [address] [place] [address] Phone Care Team Providers Care Laborer/Grade Check Name Role Phone Clive Wright MD Primary Care Provider [phone] Sarai Vargas DO Unavailable [phone] Reason for Visit * Reason Comments Thrombocytosis Follow-up * Consultation (Routine) - Closed Specialty Diagnoses / Procedures Referred By Estrella kapadia Referred To Contact Oncology Diagnoses Thrombocytosis [facility] [address] [place] [address] Phone: tel: Sarai Vargas DO [address] [place] [address] Phone: tel: fax: Referral ID Status Reason Start Date Expiration Date V isits Requested Visits Authorized [id number] Closed Specialty Services Required 06/07/2020 07/27/2021 99 99 Encounter Details Date Type Department Care Team (Latest Contact Info) Description 01/04/2021 11:30 AM CDT Office Visit [facility] Oncology [address] [place] [address] [phone] Sarai Vargas DO [address] [place] [address] [phone] Thrombocytosis (Primary Dx) Social History Tobacco Use [...] file 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 Gender Identity Not on file Sexual Orientation Not on file Occupation Industry Job Start Date Job End Date Retired Not on file Not on file Not on file documented as of this encounter Last Filed Vital Signs Vital Sign Reading Time Taken Comments Blood Pressure 158/78 01/04/2021 11:18 AM CDT Pulse 69 01/04/2021 11:18 AM CDT Temperature 36.7 ??C (98 ??F) 01/04/2021 11:18 AM CDT Respiratory Rate 18 01/04/2021 11:18 AM CDT Oxygen Saturation 98% 01/04/2021 11:18 AM CDT Inhaled Oxygen Concentration - - Weight 61 kg (134 lb 6.4 oz) 01/04/2021 11:18 AM CDT Height 161.3 cm (5' 3.5 ) 01/04/2021 11:18 AM CD T Body Mass Index 23.43 01/04/2021 11:18 AM CDT documented in this encounter Ordered Prescriptions Prescription Sig Dispense Quantity Refills Last Filled Start Date End Date hydroxyurea (HYDREA) 500 mg capsule Take 2 capsules (1,000 mg total) by mouth daily 180 capsule 1 01/04/2021 2 ferrous sulfate (Iron, ferrous sulfate,) 325 mg (65 mg of elemental iron) tablet Take 1 tablet (325 mg total) by mouth 2 (two) times a day 180 tablet 1 01/04/2021 2 documented in this encounter Progress Notes * Sarai Vargas, - 01/04/2021 11:30 AM CDT Patient ID: Ankita Perez is a 70 y.o. female. Primary Care Provider: Clive Wright MD Assessment/Plan Chronic myeloproliferative disorder with thrombocytosis -JAK2 negative. Chronic macrocytic anemia. She did respond to iron in the past. Recommendations: 1. Today, CBC shows normalization of the platelet count and white blood cell count.. 2. Therefore, she will continue with hydroxyurea 1000 mg daily.. 3. I will see the patient back here in 6 months. 4. Slightly worse macrocytic anemia. She will continue with ferrous sulfate 325 mg b.i.d.. Repeat CBC in 6 months. 6. Regarding her anemia, she will continue with her ferrous sulfate which does help her well-being and improve her blood counts. Pt has anemia of chronic disease. My total encounter time on 01/04/2021 was 20 minutes which was spent in the activities documented in the note. This includes time spent prior to the visit and after the visit in direct care of the patient. This time does not include time spent in any separately reportable services. Patient Active Problem List Diagnosis ??? Essential hypertension ??? Mixed hyperlipidemia ??? 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, without long- term current use of insulin ([facility] ([facility]) ??? Iron deficiency anemia ??? Thrombocytosis Diagnoses and all orders for this visit: Thrombocytosis (Primary) - CBC with auto differential; Future - Clinic Appointment Request Follow up; SARAI VARGAS; [facility] - Comprehensive metabolic panel; Future - CBC with auto differential; Future - Clinic Appointment Request Follow up; SARAI VARGAS; Clinic Appointment Location: [facility]; Future Other orders - ferrous sulfate (Iron, ferrous sulfate,) 325 mg (65 mg of elemental iron) tablet; Take 1 tablet (325 mg total) by mouth 2 (two) times a day - hydroxyurea (HYDREA) 500 mg capsule; Take 2 capsules (1,000 mg total) by mouth daily Subjective Interval History: A. Chronic myeloproliferative disorder-FRANSISCO [...] to normalize her platelet count completely. 7. She returns for 3 month follow-up visit having no new complaints and overall doing well. She is on 81 mg of aspirin and is tolerating the hydroxyurea 1000 mg daily. Interval Notes: I have reviewed: allergies, current [...] Exam: Vital Signs for this encounter: BSA: 1.65 meters squared BP 158/78 (BP Location: Left arm) Pulse 69 Temp 36.7 ??C (98 ??F) (Oral) Resp 18 Ht 161.3 cm (5' 3.5 ) Wt 61 kg (134 lb 6.4 oz) SpO2 98% BMI 23.43 kg/m?? Physical Exam Constitutional: Appearance: She is [...] Results: WBC Date Value Ref Range Status 01/04/2021 6.2 3.8 - 9.9 K/cumm Final Comment: Testing performed by: [address] [address] 10/10/2020 4.6 3.8 - 10.8 Thousand/uL Final 01/04/2019 9.3 3.4 - 10.8 x10E3/uL Final Hgb Date Value Ref Range Status 01/04/2021 10.6 (L) 11.9 - 15.5 g/dL Final Comment: Testing performed by: [address] [address] 10/10/2020 11.3 (L) 11.7 - 15.5 g/dL Final 01/04/2019 10.8 (L) 11.1 - 15.9 g/dL Final Hct Date Value Ref Range Status 01/04/2021 31.0 (L) 35.6 - 45.5 % Final Comment: Testing performed by: [address] [address] 10/10/2020 31.9 (L) 35.0 - 45.0 % Final 01/04/2019 33.8 (L) 34.0 - 46.6 % Final Platelets Date Value Ref Range Status 10/10/2020 515 (H) 140 - 400 Thousand/uL Final 01/04/2019 932 (HH) 150 - 450 x10E3/uL Final Comment: Results verified by repeat testing Plt Date Value Ref Range Status 01/04/2021 407 (H) 150 - 400 K/cumm Final Comment: Testing performed by: [address] [address] Lactate dehydrogenase (LDH) Date Value Ref Range Status 10/19/2018 164 119 - 226 IU/L Final Lactate Dehydrogenase Date Value Ref Range Status 10/04/2019 131 100 - 250 U/L Final Creatinine Date Value Ref Range Status 10/10/2020 1.17 (H) 0.60 - 0.93 mg/dL Final Comment: For patients >49 years of age, the reference limit for Creatinine is approximately 13% higher for people identified as -[place]ian. AST Date Value Ref Range Status 10/10/2020 15 10 - 35 U/L Final documented in this encounter Plan of Treatment Not on file documented as of this encounter Procedures Procedure Name Priority Date/Time Associated Diagnosis Comments CBC MORPHOLOGY Routine 06/18/2021 9:50 AM CDT CBC WITH AUTO DIFFERENTIAL Routine 06/18/2021 9:50 AM CDT Thrombocytosis COMPREHENSIVE METABOLIC PANEL Routine 06/18/2021 9:50 AM CDT Thrombocytosis documented in this encounter Results * CBC MORPHOLOGY (06/18/2021 9:50 AM CDT) CBC MORPHOLOGY NORMAL [facility] Comment: Macrocytosis 3 + Polychromasia 1 + Ovalocytes 1 + 06/18/2021 9:50 AM CDT 06/18/2021 9:50 AM CDT Sarai Vargas DO LAB BLOOD ORDERABLES Final R esult [facility] [address] [place] [address] * (ABNORMAL) CBC with auto differential (06/18/2021 9:50 AM CDT) WBC 5.8 3.8 - 10.8 Thousand/u L [facility] RBC, POC 2.49(L) 3.80 - 5.10 Million/uL [facility] Hgb 10.4(L) 11.7 - 15.5 g/dL [facility] Hct 30.4(L) 35.0 - 45.0 % [facility] MCV 122.1(H) 80.0 - 100.0 fL [facility] MCH 41.8(H) 27.0 - 33.0 pg [facility] MCHC 34.2 32.0 - 36.0 g/dL [facility] Rdw 12.2 11.0 - 15.0 % [facility] Platelets 462(H) 140 - 400 Thousand/u L [facility] MPV 9.6 7.5 - 12.5 fL [facility] Neutrophils, abs 4,083 1,500 - 7,800 cells/uL [facility] Lymphocytes, abs 1,119 850 - 3,900 cells/uL [facility] Monocyte abs 499 200 - 950 cells/uL [facility] Eosinophils, abs 70 15 - 500 cells/uL [facility] Basophils, abs 29 0 - 200 cells/uL [facility] Neutrophils 70.4 % [facility] Lymphocyte pct 19.3 % [facility] Monocytes 8.6 % [facility] Eosinophils 1.2 % [facility] Basophils 0.5 % [facility] Blood specimen (specimen) 06/18/2021 9:50 AM CDT 06/18/2021 9:50 AM CDT us Sarai Vargas DO LAB BLOOD ORDERABLES Final R esult [facility] [address] [place] [address] * (ABNORMAL) Comprehensive metabolic panel (06/18/2021 9:50 AM CDT) [facility] Glucose 138(H) 65 - 99 mg/dL [facility] Comment: ? Fasting reference interval For someone without known diabetes, a glucose value >125 mg/dL indicates that they may have diabetes and this should be confirmed with a follow-up test. BUN 24 7 - 25 mg/dL [facility] Creatinine 1.11(H) 0.60 - 0.93 mg/dL [facility] Comment: For patients >49 years of age, the reference limit for Creatinine is approximately 13% higher for people identified as -[place]ian. eGFR NON-AFR. PARAGUAYAN 50(L) > OR = 60 mL/min/1. 73m2 [facility] EGFR 58(L) > OR = 60 mL/min/1. 73m2 [facility] BUN/creat ratio 22 6 - 22 (calc) [facility] Sodium 137 135 - 146 mmol/L [facility] Potassium, pl 4.2 3.5 - 5.3 mmol/L [facility] [...] g/dL (calc) [facility] Alb/glob ratio 1.5 1.0 - 2.5 (calc) [facility] Bilirubin, total 0.4 0.2 - 1.2 mg/dL [facility] Alk phos 46 37 - 153 U/L [facility] AST 15 10 - 35 U/L [facility] ALT (SGPT) 11 6 - 29 U/L [facility] Blood specimen (specimen) 06/18/2021 9:50 AM CDT 06/18/2021 9:50 AM CDT Sarai Vargas DO LAB BLOOD ORDERABLES Final R esult [facility] [address] [facility] [place], [place] [address] * (ABNORMAL) CBC with auto differential (01/04/2021 10:54 AM CDT) WBC 6.2 3.8 - 9.9 K/cumm [facility] Comment:Testing performed by : [address] [address] Hgb 10.6(L) 11.9 - 15.5 g/dL [facility] Comment:Testing performed by : [address] [address] Hct 31.0(L) 35.6 - 45.5 % [facility] Comment:Testing performed by : [address] [address] Plt 407(H) 150 - 400 K/cumm [facility] Comment:Testing performed by : [address] [address] MPV 8.7(L) 9.1 - 12.3 fL [facility] Comment:Testing performed by : [address] [address] RBC 2.38(L) 3.90 - 5.20 M/cumm [facility] Comment:Testing performed by : [address] [address] MCV 130.3(H) 81.3 - 96.4 fL [facility] Comment:Testing performed by : [address] [address] MCH 44.5(H) 27.1 - 33.3 pg [facility] Comment:Testing performed by : [address] [address] MCHC 34.2 32.3 - 35.7 g/dL [facility] Comment:Testing performed by : [address] [address] RDW CV 12.7 11.1 - 14.9 % [facility] Comment:Testing performed by : [address], [address] RDW SD 60.8(H) 35.7 - 48.1 fL [facility] Comment:Testing performed by : [facility] [place]., [address] Blood 01/04/2021 10:5 4 AM CDT 01/04/2021 10:55 AM CDT Sarai Vargas DO LAB BLOOD ORDERABLES Final R esult [facility] [address] [facility] Department [place] [address] documented in this encounter Visit Diagnoses Diagnosis Thrombocytosis- Primary Essential thrombocythemia documented in this encounter Discontinued Medications Medication Sig Discontinue Reason Start Date End Da te ferrous sulfate (Iron, ferrous sulfate,) 325 mg (65 mg of elemental iron) tablet Take 1 tablet (325 mg total) by mouth 2 (two) times a day Reorder 01/03/2020 01/04/2021 hydroxyurea (HYDREA) 500 mg capsule Take 2 capsules by mouth once daily Reorder 12/24/2020 01/04/2021 documented as of this encounter Orders Appointment Requests Count Last Ordered Date Fi rst Ordered Date ONCBCN CLINIC APPOINTMENT REQUEST 2 07/19/ 022 01/04/2021 documented in this encounter Care Teams Laborer/Grade Check Relationship Specialty Start Date End Date Clive Wright MD PCP - General Family Medicine 09/15/18 Sarai Vargas DO [address] [place] [address] Medical Oncologist/Bonded Strand Operator Hematology and Oncology 10/27/18 documented as of this encounter
--- OUTSIDE RECORDS SUMMARY | 2024-03-10 20:15 | XMS_ITS | Encounter Summary ---
Author Organization [facility] Address [address] [place] [address] Care Team Providers Care Entry Manager Name Role Phone Clive Wright MD Primary Care Provider [phone] Karthikeyan Elaine DO Unavailable [phone] Reason for Visit * Reason Onset Date Comments ACO Quality Outreach 12/30/2021 AETNA DM EY E Encounter Details Date Type Department Care Team (Late st Contact Info) Description 12/30/2021 Telephone [facility] Accountable Care Organization [address] [place] [address] Mikki Oro MA [address] [place] [address] [address] ACO Quality Outreach (AETNA DM EYE) Social History Tobacco Use Types Packs/Day Years [...] on file Legal Sex 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 Patient has an upcoming appointment on 04/28/2022 and gap(s) was added to appointment note and patient was contacted, no answer. Unable to leave voice message . Current open gaps in care: [place], DM eye exam Please follow up with patient to address gap(s) in care. Please reach out to the [facility] Quality Team for any questions or concerns. and Thank you, Mikki Oro [facility] Patient Quality Business Services Representative [facility] [phone] documented in this encounter Plan of Treatment Not on file documented as of this encounter Visit Diagnoses Not on filedocumented in this encounter Care Teams Entry Manager Relationship Specialty Start Date End Date Clive Wright MD PCP - General Family Medicine 09/15/18 Karthikeyan Elaine DO [address] [place] [address] Medical Oncologist/Coil Connector Hematology and Oncology 10/27/18 documented as of this encounter
--- OUTSIDE RECORDS SUMMARY | 2024-03-10 20:15 | XMS_ITS | Encounter Summary ---
Author Organization [facility] Address [address] [place] [address] Phone Care Team Providers Care Front End Manager Name Role Phone Clive Wright MD Primary Care Provider [phone] Karthikeyan Elaine DO Unavailable [phone] Encounter Details Date Type Department Care Team (Late st Contact Info) Description 05/08/2020 11:00 AM RELIABILITY SPECIALIST Lab 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
--- OUTSIDE RECORDS SUMMARY | 2024-03-10 20:15 | XMS_ITS | Encounter Summary ---
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 Gender Identity Not on file Sexual Orientation [...] tablet 3 04/18/2020 06/03/2021 blood glucose diagnostic ([employer] Ultra Blue Test Strip) stripIndications :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, without long-term current use of insulin ([facility] ([facility]) 1 each by other route as directed [...] mg total) by mouth daily 60 capsule 3 07/03/2020 11/21/2020 lisinopriL (PRINIVIL,ZESTRI L) 20 mg tablet Take 1 tablet (20 mg total) by mouth daily 90 tablet 3 04/18/2020 06/03/2021 metFORMIN (GLUCOPHAGE) 500 mg tabletIndication s: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, without long-term current use of insulin ([facility]) ([facility]) Take 1 tablet (500 mg total) by [...] on filedocumented in this encounter Care Teams Stars Analytical Lead Relationship Specialty Start Date End Date Clive Wright MD PCP - General Family Medicine 09/15/18 Karthikeyan Elaine DO [address] [place] [address] Medical Oncologist/Fisher Troll Line Hematology and Oncology 10/27/18 documented as of this encounter
--- OUTSIDE RECORDS SUMMARY | 2024-03-10 20:15 | XMS_ITS | Encounter Summary ---
Author Organization [facility] Address [address] [place] [address] Phone Care Team Providers Care Makeup Editor Name Role Phone Clive Wright MD Primary Care Provider [phone] Karthikeyan Elaine DO Unavailable [phone] Encounter Details Date Type Department Care Team (Late st Contact Info) Description 04/02/2022 Telephone [facility] Oncology [facility] [address] [place] [phone] Mary Sousa, JAMES Social History Tobacco [...] on file 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 Instructed to continue Hydrea 1000 mg daily. Also, advised of order for repeat CBC in 3 months. Patient vu and will have lab done at [facility]. Order placed. YTICAL MANAGER documented in this encounter Plan of Treatment Scheduled Orders Name Type Priority Associated Diagnoses Orde r Schedule CBC with auto differential Lab Routine Thrombocytosis Expected: 07/01/2022, Expires: 04/02/2023 documented as of this encounter Visit Diagnoses Diagnosis Thrombocytosis- Primary Essential thrombocythemia documented in this encounter Discontinued Medications Medication Sig Discontinue Reason Start Date End Da te hydroxyurea (HYDREA) 500 mg capsule Take 2 capsules (1,000 mg total) by mouth daily Reorder 03/31/2022 04/02/2022 documented as of this encounter Care Teams Makeup Editor Relationship Specialty Start Date End Date Clive Wright MD PCP - General Family Medicine 09/15/18 Karthikeyan Elaine DO [address] [place] [address] Medical Oncologist/Account Services Specialist Hematology and Oncology 10/27/18 documented as of this encounter
--- OUTSIDE RECORDS SUMMARY | 2024-03-10 20:15 | XMS_ITS | Encounter Summary ---
Author Organization [facility] Address [address] [address] Care Team Providers Care Mill Dresser Name Role Phone Clive Wright MD Primary Care Provider [phone] Karthikeyan Elaine DO Unavailable [phone] Reason for Referral * Diagnostic Imaging (Routine) - Closed Specialty Diagnoses / Procedures Referred By Contac t Referred To Contact Diagnoses Encounter for screening mammogram for malignant neoplasm of breast Procedures SCREENING MAMMOGRAM BILATERAL W ARPAN Clive Wright MD [address] [place] [address] [address] [place] [address] Phone: tel: fax: [address] [address] Phone: tel: Referral ID Status Reason Start Date Expiration Date Visits Re quested Visits Authorized [id number] Closed 04/28/2022 05/28/2023 1 1 RMATION SECURITY RISK ANALYST * Diagnostic Imaging (Routine) - Closed Specialty Diagnoses / Procedures Referred By Contac t Referred To Contact Diagnoses Postmenopausal Procedures Dexa Axial Skeleton Bone Density 1 Or 2 Site Clive Wright MD [facility] [address] [place] [address] Phone: tel: fax: [facility] Referral ID Status Reason Start Date Expiration Date Visits Re quested Visits Authorized [id number] Closed 04/28/2022 05/28/2023 1 1 RMATION SECURITY RISK ANALYST Reason for Visit * Reason Comments Hypertension Hyperlipidemia Diabetes Encounter Details Date Type Department Care Team (Late st Contact Info) Description 04/28/2022 10:30 AM INFORMATION SECURITY RISK ANALYST Office Visit [facility] Family Medicine [address] [place] [id number] [place] [address] [place] [id number] Essential hypertension (Primary Dx); Mixed hyperlipidemia; 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, without long-term current use of insulin (CMS/HCC) (HCC); Myeloproliferative disease (HCC); Postmenopausal; Encounter for screening mammogram for malignant neoplasm of breast Social History Tobacco Use Types Packs/Day Years [...] on file Legal Sex Female 8:44 PM INFORMATION SECURITY RISK ANALYST Gender Identity Not on file Sexual Orientation Not on file Occupation Industry Job Start Date Job End Date Retired Not on file Not on file Not on file documented as of this encounter Last Filed Vital Signs Vital Sign Reading Time Taken Comments Blood Pressure 164/96 04/28/2022 10:34 AM INFORMATION SECURITY RISK ANALYST Pulse 77 04/28/2022 10:34 AM INFORMATION SECURITY RISK ANALYST Temperature 36.8 ??C (98.3 ??F) 04/28/2022 10:[address] Respiratory Rate 16 04/28/2022 10:34 AM INFORMATION SECURITY RISK ANALYST Oxygen Saturation 98% 04/28/2022 10:34 AM INFORMATION SECURITY RISK ANALYST Inhaled Oxygen Concentration - - Weight 61.7 kg (136 lb) 04/28/2022 10:34 AM INFORMATION SECURITY RISK ANALYST Height 161.3 cm (5' 3.5 ) 04/28/2022 10:34 AM CS T Body Mass Index 23.71 04/28/2022 10:34 AM INFORMATION SECURITY RISK ANALYST documented in this encounter Progress Notes * Clive Wright MD - 04/28/2022 10:30 AM CST Images from the original note were not included. Subjective/Objective Patient ID: Ankita Perez is a 71 y.o. female. Chief Complaint Hypertension, Hyperlipidemia, and Diabetes 71-year-old female. She sees Hematology. Some fatigue. Labs up-to-date. Blood pressures maybe running a little higher. We are going to check those twice a day week for month see what they are doing. Could increase lisinopril if blood pressure is over 150 Current Outpatient Medications Medication Sig Dispense Refill ascorbic acid (VITAMIN C) 500 mg tablet,chewable Take 500 mg by mouth daily aspirin 81 mg enteric coated tablet Take 1 tablet (81 mg total) by mouth daily 30 tablet 0 atorvastatin (LIPITOR) 20 mg tablet Take 1 tablet by mouth once daily 90 tablet 0 blood glucose diagnostic (OneTouch Ultra Blue Test Strip) strip 1 each by other route as directed Checks blood sugar daily 100 each 3 blood-glucose meter misc Use daily or as directed for monitoring of diabetes. 1 each 0 cyanocobalamin (Vitamin B-12) 1,000 mcg tablet Take 1,000 mcg by mouth daily hydroCHLOROthiazide (HYDRODIURIL) 25 mg tablet Take 1 tablet (25 mg total) by mouth daily 90 tablet1 hydroxyurea (HYDREA) 500 mg capsule Take 2 capsules (1,000 mg total) by mouth daily 60 capsule 1 Iron, ferrous sulfate, 325 mg (65 mg iron) tablet Take 1 tablet by mouth twice daily 180 tablet 0 lisinopriL (PRINIVIL,ZESTRIL) 20 mg tablet 1 tab BID 60 tablet 5 metFORMIN (GLUCOPHAGE) 500 mg tablet Take 1 tablet (500 mg total) by mouth 2 (two) times a day 180 tablet 1 metoprolol XL (TOPROL-XL) 25 mg extended release tablet Take 1 tablet (25 mg total) by mouth daily 90 tablet 1 Tradjenta 5 mg tablet Take 1 tablet (5 mg total) by mouth daily 90 tablet 1 No current facility-administered medications for this visit. Review of Systems Constitutional: Positive for fatigue. Negative for fever. Respiratory: Negative for cough and shortness of breath. Cardiovascular: Negative for chest pain and leg swelling. Gastrointestinal: Negative for abdominal pain and nausea. Musculoskeletal: Negative for back pain and neck pain. Neurological: Negative for seizures and headaches. Psychiatric/Behavioral: Negative for confusion. The patient is not nervous/anxious. Recent Results (from the past 336 hour(s)) Hemoglobin A1c Collection Time: 04/22/22 7:42 AM Result Value Ref Range Hgb A1C 6.7 (H) <5.7 % of total Hgb CBC with auto differential Collection Time: 04/22/22 7:42 AM Result Value Ref Range WBC 4.8 3.8 - 10.8 Thousand/uL RBC, POC 2.52 (L) 3.80 - 5.10 Million/uL Hgb 11.1 (L) 11.7 - 15.5 g/dL Hct 30.8 (L) 35.0 - 45.0 % MCV 122.2 (H) 80.0 - 100.0 fL MCH 44.0 (H) 27.0 - 33.0 pg MCHC 36.0 32.0 - 36.0 g/dL Rdw 12.7 11.0 - 15.0 % Platelets 448 (H) 140 - 400 Thousand/uL MPV 9.8 7.5 - 12.5 fL Neutrophils, abs 3,139 1,500 - 7,800 cells/uL Lymphocytes, abs 1,181 850 - 3,900 cells/uL Monocyte abs 389 200 - 950 cells/uL Eosinophils, abs 72 15 - 500 cells/uL Basophils, abs 19 0 - 200 cells/uL Neutrophils 65.4 % Lymphocyte pct 24.6 % Monocytes 8.1 % Eosinophils 1.5 % Basophils 0.4 % Comment Lipid panel Collection Time: 04/22/22 7:42 AM Result Value Ref Range Cholesterol 149 <200 mg/dL HDL 56 > OR = 50 mg/dL Triglycerides 137 <150 mg/dL LDL 71 mg/dL (calc) Chol/HDL ratio 2.7 <5.0 (calc) Non-HDL, (LDL+VLDL) 93 <130 mg/dL (calc) Comprehensive metabolic panel Collection Time: 04/22/22 7:42 AM Result Value Ref Range Glucose 178 (H) 65 - 99 mg/dL BUN 19 7 - 25 mg/dL Creatinine 0.95 0.60 - 1.00 mg/dL eGFR 64 > OR = 60 mL/min/1.73m2 BUN/creat ratio NOT APPLICABLE 6 - 22 (calc) Sodium 137 135 - 146 mmol/L Potassium, pl 4.3 3.5 - 5.3 mmol/L Chloride 99 98 - 110 mmol/L CO2 32 20 - 32 mmol/L Calcium 9.2 8.6 - 10.4 mg/dL Protein, sr 6.5 6.1 - 8.1 g/dL Albumin 3.8 3.6 - 5.1 g/dL GLOBULIN 2.7 1.9 - 3.7 g/dL (calc) Alb/glob ratio 1.4 1.0 - 2.5 (calc) Bilirubin, total 0.4 0.2 - 1.2 mg/dL Alk phos 51 37 - 153 U/L AST 16 10 - 35 U/L ALT (SGPT) 10 6 - 29 U/L Vitals BP 164/96 (BP Location: Right arm, Patient Position: Sitting) Pulse 77 Temp 36.8 ??C (98.3 ??F) Resp 16 Ht 161.3 cm (5' 3.5 ) Wt 61.7 kg (136 lb) SpO2 98% BMI 23.71 kg/m?? Physical Exam Constitutional: Appearance: She is well-developed. Cardiovascular: Rate and Rhythm: Normal rate and regular rhythm. Heart sounds: Normal heart sounds. Pulmonary: Effort: Pulmonary effort is normal. Breath sounds: Normal breath sounds. Abdominal: General: Bowel sounds are normal. Palpations: Abdomen is soft. Feet: Right Foot: Monofilament exam: normal. Protective Sensation: 5 sites tested. Left Foot: Monofilament exam: normal. Protective Sensation: 5 sites tested. Skin: General: Skin is warm and dry. Neurological: Mental Status: She is alert and oriented to person, place, and time. Psychiatric: Speech: Speech normal. Assessment/Plan Diagnoses and all orders for this visit: Essential hypertension (I10) (Primary) - beta-domincik lisinopril hydrochlorothiazide. Continue present management. Home blood pressure checks goal less than 140. She will call back with blood pressures in 4 weeks for update. Mixed hyperlipidemia (E78.2) - continue statin. Labs q.6 months. LDL stable. 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, without long-term current use of insulin (CMS/HCC) (HCC) (E11.22, N18.2) - A1c looks good. In the sixes. Repeat 6 months Myeloproliferative disease (HCC) (D47.1) - sees Hematology keep follow-up Postmenopausal (Z78.0) - Dexa Axial Skeleton Bone Density 1 Or 2 Site; Future Clive Wright MD Orders Placed This Encounter Dexa Axial Skeleton Bone Density 1 Or 2 Site Standing Status: Future Number of Occurrences: 1 Standing Expiration Date: 04/28/2023 Scheduling Instructions: [employer] Order Specific Question: Where should this order be performed? Answer: [facility] [[id number]] RMATION SECURITY RISK ANALYST documented in this encounter Miscellaneous Notes * Addendum Note - Mckayla Clemens Ma, MA - 04/28/2022 10:30 AM CSTAddended by: MCKAYLA CLEMENS on: 04/28/2022 11:58 AM Modules accepted: Orders RMATION SECURITY RISK ANALYST documented in this encounter Plan of Treatment Not on file documented as of this encounter Procedures Procedure Name Priority Date/Time Associated Diagnosis Comments CBC MORPHOLOGY Routine 10/16/2022 8:50 AM CDT CBC WITH AUTO DIFFERENTIAL Routine 10/16/2022 8:50 AM CDT Essential hypertension ALBUMIN CREATININE RATIO, URINE Routine 10/16/2022 8:50 AM CDT 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, without long-term current use of insulin (CMS/HCC) ([facility]) HEMOGLOBIN A1C Routine 10/16/2022 8:50 AM CDT 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, without long-term current use of insulin (CMS/HCC) ([facility]) LIPID PANEL Routine 10/16/2022 8:50 AM CDT Essential hypertension Mixed hyperlipidemia COMPREHENSIVE METABOLIC PANEL Routine 10/16/2022 8:50 AM CDT Essential hypertension 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, without long-term current use of insulin (CMS/HCC) (HCC) SCREENING MAMMOGRAM BILATERAL W ARPAN Schedule Routine, Read Routine (OP Routine) 07/08/2022 Encounter for screening mammogram for malignant neoplasm of breast DEXA AXIAL SKELETON BONE DENSITY 1 OR MORE SITES Schedule Routine, Read Routine (OP Routine) 07/08/2022 Postmenopausal documented in this encounter Results * CBC MORPHOLOGY (10/16/2022 8:50 AM CDT) CBC MORPHOLOGY NORMAL [facility] Comment: Macrocytosis 2 + Polychromasia 1 + Ovalocytes 2 + 10/16/2022 8:50 AM CDT 10/16/2022 8:51 AM CDT Narrative [facility] - 10/17/2022 12:02 PM CDT FASTING:YES FASTING: YES Clive Wright MD LAB BLOOD ORDERABLES Final Re sult [facility] [address] [place] [address] * (ABNORMAL) Albumin Creatinine Ratio, Urine (10/16/2022 8:50 AM CDT) Creatinine, ur 76 20 - 275 mg/dL [facility] Microalbumin, ur 10.7 See Note: mg/dL [facility] Comment: Reference Range: Reference Range Not established Microalbumin/creat ratio 141(H) <30 mcg/mg creat [facility] Comment: [...] to be within a diagnostic category. Urine 10/16/2022 8:5 0 AM CDT 10/16/2022 8:51 AM CDT Narrative [facility] - 10/17/2022 12:02 PM CDT FASTING:YES FASTING: YES Clive Wright MD LAB URINE ORDERABLES Final Re sult Performing Organization Address [facility] de Phone Number [facility] [address] [address] * (ABNORMAL) Hemoglobin A1c (10/16/2022 8:50 AM CDT) Hgb A1C 6.4(H) <5.7 % of total Hgb [facility] Comment: For someone without known [...] for diagnosis of diabetes for children. Blood 10/16/2022 8:50 AM CDT 10/16/2022 8:51 AM CDT Narrative [facility] - 10/17/2022 12:02 PM CDT FASTING:YES FASTING: YES Clive Wright MD LAB BLOOD ORDERABLES Final Re sult Performing Organization Address [facility] Co de Phone Number [facility] [address] [place] [address] * Lipid panel (10/16/2022 8:50 AM CDT) Cholesterol 151 <200 mg/dL [facility] HDL 59 > OR = 50 mg/dL [facility] Triglycerides 148 <150 mg/dL [facility] LDL 69 mg/dL (calc) [facility] Comment: Reference range: <100 Desirable range <100 mg/dL for primary prevention; ?? <70 mg/dL for patients with CHD or diabetic patients with > or = 2 CHD risk factors. LDL-C is now calculated using the Modesta calculation, which is a validated novel method providing better accuracy than the Friedewald equation in the estimation of LDL-C. Rishi ZAMORA et al. CARRIE. 2013;310(19): 9441-3646 (http://education.WebLinc/faq/RWG033) Chol/HDL ratio 2.6 <5.0 (calc) [facility] Non-HDL, (LDL+VLDL) 92 <130 mg/dL (calc) [facility] Comment: For patients with diabetes plus 1 major ASCVD risk factor, treating to a non-HDL-C goal of <100 mg/dL (LDL-C of <70 mg/dL) is considered a therapeutic option. Blood 10/16/2022 8:50 AM CDT 10/16/2022 8:51 AM CDT Narrative [facility] - 10/17/2022 12:02 PM CDT FASTING:YES FASTING: YES us Clive Wright MD LAB BLOOD ORDERABLES Final Re sult [facility] [address] [place] [address] * (ABNORMAL) Comprehensive metabolic panel (10/16/2022 8:50 AM CDT) [facility] Glucose 160(H) 65 - 99 mg/dL [facility] Comment: ? Fasting reference interval For someone without known diabetes, a glucose value >125 mg/dL indicates that they may have diabetes and this should be confirmed with a follow-up test. BUN 32(H) 7 - 25 mg/dL [facility] Creatinine 1.12(H) 0.60 - 1.00 mg/dL [facility] eGFR 52(L) > OR = 60 mL/min/1.7 3m2 [facility] BUN/creat ratio 29(H) 6 - 22 (calc) [facility] Sodium 133(L) 135 - 146 mmol/L [facility] Potassium, pl 4.3 3.5 - 5.3 mmol/L [facility] Chloride 96(L) 98 - 110 mmol/L [facility] CO2 28 20 - 32 mmol/L [facility] Calcium 10.1 8.6 - 10.4 mg/dL [facility] Protein, sr 6.9 6.1 - 8.1 g/dL [facility] Albumin 4.0 3.6 - 5.1 g/dL [facility] GLOBULIN 2.9 1.9 - 3.7 g/dL (calc) [facility] Alb/glob ratio 1.4 1.0 - 2.5 (calc) [facility] Bilirubin, total 0.5 0.2 - 1.2 mg/dL [facility] Alk phos 45 37 - 153 U/L [facility] AST 14 10 - 35 U/L [facility] ALT (SGPT) 10 6 - 29 U/L [facility] Blood 10/16/2022 8:50 AM CDT 10/16/2022 8:51 AM CDT Narrative [facility] - 10/17/2022 12:02 PM CDT FASTING:YES FASTING: YES us Clive Wright MD LAB BLOOD ORDERABLES Final Re sult [facility] [address] [place] [address] * (ABNORMAL) CBC with auto differential (10/16/2022 8:50 AM CDT) WBC 5.9 3.8 - 10.8 Thousand/u L [facility] RBC, POC 2.41(L) 3.80 - 5.10 Million/uL [facility] Hgb 11.0(L) 11.7 - 15.5 g/dL [facility] Hct 30.6(L) 35.0 - 45.0 % [facility] MCV 127.0(H) 80.0 - 100.0 fL [facility] MCH 45.6(H) 27.0 - 33.0 pg [facility] MCHC 35.9 32.0 - 36.0 g/dL [facility] Rdw 12.6 11.0 - 15.0 % [facility] Platelets 467(H) 140 - 400 Thousand/u L [facility] MPV 9.7 7.5 - 12.5 fL [facility] Neutrophils, abs 4,183 1,500 - 7,800 cells/uL [facility] Lymphocytes, abs 1,221 850 - 3,900 cells/uL [facility] Monocyte abs 437 200 - 950 cells/uL [facility] Eosinophils, abs 41 15 - 500 cells/uL [facility] Basophils, abs 18 0 - 200 cells/uL [facility] Neutrophils 70.9 % [facility] Lymphocyte pct 20.7 % [facility] Monocytes 7.4 % [facility] Eosinophils 0.7 % [facility] Basophils 0.3 % [facility] Blood 10/16/2022 8:50 AM CDT 10/16/2022 8:51 AM CDT Narrative [facility] - 10/17/2022 12:02 PM CDT FASTING:YES FASTING: YES Clive Wright MD LAB BLOOD ORDERABLES Final Re sult [facility] [address] [place] [address] * SCREENING MAMMOGRAM BILATERAL W ARPAN (07/08/2022) Anatomical Region Laterality Modality Breast Bilateral Mammography 07/08/2022 Clive Wright MD IMG MAMMO PROCEDURES Final Re sult * Dexa Axial Skeleton Bone Density 1 Or 2 Site (07/08/2022) Anatomical Region Laterality Modality Body N/A Radiographic Sonal ging 07/08/2022 us Clive Wright MD IMG DXA PROCEDURES Final Resu lt documented in this encounter Visit Diagnoses Diagnosis Essential hypertension- Primary Unspecified essential hypertension Mixed hyperlipidemia 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, without long-term current use of insulin (CMS/HCC) (HCC) Myeloproliferative disease (HCC) 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
--- OUTSIDE RECORDS SUMMARY | 2024-03-10 20:15 | XMS_ITS | Encounter Summary ---
Author Organization [facility] Healthcare Address [address] [place] [address] Care Team Providers Care Pet Care Worker Name Role Phone Clive Wright MD Primary Care Provider [phone] Karthikeyan Elaine DO Unavailable [phone] Reason for Visit * Reason Onset Date Comments Unsuccessful Phone Call 1 07/29/2023 [employer] DM eye exam Encounter Details Date Type Department Care Team (Late st Contact Info) Description 07/29/2023 Telephone [facility] Accountable Care Organization [address] [place] [address] Ashley Ridley [address] [place], [place] [id number] Unsuccessful Phone Call 1 ([employer] DM eye exam ) Social History [...] on file Legal Sex Female 8:44 PM COLLET DRILLER Gender Identity Not on file Sexual Orientation Not on file Occupation Industry Job Start Date Job End Date Retired Not on file Not on file Not on file documented as of this encounter Miscellaneous Notes * Telephone Encounter - Ashley Ridley MA - 07/29/2023 1:09 PM CDT Patient has been identified by their insurance plan to have a [employer] DM eye exam gap in care. Chart has been scrubbed, Patient has been called and left message, and Patient due for DM eye exam . Current open gaps in care: [employer] DM eye exam LOGAN Stiles Patient Quality Power Shovel Engineer [facility] care [facility] ([facility]) [phone] documented in this encounter Plan of Treatment Not on file documented as of this encounter Visit Diagnoses Not on filedocumented in this encounter Care Teams Pet Care Worker Relationship Specialty Start Date End Date Clive Wright MD PCP - General Family Medicine 09/15/18 Karthikeyan Elaine DO [address] [place] [address] Medical Oncologist/Store Clerk Checker Hematology and Oncology 10/27/18 documented as of this encounter
--- OUTSIDE RECORDS SUMMARY | 2024-03-10 20:15 | XMS_ITS | Encounter Summary ---
Author Organization [facility] Address [address] [place] [address] Phone Care Team Providers Care Healthcare Administration Intern Name Role Phone Clive Wright MD Primary Care Provider [phone] Sarai Vargas DO Unavailable [phone] Reason for Visit * Reason Comments Thrombocytosis Follow-up * Consultation (Routine) - Closed Specialty Diagnoses / Procedures Referred By Estrella kapadia Referred To Contact Oncology Diagnoses Thrombocytosis [facility] [address] [place] [address] Phone: tel: Sarai Vargas DO [facility] [address] Phone: tel: fax: Referral ID Status Reason Start Date Expiration Date V isits Requested Visits Authorized [id number] Closed Specialty Services Required 06/07/2020 07/27/2021 99 99 Encounter Details Date Type Department Care Team (Latest Contact Info) Description 07/03/2020 11:30 AM CDT Office Visit [facility] Oncology [address] [place] [phone] Melanie Turcios NP [address] [place] [address] Thrombocytosis (CMS/HCC) (Primary Dx); Other iron deficiency anemia; Anemia, unspecified type Social History Tobacco Use Types Packs/Day Years [...] on file 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 Gender Identity Not on file Sexual Orientation Not on file Occupation Industry Job Start Date Job End Date Retired Not on file Not on file Not on file documented as of this encounter Last Filed Vital Signs Vital Sign Reading Time Taken Comments Blood Pressure 187/102 07/03/2020 10:58 AM CDT RN informed Pulse 63 07/03/2020 10:58 AM CDT Temperature 36.9 ??C (98.5 ??F) 07/03/2020 1 0:58 AM CDT Respiratory Rate 16 07/03/2020 10:5 8 AM CDT Oxygen Saturation 99% 07/03/2020 10: 58 AM CDT Inhaled Oxygen Concentration - - Weight 60.2 kg (132 lb 12.8 oz) 07/03/2020 10:58 AM CDT with shoes Height 161.3 cm (5' 3.5 ) 07/03/2020 10 :58 AM CDT Body Mass Index 23.16 07/03/2020 10:58 AM CDT documented in this encounter Ordered Prescriptions Prescription Sig Dispense Quantity Refills Last Filled Start Date End Date hydroxyurea (HYDREA) 500 mg capsule Take 2 capsules (1,000 mg total) by mouth daily 60 capsule 3 07/03/2020 1 documented in this encounter Progress Notes * Melanie Turcios NP - 07/03/2020 11:30 AM CDT Patient ID: Ankita Perez is a 69 y.o. female. Primary Care Provider: Clive Wright MD Assessment/Plan Chronic myeloproliferative disorder with thrombocytosis -JAK2 negative. Chronic macrocytic anemia. She did respond to iron in the past. Workup in the past showed normal levels of vitamin B12, folate and TSH. Recommendations: 1. Since last visit, her platelet count has decreased down into the 400,000 range which is a much safer range in order to reduce the incidence of stroke and heart attacks. 2. Continues on current dose of hydroxyurea at 1000 mg daily is adequate to keep her platelet countin this range. She will continue with this medication. 3. I will see the patient back here in 6 months. 4. I will monitor CBC in 1 month to assess Hgb, if 10 or greater, will change to every 3 months. 5. She will continue with low-dose aspirin for antiplatelet effect. 6. Regarding her anemia, she will continue with her ferrous sulfate which does help her well-being and improve her blood counts. Pt has anemia of chronic disease. Patient Active Problem List Diagnosis ??? Essential hypertension ??? Mixed hyperlipidemia ??? 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, without long- term current use of insulin (CMS/HCC) ??? Iron deficiency anemia ??? Thrombocytosis (CMS/HCC) Diagnoses and all orders for this visit: Thrombocytosis (CMS/HCC) (Primary) - Comprehensive metabolic panel; Future - Clinic Appointment Request Follow up; SARAI VARGAS MD; Clinic Appointment Location: [place] [address] - Ambulatory referral to Oncology - Clinic Appointment Request Follow up; SARAI VARGAS; Clinic Appointment Location: [place] [address]; Future - Lab Draw Appt Request Arm Draw or Central Line Draw? Arm; What is your ordering location? IM Onc/Hem/BMT; Where will this patient receive treatment? [facility]; Standing - CBC with auto differential; Standing - Comprehensive metabolic panel; Future - Lab Draw Appt Request Arm Draw or Central Line Draw? Arm; What is your ordering location? [facility] IM Onc/Hem/BMT; Where will this patient receive treatment? [facility]; Future Other iron deficiency anemia - Clinic Appointment Request Follow up; SARAI VARGAS MD; Clinic Appointment Location: [place] [address] Anemia, unspecified type - Iron profile w/ IBC; Future - Ferritin; Future - TSH; Future Other orders - hydroxyurea (HYDREA) 500 mg capsule; Take [...] 500 mg in December 2018. Subsequently thereafter, her plateletcount has slowly decreased. 7. She returns for 3 month follow-up visit having no new complaints and overall doing well. She is on 81 mg of aspirin and is tolerating the hydroxyurea 500 mg daily. 8. 07/03/20: She is overall doing well. She has tremors at her apt. She states that she has anxiety and this manifests in tremors. She does not have the tremors when not here. She has declined furtherwork up for parkinson disease. Interval Notes: I have reviewed: allergies, current [...] Exam: Vital Signs for this encounter: BSA: 1.64 meters squared BP (!) 187/102 (BP Location: Left arm) Comment: RN informed Pulse 63 Temp 36.9 ??C (98.5 ??F) (Oral) Resp 16 Ht 161.3 cm (5' 3.5 ) Wt 60.2 kg (132 lb 12.8 oz) Comment: with shoes SpO2 99% BMI 23.16 kg/m?? Physical Exam Constitutional: Appearance: She is [...] Results: WBC Date Value Ref Range Status 07/03/2020 4.2 3.8 - 9.9 X10 3/ul Final 04/10/2020 5.4 3.8 - 10.8 Thousand/uL Final 01/04/2019 9.3 3.4 - 10.8 x10E3/uL Final Hgb Date Value Ref Range Status 04/10/2020 10.8 (L) 11.7 - 15.5 g/dL Final 01/04/2019 10.8 (L) 11.1 - 15.9 g/dL Final Hemoglobin Date Value Ref Range Status 07/03/2020 9.9 (L) 11.9 - 15.5 g/dL Final Hct Date Value Ref Range Status 07/03/2020 29.5 (L) 35.6 - 45.5 % Final 04/10/2020 30.2 (L) 35.0 - 45.0 % Final 01/04/2019 33.8 (L) 34.0 - 46.6 % Final Platelets Date Value Ref Range Status 04/10/2020 358 140 - 400 Thousand/uL Final 01/04/2019 932 (HH) 150 - 450 x10E3/uL Final Comment: Results verified by repeat testing Plt Count Date Value Ref Range Status 07/03/2020 406 (H) 150 - 400 x10 3/ul Final Lactate dehydrogenase (LDH) Date Value Ref Range Status 10/19/2018 164 119 - 226 IU/L Final Lactate Dehydrogenase Date Value Ref Range Status 10/04/2019 131 100 - 250 U/L Final Creatinine Date Value Ref Range Status 07/03/2020 0.9 0.5 - 1.1 mg/dL Final Comment: NOTE: Estimated GFR (Cockroft-Gault) will NOT be calculated unless patient Height and Weight were entered. Also, Kidney Disease Stage (GFR) and Estimated GFR (Cockroft-Gault) will NOT be calculated if Creatinine result is <0.2. 04/10/2020 1.14 (H) 0.60 - 0.93 mg/dL Final Comment: For patients >49 years of age, the reference limit for Creatinine is approximately 13% higher for people identified as -Russian. AST Date Value Ref Range Status 07/03/2020 16 0 - 32 U/L Final 04/10/2020 15 10 - 35 U/L Final documented in this encounter Plan of Treatment Scheduled Orders Name Type Priority Associated Diagnoses Orde r Schedule Comprehensive metabolic panel Lab Routine Thrombocytosis (CMS/HCC) Expected: 07/03/2020, Expires: 06/26/2021 CBC with auto differential Lab Routine Thrombocytosis (CMS/HCC) 2 Occurrences starting 07/03/2020 until 07/03/2021, 1 completed Comprehensive metabolic panel Lab Routine Thrombocytosis (CMS/HCC) Expected: 01/04/2021, Expires: 07/03/2021 documented as of this encounter Procedures Procedure Name Priority Date/Time Associated Diagnosis Comments CBC WITH AUTO DIFFERENTIAL Routine 07/31/2020 10:46 AM CDT Thrombocytosis (CMS/HCC) IRON PROFILE W/ IBC Routine 07/03/2020 1 0:48 AM CDT Anemia, unspecified type TSH Routine 07/03/2020 10:48 AM CDT Anemia, unspecified type FERRITIN Routine 07/03/2020 10:48 AM CDT Anemia, unspecified type documented in this encounter Results * (ABNORMAL) CBC with auto differential (07/31/2020 10:46 AM CDT) WBC 5.5 3.8 - 9.9 X10 3/ul [facility] RBC 2.30(L) 3.90 - 5.20 x10 6/ul [facility] Hemoglobin 10.1(L) 11.9 - 15.5 g/dL [facility] Hct 29.8(L) 35.6 - 45.5 % [facility] MCV 129.6(H) 81.3 - 96.4 [facility] MCH 43.9(H) 27.1 - 33.3 pg [facility] MCHC 33.9 32.3 - 35.7 g/dl [facility] RDW 12.9 11.1 - 14.9 % [facility] Plt Count 377 150 - 400 x10 3/ul [facility] MPV 9.4 9.1 - 12.3 [facility] Neut % 64.8 % [facility] Immature Gran % 0.4 % [facility] Lymph % 24.3 % [facility] Ouray % 8.5 % [facility] Eos % 1.5 % [facility] AUTO BASO % 0.5 % [facility] NEUTROPHIL ABS # 3.6 1.7 - 6.5 x10 3/ul [facility] Immature Gran # 0.0 0.0 - 0.1 x10 3/ul [facility] Absolute Lymphs (auto) 1.3 0.8 - 3.3 x10 3/ul [facility] Absolute Monos (auto) 0.5 0.2 - 0.8 x10 3/ul [facility] Absolute Eos (auto) 0.1 0.0 - 0.5 x10 3/ul [facility] BASOPHIL ABS # 0.0 0.0 - 0.1 x10 3/ul [facility] Nucleat RBC Rel Count 0.0 #/100WBC [facility] NRBC abs 0.00 0.00 - 0.01 x10 3/ul [facility] Absolute Neutrophils 3,600 200 - 8,000 /ul [facility] Blood specimen (specimen) 07/31/2020 10:46 AM CDT 07/31/2020 10:54 AM CDT Narrative Resulting Agency Comment RCR Melanie Turcios [facility] LAB BLOOD ORDERABLES Final Result [facility] [address] [place] [address] * TSH (07/03/2020 10:48 AM CDT) TSH 2.50 0.27 - 4.20 uIU/mL [facility] Blood specimen (specimen) 07/03/2020 10:48 AM CDT 07/03/2020 11:42 AM CDT Narrative Resulting Agency Comment RCR Melanie Turcios NP LAB BLOOD ORDERABLES Final Result Performing Organization Address [facility]/ZIP Co de Phone Number [address] [phone] * Ferritin (07/03/2020 10:48 AM CDT) Ferritin 81.2 15.0 - 150.0 ng/mL [facility] Blood specimen (specimen) 07/03/2020 10:48 AM CDT 07/03/2020 11:42 AM CDT Narrative Resulting Agency Comment RCR Melanie Turcios [facility] LAB BLOOD ORDERABLES Final Result Performing Organization Address City/[facility]/ZIP Co de Phone Number [address] [phone] * (ABNORMAL) Iron profile w/ IBC (07/03/2020 10:48 AM CDT) Iron 89 37 - 145 ug/dL [facility] TIBC 205(L) 228 - 428 ug/dL [facility] Transferrin % Sat 43 20 - 50 % [facility] Blood specimen (specimen) 07/03/2020 10:48 AM CDT 07/03/2020 11:42 AM CDT Narrative Resulting Agency Comment RCR Melanie Turcios [facility] LAB BLOOD ORDERABLES Final Result [facility] [address] [phone] documented in this encounter Visit Diagnoses Diagnosis Thrombocytosis- Primary Essential thrombocythemia Other iron deficiency anemia Anemia, unspecified type documented in this encounter Discontinued Medications Medication Sig Discontinue Reason Start Date End Da te hydroxyurea (HYDREA) 500 mg capsule Take 2 capsules by mouth once daily Reorder 05/25/2020 07/03/2020 documented as of this encounter Orders Outpatient Referral Count Last Ordered Date Fir st Ordered Date AMB REFERRAL TO ONCOLOGY 1 07/03/2020 Appointment Requests Count Last Ordered Date Fi rst Ordered Date ONCBCN CLINIC APPOINTMENT REQUEST 2 021 07/03/2020 ONCBCN LAB APPOINTMENT 3 01/04/202107/31 documented in this encounter Care Teams Healthcare Administration Intern Relationship Specialty Start Date End Date Clive Wrgiht MD PCP - General Family Medicine 09/15/18 Sarai Vargas DO [address] [place] [address] Medical Oncologist/Communication Electronic Technician Hematology and Oncology 10/27/18 documented as of this encounter
--- OUTSIDE RECORDS SUMMARY | 2024-03-10 20:15 | XMS_ITS | Encounter Summary ---
Author Organization [facility] Healthcare Address [address] [place] [address] Care Team Providers Care Emergency Management Specialist Name Role Phone Clive Wright MD Primary Care Provider [phone] Karthikeyan Elaine DO Unavailable [phone] Reason for Visit * Reason Onset Date Comments Transplant Lab Work - Evaluation 10/06/2023 Encounter Details Date Type Department Care Team (Late st Contact Info) Description 10/06/2023 Telephone [facility] Medical Group Family Medicine at [address] [place] [address] Clive Wright MD [address] [place] [address] Transplant Lab Work - Evaluation Social History Tobacco Use Types Packs/Day Years [...] on file 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 * Telephone Encounter - Clive Wright MD - 10/06/2023 11:05 PM CDT CBC Chem 12 lipid profile. If not done in 6 months * Telephone Encounter - Consuelo Salas - 10/06/2023 12:34 PM CDT Patient has an appt on 11/05/23 and she would like to know does she need any lab work before then? If so can you let me know and please place [facility] and I will call her and let her know documented in this encounter Plan of Treatment Not on file documented as of this encounter Visit Diagnoses Not on filedocumented in this encounter Care Teams Emergency Management Specialist Relationship Specialty Start Date End Date Clive Wright MD PCP - General Family Medicine 09/15/18 Karthikeyan Elaine DO [address] [place] [address] Medical Oncologist/Electron Beam Welding Machine Operator Hematology and Oncology 10/27/18 documented as of this encounter
--- OUTSIDE RECORDS SUMMARY | 2024-03-10 20:15 | XMS_ITS | Encounter Summary ---
Author Organization [facility] Address [address] [place] [address] Care Team Providers Care Security Installer Name Role Phone Clive Wright MD Primary Care Provider [phone] Karthikeyan Elaine DO Unavailable [phone] Encounter Details Date Type Department Care Team (Late st Contact Info) Description 04/13/2021 Orders Only [facility] Medical 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 Gender Identity Not on file Sexual Orientation Not on file Occupation Industry Job Start Date Job End Date Retired Not on file Not on file Not on file documented as of this encounter Plan of Treatment Not on file documented as of this encounter Procedures Procedure Name Priority Date/Time Associated Diagnosis Comments CBC MORPHOLOGY Routine 04/13/2021 8:04 AM WINDOW SHADE ESTIMATOR CBC WITH AUTO DIFFERENTIAL Routine 04/13/2021 8:04 AM WINDOW SHADE ESTIMATOR LIPID PANEL Routine 04/13/2021 8:04 AM WINDOW SHADE ESTIMATOR COMPREHENSIVE METABOLIC PANEL Routine 04/13/2021 8:04 AM WINDOW SHADE ESTIMATOR documented in this encounter Results * CBC MORPHOLOGY (04/13/2021 8:04 AM WINDOW SHADE ESTIMATOR) CBC MORPHOLOGY NORMAL [facility] Comment: Macrocytosis 2 + Ovalocytes 1 + 04/13/2021 8:04 AM WINDOW SHADE ESTIMATOR 04/13/2021 8:04 AM WINDOW SHADE ESTIMATOR Narrative [facility] - 04/14/2021 12:49 PM WINDOW SHADE ESTIMATOR FASTING:YES FASTING: YES Clive Wright MD LAB BLOOD ORDERABLES Final Re sult [facility] [address] [place] [address] * (ABNORMAL) CBC with auto differential (04/13/2021 8:04 AM WINDOW SHADE ESTIMATOR) WBC 6.3 3.8 - 10.8 Thousand/u L [facility] RBC, POC 2.64(L) 3.80 - 5.10 Million/uL [facility] Hgb 11.0(L) 11.7 - 15.5 g/dL [facility] Hct 32.1(L) 35.0 - 45.0 % [facility] MCV 121.6(H) 80.0 - 100.0 fL [facility] MCH 41.7(H) 27.0 - 33.0 pg [facility] MCHC 34.3 32.0 - 36.0 g/dL [facility] Rdw 11.6 11.0 - 15.0 % [facility] Platelets 531(H) 140 - 400 Thousand/u L [facility] MPV 10.1 7.5 - 12.5 fL [facility] Neutrophils, abs 4,221 1,500 - 7,800 cells/uL [facility] Lymphocytes, abs 1,367 850 - 3,900 cells/uL [facility] Monocyte abs 573 200 - 950 cells/uL [facility] Eosinophils, abs 101 15 - 500 cells/uL [facility] Basophils, abs 38 0 - 200 cells/uL [facility] Neutrophils 67 % [facility] Lymphocyte pct 21.7 % [facility] Monocytes 9.1 % [facility] Eosinophils 1.6 % [facility] Basophils 0.6 % [facility] 04/13/2021 8:04 AM WINDOW SHADE ESTIMATOR 04/13/2021 8:04 AM WINDOW SHADE ESTIMATOR Narrative [facility] - 04/14/2021 12:49 PM WINDOW SHADE ESTIMATOR FASTING:YES FASTING: YES us Clive Wright MD LAB BLOOD ORDERABLES Final Re sult [facility] [address] [place] [address] * (ABNORMAL) Comprehensive metabolic panel (04/13/2021 8:04 AM WINDOW SHADE ESTIMATOR) Pathologist [facility] Glucose 177(H) 65 - 99 mg/dL [facility] Comment: ? Fasting reference interval For someone without known diabetes, a glucose value >125 mg/dL indicates that they may have diabetes and this should be confirmed with a follow-up test. BUN 24 7 - 25 mg/dL [facility] Creatinine 1.04(H) 0.60 - 0.93 mg/dL [facility] Comment: For patients >49 years of age, the reference limit for Creatinine is approximately 13% higher for people identified as -Hungarian. eGFR NON-AFR. IRAQI 54(L) > OR = 60 mL/min/1. 73m2 [facility] EGFR 63 > OR = 60 mL/min/1. 73m2 [facility] BUN/creat ratio 23(H) 6 - 22 (calc) [facility] Sodium 135 135 - 146 mmol/L [facility] Potassium, pl 4.4 3.5 - 5.3 mmol/L [facility] Chloride 99 98 - 110 mmol/L [facility] CO2 28 20 - 32 mmol/L [facility] Calcium 9.8 8.6 - 10.4 mg/dL [facility] Protein, sr 7.1 6.1 - 8.1 g/dL [facility] Albumin 4.2 3.6 - 5.1 g/dL [facility] GLOBULIN 2.9 1.9 - 3.7 g/dL (calc) [facility] Alb/glob ratio 1.4 1.0 - 2.5 (calc) [facility] Bilirubin, total 0.5 0.2 - 1.2 mg/dL [facility] Alk phos 45 37 - 153 U/L [facility] AST 11 10 - 35 U/L [facility] ALT (SGPT) 8 6 - 29 U/L [facility] 04/13/2021 8:04 AM WINDOW SHADE ESTIMATOR 04/13/2021 8:04 AM WINDOW SHADE ESTIMATOR Narrative [facility] - 04/14/2021 12:49 PM WINDOW SHADE ESTIMATOR FASTING:YES FASTING: YES us Clive Wright MD LAB BLOOD ORDERABLES Final Re sult [facility] [address] [place] [address] * Lipid panel (04/13/2021 8:04 AM WINDOW SHADE ESTIMATOR) Cholesterol 154 <200 mg/dL [facility] HDL 57 > OR = 50 mg/dL [facility] Triglycerides 148 <150 mg/dL [facility] LDL 74 [...] LDL-C. Rishi SS et al. CARRIE. 2013;310(19): 4791-9725 (http://education.99degrees Custom/faq/MVX119) Chol/HDL ratio 2.7 <5.0 (calc) [facility] Non-HDL, (LDL+VLDL) 97 <130 mg/dL (calc) [facility] Comment: For patients with diabetes plus 1 major ASCVD risk factor, treating to a non-HDL-C goal of <100 mg/dL (LDL-C of <70 mg/dL) is considered a therapeutic option. 04/13/2021 8:04 AM WINDOW SHADE ESTIMATOR 04/13/2021 8:04 AM WINDOW SHADE ESTIMATOR Narrative [facility] - 04/14/2021 12:49 PM WINDOW SHADE ESTIMATOR FASTING:YES FASTING: YES Clive Wright MD LAB BLOOD ORDERABLES Final Re [facility] Organization Address City/State/ZIP Co de Phone Number LAQUITA [facility] [address] [place] [address] documented in this encounter Visit Diagnoses Not on filedocumented in this encounter Care Teams Security Installer Relationship Specialty Start Date End Date Clive Wright MD PCP - General Family Medicine 09/15/18 Karthikeyan Elaine DO [address] [place] [address] Medical Oncologist/Television Repair Teacher Hematology and Oncology 10/27/18 documented as of this encounter
--- OUTSIDE RECORDS SUMMARY | 2024-03-10 20:15 | XMS_ITS | Encounter Summary ---
Author Organization [facility] Healthcare Address [address] [place] [address] Care Team Providers Care Life Consultant Name Role Phone Clive Wright MD Primary Care Provider [phone] Karthikeyan Elaine DO Unavailable [phone] Encounter Details Date Type Department Care Team (Late st Contact Info) Description 01/04/2021 11:[address] 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 Gender Identity Not on file Sexual Orientation Not on file Occupation Industry Job Start Date Job End Date Retired Not on file Not on file Not on file documented as of this encounter Plan of Treatment Not on file documented as of this encounter Procedures Procedure Name Priority Date/Time Associated Diagnosis Comments DIFFERENTIAL AUTO Routine 01/04/2021 10: 54 AM CDT Thrombocytosis CBC WITH AUTO DIFFERENTIAL Routine 01/04/2021 10:54 AM CDT Thrombocytosis documented in this encounter Results * Differential, auto (01/04/2021 10:54 AM CDT) Neutrophil abs 4.3 1.7 - 6.5 K/cumm JUAN F Comment:Testing performed by : [address] [address] Lymphocyte abs 1.2 0.8 - 3.3 K/cumm JUAN F Comment:Testing performed by : [address] [address] Monocyte abs 0.7 0.2 - 0.8 K/cumm JUAN F Comment:Testing performed by : [address] [address] Eosinophil abs 0.1 0.0 - 0.5 K/cumm JUAN F Comment:Testing performed by : [address] [address] Neutrophil pct 69.5 % [facility] Comment: Interpretive Data Percent cell count reference ranges are not reported, since discordance with absolute values may lead to misinterpretation of CBC data. Current Interpretive Data was last revised on 2017. Testing performed by: [address] [address] Imm gran pct 0.3 % JUAN F Comment: Interpretive Data Percent cell count reference ranges are not reported, since discordance with absolute values may lead to misinterpretation of CBC data. Current Interpretive Data was last revised on 2017. Testing performed by: [address] [address] Lymphocyte pct 18.5 % CERELISA Comment: Interpretive Data Percent cell count reference ranges are not reported, since discordance with absolute values may lead to misinterpretation of CBC data. Current Interpretive Data was last revised on 2017. Testing performed by: [address] [address] Monocyte pct 10.6 % CERELISA Comment: Interpretive Data Percent cell count reference ranges are not reported, since discordance with absolute values may lead to misinterpretation of CBC data. Current Interpretive Data was last revised on 2017. Testing performed by: [address] [address] Eosinophil pct 0.8 % JUAN F Comment: Interpretive Data Percent cell count reference ranges are not reported, since discordance with absolute values may lead to misinterpretation of CBC data. Current Interpretive Data was last revised on 2017. Testing performed by: [address] [address] Basophil pct 0.3 % JUAN F Comment: Interpretive Data Percent cell count reference ranges are not reported, since discordance with absolute values may lead to misinterpretation of CBC data. Current Interpretive Data was last revised on 2017. Testing performed by: [address] [address] Blood 01/04/2021 10:5 4 AM CDT 01/04/2021 10:55 AM CDT Karthikeyan Elaine DO LAB BLOOD ORDERABLES Final R esult [facility] [address] [facility] Department of Laboratories [place], [place] [id number] * (ABNORMAL) CBC with auto differential (01/04/2021 10:54 AM CDT) WBC 6.2 3.8 - 9.9 K/cumm JUAN F Comment:Testing performed by : [address] [address] Hgb 10.6(L) 11.9 - 15.5 g/dL JUAN F Comment:Testing performed by : [address] [address] Hct 31.0(L) 35.6 - 45.5 % JUAN F Comment:Testing performed by : [address] [address] Plt 407(H) 150 - 400 K/cumm JUAN F Comment:Testing performed by : [address] [address] MPV 8.7(L) 9.1 - 12.3 fL JUAN F Comment:Testing performed by : [address] [address] RBC 2.38(L) 3.90 - 5.20 M/cumm JUAN F Comment:Testing performed by : [address] [address] MCV 130.3(H) 81.3 - 96.4 fL JUAN F Comment:Testing performed by : [address] [address] MCH 44.5(H) 27.1 - 33.3 pg JUAN F Comment:Testing performed by : [address] [address] MCHC 34.2 32.3 - 35.7 g/dL JUAN F Comment:Testing performed by : [address], [address] RDW CV 12.7 11.1 - 14.9 % JUAN F Comment:Testing performed by : [address] [address] RDW SD 60.8(H) 35.7 - 48.1 fL JUAN F Comment:Testing performed by : [address] [address] Blood 01/04/2021 10:5 4 AM CDT 01/04/2021 10:55 AM CDT Karthikeyan Elaine DO LAB BLOOD ORDERABLES Final R esult JUAN F [address] [facility] [place] [address] documented in this encounter Visit Diagnoses Diagnosis Thrombocytosis Essential thrombocythemia documented in this encounter Orders Appointment Requests Count Last Ordered Date Fi rst Ordered Date ONCBCN LAB APPOINTMENT 1 01/04/2021 documented in this encounter Care Teams Life Consultant Relationship Specialty Start Date End Date Clive Wright MD PCP - General Family Medicine 09/15/18 Karthikeyan Elaine DO [address] [place] [address] Medical Oncologist/Pottery Decoration Designer Hematology and Oncology 10/27/18 documented as of this encounter
--- OUTSIDE RECORDS SUMMARY | 2024-03-10 20:15 | XMS_ITS | Encounter Summary ---
Author Organization [facility] Healthcare Address [address] [place] [address] Care Team Providers Care Material Specialist Name Role Phone Clive Wright MD Primary Care Provider [phone] Karthikeyan Elaine DO Unavailable [phone] Reason for Visit * Reason Onset Date Comments Medical Question/Miscellaneous 07/10/2023 Encounter Details Date Type Department Care Team (Late st Contact Info) Description 07/10/2023 Telephone [facility] Family Medicine [address] [place] [phone] Clive Wright MD [address] [place] [phone] Medical Question/Miscellaneous Social History Tobacco Use [...] on file Legal Sex Female 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 I don't see any pending labs however she just completed some 07/07 so it's possibly that the letter was referencing those and she just now received the letter. Patient understood. * Telephone Encounter - Garima Bal - 07/10/2023 7:30 AM CDT Medical Question/Miscellaneous Caller???s Concern: Patient is calling in regards to the letter she received. See 06/30/23 letters tab for additional information. The letter states that she has pending lab orders, but her chart is not showing any current pending lab orders. Patient needing clarification on what this letter is in regards to exactly. Please advise. Does message need to be routed? Yes-Action Needed documented in this encounter Plan of Treatment Not on file documented as of this encounter Visit Diagnoses Not on filedocumented in this encounter Care Teams Material Specialist Relationship Specialty Start Date End Date Clive Wright MD PCP - General Family Medicine 09/15/18 Karthikeyan Elaine DO [address] [place] [address] Medical Oncologist/Model Artists' Hematology and Oncology 10/27/18 documented as of this encounter
--- OUTSIDE RECORDS SUMMARY | 2024-03-10 20:15 | XMS_ITS | Encounter Summary ---
Author Organization [facility] Address [address] [place] [address] Phone Care Team Providers Care Migration Agent Name Role Phone Clive Wright MD Primary Care Provider [phone] Sarai Vargas DO Unavailable [phone] Reason for Visit * Reason Comments Follow-up * Consultation (Routine) - Closed Specialty Diagnoses / Procedures Referred By sEtrella kapadia Referred To Contact Oncology Diagnoses Thrombocytosis [facility] [address] [place] [address] Phone: tel: Sarai Vargas DO [address] [place] [address] Phone: tel: fax: Referral ID Status Reason Start Date Expiration Date V isits Requested Visits Authorized [id number] Closed Specialty Services Required 06/07/2020 07/27/2021 99 99 Encounter Details Date Type Department Care Team (Latest Contact Info) Description 07/19/2021 9:00 AM CDT Office Visit [facility] Oncology [address] [place] [address] [address] [place] [address] Sarai Vargas DO [address] [place] [address] Thrombocytosis (Primary Dx) Social History Tobacco Use [...] on file Legal 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 Female 8:44 PM BORDER 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 Gender Identity Not on file Sexual Orientation Not on file Occupation Industry Job Start Date Job End Date Retired Not on file Not on file Not on file documented as of this encounter Last Filed Vital Signs Vital Sign Reading Time Taken Comments Blood Pressure 159/88 07/19/2021 8:59 AM CDT Pulse 74 07/19/2021 8:59 AM CDT Temperature 36.5 ??C (97.7 ??F) 07/19/2021 8:59 AM CD T Respiratory Rate 16 07/19/2021 8:59 AM CDT Oxygen Saturation 97% 07/19/2021 8:59 AM CDT Inhaled Oxygen Concentration - - Weight 59.8 kg (131 lb 13.4 oz) 07/19/2021 8:59 AM CDT Height 161.3 cm (5' 3.5 ) 07/19/2021 8:59 AM CDT Body Mass Index 22.99 07/19/2021 8:59 AM CDT documented in this encounter Ordered Prescriptions Prescription Sig Dispense Quantity Refills Last Filled Start Date End Date hydroxyurea (HYDREA) 500 mg capsule Take 2 capsules (1,000 mg total) by mouth daily 180 capsule 1 07/19/2021 3 documented in this encounter Progress Notes * Sarai Vargas DO - 07/19/2021 9:00 AM CDT Patient ID: Ankita Perez is a 70 y.o. female. Primary Care Provider: Clive Wright MD Assessment/Plan Chronic myeloproliferative disorder with thrombocytosis -JAK2 negative. Chronic macrocytic anemia. -secondary to nutritional deficiencies plus Hydrea side effect Recommendations: 1. Today, CBC shows improvement of the platelet count down to 462. 2. Therefore, she will continue with hydroxyurea 1000 mg daily.. 3. I will see the patient back here in 6 months. 4. With regards to her anemia, I will continue monitor the blood counts every 3 months. 6. Regarding her anemia, she will continue with her ferrous sulfate which does help her well-being and improve her blood counts. Pt has anemia of chronic disease. My total encounter time on 07/19/2021 was 20 minutes which was spent in [...] (HCC) ??? Iron deficiency anemia ??? Thrombocytosis Diagnoses and all orders for this visit: Thrombocytosis (Primary) - Clinic Appointment Request Follow up; SARAI VARGAS; Clinic Appointment Location: [facility] THI - CBC with auto differential; Standing - Comprehensive metabolic panel; Future - Clinic Appointment Request Follow up; SARAI VARGAS; Clinic Appointment Location: [facility] EDW 140; Future Other orders - hydroxyurea (HYDREA) 500 [...] platelet count completely. 7. She returns for 6 month follow-up visit having no new complaints and overall doing well. She is on 81 mg of aspirin and is tolerating the hydroxyurea 1000 mg daily. She is also taking iron tablet daily. Over the past year, her platelet count has decreased down in the 400,000 range Interval Notes: I have reviewed: allergies, current [...] this encounter: BSA: 1.64 meters squared BP 159/88 (BP Location: Right arm) Pulse 74 Temp 36.5 ??C (97.7 ??F) (Oral) Resp 16 Ht 161.3 cm (5' 3.5 ) Wt 59.8 kg (131 lb 13.4 oz) SpO2 97% BMI 22.99 kg/m?? Physical Exam Constitutional: Appearance: She is [...] Results: WBC Date Value Ref Range Status 06/18/2021 5.8 3.8 - 10.8 Thousand/uL Final 01/04/2019 9.3 3.4 - 10.8 x10E3/uL Final Hgb Date Value Ref Range Status 06/18/2021 10.4 (L) 11.7 - 15.5 g/dL Final 01/04/2019 10.8 (L) 11.1 - 15.9 g/dL Final Hct Date Value Ref Range Status 06/18/2021 30.4 (L) 35.0 - 45.0 % Final 01/04/2019 33.8 (L) 34.0 - 46.6 % Final Platelets Date Value Ref Range Status 06/18/2021 462 (H) 140 - 400 Thousand/uL Final 01/04/2019 932 (HH) 150 - 450 x10E3/uL Final Comment: Results verified by repeat testing Lactate dehydrogenase (LDH) Date Value Ref Range Status 10/19/2018 164 119 - 226 IU/L Final Lactate Dehydrogenase Date Value Ref Range Status 10/04/2019 131 100 - 250 U/L Final Creatinine Date Value Ref Range Status 06/18/2021 1.11 (H) 0.60 - 0.93 mg/dL Final Comment: For patients >49 years of age, the reference limit for Creatinine is approximately 13% higher for people identified as -Algerian. AST Date Value Ref Range Status 06/18/2021 15 10 - 35 U/L Final documented in this encounter Plan of Treatment Scheduled Orders Name Type Priority Associated Diagnoses Orde r Schedule CBC with auto differential Lab Routine Thrombocytosis 2 Occurrences starting 07/19/2021 until 07/19/2022 documented as of this encounter Visit Diagnoses Diagnosis Thrombocytosis- Primary Essential thrombocythemia documented in this encounter Discontinued Medications Medication Sig Discontinue Reason Start Date End Da te hydroxyurea (HYDREA) 500 mg capsule Take 2 capsules (1,000 mg total) by mouth daily Reorder 01/04/2021 07/19/2021 documented as of this encounter Orders Appointment Requests Count Last Ordered Date Fi rst Ordered Date ONCBCN CLINIC APPOINTMENT REQUEST 2 022 07/19/2021 documented in this encounter Care Teams Migration Agent Relationship Specialty Start Date End Date Clive Wright MD PCP - General Family Medicine 09/15/18 Sarai Vargas DO [address] [place] [address] Medical Oncologist/Farm Contractor Hematology and Oncology 10/27/18 documented as of this encounter
--- OUTSIDE RECORDS SUMMARY | 2024-03-10 20:15 | XMS_ITS | Encounter Summary ---
Author Organization [facility] Address [address] [place] [address] Phone Care Team Providers Care Sap Solution Manager Consultant Name Role Phone Clive Wright MD Primary Care Provider [phone] Sarai Vargas DO Unavailable [phone] Reason for Visit * Reason Comments Follow-up * Consultation (Routine) - Closed Specialty Diagnoses / Procedures Referred By Estrella kapadia Referred To Contact Oncology Diagnoses Thrombocythemia [facility] [address] [place] [address] Phone: tel: Sarai Vargas DO [address] [place] [address] Phone: tel: fax: Referral ID Status Reason Start Date Expiration Date V isits Requested Visits Authorized [id number] Closed Specialty Services Required 01/02/2023 03/08/2023 99 99 Encounter Details Date Type Department Care Team (Latest Contact Info) Description 01/16/2023 9:30 AM MONORAIL OPERATOR Office Visit [facility] Oncology [address] [place] [address] [address] [place] [address] Sarai Vargas DO [address] [place] [address] Myeloproliferative disease (HCC) (Primary Dx); Thrombocytosis; Essential hypertension; Macrocytic anemia Social History Tobacco Use Types [...] on file Legal Sex Female 8:44 PM MONORAIL OPERATOR Gender Identity Not on file Sexual Orientation Not on file Occupation Industry Job Start Date Job End Date Retired Not on file Not on file Not on file documented as of this encounter Last Filed Vital Signs Vital Sign Reading Time Taken Comments Blood Pressure 191/104 01/16/2023 9:37 AM MONORAIL OPERATOR RN notified Pulse 69 01/16/2023 9:37 AM MONORAIL OPERATOR Temperature 36.6 ??C (97.9 ??F) 01/16/2023 9 :37 AM MONORAIL OPERATOR Respiratory Rate 16 01/16/2023 9:37 AM MONORAIL OPERATOR Oxygen Saturation 97% 01/16/2023 9:3 7 AM MONORAIL OPERATOR Inhaled Oxygen Concentration - - Weight 61.2 kg (134 lb 14.7 oz) 01/16/2023 9:37 AM MONORAIL OPERATOR Height 161.3 cm (5' 3.5 ) 01/16/2023 9: 37 AM MONORAIL OPERATOR Body Mass Index 23.53 01/16/2023 9:37 AM MONORAIL OPERATOR documented in this encounter Progress Notes * Sarai Vargas, - 01/16/2023 9:30 AM CST Patient ID: Ankita Perez is a 72 y.o. female. Primary Care Provider: Clive Wright MD Assessment/Plan Chronic myeloproliferative disorder with thrombocytosis -JAK2 negative. Chronic macrocytic anemia. -secondary to nutritional deficiencies plus Hydrea side effect Recommendations: 1. At this point in time, she will continue with hydroxyurea 1000 mg daily. I feel that the recent elevated platelet count level was due to a reactive process and I expect the platelet count to come back down into the 400-500 range. 2. She will repeat another CBC in 3 months and then also in 1 year when I see her back here at thattime. 3. Regarding her anemia, I will also recheck her nutritional levels with ferritin, iron profile, vitamin B12, folate and also I will check a reticulocyte count. 4. I did encourage her to increase her ferrous sulfate up to 325 mg t.i.d.. She will let me know ifthis does not improve her overall fatigue. 5. She will continue with 81 mg of aspirin for anti-platelet effect. My total encounter time on 01/16/2023 was 20 minutes which was spent in [...] disease, without long-term current use of insulin ([facility]) ([facility]) Iron deficiency anemia Thrombocytosis CKD (chronic kidney disease) stage 3, GFR 30-59 ml/min ([facility]) Myeloproliferative disease ([facility]) Diagnoses and all orders for this visit: Myeloproliferative disease (HCC) (Primary) - Clinic Appointment Request Follow up; SARAI VARGAS; Clinic Appointment Location: [facility] EDW 140; Future - CBC with auto differential; Future - Comprehensive metabolic panel; Future Thrombocytosis - Clinic Appointment Request Follow up; SARAI VARGAS; Clinic Appointment Location: [facility] EDW 140 - CBC with auto differential; Future - Comprehensive metabolic panel; Future Essential hypertension - Ambulatory referral to Oncology Macrocytic anemia - CBC with auto differential; Future - Ferritin; Future - Iron profile w/ IBC; Future - Reticulocyte Count; Future - Vitamin B12; Future - Folate; Future Subjective Interval History: A. Chronic myeloproliferative disorder [...] sulfate 325 mg b.i.d.. Recent CBC shows platelet count 603. Hemoglobin is 10.8 October: CBC showed a platelet count of 467 and hemoglobin 11.0 April: Platelet count 4 4 8 with a hemoglobin of 11.1 Interval Notes: I have reviewed: allergies, current [...] Exam: Vital Signs for this encounter: BSA: 1.66 meters squared BP (!) 191/104 (BP Location: Right arm) Comment: RN notified Pulse 69 Temp 36.6 ??C (97.9 ??F) (Oral) Resp 16 Ht 161.3 cm (5' 3.5 ) Wt 61.2 kg (134 lb 14.7 oz) SpO2 97% BMI 23.53 kg/m?? Physical Exam Constitutional: Appearance: She is [...] Results: WBC Date Value Ref Range Status 01/10/2023 4.7 3.8 - 10.8 Thousand/uL Final 01/04/2019 9.3 3.4 - 10.8 x10E3/uL Final Hgb Date Value Ref Range Status 01/10/2023 10.8 (L) 11.7 - 15.5 g/dL Final 01/04/2019 10.8 (L) 11.1 - 15.9 g/dL Final Hct Date Value Ref Range Status 01/10/2023 30.9 (L) 35.0 - 45.0 % Final 01/04/2019 33.8 (L) 34.0 - 46.6 % Final Platelets Date Value Ref Range Status 01/10/2023 603 (H) 140 - 400 Thousand/uL Final 01/04/2019 932 (HH) 150 - 450 x10E3/uL Final Comment: Results verified by repeat testing Lactate dehydrogenase (LDH) Date Value Ref Range Status 10/19/2018 164 119 - 226 IU/L Final Lactate Dehydrogenase Date Value Ref Range Status 10/04/2019 131 100 - 250 U/L Final Creatinine Date Value Ref Range Status 01/10/2023 1.13 (H) 0.60 - 1.00 mg/dL Final AST Date Value Ref Range Status 01/10/2023 13 10 - 35 U/L Final RAIL OPERATOR documented in this encounter Plan of Treatment Scheduled Orders Name Type Priority Associated Diagnoses Orde r Schedule CBC with auto differential Lab Routine Macrocytic anemia Expected: 04/17/2023 (Approximate), Expires: 01/17/2024 Ferritin Lab Routine Macrocytic anemia Expected: 04/17/2023, Expires: 01/17/2024 Iron profile w/ IBC Lab Routine Macrocytic anemia Expected: 04/17/2023, Expires: 01/17/2024 Reticulocyte Count Lab Routine Macrocytic anemia Expected: 04/17/2023, Expires: 01/17/2024 Vitamin B12 Lab Routine Macrocytic anemia Expected: 04/17/2023, Expires: 01/17/2024 Folate Lab Routine Macrocytic anemia Expected: 04/17/2023, Expires: 01/17/2024 CBC with auto differential Lab Routine Myeloproliferative disease (HCC) Thrombocytosis Expected: 01/08/2024 (Approximate), Expires: 01/17/2024 Comprehensive metabolic panel Lab Routine Myeloproliferative disease (HCC) Thrombocytosis Expected: 01/08/2024 (Approximate), Expires: 01/17/2024 documented as of this encounter Visit Diagnoses Diagnosis Myeloproliferative disease (HCC)- Primary 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 Thrombocytosis Essential thrombocythemia Essential hypertension Unspecified essential hypertension Macrocytic anemia documented in this encounter Orders Outpatient Referral Count Last Ordered Date Fir st Ordered Date AMB REFERRAL TO ONCOLOGY 1 01/16/2023 Appointment Requests Count Last Ordered Date Fi rst Ordered Date ONCBCN CLINIC APPOINTMENT REQUEST 2 024 01/16/2023 documented in this encounter Care Teams Sap Solution Manager Consultant Relationship Specialty Start Date End Date Clive Wright MD PCP - General Family Medicine 09/15/18 Sarai Vargas DO [address] [place] [address] Medical Oncologist/Child'S Nurse Hematology and Oncology 10/27/18 documented as of this encounter
--- OUTSIDE RECORDS SUMMARY | 2024-03-10 20:15 | XMS_ITS | Encounter Summary ---
Author Organization [facility] Healthcare Address [address] [place] [address] Care Team Providers Care Milling General Superintendent Name Role Phone Clive Wright MD Primary Care Provider [phone] Karthikeyan Elaine DO Unavailable [phone] Encounter Details Date Type Department Care Team (Late st Contact Info) Description 07/31/2020 10:40 AM CDT - 08/06/2020 11:59 PM CDT Hospital Encounter [facility] Karthikeyan Elaine DO [address] [id number] Social History Tobacco Use Types Packs/Day Years [...] on file Legal Sex Female 8:44 PM ROPER OPERATOR Gender Identity Not on file Sexual [...] tablet 3 04/18/2020 06/03/2021 blood glucose diagnostic (Intelleflex Ultra Blue Test Strip) stripIndications :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, without long-term current use of insulin ([facility]) ([facility]) 1 each by other route as [...] disease, without long-term current use of insulin ([facility]) ([facility]) Take 1 tablet (500 mg total) [...] on filedocumented in this encounter Care Teams Milling General Superintendent Relationship Specialty Start Date End Date Clive Wright MD PCP - General Family Medicine 09/15/18 Karthikeyan Elaine DO [address] [place] [address] Medical Oncologist/Jack Spinner Hematology and Oncology 10/27/18 documented as of this encounter
--- OUTSIDE RECORDS SUMMARY | 2024-03-10 20:16 | XMS_ITS | Encounter Summary ---
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 Gender Identity Not on file Sexual Orientation Not on file Occupation Industry Job Start Date Job End Date Retired Not on file Not on file Not on file documented as of this encounter Plan of Treatment Not on file documented as of this encounter Procedures Procedure Name Priority Date/Time Associated Diagnosis Comments SCAN - RADIOLOGY/IMAGING 03/06/2020 documented in this encounter Results * SCAN - RADIOLOGY/IMAGING (03/06/2020) Anatomical Region Laterality Modality Other us Provider Scanning Final Result documented in this encounter Visit Diagnoses Not on filedocumented in this encounter Care Teams Divine Healer Relationship Specialty Start Date End Date Clive Wright MD PCP - General Family Medicine 09/15/18 Karthikeyan Elaine DO [address] [place] [id number] Medical Oncologist/Equipment Mechanic Hematology and Oncology 10/27/18 documented as of this encounter
--- OUTSIDE RECORDS SUMMARY | 2024-03-10 20:16 | XMS_ITS | Encounter Summary ---
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 Gender Identity Not on file Sexual [...] total) by mouth daily 90 tablet 3 10/13/2019 04/18/2020 blood glucose diagnostic ([employer] Ultra Blue Test Strip) stripIndications :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, without long-term current use of insulin (CMS/HCC) (HCC) 1 each by other route as directed Checks blood sugar daily 100 each 3 10/13/2019 10/22/2021 hydroCHLOROthiaz julianne (HYDRODIURIL) 25 mg tablet Take 1 tablet (25 mg total) by mouth daily 90 tablet 3 10/13/2019 04/18/2020 hydroxyurea (HYDREA) 500 mg capsule Take 2 capsules (1,000 mg total) by mouth daily 60 capsule 3 10/04/2019 02/16/2020 Iron, ferrous sulfate, 325 mg (65 mg iron) tablet Take 1 tablet by mouth twice daily 180 tablet 11/08/2019 01/03/2020 lisinopriL (PRINIVIL,ZESTRI L) 20 mg tablet Take 1 tablet (20 mg total) by mouth daily 90 tablet 3 10/13/2019 04/18/2020 metFORMIN (GLUCOPHAGE) 500 mg tablet Take 1 tablet (500 mg total) by mouth 2 (two) times a day 90 tablet 3 10/13/2019 04/12/2020 metoprolol XL (TOPROL-XL) 25 mg extended release tablet Take 1 tablet (25 mg total) by mouth daily 90 tablet 3 10/13/2019 04/18/2020 Tradjenta 5 mg tablet Take 1 tablet (5 mg total) by mouth daily 90 tablet 3 10/13/2019 04/18/2020 documented as of this encounter Plan of Treatment Not on file documented as of this encounter Visit Diagnoses Not on filedocumented in this encounter Care Teams Marine Electronics Technician Relationship Specialty Start Date End Date Clive Wright MD PCP - General Family Medicine 09/15/18 Karthikyean Elaine DO [address] [place] [id number] Medical Oncologist/Clubhouse Attendant Hematology and Oncology 10/27/18 documented as of this encounter
--- OUTSIDE RECORDS SUMMARY | 2024-03-10 20:16 | XMS_ITS | Encounter Summary ---
Author Organization [facility] Healthcare Address [address] [place] [address] Care Team Providers Care Glost Tile Shader Name Role Phone Clive Wright MD Primary Care Provider [phone] Karthikeyan Elaine DO Unavailable [phone] Encounter Details Date Type Department Care Team (Late st Contact Info) Description 10/04/2019 10:24 AM CDT - 10/07/2019 11:59 PM T Hospital Encounter [facility] Karthikeyan Elaine DO [address] [address] Social History Tobacco Use Types Packs/Day Years [...] file 08/2019 PHQ-2 Answer Date Recorded PHQ-2 Score 0 10/27/2018 Comments Unknown Sex and Gender Information Value Date Recorded Sex Assigned at Not on file 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 Gender Identity Not on file Sexual [...] total) by mouth daily 90 tablet 3 04/14/2019 10/13/2019 blood glucose diagnostic (ONETOUCH ULTRA BLUE TEST STRIP) strip daily 10/13/2019 ferrous sulfate 325 mg (65 mg of elemental iron) tablet Take 1 tablet (325 mg total) by mouth 2 (two) times a day 180 tablet 07/12/2019 11/08/2019 hydroCHLOROthiaz julianne (HYDRODIURIL) 25 mg tablet Take 1 tablet (25 mg total) by mouth daily 90 tablet 3 04/14/2019 10/13/2019 hydroxyurea (HYDREA) 500 mg capsule Take 2 capsules (1,000 mg total) by mouth daily 60 capsule 3 10/04/2019 02/16/2020 lisinopril (PRINIVIL,ZESTRI L) 20 mg tablet Take 1 tablet (20 mg total) by mouth daily 90 tablet 3 04/14/2019 10/13/2019 metFORMIN (GLUCOPHAGE) 500 mg tablet Take 1 tablet (500 mg total) by mouth 2 (two) times a day 90 tablet 3 04/14/2019 10/13/2019 metoprolol XL (TOPROL-XL) 25 mg 24 hr tablet Take 1 tablet (25 mg total) by mouth daily 90 tablet 3 04/14/2019 10/13/2019 TRADJENTA 5 mg tablet Take 1 tablet (5 mg total) by mouth daily 90 tablet 3 04/14/2019 10/13/2019 documented as of this encounter Plan of Treatment Not on file documented as of this encounter Visit Diagnoses Not on filedocumented in this encounter Care Teams Glost Tile Shader Relationship Specialty Start Date End Date Clive Wright MD PCP - General Family Medicine 09/15/18 Karthikeyan Elaine DO [address] [place] [id number] Medical Oncologist/Healthcare Administrative Assistant Hematology and Oncology 10/27/18 documented as of this encounter
--- OUTSIDE RECORDS SUMMARY | 2024-03-10 20:16 | XMS_ITS | Encounter Summary ---
Author Organization [facility] Address [address] [place] [address] Phone Care Team Providers Care Family Centered Specialist Name Role Phone Clive Wright MD Primary Care Provider [phone] Karthikeyan Elaine DO Unavailable [phone] Encounter Details Date Type Department Care Team (Late st Contact Info) Description 12/13/2019 11:30 AM CDT Lab [facility] Oncology [address] [place] [phone] Thrombocytosis (CMS/HCC) Social History Tobacco Use Types [...] on file 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
--- OUTSIDE RECORDS SUMMARY | 2024-03-10 20:16 | XMS_ITS | Encounter Summary ---
Author Organization [facility] Address [address] [place] [address] Phone Care Team Providers Care Structural Design Engineer Name Role Phone Clive Wright MD Primary Care Provider [phone] Karthikeyan Elaine DO Unavailable [phone] Encounter Details Date Type Department Care Team (Late st Contact Info) Description 11/15/[address] 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 Ordered placed and patient is going to come in on December. She then has a apt with Dr Elaine on January 02 for lab and doctor. Nina FORD * Telephone Encounter - Mary Sousa RN - 11/15/2019 3:15 PM CDT Left message for patient to call office. Patient is to continue Hydrea 1000 mg daily with repeat lab in 4 weeks. documented in this encounter Plan of Treatment Not on file documented as of this encounter Visit Diagnoses Not on filedocumented in this encounter Care Teams Structural Design Engineer Relationship Specialty Start Date End Date Clive Wright MD PCP - General Family Medicine 09/15/18 Karthikeyan Elaine DO [address] [place] [address] Medical Oncologist/Manager Of Broadcast Content Hematology and Oncology 10/27/18 documented as of this encounter
--- OUTSIDE RECORDS SUMMARY | 2024-03-10 20:16 | XMS_ITS | Encounter Summary ---
Author Organization [facility] Address [address] [place] [address] Phone Care Team Providers Care Information Systems Architect Name Role Phone Clive Wright MD Primary Care Provider [phone] Karthikeyan Elanie DO Unavailable [phone] Encounter Details Date Type Department Care Team (Late st Contact Info) Description 12/05/2019 Orders Only [facility] Oncology [address] [facility] [address] [place] [phone] Karthikeyan Elaine DO [address] [facility] [address] [place] [phone] Social History Tobacco Use Types Packs/Day Years [...] on file 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 Gender Identity Not on file Sexual Orientation Not on file Occupation Industry Job Start Date Job End Date Retired Not on file Not on file Not on file documented as of this encounter Plan of Treatment Not on file documented as of this encounter Visit Diagnoses Not on filedocumented in this encounter Care Teams Information Systems Architect Relationship Specialty Start Date End Date Clive Wright MD PCP - General Family Medicine 09/15/18 Karthikeyan Elaine DO [address] [place] [id number] Medical Oncologist/Consulting Sme Hematology and Oncology 10/27/18 documented as of this encounter
--- OUTSIDE RECORDS SUMMARY | 2024-03-10 20:16 | XMS_ITS | Encounter Summary ---
Author Organization [facility] Address [address] [place] [address] Phone Care Team Providers Care Electrician Ship Name Role Phone Clive Wright MD Primary Care Provider [phone] Sarai Vargas DO Unavailable [phone] Reason for Visit * Reason Comments Thrombocytosis Follow-up Encounter Details Date Type Department Care Team (Latest Contact Info) Description 01/03/2020 11:00 AM CDT Office Visit [facility] Physicians [facility] Oncology [address] [phone] Sarai Vargas DO 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 Gender Identity Not on file Sexual Orientation Not on file Occupation Industry Job Start Date Job End Date Retired Not on file Not on file Not on file documented as of this encounter Last Filed Vital Signs Vital Sign Reading Time Taken Comments Blood Pressure 161/78 01/03/2020 10:43 AM CDT Pulse 62 01/03/2020 10:43 AM CDT Temperature 36.4 ??C (97.6 ??F) 01/03/2020 10:43 AM C DT Respiratory Rate 16 01/03/2020 10:43 AM CDT Oxygen Saturation 100% 01/03/2020 10:43 AM CDT Inhaled Oxygen Concentration - - Weight 60.8 kg (134 lb) 01/03/2020 10:43 AM CDT with shoes Height 161.3 cm (5' 3.5 ) 01/03/2020 10:43 AM CD T Body Mass Index 23.36 01/03/2020 10:43 AM CDT documented in this encounter Ordered Prescriptions Prescription Sig Dispense Quantity Refills Last Filled Start Date End Date ferrous sulfate (Iron, ferrous sulfate,) 325 mg (65 mg of elemental iron) tablet Take 1 tablet (325 mg total) by mouth 2 (two) times a day 180 tablet 2 01/03/2020 01/04/2021 documented in this encounter Progress Notes * Sarai Vargas, DO - 01/03/2020 11:00 AM CDT Patient ID: Ankita Perez is [...] incidence of stroke and heart attacks. 2. Therefore, her current dose of hydroxyurea at 1000 mg daily is adequate to keep her platelet count in this range. She will continue with this medication. 3. I will see the patient back here in 6 months. 4. I will continue monitor CBC every 3 months. 5. She will continue with low-dose aspirin for antiplatelet effect. 6. Regarding her anemia, she will continue with her ferrous sulfate which does help her well-being and improve her blood counts. Patient Active Problem List Diagnosis ??? Essential hypertension ??? Mixed hyperlipidemia ??? 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, without long- term current use of insulin (CMS/HCC) ??? Iron deficiency anemia ??? Thrombocytosis (CMS/HCC) Diagnoses and all orders for this visit: Thrombocytosis (CMS/HCC) (Primary) - Clinic Appointment Request Follow up; SARAI VARGAS; Clinic Appointment Location: [facility] 180 - Lab Draw Appt Request Arm Draw or Central Line Draw? Arm; What is your ordering location? [facility]/Hem/[facility]; Where will this patient receive treatment? [facility]; Standing - Clinic Appointment Request Follow up; SARAI VARGAS MD; Clinic Appointment Location: [facility] 180; Future - CBC with auto differential; Standing - Comprehensive metabolic panel; Future Other iron deficiency anemia - Lab Draw Appt Request Arm Draw or Central Line Draw? Arm; What is your ordering location? [facility]/Hem/BMT; Where will this patient receive treatment? [facility]; Standing - Clinic Appointment Request Follow up; SARAI VARGAS MD; Clinic Appointment Location: [place] [address] 180; Future - CBC with auto differential; Standing - Comprehensive metabolic panel; Future Other orders - ferrous sulfate (Iron, ferrous sulfate,) 325 mg (65 mg of elemental iron) tablet; Take 1 tablet (325 mg total) by mouth 2 (two) times a day Subjective Interval History: A. Chronic myeloproliferative disorder-FRANSISCO [...] is tolerating the hydroxyurea 500 mg daily. Interval Notes: I have reviewed: [...] this encounter: BSA: 1.65 meters squared BP 161/78 (BP Location: Left arm) Pulse 62 Temp 36.4 ??C (97.6 ??F) (Oral) Resp 16 Ht 161.3cm (5' 3.5 ) Wt 60.8 kg (134 lb) Comment: with shoes SpO2 100% BMI 23.36 kg/m?? Physical Exam Constitutional: Appearance: She is well-developed. HENT: Head: Normocephalic and atraumatic. Right Ear: External ear normal. Left Ear: External ear normal. Nose: Nose normal. Eyes: Conjunctiva/sclera: Conjunctivae normal. Pupils: Pupils are equal, round, and reactive to light. Neck: Musculoskeletal: Normal range of motion and neck supple. Cardiovascular: Rate and Rhythm: Normal rate and regular rhythm. Heart sounds: Normal heart sounds. Pulmonary: Effort: Pulmonary effort is normal. Breath sounds: Normal breath sounds. Abdominal: General: Bowel sounds are normal. Palpations: Abdomen is soft. Musculoskeletal: Normal range of motion. Skin: General: Skin is warm and dry. Coloration: Skin is pale. Neurological: Mental Status: She is alert and oriented to person, place, and time. Motor: Tremor present. Psychiatric: Behavior: Behavior normal. Performance Status: Asymptomatic Results: WBC Date Value Ref Range Status 01/03/2020 5.5 3.8 - 9.9 X10 3/ul Final 09/28/2019 7.1 3.8 - 10.8 Thousand/uL Final 01/04/2019 9.3 3.4 - 10.8 x10E3/uL Final Hgb Date Value Ref Range Status 09/28/2019 10.6 (L) 11.7 - 15.5 g/dL Final 01/04/2019 10.8 (L) 11.1 - 15.9 g/dL Final Hemoglobin Date Value Ref Range Status 01/03/2020 10.5 (L) 11.9 - 15.5 g/dL Final Hct Date Value Ref Range Status 01/03/2020 31.2 (L) 35.6 - 45.5 % Final 09/28/2019 31.8 (L) 35.0 - 45.0 % Final 01/04/2019 33.8 (L) 34.0 - 46.6 % Final Platelets Date Value Ref Range Status 09/28/2019 697 (H) 140 - 400 Thousand/uL Final 01/04/2019 932 (HH) 150 - 450 x10E3/uL Final Comment: Results verified by repeat testing Plt Count Date Value Ref Range Status 01/03/2020 460 (H) 150 - 400 x10 3/ul Final Lactate dehydrogenase (LDH) Date Value Ref Range Status 10/19/2018 164 119 - 226 IU/L Final Lactate Dehydrogenase Date Value Ref Range Status 10/04/2019 131 100 - 250 U/L Final Creatinine Date Value Ref Range Status 01/03/2020 1.2 (H) 0.5 - 1.1 mg/dL Final Comment: NOTE: Estimated GFR (Cockroft-Gault) will NOT be calculated unless patient Height and Weight were entered. Also, Kidney Disease Stage (GFR) and Estimated GFR (Cockroft-Gault) will NOT be calculated if Creatinine result is <0.2. 09/28/2019 1.28 (H) 0.60 - 0.93 mg/dL Final Comment: For patients >49 years of age, the reference limit for Creatinine is approximately 13% higher for people identified as -Gibraltarian. AST Date Value Ref Range Status 01/03/2020 17 0 - 32 U/L Final 09/28/2019 14 10 - 35 U/L Final documented in this encounter Plan of Treatment Not on file documented as of this encounter Procedures Procedure Name Priority Date/Time Associated Diagnosis Comments CBC WITH AUTO DIFFERENTIAL Routine 07/03/2020 10:52 AM CDT Thrombocytosis (CMS/HCC) Other iron deficiency anemia COMPREHENSIVE METABOLIC PANEL Routine 07/03/2020 10:52 AM CDT Thrombocytosis (CMS/HCC) Other iron deficiency anemia CBC WITH AUTO DIFFERENTIAL Routine 05/08/2020 10:46 AM PRACTICAL NURSING FACULTY Thrombocytosis (CMS/HCC) Other iron deficiency anemia CBC WITH AUTO DIFFERENTIAL Routine 03/05/2020 10:43 AM PRACTICAL NURSING FACULTY Thrombocytosis (CMS/HCC) Other iron deficiency anemia documented in this encounter Results * (ABNORMAL) Comprehensive metabolic panel (07/03/2020 10:52 AM CDT) Sodium 136 135 - 145 mmol/L [facility] Potassium 4.5 3.3 - 5.1 mmol/L [facility] Chloride 100 96 - 108 mmol/L [facility] Carbon Dioxide 25 22 - 32 mmol/L [facility] Anion Gap 11 7 - 16 [facility] Glucose 117(H) 70 - 100 mg/dL [facility] BUN 24 8 - 25 mg/dL [facility] Creatinine 0.9 0.5 - 1.1 mg/dL [facility] Comment: NOTE: Estimated GFR (Cockroft-Gault) will NOT be calculated unless patient Height and Weight were entered. Also, Kidney Disease Stage (GFR) and Estimated GFR (Cockroft-Gault) will NOT be calculated if Creatinine result is <0.2. Kidney Disease Stage 66 mL/MIN [facility] Comment: NOTE; ??The GFR is an estimated value using the creatinine, sex, age, and race of the patient. THE Estimated Kidney Disease GFR is validated for AGES 18-70 YEARS STAGE ?mL/Min ?DESCRIPTION ??1 ?90 mL/min or more ?Normal or elevated GFR ??2 ? 60-89 mL/min ?Mildly decreased GFR ??3 ? 30-59 mL/min ?Moderately decreased GFR ??4 ? 15-29 mL/min ?Severely decreased GFR ??5 ? <15 mL/min ? Kidney failure or on dialysis Calcium 9.5 8.6 - 10.3 mg/dL [facility] Total Protein 7.1 6.4 - 8.3 g/dL [facility] Albumin 3.9 3.5 - 5.0 g/dL [facility] Globulin 3.2 2.3 - 3.5 gm/dL [facility] Albumin/Globulin Ratio 1.2 1.1 - 1.8 [facility] Total Bilirubin 0.3 0.0 - 1.2 mg/dL [facility] AST 16 0 - 32 U/L [facility] ALT 8 0 - 33 U/L [facility] Alkaline Phosphatase 53 35 - 104 U/L [facility] Blood specimen (specimen) 07/03/2020 10:52 AM CDT 07/03/2020 11:01 AM CDT Narrative Resulting Agency Comment RCR us Sarai Vargas DO LAB BLOOD ORDERABLES Final R esult [facility] [address] [address] * (ABNORMAL) CBC with auto differential (07/03/2020 10:52 AM CDT) WBC 4.2 3.8 - 9.9 X10 3/ul [facility] RBC 2.28(L) 3.90 - 5.20 x10 6/ul [facility] Hemoglobin 9.9(L) 11.9 - 15.5 g/dL [facility] Hct 29.5(L) 35.6 - 45.5 % [facility] MCV 129.4(H) 81.3 - 96.4 [facility] MCH 43.4(H) 27.1 - 33.[address] [facility] MCHC 33.6 32.3 - 35.7 g/dl [facility] RDW 12.3 11.1 - 14.9 % [facility] Plt Count 406(H) 150 - 400 x10 3/ul [facility] MPV 9.4 9.1 - 12.3 [facility] Neut % 57.6 % [facility] Immature Gran % 0.5 % [facility] Lymph % 27.9 % [facility] Canadian % 12.5 % [facility] Eos % 1.0 % [facility] AUTO BASO % 0.5 % [facility] NEUTROPHIL ABS # 2.4 1.7 - 6.5 x10 3/ul [facility] Immature Gran # 0.0 0.0 - 0.1 x10 3/ul [facility] Absolute Lymphs (auto) 1.2 0.8 - 3.3 x10 3/ul [facility] Absolute Monos (auto) 0.5 0.2 - 0.8 x10 3/ul [facility] Absolute Eos (auto) 0.0 0.0 - 0.5 x10 3/ul [facility] BASOPHIL ABS # 0.0 0.0 - 0.1 x10 3/ul [facility] Nucleat RBC Rel Count 0.0 #/100WBC [facility] NRBC abs 0.00 0.00 - 0.01 x10 3/ul [facility] Absolute Neutrophils 2,400 200 - 8,000 /ul [facility] Blood specimen (specimen) 07/03/2020 10:52 AM CDT 07/03/2020 11:01 AM CDT Narrative Resulting Agency Comment RCR us Sarai Vargas DO LAB BLOOD ORDERABLES Final R esult [facility] [address] [facility] [address] [place] [address] * (ABNORMAL) CBC with auto differential (05/08/2020 10:46 AM PRACTICAL NURSING FACULTY) WBC 7.0 3.8 - 9.9 X10 3/ul [facility] RBC 2.41(L) 3.90 - 5.20 x10 6/ul [facility] Hemoglobin 10.7(L) 11.9 - 15.5 g/dL [facility] Hct 31.4(L) 35.6 - 45.5 % [facility] MCV 130.3(H) 81.3 - 96.4 [facility] MCH 44.4(H) 27.1 - 33.[address] [facility] MCHC 34.1 32.3 - 35.7 g/dl [facility] RDW 12.9 11.1 - 14.9 % [facility] Plt Count 503(H) 150 - 400 x10 3/ul [facility] MPV 9.2 9.1 - 12.3 [facility] Neut % 71.5 % [facility] Immature Gran % 0.4 % [facility] Lymph % 20.1 % [facility] Canadian % 6.5 % [facility] Eos % 1.1 % [facility] AUTO BASO % 0.4 % [facility] NEUTROPHIL ABS # 5.0 1.7 - 6.5 x10 3/ul [facility] Immature Gran # 0.0 0.0 - 0.1 x10 3/ul [facility] Absolute Lymphs (auto) 1.4 0.8 - 3.3 x10 3/ul [facility] Absolute Monos (auto) 0.5 0.2 - 0.8 x10 3/ul [facility] Absolute Eos (auto) 0.1 0.0 - 0.5 x10 3/ul [facility] BASOPHIL ABS # 0.0 0.0 - 0.1 x10 3/ul [facility] Nucleat RBC Rel Count 0.0 #/100WBC [facility] NRBC abs 0.00 0.00 - 0.01 x10 3/ul [facility] Absolute Neutrophils 5,000 200 - 8,000 /ul [facility] Blood specimen (specimen) 05/08/2020 10:46 AM PRACTICAL NURSING FACULTY 05/08/2020 10:51 AM PRACTICAL NURSING FACULTY Narrative Resulting Agency Comment RCR us Sarai Vargas DO LAB BLOOD ORDERABLES Final R esult [place] [id number] [address] [address] * (ABNORMAL) CBC with auto differential (03/05/2020 10:43 AM PRACTICAL NURSING FACULTY) WBC 5.5 3.8 - 9.9 X10 3/ul [facility] RBC 2.48(L) 3.90 - 5.20 x10 6/ul [facility] Hemoglobin 10.7(L) 11.9 - 15.5 g/dL [facility] Hct 32.1(L) 35.6 - 45.5 % [facility] MCV 129.4(H) 81.3 - 96.4 [facility] MCH 43.1(H) 27.1 - 33.[address] [facility] MCHC 33.3 32.3 - 35.7 g/dl [facility] RDW 12.0 11.1 - 14.9 % [facility] Plt Count 417(H) 150 - 400 x10 3/ul [facility] MPV 9.1 9.1 - 12.3 [facility] Neut % 63.1 % [facility] Immature Gran % 0.5 % [facility] Lymph % 26.2 % [facility] Canadian % 8.2 % [facility] Eos % 1.5 % [facility] AUTO BASO % 0.5 % [facility] NEUTROPHIL ABS # 3.5 1.7 - 6.5 x10 3/ul [facility] Immature Gran # 0.0 0.0 - 0.1 x10 3/ul [facility] Absolute Lymphs (auto) 1.4 0.8 - 3.3 x10 3/ul [facility] Absolute Monos (auto) 0.5 0.2 - 0.8 x10 3/ul [facility] Absolute Eos (auto) 0.1 0.0 - 0.5 x10 3/ul [facility] BASOPHIL ABS # 0.0 0.0 - 0.1 x10 3/ul [facility] Nucleat RBC Rel Count 0.0 #/100WBC [facility] NRBC abs 0.00 0.00 - 0.01 x10 3/ul [facility] Absolute Neutrophils 3,500 200 - 8,000 /ul [facility] Blood specimen (specimen) 03/05/2020 10:43 AM PRACTICAL NURSING FACULTY 03/05/2020 10:52 AM PRACTICAL NURSING FACULTY Narrative Resulting Agency Comment RCR Sarai Vargas DO LAB BLOOD ORDERABLES [place] [address] documented in this encounter Visit Diagnoses Diagnosis Thrombocytosis- Primary Essential thrombocythemia Other iron deficiency anemia documented in this encounter Discontinued Medications Medication Sig Discontinue Reason Start Date End Da te Iron, ferrous sulfate, 325 mg (65 mg iron) tablet Take 1 tablet by mouth twice daily Reorder 11/08/2019 01/03/2020 documented as of this encounter Orders Appointment Requests Count Last Ordered Date Fi rst Ordered Date ONCBCN CLINIC APPOINTMENT REQUEST 2 2 021 01/03/2020 ONCBCN LAB APPOINTMENT 3 07/03/202003/05 documented in this encounter Care Teams Electrician Ship Relationship Specialty Start Date End Date Clive Wright MD PCP - General Family Medicine 09/15/18 Sarai Vargas DO [address] [place], [place] [id number] Medical Oncologist/Vice President Lending Hematology and Oncology 10/27/18 documented as of this encounter
--- OUTSIDE RECORDS SUMMARY | 2024-03-10 20:16 | XMS_ITS | Encounter Summary ---
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 Gender Identity Not on file Sexual [...] tablet 3 10/13/2019 04/18/2020 blood glucose diagnostic ([employer] Ultra Blue Test Strip) stripIndications :Type 2 [...] mouth daily 60 capsule 3 10/04/2019 02/16/2020 lisinopriL (PRINIVIL,ZESTRI L) 20 mg tablet Take [...] on filedocumented in this encounter Care Teams Dairy Science Teacher Relationship Specialty Start Date End Date Clive Wright MD PCP - General Family Medicine 09/15/18 Karthikeyan Elaine DO [address] [place] [address] Medical Oncologist/Research Program Intern Hematology and Oncology 10/27/18 documented as of this encounter
--- OUTSIDE RECORDS SUMMARY | 2024-03-10 20:16 | XMS_ITS | Encounter Summary ---
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
--- OUTSIDE RECORDS SUMMARY | 2024-03-10 20:16 | XMS_ITS | Encounter Summary ---
Author Organization [facility] Address [address] [place] [address] Phone Care Team Providers Care Lathe Spotter Name Role Phone Clive Wright MD Primary Care Provider [phone] Karthikeyan Elaine DO Unavailable [phone] Encounter Details Date Type Department Care Team (Late st Contact Info) Description 12/13/2019 Telephone [facility] Oncology [address] [facility] [address] [place] [phone] Isela Pichardo RN Social History Tobacco Use Types Packs/Day Years [...] on file 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 Elaine reviewed labs and he would like her to continue taking the Hydrea. Reminded her of her apt at the end of the month. Nina FORD * Telephone Encounter - Isela Pichardo RN - 12/13/2019 3:[address] Elaine reviewed 12/13/19 labs and would like patient to continue Hydrea 1000 mg daily. Called patient and left a message requesting a return call. documented in this encounter Plan of Treatment Not on file documented as of this encounter Visit Diagnoses Not on filedocumented in this encounter Care Teams Lathe Spotter Relationship Specialty Start Date End Date Clive Wright MD PCP - General Family Medicine 09/15/18 Karthikeyan Elaine DO [address] [place] [address] Medical Oncologist/Hr Assistant Hematology and Oncology 10/27/18 documented as of this encounter
--- OUTSIDE RECORDS SUMMARY | 2024-03-10 20:16 | XMS_ITS | Encounter Summary ---
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 Gender Identity Not on file Sexual Orientation Not on file Occupation Industry Job Start Date Job End Date Retired Not on file Not on file Not on file documented as of this encounter Plan of Treatment Not on file documented as of this encounter Procedures Procedure Name Priority Date/Time Associated Diagnosis Comments SCAN - RADIOLOGY/IMAGING 03/23/2020 documented in this encounter Results * SCAN - RADIOLOGY/IMAGING (03/23/2020) Anatomical Region Laterality Modality Other us Provider Scanning Edited Result - Final documented in this encounter Visit Diagnoses Not on filedocumented in this encounter Care Teams Relocation Coordinator Relationship Specialty Start Date End Date Clive Wright MD PCP - General Family Medicine 09/15/18 Karthikeyan Elaine DO [address] [place] [id number] Medical Oncologist/Hvac Installer Hematology and Oncology 10/27/18 documented as of this encounter
--- OUTSIDE RECORDS SUMMARY | 2024-03-10 20:16 | XMS_ITS | Encounter Summary ---
Author Organization [facility] Address [address] [place] [address] Phone Care Team Providers Care Sheep Rancher Name Role Phone Clive Wright MD Primary Care Provider [phone] Sarai Vargas DO Unavailable [phone] Reason for Visit * Reason Comments Thrombocytosis Follow-up Encounter Details Date Type Department Care Team (Latest Contact Info) Description 07/05/2019 11:45 AM CDT Office Visit [facility] Oncology [address] [phone] Sarai Vargas DO 14[address] [facility] [address] [place] [id number] Thrombocytosis (CMS/HCC) (Primary Dx) Social History [...] on file 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 Gender Identity Not on file Sexual Orientation Not on file Occupation Industry Job Start Date Job End Date Retired Not on file Not on file Not on file documented as of this encounter Last Filed Vital Signs Vital Sign Reading Time Taken Comments Blood Pressure 153/75 07/05/2019 11:23 AM CDT Pulse 73 07/05/2019 11:23 AM CDT Temperature 36.9 ??C (98.4 ??F) 07/05/2019 11:23 AM C DT Respiratory Rate 12 07/05/2019 11:23 AM CDT Oxygen Saturation 99% 07/05/2019 11:23 AM CDT Inhaled Oxygen Concentration - - Weight 57.4 kg (126 lb 9.6 oz) 07/05/2019 11:23 AM CDT Height 161.3 cm (5' 3.5 ) 07/05/2019 11:23 AM CD T Body Mass Index 22.07 07/05/2019 11:23 AM CDT documented in this encounter Ordered Prescriptions Prescription Sig Dispense Quantity Refills Last Filled Start Date End Date hydroxyurea (HYDREA) 500 mg capsule Take 1 capsule (500 mg total) by mouth daily 90 capsule 07/05/2019 0 documented in this encounter Progress Notes * Sarai Vargas, DO - 07/05/2019 11:45 AM CDT Patient ID: Ankita Perez is a 68 y.o. female. Primary Care Provider: Clive Wright MD Assessment/Plan 1. Chronic myeloproliferative disorder with thrombocytosis -JAK2 negative. 2. 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 According to the patient, the Rheumatology consultation dismissed any underlying autoimmune disorders. 3. Asymptomatic. Recommendations: 1. Patient will continue with hydroxyurea 500 mg daily. 2. I will see her back in 3 months with repeat blood work and examination. 3. She will continue with aspirin 81 mg daily. 4. If at next visit, her platelet count has not improved further, then I will you either increase the dose of the hydroxyurea or switch over to new therapy. Patient Active Problem List Diagnosis ??? Essential hypertension ??? Mixed hyperlipidemia ??? 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, without long- term current use of insulin (CMS/HCC) ??? Iron deficiency anemia ??? Thrombocytosis (CMS/HCC) Diagnoses and all orders for this visit: Thrombocytosis (CMS/HCC) (Primary) - Clinic Appointment Request Follow up; SARAI VARAGS; Clinic Appointment Location: [facility] IM ONC E2 180 - Clinic Appointment Request Follow up; SARAI VARGAS; Clinic Appointment Location: [facility] IM ONC E2 180; Future - Lab Draw Appt Request Arm Draw or Central Line Draw? Arm; What is your ordering location? IM Onc/Hem/BMT; Where will this patient receive treatment? [facility]; Future - CBC with auto differential; Future - Lactate dehydrogenase (LD); Future - Erythrocyte sedimentation rate; Future - Comprehensive metabolic panel; Future Other orders - hydroxyurea (HYDREA) 500 mg capsule; Take 1 capsule (500 mg total) by mouth daily Subjective Interval [...] Exam: Vital Signs for this encounter: BSA: 1.6 meters squared BP 153/75 (BP Location: Left arm) Pulse 73 Temp 36.9 ??C (98.4 ??F) (Oral) Resp 12 Ht 161.3cm (5' 3.5 ) Wt 57.4 kg (126 lb 9.6 oz) SpO2 99% BMI 22.07 kg/m?? Physical Exam Constitutional: Appearance: She is [...] Results: WBC Date Value Ref Range Status 07/05/2019 8.6 3.8 - 9.9 X10 3/ul Final 02/28/2019 7.5 3.8 - 10.8 Thousand/uL Final 01/04/2019 9.3 3.4 - 10.8 x10E3/uL Final Hgb Date Value Ref Range Status 02/28/2019 11.3 (L) 11.7 - 15.5 g/dL Final 01/04/2019 10.8 (L) 11.1 - 15.9 g/dL Final Hemoglobin Date Value Ref Range Status 07/05/2019 11.0 (L) 11.9 - 15.5 g/dL Final Hct Date Value Ref Range Status 07/05/2019 33.5 (L) 35.6 - 45.5 % Final 02/28/2019 34.7 (L) 35.0 - 45.0 % Final 01/04/2019 33.8 (L) 34.0 - 46.6 % Final Platelets Date Value Ref Range Status 02/28/2019 771 (H) 140 - 400 Thousand/uL Final 01/04/2019 932 (HH) 150 - 450 x10E3/uL Final Comment: Results verified by repeat testing Plt Count Date Value Ref Range Status 07/05/2019 713 (H) 150 - 400 x10 3/ul Final Lactate dehydrogenase (LDH) Date Value Ref Range Status 10/19/2018 164 119 - 226 IU/L Final Creatinine Date Value Ref Range Status 04/12/2019 1.13 (H) 0.50 - 0.99 mg/dL Final Comment: For patients >49 years of age, the reference limit for Creatinine is approximately 13% higher for people identified as -Mosoth[place]. AST Date Value Ref Range Status 04/12/2019 13 10 - 35 U/L Final documented in this encounter Miscellaneous Notes * Addendum Note - Samantha Alvarez RN - 07/05/2019 11:45 AM CDTAddended by: SAMANTHA ALVAREZ on: 2019 02:15 PM Modules accepted: Orders * Addendum Note - Samantha Alvarez RN - 07/05/2019 11:45 AM CDTAddended by: SAMANTHA ALVAREZ on: 2019 02:15 PM Modules accepted: Orders documented in this encounter Plan of Treatment Not on file documented as of this encounter Procedures Procedure Name Priority Date/Time Associated Diagnosis Comments CBC WITH AUTO DIFFERENTIAL Routine 10/04/2019 10:32 AM CDT Thrombocytosis (CMS/HCC) ERYTHROCYTE SEDIMENTATION RATE Routine 10/04/2019 10:32 AM CDT Thrombocytosis (CMS/HCC) LACTATE DEHYDROGENASE Routine 10/04/2019 10:32 AM CDT Thrombocytosis (CMS/HCC) COMPREHENSIVE METABOLIC PANEL Routine 10/04/2019 10:32 AM CDT Thrombocytosis (CMS/HCC) documented in this encounter Results * (ABNORMAL) Comprehensive metabolic panel (10/04/2019 10:32 AM CDT) Sodium 138 135 - 145 mmol/L [facility] Potassium 4.8 3.3 - 5.1 mmol/L [facility] Chloride 100 96 - 108 mmol/L [facility] Carbon Dioxide 21(L) 22 - 32 mmol/L [facility] Anion Gap 17(H) 7 - 16 [facility] Glucose 134(H) 70 - 100 mg/dL [facility] BUN 25 8 - 25 mg/dL [facility] Creatinine 1.1 0.5 - 1.1 mg/dL [facility] Comment: NOTE: Estimated GFR (Cockroft-Gault) will NOT be calculated unless patient Height and Weight were entered. Also, Kidney Disease Stage (GFR) and Estimated GFR (Cockroft-Gault) will NOT be calculated if Creatinine result is <0.2. Kidney Disease Stage 52 mL/MIN [facility] Comment: NOTE; ??The GFR is an [...] ? Kidney failure or on dialysis Calcium 9.6 8.6 - 10.3 mg/dL [facility] Total Protein 7.3 6.4 - 8.3 g/dL [facility] Albumin 4.2 3.5 - 5.0 g/dL [facility] Globulin 3.1 2.3 - 3.5 gm/dL [facility] Albumin/Globulin Ratio 1.4 1.1 - 1.8 [facility] Total Bilirubin 0.4 0.0 - 1.2 mg/dL [facility] AST 18 0 - 32 U/L [facility] ALT 12 0 - 33 U/L [facility] Alkaline Phosphatase 47 35 - 104 U/L [facility] Blood specimen (specimen) 10/04/2019 10:32 AM CDT 10/04/2019 10:36 AM CDT Narrative Resulting Agency Comment RCR us Sarai Vargas DO LAB BLOOD ORDERABLES Final R esult [facility] [address] [place] [address] * Erythrocyte sedimentation rate (10/04/2019 10:32 AM CDT) ESR 21 1 - 30 mm/hr [facility] Blood specimen (specimen) 10/04/2019 10:32 AM CDT 10/04/2019 10:36 AM CDT Narrative Resulting Agency Comment RCR us Sarai Vargas DO LAB BLOOD ORDERABLES Final R esult [address] [phone] * Lactate dehydrogenase (LD) (10/04/2019 10:32 AM CDT) Lactate Dehydrogenase 131 100 - 250 U/L [facility] Blood specimen (specimen) 10/04/2019 10:32 AM CDT 10/04/2019 10:36 AM CDT Narrative Resulting Agency Comment RCR us Sarai Vargas DO LAB BLOOD ORDERABLES Final R esult [facility] [address] [address] * (ABNORMAL) CBC with auto differential (10/04/2019 10:32 AM CDT) WBC 8.4 3.8 - 9.9 X10 3/ul [facility] RBC 2.94(L) 3.90 - 5.20 x10 6/ul [facility] Hemoglobin 11.0(L) 11.9 - 15.5 g/dL [facility] Hct 32.9(L) 35.6 - 45.5 % [facility] MCV 111.9(H) 81.3 - 96.4 [facility] MCH 37.4(H) 27.1 - 33.3 pg [facility] MCHC 33.4 32.3 - 35.7 g/dl [facility] RDW 12.6 11.1 - 14.9 % [facility] Plt Count 732(H) 150 - 400 x10 3/ul [facility] MPV 9.1 9.1 - 12.3 [facility] Neut % 66.1 % [facility] Immature Gran % 0.5 % [facility] Lymph % 23.3 % [facility] [place] % 6.9 % [facility] Eos % 2.7 % [facility] AUTO BASO % 0.5 % [facility] NEUTROPHIL ABS # 5.6 1.7 - 6.5 x10 3/ul [facility] Immature Gran # 0.0 0.0 - 0.1 x10 3/ul [facility] Absolute Lymphs (auto) 2.0 0.8 - 3.3 x10 3/ul [facility] Absolute Monos (auto) 0.6 0.2 - 0.8 x10 3/ul [facility] Absolute Eos (auto) 0.2 0.0 - 0.5 x10 3/ul [facility] BASOPHIL ABS # 0.0 0.0 - 0.1 x10 3/ul [facility] Nucleat RBC Rel Count 0.0 #/100WBC [facility] NRBC abs 0.00 0.00 - 0.01 x10 3/ul [facility] Absolute Neutrophils 5,600 200 - 8,000 /ul [facility] Blood specimen (specimen) 10/04/2019 10:32 AM CDT 10/04/2019 10:36 AM CDT Narrative Resulting Agency Comment RCR us Sarai Vargas DO LAB BLOOD ORDERABLES Final R esult [address] [address] documented in this encounter Visit Diagnoses Diagnosis Thrombocytosis- Primary Essential thrombocythemia documented in this encounter Discontinued Medications Medication Sig Discontinue Reason Start Date End Da te hydroxyurea (HYDREA) 500 mg capsule Take 1 capsule (500 mg total) by mouth daily Reorder 04/05/2019 07/05/2019 documented as of this encounter Orders Appointment Requests Count Last Ordered Date Fi rst Ordered Date ONCBCN CLINIC APPOINTMENT REQUEST 2 020 07/05/2019 ONCBCN LAB APPOINTMENT 1 10/04/2019 documented in this encounter Care Teams Sheep Rancher Relationship Specialty Start Date End Date Clive Wright MD PCP - General Family Medicine 09/15/18 Sarai Vargas DO [address] [place] [id number] Medical Oncologist/[facility] 10/27/18 documented as of this encounter
--- OUTSIDE RECORDS SUMMARY | 2024-03-10 20:16 | XMS_ITS | Encounter Summary ---
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
--- OUTSIDE RECORDS SUMMARY | 2024-03-10 20:16 | XMS_ITS | Encounter Summary ---
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 Gender Identity Not on file Sexual [...] tablet 11/02/2018 cyanocobalamin (Vitamin B-12) 1,000 mcg tabletIndications :Prevention of Vitamin B12 Deficiency Take 1 tablet (1,000 mcg total) by mouth daily atorvastatin (LIPITOR) 20 mg tablet Take 1 tablet (20 mg total) by mouth daily 90 tablet 3 04/14/2019 10/13/2019 blood glucose diagnostic (glucose blood) strip Test once daily 100 each 3 09/15/2018 09/15/2019 blood glucose diagnostic (ONETOUCH ULTRA BLUE TEST STRIP) strip daily 10/13/2019 ferrous sulfate 325 mg (65 mg of elemental iron) tablet Take 1 tablet (325 mg total) by mouth 2 (two) times a day 180 tablet 04/05/2019 07/12/2019 hydroCHLOROthiazi de (HYDRODIURIL) 25 mg tablet Take 1 tablet (25 mg total) by mouth daily 90 tablet 3 04/14/2019 10/13/2019 hydroxyurea (HYDREA) 500 mg capsule Take 1 capsule (500 mg total) by mouth daily 90 capsule 07/05/2019 10/04/2019 lisinopril (PRINIVIL,ZESTRIL ) 20 mg tablet Take 1 tablet (20 [...] on filedocumented in this encounter Care Teams Cab Starter Relationship Specialty Start Date End Date Clive Wright MD PCP - General Family Medicine 09/15/18 Karthikeyan Elaine DO [address] [place] [address] Medical Oncologist/Principal Software Architect Hematology and Oncology 10/27/18 documented as of this encounter
--- OUTSIDE RECORDS SUMMARY | 2024-03-10 20:16 | XMS_ITS | Encounter Summary ---
Author Organization [facility] Address [address] [place] [address] Phone Care Team Providers Care Commutator Repairer Name Role Phone Clive Wright MD Primary Care Provider [phone] Karthikeyan Elaine DO Unavailable [phone] Encounter Details Date Type Department Care Team (Late st Contact Info) Description 01/03/2020 10:30 AM CDT Lab [facility] Oncology [address] [place] [phone] Thrombocytosis (CMS/HCC) Social History Tobacco Use Types [...] on file 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
--- OUTSIDE RECORDS SUMMARY | 2024-03-10 20:16 | XMS_ITS | Encounter Summary ---
Author Organization [facility] Address [address] [place] [address] Phone Care Team Providers Care Auto Carrier Driver Name Role Phone Clive Wright MD Primary Care Provider [phone] Sarai Vargas DO Unavailable [phone] Reason for Visit * Reason Comments Follow-up Encounter Details Date Type Department Care Team (Latest Contact Info) Description 10/04/2019 11:30 AM CDT Office Visit [facility] 14[address] [facility] [address] [place] [address] [phone] Sarai Vargas DO 14[address] [facility] [place] [address] [place] [phone] Thrombocytosis (CMS/HCC) (Primary Dx) Social History [...] on file Legal Sex Female 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 Gender Identity Not on file Sexual Orientation Not on file Occupation Industry Job Start Date Job End Date Retired Not on file Not on file Not on file documented as of this encounter Last Filed Vital Signs Vital Sign Reading Time Taken Comments Blood Pressure 155/84 10/04/2019 11:49 AM CDT Pulse 73 10/04/2019 11:49 AM CDT Temperature 36.8 ??C (98.3 ??F) 10/04/2019 11:49 AM C DT Respiratory Rate 16 10/04/2019 11:49 AM CDT Oxygen Saturation 98% 10/04/2019 11:49 AM CDT Inhaled Oxygen Concentration - - Weight 57.8 kg (127 lb 6.4 oz) 10/04/2019 11:49 AM CDT Height 161.3 cm (5' 3.5 ) 10/04/2019 11:49 AM CD T Body Mass Index 22.21 10/04/2019 11:49 AM CDT documented in this encounter Ordered Prescriptions Prescription Sig Dispense Quantity Refills Last Filled Start Date End Date hydroxyurea (HYDREA) 500 mg capsule Take 2 capsules (1,000 mg total) by mouth daily 60 capsule 3 10/04/2019 0 documented in this encounter Progress Notes * Sarai Vargas, DO - 10/04/2019 11:30 AM CDT Patient ID: Ankita Perez is a 69 y.o. female. Primary Care Provider: Clive Wright MD Assessment/Plan Chronic myeloproliferative disorder with thrombocytosis -JAK2 negative. Recommendations: 1. Due to the fact that her platelet count remains in the 700,000 range, I will increase hydroxyurea up to 1000 mg daily. 2. Patient will continue have standing orders for CBC every 6 weeks. 3. I will see the patient back in 3 months for follow-up. 4. She will continue with low-dose aspirin for antiplatelet effect. Patient Active Problem List Diagnosis ??? Essential hypertension ??? Mixed hyperlipidemia ??? 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, without long- term current use of insulin (CMS/HCC) ??? Iron deficiency anemia ??? Thrombocytosis (CMS/HCC) Diagnoses and all orders for this visit: Thrombocytosis (CMS/HCC) (Primary) - Clinic Appointment Request Follow up; SARAI VARGAS; Clinic Appointment Location: [facility] 180 - Clinic Appointment Request Follow up; SARAI VARGAS; Clinic Appointment Location: [facility] [place] [facility] 180; Future - Lab Draw Appt Request Arm Draw or Central Line Draw? Arm; What is your ordering location? [facility]; [facility] - Comprehensive metabolic panel; Future - CBC with auto differential; Future - CBC with auto differential; Future - Lab Draw Appt Request Arm Draw or Central Line Draw? Arm; What is your ordering location? [facility]; [facility]; Future Other orders - hydroxyurea (HYDREA) 500 [...] Exam: Vital Signs for this encounter: BSA: 1.61 meters squared BP 155/84 (BP Location: Left arm) Pulse 73 Temp 36.8 ??C (98.3 ??F) (Oral) Resp 16 Ht 161.3cm (5' 3.5 ) Wt 57.8 kg (127 lb 6.4 oz) SpO2 98% BMI 22.21 kg/m?? Physical Exam Constitutional: Appearance: She is [...] Results: WBC Date Value Ref Range Status 10/04/2019 8.4 3.8 - 9.9 X10 3/ul Final 09/28/2019 7.1 3.8 - 10.8 Thousand/uL Final 01/04/2019 9.3 3.4 - 10.8 x10E3/uL Final Hgb Date Value Ref Range Status 09/28/2019 10.6 (L) 11.7 - 15.5 g/dL Final 01/04/2019 10.8 (L) 11.1 - 15.9 g/dL Final Hemoglobin Date Value Ref Range Status 10/04/2019 11.0 (L) 11.9 - 15.5 g/dL Final Hct Date Value Ref Range Status 10/04/2019 32.9 (L) 35.6 - 45.5 % Final 09/28/2019 31.8 (L) 35.0 - 45.0 % Final 01/04/2019 33.8 (L) 34.0 - 46.6 % Final Platelets Date Value Ref Range Status 09/28/2019 697 (H) 140 - 400 Thousand/uL Final 01/04/2019 932 (HH) 150 - 450 x10E3/uL Final Comment: Results verified by repeat testing Plt Count Date Value Ref Range Status 10/04/2019 732 (H) 150 - 400 x10 3/ul Final Lactate dehydrogenase (LDH) Date Value Ref Range Status 10/19/2018 164 119 - 226 IU/L Final Lactate Dehydrogenase Date Value Ref Range Status 10/04/2019 131 100 - 250 U/L Final Creatinine Date Value Ref Range Status 10/04/2019 1.1 0.5 - 1.1 mg/dL Final Comment: NOTE: [...] approximately 13% higher for people identified as -Tajik. AST Date Value Ref Range Status 10/04/2019 18 0 - 32 U/L Final 09/28/2019 14 10 - 35 U/L Final documented in this encounter Plan of Treatment Not on file documented as of this encounter Procedures Procedure Name Priority Date/Time Associated Diagnosis Comments CBC WITH AUTO DIFFERENTIAL Routine 01/03/2020 10:25 AM CDT Thrombocytosis (CMS/HCC) COMPREHENSIVE METABOLIC PANEL Routine 01/03/2020 10:25 AM CDT Thrombocytosis (CMS/HCC) CBC WITH AUTO DIFFERENTIAL Routine 11/15/2019 11:27 AM CDT Thrombocytosis (CMS/HCC) documented in this encounter Results * (ABNORMAL) CBC with auto differential (01/03/2020 10:25 AM CDT) WBC 5.5 3.8 - 9.9 X10 3/ul [facility] RBC 2.55(L) 3.90 - 5.20 x10 6/ul [facility] Hemoglobin 10.5(L) 11.9 - 15.5 g/dL [facility] Hct 31.2(L) 35.6 - 45.5 % [facility] MCV 122.4(H) 81.3 - 96.4 [facility] MCH 41.2(H) 27.1 - 33.3 pg [facility] MCHC 33.7 32.3 - 35.7 g/dl [facility] RDW 16.9(H) 11.1 - 14.9 % [facility] Plt Count 460(H) 150 - 400 x10 3/ul [facility] MPV 9.0(L) 9.1 - 12.3 [facility] Neut % 68.4 % [facility] Immature Gran % 0.4 % [facility] Lymph % 21.3 % [facility] [place] % 7.8 % [facility] Eos % 1.6 % [facility] AUTO BASO % 0.5 % [facility] NEUTROPHIL ABS # 3.8 1.7 - 6.5 x10 3/ul [facility] Immature Gran # 0.0 0.0 - 0.1 x10 3/ul [facility] Absolute Lymphs (auto) 1.2 0.8 - 3.3 x10 3/ul [facility] Absolute Monos (auto) 0.4 0.2 - 0.8 x10 3/ul [facility] Absolute Eos (auto) 0.1 0.0 - 0.5 x10 3/ul [facility] BASOPHIL ABS # 0.0 0.0 - 0.1 x10 3/ul [facility] Nucleat RBC Rel Count 0.0 #/100WBC [facility] NRBC abs 0.00 0.00 - 0.01 x10 3/ul [facility] Absolute Neutrophils 3,800 200 - 8,000 /ul [facility] Blood specimen (specimen) 01/03/2020 10:25 AM CDT 01/03/2020 10:37 AM CDT Narrative Resulting Agency Comment RCR us Sarai Vargas DO LAB BLOOD ORDERABLES Final R esult [facility] [address] [id number] * (ABNORMAL) Comprehensive metabolic panel (01/03/2020 10:25 AM CDT) Sodium 136 135 - 145 mmol/L [facility] Potassium 4.6 3.3 - 5.1 mmol/L [facility] Chloride 97 96 - 108 mmol/L [facility] Carbon Dioxide 24 22 - 32 mmol/L [facility] Anion Gap 15 7 - 16 [facility] Glucose 153(H) 70 - 100 mg/dL [facility] BUN 30(H) 8 - 25 mg/dL [facility] Creatinine 1.2(H) 0.5 - 1.1 mg/dL [facility] Comment: NOTE: Estimated GFR (Cockroft-Gault) will NOT be calculated unless patient Height and Weight were entered. Also, Kidney Disease Stage (GFR) and Estimated GFR (Cockroft-Gault) will NOT be calculated if Creatinine result is <0.2. Kidney Disease Stage 47 mL/MIN [facility] Comment: NOTE; ??The GFR is an [...] ? Kidney failure or on dialysis Calcium 9.8 8.6 - 10.3 mg/dL [facility] Total Protein 7.6 6.4 - 8.3 g/dL [facility] Albumin 4.4 3.5 - 5.0 g/dL [facility] Globulin 3.2 2.3 - 3.5 gm/dL [facility] Albumin/Globulin Ratio 1.4 1.1 - 1.8 [facility] Total Bilirubin 0.3 0.0 - 1.2 mg/dL [facility] AST 17 0 - 32 U/L [facility] ALT 10 0 - 33 U/L [facility] Alkaline Phosphatase 55 35 - 104 U/L [facility] Blood specimen (specimen) 01/03/2020 10:25 AM CDT 01/03/2020 10:37 AM CDT Narrative Resulting Agency Comment RCR us Sarai Vargas DO LAB BLOOD ORDERABLES Final R esult [address] [address] * (ABNORMAL) CBC with auto differential (11/15/2019 11:27 AM CDT) WBC 6.3 3.8 - 9.9 X10 3/ul [facility] RBC 2.54(L) 3.90 - 5.20 x10 6/ul [facility] Hemoglobin 9.8(L) 11.9 - 15.5 g/dL [facility] Hct 29.7(L) 35.6 - 45.5 % [facility] MCV 116.9(H) 81.3 - 96.4 fl [facility] MCH 38.6(H) 27.1 - 33.3 pg [facility] MCHC 33.0 32.3 - 35.7 g/dl [facility] RDW 16.6(H) 11.1 - 14.9 % [facility] Plt Count 390 150 - 400 x10 3/ul [facility] MPV 9.0(L) 9.1 - 12.3 fl [facility] Neut % 65.1 % [facility] Immature Gran % 0.5 % [facility] Lymph % 23.9 % [facility] [place] % 8.4 % [facility] Eos % 1.6 % [facility] AUTO BASO % 0.5 % [facility] NEUTROPHIL ABS # 4.1 1.7 - 6.5 x10 3/ul [facility] Immature Gran # 0.0 0.0 - 0.1 x10 3/ul [facility] Absolute Lymphs (auto) 1.5 0.8 - 3.3 x10 3/ul [facility] Absolute Monos (auto) 0.5 0.2 - 0.8 x10 3/ul [facility] Absolute Eos (auto) 0.1 0.0 - 0.5 x10 3/ul [facility] BASOPHIL ABS # 0.0 0.0 - 0.1 x10 3/ul [facility] Nucleat RBC Rel Count 0.0 #/100WBC [facility] NRBC abs 0.00 0.00 - 0.01 x10 3/ul [facility] Absolute Neutrophils 4,100 200 - 8,000 /ul [facility] Blood specimen (specimen) 11/15/2019 11:27 AM CDT 11/15/2019 11:29 AM CDT Narrative Resulting Agency Comment RCR us Sarai Vargas DO LAB BLOOD ORDERABLES Final R esult [facility] [address] [place] [address] [phone] documented in this encounter Visit Diagnoses Diagnosis Thrombocytosis- Primary Essential thrombocythemia documented in this encounter Discontinued Medications Medication Sig Discontinue Reason Start Date End Da te hydroxyurea (HYDREA) 500 mg capsule Take 1 capsule (500 mg total) by mouth daily 07/05/2019 10/04/2019 documented as of this encounter Orders Appointment Requests Count Last Ordered Date Fi rst Ordered Date ONCBCN CLINIC APPOINTMENT REQUEST 2 020 10/04/2019 ONCBCN LAB APPOINTMENT 2 01/03/202011/14 documented in this encounter Care Teams Auto Carrier Driver Relationship Specialty Start Date End Date Clive Wright MD PCP - General Family Medicine 09/15/18 Sarai Vargas DO [address] [place] [id number] Medical Oncologist/Architectural Superintendent Hematology and Oncology 10/27/18 documented as of this encounter
--- OUTSIDE RECORDS SUMMARY | 2024-03-10 20:16 | XMS_ITS | Encounter Summary ---
Author Organization [facility] Address [address] [place] [address] Phone Care Team Providers Care Vat Tender Name Role Phone Clive Wright MD Primary Care Provider [phone] Karthikeyan Elaine DO Unavailable [phone] Encounter Details Date Type Department Care Team (Late st Contact Info) Description 03/05/2020 11:00 AM TRUCK RENTAL MANAGER Lab [facility] Oncology [address] [place] [phone] Thrombocytosis (CMS/HCC); Other iron deficiency anemia Social [...] on file Legal Sex Female 8:44 PM TRUCK 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
--- OUTSIDE RECORDS SUMMARY | 2024-03-10 20:16 | XMS_ITS | Encounter Summary ---
Author Organization [facility] Address [address] [place] [address] Phone Care Team Providers Care Braiding Machine Tender Name Role Phone Clive Wright MD Primary Care Provider [phone] Karthikeyan Elaine DO Unavailable [phone] Encounter Details Date Type Department Care Team (Late st Contact Info) Description 12/05/2019 Orders Only [facility] Oncology 14[address] [facility] [address] [place] [phone] Karthikeyan Elaine DO 1418 [facility] [place] [address] [place] [phone] Thrombocytosis (CMS/HCC) (Primary Dx) Social History [...] on file 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 Gender Identity Not on file Sexual Orientation Not on file Occupation Industry Job Start Date Job End Date Retired Not on file Not on file Not on file documented as of this encounter Plan of Treatment Not on file documented as of this encounter Procedures Procedure Name Priority Date/Time Associated Diagnosis Comments CBC WITH AUTO DIFFERENTIAL Routine 12/13/2019 11:20 AM CDT Thrombocytosis (CMS/HCC) documented in this encounter Results * (ABNORMAL) CBC with auto differential (12/13/2019 11:20 AM CDT) WBC 4.9 3.8 - 9.9 X10 3/ul [facility] RBC 2.59(L) 3.90 - 5.20 x10 6/ul [facility] Hemoglobin 10.4(L) 11.9 - 15.5 g/dL [facility] Hct 30.9(L) 35.6 - 45.5 % [facility] MCV 119.3(H) 81.3 - 96.4 fl [facility] MCH 40.2(H) 27.1 - 33.3 pg [facility] MCHC 33.7 32.3 - 35.7 g/dl [facility] RDW 17.6(H) 11.1 - 14.9 % [facility] Plt Count 448(H) 150 - 400 x10 3/ul [facility] MPV 8.9(L) 9.1 - 12.3 fl [facility] Neut % 62.5 % [facility] Immature Gran % 0.4 % [facility] Lymph % 26.4 % [facility] [place] % 9.1 % [facility] Eos % 1.2 % [facility] AUTO BASO % 0.4 % [facility] NEUTROPHIL ABS # 3.1 1.7 - 6.5 x10 3/ul [facility] Immature Gran # 0.0 0.0 - 0.1 x10 3/ul [facility] Absolute Lymphs (auto) 1.3 0.8 - 3.3 x10 3/ul [facility] Absolute Monos (auto) 0.5 0.2 - 0.8 x10 3/ul [facility] Absolute Eos (auto) 0.1 0.0 - 0.5 x10 3/ul [facility] BASOPHIL ABS # 0.0 0.0 - 0.1 x10 3/ul [facility] Nucleat RBC Rel Count 0.0 #/100WBC [facility] NRBC abs 0.00 0.00 - 0.01 x10 3/ul [facility] Absolute Neutrophils 3,100 200 - 8,000 /ul [facility] Blood specimen (specimen) 12/13/2019 11:20 AM CDT 12/13/2019 11:26 AM CDT Narrative Resulting Agency Comment RCR us Karthikeyan Elaine DO LAB BLOOD ORDERABLES Final R esult [address] [address] documented in this encounter Visit Diagnoses Diagnosis Thrombocytosis- Primary Essential thrombocythemia documented in this encounter Orders Appointment Requests Count Last Ordered Date Fi rst Ordered Date ONCBCN LAB APPOINTMENT 1 12/13/2019 documented in this encounter Care Teams Braiding Machine Tender Relationship Specialty Start Date End Date Clive Wright MD PCP - General Family Medicine 09/15/18 Karthikeyan Elaine DO [address] [place] [id number] Medical Oncologist/Nut Orchardist Hematology and Oncology 10/27/18 documented as of this encounter
--- OUTSIDE RECORDS SUMMARY | 2024-03-10 20:16 | XMS_ITS | Encounter Summary ---
Author Organization [facility] Healthcare Address [address] [place] [address] Care Team Providers Care Tack Picker Name Role Phone Clive Wright MD Primary Care Provider [phone] Karthikeyan Elaine DO Unavailable [phone] Encounter Details Date Type Department Care Team (Late st Contact Info) Description 04/21/2019 11:51 AM LPC Hospital Encounter [facility] INTERIM David Benavidez MD [address] [facility], [address] [id number] Social History Tobacco Use Types Packs/Day Years [...] on file Legal Sex Female 8:44 PM LPC Gender Identity Not on file Sexual Orientation [...] mg total) by mouth daily 90 capsule 04/05/2019 07/05/2019 lisinopril (PRINIVIL,ZESTRIL ) 20 mg tablet Take [...] Procedure Name Priority Date/Time Associated Diagnosis Comments JULIA SCREEN REFLEX TITER/PATTERN, REFLEX MULTIPLEX ANTIBODY CASCADE Routine 04/21/2019 12:17 PM LPC BUENROSTRO ANTIBODIES Routine 04/21/2019 12:1 7 PM LPC SJOGREN'S SYNDROME A/B ANTIBODIES Routine 04/21/2019 12:17 PM LPC documented in this encounter Results * Buenrostro antibodies (04/21/2019 12:17 PM LPC) Sm (Buenrostro) IgG Ab, Quant 0 0 - 40 AU/mL [facility] Comment: INTERPRETIVE INFORMATION: Buenrostro (LYUBOV) Antibody, IgG ??29 AU/mL or Less ............. Negative ??30 - 40 AU/mL ................ Equivocal ??41 AU/mL or Greater .......... Positive Buenrostro antibody is highly specific (greater than 90 percent) for systemic lupus erythematosus (SLE) but only occurs in 30-35 percent of SLE cases. The presence of antibodies to Buenrostro has variable associations with SLE clinical manifestations. Performed by [facility], [address] [place] [address] [email or web address], Tera Henley MD, Lab. Director 04/21/2019 12:1 7 PM LPC 04/21/2019 12:30 PM LPC Narrative [facility] - 04/24/2019 8:44 AM LPC [place] YES YES Resulting Agency Comment CLI us David Benavidze MD LAB BLOOD ORDERABLES Final Res ult [facility] [address] [place] [address], [facility] [phone] * Sjogren's syndrome A/B antibodies (04/21/2019 12:17 PM LPC) Pathologist [facility] SS-A/Ro IgG Antibody 4 0 - 40 AU/mL [facility] Comment: INTERPRETIVE INFORMATION: SSA-52 (Ro52) (LYUBOV) Antibody, IgG ??29 AU/mL or Less ............. Negative ??30 - 40 AU/mL ................ Equivocal ??41 AU/mL or Greater .......... Positive SSA-52 (Ro52) and/or SSA-60 (Ro60) antibodies are associated with a diagnosis of Sjogren syndrome, systemic lupus erythematosus (SLE), and systemic sclerosis. SSA-52 antibody overlaps significantly with the major SSc-related antibodies. SSA-52 (Ro52) antibody occurs frequently in patients with inflammatory myopathies, often in the presence of interstitial lung disease. SS-A IgG Ab 1 0 - 40 AU/mL [facility] Comment: REFERENCE INTERVAL: SSA-60 (Ro60) (LYUBOV) Antibody, IgG ??29 AU/mL or Less ............. Negative ??30 - 40 AU/mL ................ Equivocal ??41 AU/mL or Greater .......... Positive SS-B/La IgG Antibody 4 0 - 40 AU/mL [facility] Comment: INTERPRETIVE INFORMATION: SSB (La) (LYUBOV) Ab, IgG ??29 AU/mL or Less ............. Negative ??30 - 40 AU/mL ................ Equivocal ??41 AU/mL or Greater .......... Positive SSB (La) antibody is seen in 50-60% of Sjogren syndrome cases and is specific if it is the only LYUBOV antibody present. 15-25% of patients with systemic lupus erythematosus (SLE) and 5-10% of patients with progressive systemic sclerosis (PSS) also have this antibody. Performed by [facility], [address] [place], [place] [id number] [email or web address], Tera Henley MD, Lab. Director 04/21/2019 12:1 7 PM LPC 04/21/2019 12:30 PM LPC Narrative [facility] - 04/24/2019 8:44 AM LPC [place] YES YES Resulting Agency Comment CLI us David Benavidez MD LAB BLOOD ORDERABLES Final Res ult [facility] [address] [place] [address], [facility] [phone] * (ABNORMAL) JULIA Screen,IFA w/Reflex Titer Pattern (04/21/2019 12:17 PM LPC) JULIA by Amparo, IgG Detected (A) None Detected [facility] Comment: Antibodies to Anti-Nuclear Antibodies (JULIA) detected. Additional testing to follow. INTERPRETIVE INFORMATION: Anti-Nuclear Antibodies (JULIA), IgG by AMPARO Antinuclear Antibodies (JULIA), IgG by AMPARO: JULIA specimens are screened using enzyme-linked immunosorbent assay (AMPARO) methodology. All [facility] results reported as Detected are further tested by indirect fluorescent assay (IFA) using HEp-2 substrate with an IgG-specific conjugate. The JULIA AMPARO screen is designed to detect antibodies against dsDNA, histones, SS-A (Ro), SS-B (La), Buenrostro, Buenrostro/AIRBRUSH ARTIST TECHNICAL, Scl-70, Celia-1, centromeric proteins, other antigens extracted from the HEp-2 cell nucleus. JULIA AMPARO assays have been reported to have lower sensitivities than JULIA IFA for systemic autoimmune rheumatic diseases (SARD). Negative results do not necessarily rule out SARD. Performed by [facility], [address] [place] [id number] [email or web address] [facility], Tera Henley MD, Lab. Director JULIA HEP-2, IgG Detected (A) <1:80 [facility] JULIA interpretive comment See Note [facility] Comment: Speckled Pattern Clinical associations: SLE, SSc, SjS, DM, PM, MCTD, UCTD. May also be found in healthy individuals Main autoantibodies: Anti-SSA-52 (Ro52), anti-SSA-60 (Ro60), anti-SS-B/LA, anti-Eladio-1 (anti-Scl-70), Buenrostro, anti-U1-AIRBRUSH ARTIST TECHNICAL, anti-U2-AIRBRUSH ARTIST TECHNICAL, anti-Mi-2, anti-TIF1g, anti-Ku, anti-RNA polymerase, anti-DFS70/LEDGF-P75 Cytoplasmic Pattern Clinical associations: ARS, ILD, IM, ??SLE, SSc,, SjS,RA,MCTD, PBC, AIH, ??infectious, neurologic, and other inflammatory conditions. May also be found in healthy individuals Main autoantibodies: Anti-Ribosomal P, anti-tRNA synthetase (anti-Celia-1, anti-PL-7, anti-PL-12, anti-EJ, anti-OJ), anti-signal recognition particle (anti-SRP) or anti-mitochondria (anti-AMA) Clinical Relevance Antisynthetase syndrome (ARS), chronic active hepatitis (CAH), ??inflammatory ??myopathies (IM) [dermatomyositis (DM), polymyositis (PM), necrotizing autoimmune myopathy (NAM)], interstitial lung disease (ILD), juvenile idiopathic arthritis (ALEJO), mixed connective tissue disease (MCTD), primary biliary cholangitis (PBC), rheumatoid arthritis (RA), systemic autoimmune rheumatic diseases (SARD), Sjogren syndrome (SjS), systemic lupus erythematosus (SLE), systemic sclerosis (SSc), undifferentiated connective tissue disease (UCTD). INTERPRETIVE INFORMATION: JULIA Interpretive Comment Presence of antinuclear antibodies (JULIA) is a hallmark feature of systemic autoimmune rheumatic diseases (SARD). JULIA lacks diagnostic specificity and is associated with a variety of diseases (cancers, autoimmune, infectious, and inflammatory conditions) and may also occur in healthy individuals in varying prevalence. The lack of diagnostic specificity requires confirmation of positive JULIA by more-specific serologic tests. JULIA (nuclear reactivity) positive patterns reported include centromere, homogeneous, nuclear dots, nucleolar, or speckled. Cytoplasmic pattern is reported as JULIA negative. All patterns are reported to endpoint titers (1:2560). Reported patterns may help guide differential diagnosis, although they may not be specific for individual antibodies or diseases. Negative results do not necessarily rule out SARD. Performed by [facility], [address] [facility] [place] [id number] www[email or web address], Tera Henley MD, Lab. Director JULIA pattern Speckled (A) [facility] JULIA titer 1:160(A) [facility] Comment: Performed by [facility], [address] [place] [address] www[facility] [facility] MD, Lab. Director JULIA cytoplasmic pattern titer 1:320(A) [facility] Comment: Performed by [facility], [address] [facility] [place] [place] [address] www[email or web address] [facility] MD, Lab. Director 04/21/2019 12:1 7 PM LPC 04/21/2019 12:30 PM LPC Narrative [facility] - 04/24/2019 8:44 AM LPC [place] YES YES Resulting Agency Comment CLI us David Benavidez MD LAB BLOOD ORDERABLES Edited Re danielle - Final [facility] [place] [address], [facility] [phone] documented in this encounter Visit Diagnoses Not on filedocumented in this encounter Care Teams Tack Picker Relationship Specialty Start Date End Date Clive Wright MD PCP - General Family Medicine 09/15/18 Karthikeyan Elaine DO [address] [place] [id number] Medical Oncologist/Telemetry Nurse Hematology and Oncology 10/27/18 documented as of this encounter
--- OUTSIDE RECORDS SUMMARY | 2024-03-10 20:16 | XMS_ITS | Encounter Summary ---
Author Organization [facility] Healthcare Address [address] [place] [address] Care Team Providers Care Photocomposing Machine Operator Name Role Phone Clive Wright MD Primary Care Provider [phone] Karthikeyan Elaine DO Unavailable [phone] Encounter Details Date Type Department Care Team (Late st Contact Info) Description 03/05/2020 10:38 AM FAMILY PROGRAM SPECIALIST - 03/08/2020 11:59 PM FAMILY PROGRAM SPECIALIST Hospital Encounter [facility] OP INTERIM Karthikeyan Elaine DO [address] [address] Social History Tobacco Use Types Packs/Day Years [...] on file Legal Sex Female 8:44 PM FAMILY PROGRAM SPECIALIST Gender Identity Not on file Sexual [...] tablet 3 10/13/2019 04/18/2020 blood glucose diagnostic (YaKlass Ultra Blue Test Strip) stripIndications :Type 2 [...] capsules by mouth once daily 60 capsule 2 02/16/2020 05/25/2020 lisinopriL (PRINIVIL,ZESTRI L) 20 mg tablet Take [...] on filedocumented in this encounter Care Teams Photocomposing Machine Operator Relationship Specialty Start Date End Date Clive Wright MD PCP - General Family Medicine 09/15/18 Karthikeyan Elaine DO [address] [place] [id number] Medical Oncologist/Power Electronics Research Engineer Hematology and Oncology 10/27/18 documented as of this encounter
--- OUTSIDE RECORDS SUMMARY | 2024-03-10 20:16 | XMS_ITS | Encounter Summary ---
Author Organization [facility] Address [address] [place] [address] Care Team Providers Care Roofing Technician Name Role Phone Clive Wright MD Primary Care Provider [phone] Karthikeyan Elaine DO Unavailable [phone] Reason for Visit * Reason Comments Medicare Wellness Encounter Details Date Type Department Care Team (Late st Contact Info) Description 10/13/2019 11:15 AM CDT Office Visit [facility] Family Medicine [address] [place] [address] [place] [address] [place] [phone] Medicare annual wellness visit, subsequent (Primary Dx); Essential hypertension; Mixed hyperlipidemia; 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, without long-term current use of insulin ([facility]); Thrombocytosis ([facility]); Iron deficiency anemia; Visit for screening mammogram; Postmenopausal Social History Tobacco Use Types Packs/Day Years [...] on file 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 Gender Identity Not on file Sexual Orientation Not on file Occupation Industry Job Start Date Job End Date Retired Not on file Not on file Not on file documented as of this encounter Last Filed Vital Signs Vital Sign Reading Time Taken Comments Blood Pressure 160/90 10/13/2019 11:25 AM CDT Pulse 77 10/13/2019 11:25 AM CDT Temperature 36.3 ??C (97.3 ??F) 10/13/2019 11:25 AM C DT Respiratory Rate 18 10/13/2019 11:25 AM CDT Oxygen Saturation 97% 10/13/2019 11:25 AM CDT Inhaled Oxygen Concentration - - Weight 58.2 kg (128 lb 6.4 oz) 10/13/2019 11:25 AM CDT Height 161.3 cm (5' 3.5 ) 10/13/2019 11:25 AM CD T Body Mass Index 22.39 10/13/2019 11:25 AM CDT documented in this encounter Ordered Prescriptions Prescription Sig Dispense Quantity Refills Last Filled Start Date End Date blood glucose diagnostic ([employer] Ultra Blue Test Strip) stripIndications:T ype 2 diabetes 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, without long-term current use of insulin ([facility]) ([facility]) 1 each by other route as directed Checks blood sugar daily 100 each 3 10/13/2019 2 atorvastatin (LIPITOR) 20 mg tablet Take 1 tablet (20 mg total) by mouth daily 90 tablet 3 10/13/2019 1 hydroCHLOROthiazid e (HYDRODIURIL) 25 mg tablet Take 1 tablet (25 mg total) by mouth daily 90 tablet 3 10/13/2019 1 lisinopriL (PRINIVIL,ZESTRIL) 20 mg tablet Take 1 tablet (20 mg total) by mouth daily 90 tablet 3 10/13/2019 1 metFORMIN (GLUCOPHAGE) 500 mg tablet Take 1 tablet (500 mg total) by mouth 2 (two) times a day 90 tablet 3 10/13/2019 1 metoprolol XL (TOPROL-XL) 25 mg extended release tablet Take 1 tablet (25 mg total) by mouth daily 90 tablet 3 10/13/2019 1 Tradjenta 5 mg tablet Take 1 tablet (5 mg total) by mouth daily 90 tablet 3 10/13/2019 1 documented in this encounter Progress Notes * Clive Wright MD - 10/13/2019 11:15 AM CDT Images from the original note were not included. [facility]NU[facility]LLNESS [facility]ISIT Patient Name: Ankita Perez Date Of : 1950 Date Of Service: @DATEOFSERVICE@ Medicare Health Risk Assessment Basic Information In general, would you say your health is: Good Do you have an Advanced Directive (Living Will) and/or Durable Power of Medical Attendant?: No Would you like information regarding Advanced Directiv (Living Will) and/or Durable Power of Medical Attendant?: No Do you have trouble hearing the television or radio when other do not?: No Do you have to strain or [...] and/or getting your own medications: No HPI: 69-year-old female. Currently doing well. She did her labs. Platelets 165136. Seeing Hematology. She checks her blood pressure at home it has been controlled. No shortness of breath or chest pain. She otherwise active weight stable habits negative. ROS Review [...] without long- term current use of insulin ([facility]) ??? Iron deficiency anemia ??? Thrombocytosis (CMS/HCC) ??? Medicare annual wellness visit, subsequent Past Medical History: Diagnosis Date ??? Diabetes mellitus (CMS/HCC) ??? Hyperlipidemia ??? Hypertension Past Surgical History: [...] on file Occupational History ??? Occupation: Retired Social Needs ??? Financial resource strain: Not on file ??? Food insecurity Worry: Not on file Inability: Not on file ??? Transportation needs Medical: Not on file Non-medical: Not on file Tobacco Use ??? Smoking status: Never Smoker ??? Smokeless tobacco: Never Used Substance and Sexual Activity ??? Alcohol use: Not Currently Frequency: Never Comment: occasion ??? Drug use: Never ??? Sexual activity: Yes Lifestyle ??? Physical activity Days per week: Not on file Minutes per session: Not on file ??? Stress: Not on file Relationships ??? Social connections Talks on phone: Not on file Gets together: Not on file Attends scientology service: Not on file Active member of club or organization: Not on file Attends meetings of clubs or organizations: Not on file Relationship status: Not on file ??? Intimate partner violence Fear of current or ex partner: Not on file Emotionally abused: Not on file Physically abused: Not on file Forced sexual activity: Not on file Other Topics Concern ??? Not on file Social History Narrative ??? Not on file Allergies: No Known Allergies Medications: Current Outpatient Medications: ??? ascorbic acid (ascorbic acid with rachel hips) 500 mg tablet,chewable, , Disp: , Rfl: ??? aspirin 81 mg enteric coated tablet, Take 1 tablet (81 mg total) by mouth daily, Disp: 30 tablet, Rfl: 0 ??? atorvastatin (LIPITOR) 20 mg tablet, Take 1 tablet (20 mg total) by mouth daily, Disp: 90 tablet, Rfl: 3 ??? blood glucose diagnostic ([employer] Ultra Blue Test Strip) strip, 1 each by other route as directed Checks blood sugar daily, Disp: 100 each, Rfl: 3 ??? cyanocobalamin (Vitamin B-12) 1,000 mcg tablet, Take 1,000 mcg by mouth daily, Disp: , Rfl: ??? ferrous sulfate 325 mg (65 mg of elemental iron) tablet, Take 1 tablet (325 mg total) by mouth 2 (two) times a day, Disp: 180 tablet, Rfl: 0 ??? hydroCHLOROthiazide (HYDRODIURIL) 25 mg [...] times a day, Disp: 90 tablet, Rfl: 3 ??? metoprolol XL (TOPROL-XL) 25 mg extended [...] Little Interest or Pleasure in Doing Things: Several days Feeling Down, Depressed, or Hopeless: Several days PHQ-2 Total Score (If total score is 3 or more points, staff should administer the PHQ-9): 2 Over the past 2 weeks, how often have you been bothered by any of the following problems? Little Interest or Pleasure in Doing Things: Several days Feeling Down, Depressed, or Hopeless: Several days Vitals: Vitals BP 160/90 (BP Location: Right arm, Patient Position: Sitting) Pulse 77 Temp 36.3 ??C (97.3 ??F) (Transdermal) Resp 18 Ht 161.3 cm (5' 3.5 ) Wt 58.2 kg (128 lb 6.4 oz) SpO2 97% BMI 22.39 kg/m?? Body mass index is 22.39 kg/m??. Hearing and Vision Screening: Age related [...] (Family Medicine) Karthikeyan Elaine DO as Medical Oncologist/Store Product Demonstrator (Hematology and Oncology) Primary Pharmacy/DME suppliers: [facility] [address] [place], [place] [address] [facility] [address] [facility] [address] [id number] [place], [place] [address] [facility] [address] [facility] [address] Detection of Cognitive Impairment: The patient does not have cognitive impairment based on direct observation, discussion with patientor family, or review of medical records. Health Maintenance: Health Maintenance Topics with due status: Overdue Topic Date Due Regular Well Visit/Exam 1950 Breast Cancer Screening-Mammogram 1950 Osteoporosis Screening-Bone Density Scan 1950 Colon Cancer Screening-Colonoscopy 1950 Hepatitis C Screening 1950 Dilated Eye Exam 08/12/1959 DTaP/Tdap/Td Vaccine 1960 Zoster Vaccines 08/12/1999 Pneumococcal (PCV13 & PPSV23) 65+ yrs 2014 Urine Microalbumin 08/27/2019 Health Maintenance Topics with due status: Due On Topic Date Due Fall Risk Assessment 09/16/2019 Depression Screening-PHQ 09/16/2019 Health Maintenance Topics with due status: Not Due Topic Last Completion Date Foot Exam 04/14/2019 Lipid Panel 09/28/2019 Hemoglobin A1C 09/28/2019 Influenza Vaccine Not Due Counseling and Referral of Preventative Services: Mamm due Bone dexa due cologuard orderd Labs UTD Habits neg Immunizations reviewed, refusing Lifestyle Recommendations Increase Physical Activity, Stop Using Tobacco, Reduce Weight and ImproveDiet Advanced Directive Durable Power of Medical Attendant: Discussed Today Living Will: Discussed Today Assessment and Plan: Diagnoses and all orders for this visit: Medicare annual wellness visit, subsequent (Primary) - completed Essential hypertension - Home BP checks good, doing well, labs neg Mixed hyperlipidemia - CPM, lDL at goal 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, without long-term current use of insulin ([facility]) - A1C 6.6, diet / exercise, sees optho / UTD, no PN Thrombocytosis ([facility]) - seeing heme Iron deficiency anemia - stable Patient here for annual Medicare wellness visit and for review of complete medical problem list. All the elements of the plan were completed as outlined by [facility]. A copy of the prevention plan was [...] of today's office visit. Clive Wright MD Orders Placed This Encounter ??? SCREENING MAMMOGRAM BILATERAL W ARPAN Standing Status: Future Standing Expiration Date: 12/12/2020 Order Specific Question: Where should this order be performed? Answer: External Order [171] ??? Dexa Axial Skeleton Bone Density 1 Or 2 Site Standing Status: Future Standing Expiration Date: 10/12/2020 Order Specific Question: Where should this order be performed? Answer: External Order [171] ??? CBC with auto differential Standing Status: Future Number of Occurrences: 1 Standing Expiration Date: 10/12/2020 ??? Comprehensive metabolic panel Standing Status: Future Number of Occurrences: 1 Standing Expiration Date: 10/12/2020 ??? Lipid panel Standing Status: Future Number of Occurrences: 1 Standing Expiration Date: 10/12/2020 ??? Hemoglobin A1c Standing Status: Future Number of Occurrences: 1 Standing Expiration Date: 10/12/2020 ??? Tradjenta 5 mg tablet Sig: Take 1 tablet (5 mg total) by mouth daily Dispense: 90 tablet Refill: 3 ??? metoprolol XL (TOPROL-XL) 25 mg extended release tablet Sig: Take 1 tablet (25 mg total) by mouth daily Dispense: 90 tablet Refill: 3 ??? metFORMIN (GLUCOPHAGE) 500 mg tablet Sig: Take 1 tablet (500 mg total) by mouth 2 (two) times a day Dispense: 90 tablet Refill: 3 ??? lisinopriL (PRINIVIL,ZESTRIL) 20 mg tablet Sig: Take 1 tablet (20 mg total) by mouth daily Dispense: 90 tablet Refill: 3 ??? hydroCHLOROthiazide (HYDRODIURIL) 25 mg tablet Sig: Take 1 tablet (25 mg total) by mouth daily Dispense: 90 tablet Refill: 3 ??? atorvastatin (LIPITOR) 20 mg tablet Sig: Take 1 tablet (20 mg total) by mouth daily Dispense: 90 tablet Refill: 3 ??? blood glucose diagnostic (OneTouch Ultra Blue Test Strip) strip Si each by other route as directed Checks blood sugar daily Dispense: 100 each Refill: 3 documented in this encounter Plan of Treatment Not on file documented as of this encounter Procedures Procedure Name Priority Date/Time Associated Diagnosis Comments CBC WITH AUTO DIFFERENTIAL Routine 04/10/2020 8:31 AM ELECTRIC MOTOR FITTER Mixed hyperlipidemia HEMOGLOBIN A1C Routine 04/10/2020 8:31 AM ELECTRIC MOTOR FITTER 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, without long-term current use of insulin ([facility]) LIPID PANEL Routine 04/10/2020 8:31 AM ELECTRIC MOTOR FITTER Essential hypertension Mixed hyperlipidemia COMPREHENSIVE METABOLIC PANEL Routine 04/10/2020 8:31 AM ELECTRIC MOTOR FITTER 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, without long-term current use of insulin ([facility]) documented in this encounter Results * (ABNORMAL) Hemoglobin A1c (04/10/2020 8:31 AM ELECTRIC MOTOR FITTER) Hgb A1C 6.4(H) <5.7 % of total Hgb [facility] Comment: For someone without known diabetes, [...] of diabetes for children. Blood specimen (specimen) 04/10/2020 8:31 AM ELECTRIC MOTOR FITTER 04/10/2020 8:32 AM ELECTRIC MOTOR FITTER Narrative [facility] - 04/11/2020 2:56 AM ELECTRIC MOTOR FITTER FASTING:YES FASTING: YES us Clive Wright MD LAB BLOOD ORDERABLES Final Re sult [facility] [address] [place] [address] * (ABNORMAL) Lipid panel (04/10/2020 8:31 AM ELECTRIC MOTOR FITTER) Cholesterol 161 <200 mg/dL [facility] HDL 53 > OR = 50 mg/dL [facility] Triglycerides 150(H) <150 mg/dL [facility] LDL 83 mg/dL (calc) [facility] Comment: Reference [...] LDL-C. Rishi ZAMORA et al. CARRIE. 2013;310(19): 7041-0900 (http://education.[employer]/faq/CXH160) Chol/HDL ratio 3.0 <5.0 (calc) [facility] Non-HDL, (LDL+VLDL) 108 <130 mg/dL (calc) [facility] Comment: For patients with diabetes plus 1 major ASCVD risk factor, treating to a non-HDL-C goal of <100 mg/dL (LDL-C of <70 mg/dL) is considered a therapeutic option. Blood specimen (specimen) 04/10/2020 8:31 AM ELECTRIC MOTOR FITTER 04/10/2020 8:32 AM ELECTRIC MOTOR FITTER Narrative [facility] - 04/11/2020 2:56 AM ELECTRIC MOTOR FITTER FASTING:YES FASTING: YES us Clive Wright MD LAB BLOOD ORDERABLES Final Re sult [facility] [address] [place] [address] * (ABNORMAL) Comprehensive metabolic panel (04/10/2020 8:31 AM ELECTRIC MOTOR FITTER) Glucose 169(H) 65 - 99 mg/dL [facility] Comment: ? Fasting reference interval For someone without known diabetes, a glucose value >125 mg/dL indicates that they may have diabetes and this should be confirmed with a follow-up test. BUN 30(H) 7 - 25 mg/dL [facility] Creatinine 1.14(H) 0.60 - 0.93 mg/dL [facility] Comment: For patients >49 years of age, the reference limit for Creatinine is approximately 13% higher for people identified as -[place]. eGFR NON-AFR. [place] 49(L) > OR = 60 mL/min/1. 73m2 [facility] EGFR 56(L) > OR = 60 mL/min/1. 73m2 [facility] BUN/creat ratio 26(H) 6 - 22 (calc) [facility] Sodium 137 135 - 146 mmol/L [facility] Potassium, pl 4.6 3.5 - 5.3 mmol/L [facility] Chloride 99 98 - 110 mmol/L [facility] CO2 28 20 - 32 mmol/L [facility] Calcium 10.0 8.6 - 10.4 mg/dL [facility] Protein, sr 7.0 6.1 - 8.1 g/dL [facility] Albumin 4.1 3.6 - 5.1 g/dL [facility] [...] U/L [facility] Blood specimen (specimen) 04/10/2020 8:31 AM ELECTRIC MOTOR FITTER 04/10/2020 8:32 AM ELECTRIC MOTOR FITTER Narrative [facility] - 04/11/2020 2:56 AM ELECTRIC MOTOR FITTER FASTING:YES FASTING: YES us Clive Wright MD LAB BLOOD ORDERABLES Final Re sult [facility] [address] [place] [address] * (ABNORMAL) CBC with auto differential (04/10/2020 8:31 AM ELECTRIC MOTOR FITTER) WBC 5.4 3.8 - 10.8 Thousand/u L [facility] RBC, POC 2.45(L) 3.80 - 5.10 Million/uL [facility] Hgb 10.8(L) 11.7 - 15.5 g/dL [facility] Hct 30.2(L) 35.0 - 45.0 % [facility] MCV 123.3(H) 80.0 - 100.0 fL [facility] MCH 44.1(H) 27.0 - 33.0 pg [facility] MCHC 35.8 32.0 - 36.0 g/dL [facility] Rdw 12.5 11.0 - 15.0 % [facility] Platelets 358 140 - 400 Thousand/u L [facility] MPV 9.7 7.5 - 12.5 fL [facility] Neutrophils, abs 3,672 1,500 - 7,800 cells/uL [facility] Lymphocytes, abs 1,215 850 - 3,900 cells/uL [facility] Monocyte abs 373 200 - 950 cells/uL [facility] Eosinophils, abs 119 15 - 500 cells/uL [facility] Basophils, abs 22 0 - 200 cells/uL [facility] Neutrophils 68 % [facility] Lymphocyte pct 22.5 % [facility] Monocytes 6.9 % [facility] Eosinophils 2.2 % [facility] Basophils 0.4 % [facility] CBC MORPHOLOGY NORMAL [facility] Comment: Macrocytosis 2 + Polychromasia 1 + Ovalocytes 1 + Blood specimen (specimen) 04/10/2020 8:31 AM ELECTRIC MOTOR FITTER 04/10/2020 8:32 AM ELECTRIC MOTOR FITTER Narrative [facility] - 04/11/2020 2:56 AM ELECTRIC MOTOR FITTER FASTING:YES FASTING: YES Clive Wright MD LAB BLOOD ORDERABLES Final Re sult [facility] [address] [address] [place] [address] documented in this encounter Visit Diagnoses Diagnosis Medicare annual wellness visit, subsequent- Primary Essential hypertension Unspecified essential hypertension Mixed hyperlipidemia 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, without long-term current use of insulin (CMS/HCC) (HCC) Thrombocytosis Essential thrombocythemia Iron deficiency anemia Unspecified iron deficiency anemia Visit for screening mammogram Postmenopausal Asymptomatic postmenopausal status (age-related) (natural) documented in this encounter Discontinued Medications Medication Sig Discontinue Reason Start Date End Da te TRADJENTA 5 mg tablet Take 1 tablet (5 mg total) by mouth daily Reorder 04/14/2019 10/13/2019 metoprolol XL (TOPROL-XL) 25 mg 24 hr tablet Take 1 tablet (25 mg total) by mouth daily Reorder 04/14/2019 10/13/2019 metFORMIN (GLUCOPHAGE) 500 mg tablet Take 1 tablet (500 mg total) by mouth 2 (two) times a day Reorder 04/14/2019 10/13/2019 lisinopril (PRINIVIL,ZESTRIL) 20 mg tablet Take 1 tablet (20 mg total) by mouth daily Reorder 04/14/2019 10/13/2019 hydroCHLOROthiazide (HYDRODIURIL) 25 mg tablet Take 1 tablet (25 mg total) by mouth daily Reorder 04/14/2019 10/13/2019 atorvastatin (LIPITOR) 20 mg tablet Take 1 tablet (20 mg total) by mouth daily Reorder 04/14/2019 10/13/2019 blood glucose diagnostic (ONETOUCH ULTRA BLUE TEST STRIP) strip daily Reorder 10/13/2019 documented as of this encounter Care Teams Roofing Technician Relationship Specialty Start Date End Date Clive Wright MD PCP - General Family Medicine 09/15/18 Karthikeyan Elaine DO [address] [place] [address] Medical Oncologist/Store Product Demonstrator Hematology and Oncology 10/27/18 documented as of this encounter
--- OUTSIDE RECORDS SUMMARY | 2024-03-10 20:16 | XMS_ITS | Encounter Summary ---
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
--- OUTSIDE RECORDS SUMMARY | 2024-03-10 20:16 | XMS_ITS | Encounter Summary ---
Author Organization [facility] Address [address] [place] [address] Phone Care Team Providers Care Flight Operations Specialist Name Role Phone Clive Wright MD Primary Care Provider [phone] Karthikeyan Elaine DO Unavailable [phone] Encounter Details Date Type Department Care Team (Late st Contact Info) Description 07/05/2019 11:15 AM CDT Lab [facility] [address] [place] [phone] Thrombocytosis (CMS/HCC) Social History Tobacco Use Types [...] on file 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
--- OUTSIDE RECORDS SUMMARY | 2024-03-10 20:16 | XMS_ITS | Encounter Summary ---
Author Organization [facility] Address [address] [place] [address] Care Team Providers Care Splicer Apprentice Name Role Phone Clive Wright MD Primary Care Provider [phone] Karthikeyan Elaine DO Unavailable [phone] Reason for Visit * Reason Comments Hypertension 6 mo f/u Encounter Details Date Type Department Care Team (Late st Contact Info) Description 04/18/2020 10:30 AM AIR ANTISUBMARINE OFFICER Office Visit [facility] Family Medicine [address] [place] [address] Clive Wright MD [address] [place] [id number] Essential hypertension (Primary Dx); 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, without long-term current use of insulin (CMS/HCC); Mixed hyperlipidemia; Thrombocytosis ([facility]) Social History Tobacco Use Types [...] on file Legal Sex Female 8:44 PM AIR ANTISUBMARINE OFFICER Gender Identity Not on file Sexual Orientation Not on file Occupation Industry Job Start Date Job End Date Retired Not on file Not on file Not on file documented as of this encounter Last Filed Vital Signs Vital Sign Reading Time Taken Comments Blood Pressure 150/90 04/18/2020 10:31 AM AIR ANTISUBMARINE OFFICER Pulse 66 04/18/2020 10:31 AM AIR ANTISUBMARINE OFFICER Temperature 36.6 ??C (97.8 ??F) 04/18/2020 1 0:31 AM AIR ANTISUBMARINE OFFICER Respiratory Rate 18 04/18/2020 10:3 1 AM AIR ANTISUBMARINE OFFICER Oxygen Saturation 99% 04/18/2020 10: 31 AM AIR ANTISUBMARINE OFFICER Inhaled Oxygen Concentration - - Weight 61.6 kg (135 lb 12.8 oz) 021 10:31 AM AIR ANTISUBMARINE OFFICER Height 161.3 cm (5' 3.5 ) 04/18/2020 10 :31 AM AIR ANTISUBMARINE OFFICER Body Mass Index 23.68 04/18/2020 10:31 AM AIR ANTISUBMARINE OFFICER documented in this encounter Ordered Prescriptions Prescription Sig Dispense Quantity Refills Last Filled Start Date End Date Tradjenta 5 mg tablet Take 1 tablet (5 mg total) by mouth daily 90 tablet 3 04/18/2020 06/03/2021 metoprolol XL (TOPROL-XL) 25 mg extended release tablet Take 1 tablet (25 mg total) by mouth daily 90 tablet 3 04/18/2020 06/28/2021 metFORMIN (GLUCOPHAGE) 500 mg tabletIndications: 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, without long-term current use of insulin ([facility]/HCC) (HCC) Take 1 tablet (500 mg total) by mouth 2 (two) times a day 90 tablet 1 04/18/2020 12/17/2020 lisinopriL (PRINIVIL,ZESTRIL) 20 mg tablet Take 1 tablet (20 mg total) by mouth daily 90 tablet 3 04/18/2020 06/03/2021 hydroCHLOROthiazid e (HYDRODIURIL) 25 mg tablet Take 1 tablet (25 mg total) by mouth daily 90 tablet 3 04/18/2020 06/03/2021 atorvastatin (LIPITOR) 20 mg tablet Take 1 tablet (20 mg total) by mouth daily 90 tablet 3 04/18/2020 06/03/2021 documented in this encounter Progress Notes * Clive Wright MD - 04/18/2020 10:30 AM CST Images from the original note were not included. Subjective/Objective Patient ID: Ankita Perez is a 69 y.o. female. Chief Complaint Hypertension (6 mo f/u) HPI Current Outpatient Medications Medication Sig Dispense Refill ??? ascorbic acid (ascorbic acid with rachel hips) 500 mg tablet,chewable Take 500 mg by mouth daily ??? aspirin 81 mg enteric coated tablet Take 1 tablet (81 mg total) by mouth daily 30 tablet 0 ??? atorvastatin (LIPITOR) 20 mg tablet Take 1 tablet (20 mg total) by mouth daily 90 tablet 3 ??? blood glucose diagnostic (AfterShipuch Ultra Blue Test Strip) strip 1 each by other route as directed Checks blood sugar daily 100 each 3 ??? cyanocobalamin (Vitamin B-12) 1,000 mcg tablet Take 1,000 mcg by mouth daily ??? ferrous sulfate (Iron, ferrous sulfate,) 325 mg (65 mg of elemental iron) tablet Take 1 tablet (325 mg total) by mouth 2 (two) times a day 180 tablet 2 ??? hydroCHLOROthiazide (HYDRODIURIL) 25 mg tablet Take 1 tablet (25 mg total) by mouth daily 90 tablet 3 ??? hydroxyurea (HYDREA) 500 mg capsule Take 2 capsules by mouth once daily 60 capsule 2 ??? lisinopriL (PRINIVIL,ZESTRIL) 20 mg tablet Take 1 tablet (20 mg total) by mouth daily 90 tablet3 ??? metFORMIN (GLUCOPHAGE) 500 mg tablet Take 1 tablet (500 mg total) by mouth 2 (two) times a day 90 tablet 1 ??? metoprolol XL (TOPROL-XL) 25 mg [...] back pain. Negative for neck pain. Neurological: Positive for tremors. Negative for seizures and headaches. Psychiatric/Behavioral: Negative for confusion. The patient is not nervous/anxious. Recent Results (from the past 336 hour(s)) CBC with auto differential Collection Time: 04/10/20 8:31 AM Result Value Ref Range WBC 5.4 3.8 - 10.8 Thousand/uL RBC, POC 2.45 (L) 3.80 - 5.10 Million/uL Hgb 10.8 (L) 11.7 - 15.5 g/dL Hct 30.2 (L) 35.0 - 45.0 % MCV 123.3 (H) 80.0 - 100.0 fL MCH 44.1 (H) 27.0 - 33.0 pg MCHC 35.8 32.0 - 36.0 g/dL Rdw 12.5 11.0 - 15.0 % Platelets 358 140 - 400 Thousand/uL MPV 9.7 7.5 - 12.5 fL Neutrophils, abs 3,672 1,500 - 7,800 cells/uL Lymphocytes, abs 1,215 850 - 3,900 cells/uL Monocyte abs 373 200 - 950 cells/uL Eosinophils, abs 119 15 - 500 cells/uL Basophils, abs 22 0 - 200 cells/uL Neutrophils 68 % Lymphocyte pct 22.5 % Monocytes 6.9 % Eosinophils 2.2 % Basophils 0.4 % CBC MORPHOLOGY NORMAL Comprehensive metabolic panel Collection Time: 04/10/20 8:31 AM Result Value Ref Range Glucose 169 (H) 65 - 99 mg/dL BUN 30 (H) 7 - 25 mg/dL Creatinine 1.14 (H) 0.60 - 0.93 mg/dL eGFR NON-AFR. SOUTH AFRICAN 49 (L) > OR = 60 mL/min/1.73m2 EGFR 56 (L) > OR = 60 mL/min/1.73m2 BUN/creat ratio 26 (H) 6 - 22 (calc) Sodium 137 135 - 146 mmol/L Potassium, pl 4.6 3.5 - 5.3 mmol/L Chloride 99 98 - 110 mmol/L CO2 28 20 - 32 mmol/L Calcium 10.0 8.6 - 10.4 mg/dL Protein, sr 7.0 6.1 - 8.1 g/dL Albumin 4.1 3.6 - 5.1 g/dL GLOBULIN 2.9 1.9 - 3.7 g/dL (calc) Alb/glob ratio 1.4 1.0 - 2.5 (calc) Bilirubin, total 0.5 0.2 - 1.2 mg/dL Alk phos 45 37 - 153 U/L AST 15 10 - 35 U/L ALT (SGPT) 10 6 - 29 U/L Lipid panel Collection Time: 04/10/20 8:31 AM Result Value Ref Range Cholesterol 161 <200 mg/dL HDL 53 > OR = 50 mg/dL Triglycerides 150 (H) <150 mg/dL LDL 83 mg/dL (calc) Chol/HDL ratio 3.0 <5.0 (calc) Non-HDL, (LDL+VLDL) 108 <130 mg/dL (calc) Hemoglobin A1c Collection Time: 04/10/20 8:31 AM Result Value Ref Range Hgb A1C 6.4 (H) <5.7 % of total Hgb Vitals BP 150/90 (BP Location: Right arm, Patient Position: Sitting) Pulse 66 Temp 36.6 ??C (97.8 ??F) (Transdermal) Resp 18 Ht 161.3 cm (5' 3.5 ) Wt 61.6 kg (135 lb 12.8 oz) SpO2 99% BMI 23.68 kg/m?? Physical Exam Constitutional: Appearance: She is [...] for this visit: Essential hypertension (I10) (Primary) Her home blood pressure checks have been good. Will continue present management. Labs reviewed including CBC Chem 12 lipid and A1c. Creatinine is improved 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, without long-term current use of insulin ([facility]) (E11.22, N18.2) - metFORMIN (GLUCOPHAGE) 500 mg tablet; Take 1 tablet (500 mg total) by mouth 2 (two) times a day A1c is 6.4. Refill meds. She has exterminator helper is going to be scheduled Mixed hyperlipidemia (E78.2) She takes her statin. LDL at 83 Thrombocytosis (CMS/HCC) (D47.3) Assessment/Plan note reviewed of Dr. Elaine ?? Chronic myeloproliferative disorder with thrombocytosis -JAK2 negative. ?? Chronic macrocytic anemia. She did respond to iron in the past. ?? Workup in the past showed normal levels of vitamin B12, folate and TSH. ?? Recommendations: ?? 1. Since last visit, her platelet count has decreased down into the 400,000 range which is a much safer range in order to reduce the incidence of stroke and heart attacks. ?? 2. Therefore, her current dose of hydroxyurea at 1000 mg daily is adequate to keep her platelet count in this range. She will continue with this medication. ?? 3. I will see the patient back here in 6 months. ?? 4. I will continue monitor CBC every 3 months. ?? 5. She will continue with low-dose aspirin for antiplatelet effect. ?? 6. Regarding her anemia, she will continue with her ferrous sulfate which does help her well-being and improve her blood counts. Other orders - atorvastatin (LIPITOR) 20 mg tablet; Take 1 tablet (20 mg total) by mouth daily - hydroCHLOROthiazide (HYDRODIURIL) 25 mg tablet; Take 1 tablet (25 mg total) by mouth daily - hydroxyurea (HYDREA) 500 mg capsule; Take 1 capsule (500 mg total) by mouth 2 (two) times a day - ferrous sulfate (Iron, ferrous sulfate,) 325 mg (65 mg of elemental iron) tablet; Take 1 tablet (325 mg total) by mouth 2 (two) times a day - lisinopriL (PRINIVIL,ZESTRIL) 20 mg tablet; Take 1 tablet (20 mg total) by mouth daily - metoprolol XL (TOPROL-XL) 25 mg extended release tablet; Take 1 tablet (25 mg total) by mouth daily - Tradjenta 5 mg tablet; Take 1 tablet (5 mg total) by mouth daily Clive Wright MD Orders Placed This Encounter ??? atorvastatin (LIPITOR) 20 mg tablet Sig: Take 1 tablet (20 mg total) by mouth daily Dispense: 90 tablet Refill: 3 ??? hydroCHLOROthiazide (HYDRODIURIL) 25 mg tablet Sig: Take 1 tablet (25 mg total) by mouth daily Dispense: 90 tablet Refill: 3 ??? lisinopriL (PRINIVIL,ZESTRIL) 20 mg tablet Sig: Take 1 tablet (20 mg total) by mouth daily Dispense: 90 tablet Refill: 3 ??? metFORMIN (GLUCOPHAGE) 500 mg tablet Sig: Take 1 tablet (500 mg total) by mouth 2 (two) times a day Dispense: 90 tablet Refill: 1 ??? metoprolol XL (TOPROL-XL) 25 mg extended release tablet Sig: Take 1 tablet (25 mg total) by mouth daily Dispense: 90 tablet Refill: 3 ??? Tradjenta 5 mg tablet Sig: Take 1 tablet (5 mg total) by mouth daily Dispense: 90 tablet Refill: 3 ANTISUBMARINE OFFICER documented in this encounter Miscellaneous Notes * Addendum Note - Mckayla Clemens Ma, MA - 04/18/2020 10:30 AM CSTAddended by: MCKAYLA CLEMENS on: 04/18/2020 11:57 AM Modules accepted: Orders ANTISUBMARINE OFFICER documented in this encounter Plan of Treatment Not on file documented as of this encounter Visit Diagnoses Diagnosis Essential hypertension- Primary Unspecified essential hypertension 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, without long-term current use of insulin ([facility]) ([facility]) Mixed hyperlipidemia Thrombocytosis Essential thrombocythemia documented in this encounter Discontinued Medications Medication Sig Discontinue Reason Start Date End Da te Tradjenta 5 mg tablet Take 1 tablet (5 mg total) by mouth daily Reorder 10/13/2019 04/18/2020 metoprolol XL (TOPROL-XL) 25 mg extended release tablet Take 1 tablet (25 mg total) by mouth daily Reorder 10/13/2019 04/18/2020 lisinopriL (PRINIVIL,ZESTRIL) 20 mg tablet Take 1 tablet (20 mg total) by mouth daily Reorder 10/13/2019 04/18/2020 hydroCHLOROthiazide (HYDRODIURIL) 25 mg tablet Take 1 tablet (25 mg total) by mouth daily Reorder 10/13/2019 04/18/2020 atorvastatin (LIPITOR) 20 mg tablet Take 1 tablet (20 mg total) by mouth daily Reorder 10/13/2019 04/18/2020 metFORMIN (GLUCOPHAGE) 500 mg tabletIndications: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, without long-term current use of insulin (CMS/HCC) (HCC) Take 1 tablet (500 mg total) by mouth 2 (two) times a day Reorder 04/12/2020 04/18/2020 documented as of this encounter Orders Lab Orders Without Results Count Last Ordered D ate First Ordered Date CBC WITH AUTO DIFFERENTIAL 1 04/18/2020 COMPREHENSIVE METABOLIC PANEL 1 04/18/2020 HEMOGLOBIN A1C 1 04/18/2020 LIPID PANEL 1 04/18/2020 documented in this encounter Care Teams Splicer Apprentice Relationship Specialty Start Date End Date Clive Wright MD PCP - General Family Medicine 09/15/18 Karthikeyan Elaine DO [address] [place] [id number] Medical Oncologist/Credit Control Assistant Hematology and Oncology 10/27/18 documented as of this encounter
--- OUTSIDE RECORDS SUMMARY | 2024-03-10 20:17 | XMS_ITS | Encounter Summary ---
Author Organization [facility] Care Team Providers Care Retail Field Supervisor Name Role Phone Clive Wright MD Primary Care Provider [phone] Karthikeyan Elaine DO Unavailable [phone] Encounter Details Date Type Department Care Team (Latest Contact Info) Description 01/04/2019 Travel Social History Tobacco Use Types Packs/Day Years Used Date Smoking Tobacco: Never Smokeless Tobacco: Never Alcohol Use Standard Drinks/Week Comments Not Currently 0 (1 standard drink = 0.6 oz pur e alcohol) occasion PHQ-2 Answer Date Recorded PHQ-2 Score 0 10/27/2018 Comments Unknown Sex and Gender Information Value Date Recorded Sex Assigned at Not on file Legal Sex Female 8:44 PM YARDER ENGINEER Gender Identity Not on file Sexual Orientation Not on file Occupation Industry Job Start Date Job End Date Retired Not on file Not on file Not on file documented as of this encounter Plan of Treatment Not on file documented as of this encounter Visit Diagnoses Not on filedocumented in this encounter Care Teams Retail Field Supervisor Relationship Specialty Start Date End Date Clive Wright MD PCP - General Family Medicine 09/15/18 Karthikeyan Elaine DO [address] [place] [id number] Medical Oncologist/Director [employer] Hematology and Oncology 10/27/18 documented as of this encounter
--- OUTSIDE RECORDS SUMMARY | 2024-03-10 20:17 | XMS_ITS | Encounter Summary ---
Author Organization [facility] Care Team Providers Care Marine Pilot Name Role Phone Clive Wright MD Primary Care Provider [phone] Karthikeyan Elaine DO Unavailable [phone] Encounter Details Date Type Department Care Team (Latest Contact Info) Description 11/30/2018 Travel Social History Tobacco Use Types Packs/Day Years Used Date Smoking Tobacco: Never Smokeless Tobacco: Never Alcohol Use Standard Drinks/Week Comments Not Currently 0 (1 standard drink = 0.6 oz pur e alcohol) occasion PHQ-2 Answer Date Recorded PHQ-2 Score 0 10/27/2018 Comments Unknown Sex and Gender Information Value Date Recorded Sex Assigned at Not on file Legal Sex Female 8:44 PM ACID CORRECTION HAND Gender Identity Not on file Sexual Orientation Not on file Occupation Industry Job Start Date Job End Date Retired Not on file Not on file Not on file documented as of this encounter Plan of Treatment Not on file documented as of this encounter Visit Diagnoses Not on filedocumented in this encounter Care Teams Marine Pilot Relationship Specialty Start Date End Date Clive Wright MD PCP - General Family Medicine 09/15/18 Karthikeyan Elaine DO [address] [place] [id number] Medical Oncologist/Federal Agent Hematology and Oncology 10/27/18 documented as of this encounter
--- OUTSIDE RECORDS SUMMARY | 2024-03-10 20:17 | XMS_ITS | Encounter Summary ---
Author Organization [facility] Address [address] [place] [address] Phone Care Team Providers Care Editor Dictionary Name Role Phone Clive Wright MD Primary Care Provider [phone] Sarai Vargas DO Unavailable [phone] Reason for Visit * Reason Comments Follow-up thrombocytosis * Consultation (Routine) - Closed Specialty Diagnoses / Procedures Referred By Estrella t Referred To Contact Oncology Diagnoses Anemia, unspecified type Clive Wright MD Phone: tel: fax: [facility] [address] [place] [address] Phone: tel: fax: Referral ID Status Reason Start Date Expiration Date V isits Requested Visits Authorized [id number] Closed Specialty Services Required 10/04/2018 04/14/2020 99 [phone] Encounter Details Date Type Department Care Team (Latest Contact Info) Description 11/02/2018 8:00 AM CDT Office Visit [facility] [address] [place] [id number] Sarai Vargas DO [address] [place] [id number] Thrombocytosis (CMS/HCC) (Primary Dx); Anemia, unspecified type Social History Tobacco Use [...] on file Legal Sex Female 8:[address] REPORTER Gender Identity Not on file Sexual Orientation Not on file Occupation Industry Job Start Date Job End Date Retired Not on file Not on file Not on file documented as of this encounter Last Filed Vital Signs Vital Sign Reading Time Taken Comments Blood Pressure 118/66 11/02/2018 8:06 AM CDT Pulse 65 11/02/2018 8:06 AM CDT Temperature 36.8 ??C (98.2 ??F) 11/02/2018 8:06 AM CD T Respiratory Rate 14 11/02/2018 8:06 AM CDT Oxygen Saturation 97% 11/02/2018 8:06 AM CDT Inhaled Oxygen Concentration - - Weight 59 kg (130 lb) 11/02/2018 8:06 AM CDT Height 163.8 cm (5' 4.49 ) 11/02/2018 8:06 AM CD T Body Mass Index 21.98 11/02/2018 8:06 AM CDT documented in this encounter Patient Instructions * Patient Instructions* Jen Krueger RN - 11/02/2018 8:[address] VARGAS'S INSTRUCTIONS FOR THE NEXT 8 WEEKS 1. START TAKING VITAMIN B12 1,000 MCG DAILY-GET AT ANY LOCAL DRUG STORE, ANY BRAND IF FINE 2. IRON 325 MG THREE TIMES A DAY WITH FOOD (WILL ORDER PRESCRIPTION) MAY GIVE YOU SOME STOMACH UPSET-TAKE WITH FOOD MAY GIVE YOU SOME CONSTIPATION-TAKE STOOL SOFTNER WILL TURN STOOLS BLACK 3. TAKE VITAMIN C DAILY-500 MG DAILY OR WITH JUICE-(ANY BRAND IS FINE) 4. START TAKING ASPIRIN 81 MG DAILY-DUE TO PLATELET COUNT BEING ELEVATED-(ANY BRAND IS FINE) documented in this encounter Ordered Prescriptions Prescription Sig Dispense Quantity Refills Last Filled Start Date End Date aspirin 81 mg enteric coated tablet Take 1 tablet (81 mg total) by mouth daily 30 tablet 11/02/2018 ferrous sulfate 325 mg (65 mg of elemental iron) tabletIndications: Iron Deficiency Anemia Take 1 tablet (325 mg total) by mouth 3 (three) times a day with meals 90 tablet 2 11/02/2018 01/31/2019 documented in this encounter Progress Notes * Sarai Vargas, DO - 11/02/2018 8:00 AM CDT Patient ID: Ankita Perez is a 68 y.o. female. Referring Physician: Clive Wright MD [id number] [facility] [place] [address] Primary Care Provider: Clive Wright MD Assessment/Plan 1. Iron deficiency anemia which I feel is the major contributor to her current anemia. 2. Vitamin B12 deficiency-mild 3. Persistent thrombocytosis. FRANSISCO 2 mutation is negative. Recommendations: 1. I will start on ferrous sulfate 325 mg t.i.d. 2. In addition, I will also start on vitamin B12 tablets 1000 micro g daily. 3. She will also add vitamin-C 500 mg daily to help increase iron absorption through her stomach. 4. I will monitor CBC every 4 weeks and see her back at that time next month. 5. In addition, I will also start on aspirin 81 mg daily to prevent strokes and heart attacks due to the thrombocytosis. 6. I will investigate further disorders regarding her persistent thrombocytosis. Overall, I feel that she may have underlying essential thrombocythemia despite a negative FRANSISCO 2 mutation analysis. This only has a sensitivity for about 60% of the individuals. 7. I did discuss side effects of the ferrous sulfate. I also told her I ruled out plasma cell dyscrasia, hemolysis, lymphoproliferative disorders, folate deficiency, thyroid disorders. 8. Patient and voiced understanding to the above recommendations and information and agreedwith the plan. Patient Active Problem List Diagnosis ??? Essential hypertension ??? Mixed hyperlipidemia ??? 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, without long- term current use of insulin (CMS/HCC) ??? Iron deficiency anemia ??? Thrombocytosis (CMS/HCC) Diagnoses and all orders for this visit: Thrombocytosis (CMS/HCC) (Primary) - Clinic Appointment Request Follow up; SARAI VARGAS MD; Clinic Appointment Location: [facility] - Lab Draw Appt Request Arm Draw or Central Line Draw? Arm; What is your ordering location? [facility]; [facility]; Future - CBC with auto differential; Future - Clinic Appointment Request Follow up; SARAI VARGAS MD; Clinic Appointment Location: [facility]; Future Anemia, unspecified type - Clinic Appointment Request Follow up; SARAI VARGAS MD; Clinic Appointment Location: [facility] - Lab Draw Appt Request Arm Draw or Central Line Draw? Arm; What is your ordering location? [facility]; Where will this patient receive treatment? [facility]; Future - CBC with auto differential; Future - Clinic Appointment Request Follow up; SARAI VARGAS MD; Clinic Appointment Location: [facility]; Future Other orders - ferrous sulfate 325 mg (65 mg of elemental iron) tablet; Take 1 tablet (325 mg total) by mouth 3 (three) times a day with meals - aspirin 81 mg enteric coated tablet; Take 1 tablet (81 mg total) by mouth daily Subjective Interval History: 1. New onset anemia and thrombocytosis. 2. Patient changed primary care physicians in August and saw for the 1st time Dr. Wright. He performed extensive evaluation of the patient including laboratory assessment. CBC at that time showed hemoglobin of 9.0 with an elevated platelet count of 860. 3. He repeated the CBC in September showing the same type of anemia with a hemoglobin of 9.3 and the platelet count was still elevated. She does complain of mild fatigue and weakness but is very active and babysitting her grandchildren. 4. She denies any melena, hematochezia, hematemesis, hemoptysis or hematuria. She denies any weightloss or change in appetite. She denies any change in bowel habits. She has no history of arthritis or arthralgias or myalgias. She denies any fever or chills or illnesses. 5. Patient has been followed by a former primary care physician for many years but according to records, never ordered a CBC. However, patient has never complained of any type of fatigue or weakness or Pica. 6. She underwent stool sample for occult blood and this was negative. She refuses a colonoscopy andtherefore she has never had this type of procedure before. 7. She returns for her follow-up visit with me to discuss the laboratory results and treatment options for her anemia and elevated platelet count. Interval Notes: I have reviewed: allergies, current [...] pain. Skin: Negative. Neurological: Positive for extremity weakness. Hematological: Bruises/bleeds easily. Psychiatric/Behavioral: Negative. Objective Physical Exam: Vital Signs for this encounter: BSA: 1.64 meters squared BP 118/66 (BP Location: Left arm) Pulse 65 Temp 36.8 ??C (98.2 ??F) (Oral) Resp 14 Ht 163.8cm (5' 4.49 ) Wt 59 kg (130 lb) SpO2 97% BMI 21.98 kg/m?? Physical Exam Constitutional: She is oriented to person, place, and time. She appears well- developed and well-nourished. HENT: Head: Normocephalic and atraumatic. Right Ear: External ear normal. Left Ear: External ear normal. Nose: Nose normal. Mouth/Throat: Oropharynx is clear and moist. Eyes: Pupils are equal, round, and reactive to light. Conjunctivae and EOM are normal. Neck: Normal range of motion. Neck supple. Cardiovascular: Normal rate, regular rhythm, normal heart sounds and intact distal pulses. Pulmonary/Chest: Effort normal and breath sounds normal. Abdominal: Soft. Bowel sounds are normal. Musculoskeletal: Normal range of motion. Neurological: She is alert and oriented to person, place, and time. She displays tremor. Skin: Skin is warm and dry. There is pallor. Psychiatric: She has a normal mood and affect. Her behavior is normal. Performance Status: Asymptomatic Results: WBC Date Value Ref Range Status 11/02/2018 7.7 3.4 - 10.8 x10E3/uL Final Hgb Date Value Ref Range Status 11/02/2018 9.2 (L) 11.1 - 15.9 g/dL Final Hct Date Value Ref Range Status 11/02/2018 29.8 (L) 34.0 - 46.6 % Final Platelets Date Value Ref Range Status 11/02/2018 947 (HH) 150 - 450 x10E3/uL Final Comment: Results verified by repeat testing Lactate dehydrogenase (LDH) Date Value Ref Range Status 10/19/2018 164 119 - 226 IU/L Final Creatinine Date Value Ref Range Status 08/26/2018 1.07 (H) 0.50 - 0.99 mg/dL Final Comment: For patients >49 years of age, the reference limit for Creatinine is approximately 13% higher for people identified as -Mosotho. AST Date Value Ref Range Status 08/26/2018 18 10 - 35 U/L Final 1. Ferritin is low at 8 with a transferrin saturation 9%. 2. Reticulocyte count is normal at 1.2%. 3. LDH is normal at 164. 4. SPEP shows no evidence of M spike. 5. FRANSISCO 2 mutation analysis negative. 6. TSH is normal. 7. RBC folate is 1100. 8. Vitamin B12 level is 250 at the lower end of normal. documented in this encounter Plan of Treatment Not on file documented as of this encounter Procedures Procedure Name Priority Date/Time Associated Diagnosis Comments CBC WITH AUTO DIFFERENTIAL Routine 11/30/2018 10:18 AM CDT Thrombocytosis (CMS/HCC) Anemia, unspecified type LYUBOV+DNA/DS+SJOGREN'S Routine 11/02/2018 11:00 AM CDT JULIA REFLEX TO QUANTITATIVE Routine 11/02/2018 11:00 AM CDT Thrombocytosis (CMS/HCC) Anemia, unspecified type CRP, HIGH SENSITIVITY Routine 11/02/2018 11:00 AM CDT Thrombocytosis (CMS/HCC) Anemia, unspecified type documented in this encounter Results * (ABNORMAL) CBC with auto differential (11/30/2018 10:18 AM CDT) WBC 9.2 3.4 - 10.8 x10E3/uL [facility] - 01 RBC 3.69(L) 3.77 - 5.28 x10E6/uL [facility] - 01 Hgb 10.3(L) 11.1 - 15.9 g/dL [facility] - 01 Hct 33.7(L) 34.0 - 46.6 % [facility] - 01 MCV 91 79 - 97 fL [facility] - 01 MCH 27.9 26.6 - 33.0 pg [facility] - 01 MCHC 30.6(L) 31.5 - 35.7 g/dL [facility] - 01 Rdw 17.5(H) 12.3 - 15.4 % [facility] - 01 Platelets 893(HH) 150 - 450 x10E3/uL [facility] - 01 Comment:Results verified b y repeat testing Neutrophils pct 68 Not Estab. % [facility] - 01 Lymphs pct 20 Not Estab. % [facility] - 01 Monocytes pct 8 Not Estab. % [facility] - 01 Eosinophils pct 3 Not Estab. % [facility] - 01 Basophil pct 1 Not Estab. % [facility] - 01 Neutrophil abs 6.3 1.4 - 7.0 x10E3/uL [facility] - 01 Lymphs (Absolute) 1.8 0.7 - 3.1 x10E3/uL [facility] - 01 Monocyte abs 0.7 0.1 - 0.9 x10E3/uL [facility] - 01 Eosinophils, abs 0.3 0.0 - 0.4 x10E3/uL [facility] - 01 Basophils, abs 0.1 0.0 - 0.2 x10E3/uL [facility] - 01 Blood specimen (specimen) 11/30/2018 10:18 AM CDT 11/30/2018 Narrative [facility] - 11/30/2018 11:27 AM CDT Performed at: ??01 - [facility] [address] [place], [place] ??[id number] Felt Strip Finisher: Gibson Camilo MD, Phone: ??[phone] us Sarai Vargas DO LAB BLOOD ORDERABLES Final R esult [facility] - 01 * (ABNORMAL) LYUBOV+DNA/DS+Sjogren's (11/02/2018 11:00 AM CDT) Anti-DNA (DS) Ab Qn 1 0 - 9 IU/mL [facility] - 01 Comment: ? Negative ?<5 ? Equivocal ??5 - 9 ? Positive ?>9 SUMMER ANALYST Antibodies <0.2 0.0 - 0.9 AI [facility] - 01 Buenrostro Antibodies 1.4(H) 0.0 - 0.9 AI [facility] - 01 Sjogren's Anti-SS-A 0.3 0.0 - 0.9 AI [facility] - 01 Sjogren's Anti-SS-B 0.3 0.0 - 0.9 AI [facility] - 01 See below: Comment [facility] - 01 Comment: Autoantibody ? Disease Association ?Condition ?Frequency ? --------- Antinuclear Antibody, ?SLE, mixed connective Direct (JULIA-D) ? tissue diseases ? --------- dsDNA ?SLE ?40 - 60% ? --------- Chromatin ?Drug induced SLE ?90% ? SLE ?48 - 97% ? --------- SSA (Ro) ? SLE ?25 - 35% ? Sjogren's Syndrome ? 40 - 70% ? Lupus ? 100% ? --------- SSB (La) ? SLE ? 10% ? Sjogren's Syndrome ?30% ?--------- Sm (anti-Buenrostro) ?SLE ?15 - 30% ?--------- SUMMER ANALYST ?Mixed Connective Tissue ? Disease ? 95% (U1 nRNP, ?SLE ?30 - 50% anti-ribonucleoprotein) ??Polymyositis and/or ? Dermatomyositis ? 20% ? --------- Scl-70 (antiDNA ?Scleroderma (diffuse) ?20 - 35% topoisomerase) ? Crest ? 13% ? --------- Celia-1 ? Polymyositis and/or ? Dermatomyositis ?20 - 40% ? --------- Centromere B ? Scleroderma - Crest ? variant ? 80% 11/02/2018 11:0 0 AM CDT 11/02/2018 Narrative [facility] - 11/03/2018 8:07 PM CDT Performed at: ??01 - [facility] [place] [address] [facility], [place], [place] ??[id number] Felt Strip Finisher: Santosh Jenkins PhD, Phone: ??[phone] us Sarai Vargas DO LAB BLOOD ORDERABLES Final R esult Performing Organization Address [facility] de Phone Number [facility] - * CRP, high sensitivity (11/02/2018 11:00 AM CDT) [facility] C-Reactive Protein, Cardiac 0.47 0.00 - 3.00 mg/L [facility] - 01 Comment: ? Relative Risk for Future Cardiovascular Event ? Low ? <1.00 ? Average ? 1.00 - 3.00 ? High ?>3.00 Blood specimen (specimen) 11/02/2018 11:00 AM CDT 11/02/2018 Narrative [facility] - 11/03/2018 8:07 PM CDT Performed at: ??01 - [facility] ??[id number] Felt Strip Finisher: Santosh Jenkins PhD, Phone: ??[phone] Sarai Vargas DO LAB BLOOD ORDERABLES Final R esult Performing Organization Address [facility] Co de Phone Number [facility] - * (ABNORMAL) JULIA reflex to quantitative (11/02/2018 11:00 AM CDT) [facility] JULIA, direct Positive(A ) Negative [facility] - 01 Blood specimen (specimen) 11/02/2018 11:00 AM CDT 11/02/2018 Narrative [facility] - 11/03/2018 8:07 PM CDT Performed at: ??01 - [facility] ??[id number] Felt Strip Finisher: Santosh Jenkins PhD, Phone: ??[phone] Sarai Vargas DO LAB BLOOD ORDERABLES Final R esult [facility] - 01 documented in this encounter Visit Diagnoses Diagnosis Thrombocytosis- Primary Essential thrombocythemia Anemia, unspecified type documented in this encounter Orders Appointment Requests Count Last Ordered Date Fi rst Ordered Date ONCBCN CLINIC APPOINTMENT REQUEST 2 019 11/02/2018 ONCBCN LAB APPOINTMENT 1 11/30/2018 documented in this encounter Care Teams Editor Dictionary Relationship Specialty Start Date End Date Clive Wright MD PCP - General Family Medicine 09/15/18 Sarai Vargas DO [address] [place] [id number] Medical Oncologist/Tape Fastener Machine Operator Hematology and Oncology 10/27/18 documented as of this encounter
--- OUTSIDE RECORDS SUMMARY | 2024-03-10 20:17 | XMS_ITS | Encounter Summary ---
Author Organization [facility] Address [address] [place] [address] Phone Care Team Providers Care Hoseman Name Role Phone Clive Wright MD Primary Care Provider [phone] Karthikeyan Elaine DO Unavailable [phone] Encounter Details Date Type Department Care Team (Late st Contact Info) Description 11/30/2018 10:15 AM CDT Lab [facility] Oncology [address] [place] [phone] Thrombocytosis (CMS/HCC); Anemia, unspecified type Social History Tobacco Use [...] on file 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 Gender Identity Not on file Sexual Orientation Not on file Occupation Industry Job Start Date Job End Date Retired Not on file Not on file Not on file documented as of this encounter Plan of Treatment Not on file documented as of this encounter Visit Diagnoses Diagnosis Thrombocytosis Essential thrombocythemia Anemia, unspecified type documented in this encounter Orders Appointment Requests Count Last Ordered Date Fi rst Ordered Date ONCBCN LAB APPOINTMENT 1 11/30/2018 documented in this encounter Care Teams Hoseman Relationship Specialty Start Date End Date Clive Wright MD PCP - General Family Medicine 09/15/18 Karthikeyan Elaine DO [address] [place] [address] Medical Oncologist/Plasma Processing Centrifuge Operator Hematology and Oncology 10/27/18 documented as of this encounter
--- OUTSIDE RECORDS SUMMARY | 2024-03-10 20:17 | XMS_ITS | Encounter Summary ---
Author Organization [facility] Care Team Providers Care Hasher Machine Operator Name Role Phone Clive Wright MD Primary Care Provider [phone] Karthikeyan Elaine DO Unavailable [phone] Encounter Details Date Type Department Care Team (Latest Contact Info) Description 04/05/2019 Travel Social History Tobacco Use Types Packs/Day Years Used Date Smoking Tobacco: Never Smokeless Tobacco: Never Alcohol Use Standard Drinks/Week Comments Not Currently 0 (1 standard drink = 0.6 oz pur e alcohol) occasion PHQ-2 Answer Date Recorded PHQ-2 Score 0 10/27/2018 Comments Unknown Sex and Gender Information Value Date Recorded Sex Assigned at Not on file 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 Gender Identity Not on file Sexual Orientation Not on file Occupation Industry Job Start Date Job End Date Retired Not on file Not on file Not on file documented as of this encounter Plan of Treatment Not on file documented as of this encounter Visit Diagnoses Not on filedocumented in this encounter Care Teams Hasher Machine Operator Relationship Specialty Start Date End Date Clive Wright MD PCP - General Family Medicine 09/15/18 Karthikeyan Elaine DO [address] [place] [id number] Medical Oncologist/Assistant Customer Service Manager Hematology and Oncology 10/27/18 documented as of this encounter
--- OUTSIDE RECORDS SUMMARY | 2024-03-10 20:17 | XMS_ITS | Encounter Summary ---
Author Organization [facility] Address [address] [place] [address] Phone Care Team Providers Care Care Manager Cna Name Role Phone Clive Wright MD Primary Care Provider [phone] Sarai Vargas DO Unavailable [phone] Reason for Visit * Reason Comments Follow-up Encounter Details Date Type Department Care Team (Latest Contact Info) Description 04/05/2019 11:45 AM BLASTING CONTRACT MINER Office Visit [facility] Oncology [address] [phone] Sarai Vargas DO 1418 [facility] [address] [place] [id number] Thrombocytosis (CMS/HCC) (Primary Dx); Other iron [...] on file Legal Sex Female 8:44 PM BLASTING CONTRACT MINER Gender Identity Not on file Sexual Orientation Not on file Occupation Industry Job Start Date Job End Date Retired Not on file Not on file Not on file documented as of this encounter Last Filed Vital Signs Vital Sign Reading Time Taken Comments Blood Pressure 147/74 04/05/2019 11:09 AM BLASTING CONTRACT MINER Pulse 67 04/05/2019 11:09 AM BLASTING CONTRACT MINER Temperature 36.8 ??C (98.2 ??F) 04/05/2019 11:[address] Respiratory Rate 16 04/05/2019 11:09 AM BLASTING CONTRACT MINER Oxygen Saturation 100% 04/05/2019 11:09 AM BLASTING CONTRACT MINER Inhaled Oxygen Concentration - - Weight 57.3 kg (126 lb 6.4 oz) 04/05/2019 11:09 AM BLASTING CONTRACT MINER Height 163.8 cm (5' 4.49 ) 04/05/2019 11:[address] Body Mass Index 21.37 04/05/2019 11:09 AM BLASTING CONTRACT MINER documented in this encounter Ordered Prescriptions Prescription Sig Dispense Quantity Refills Last Filled Start Date End Date ferrous sulfate 325 mg (65 mg of elemental iron) tablet Take 1 tablet (325 mg total) by mouth 2 (two) times a day 180 tablet 04/05/2019 0 hydroxyurea (HYDREA) 500 mg capsule Take 1 capsule (500 mg total) by mouth daily 90 capsule 04/05/2019 0 documented in this encounter Progress Notes * Sarai Vargas, - 04/05/2019 11:45 AM CST Patient ID: Ankita Perez is a 68 y.o. female. Primary Care Provider: Clive Wright MD Assessment/Plan 1. Persistent thrombocytosis-JAK2 negative. Etiology is due to underlying autoimmune disorder and this is probably reactive process. Since beginning hydroxyurea 500 mg daily, her platelet count is gradually decreased by nearly 300,000. For now, she will remain on hydroxyurea and I will see her back in 3 months with repeat blood work and examination. Once she has started on medical therapy for her underlying autoimmune disorder, then I could re-evaluate with any hydroxyurea long-term or just for the short-term. She will continue with anti-platelet therapy with low-dose aspirin. 2. Improved but persistent microcytic anemia. She will continue with ferrous sulfate 325 mg b.i.d. 3. 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 She is scheduled undergo rheumatological evaluation in the near future. Patient Active Problem List Diagnosis ??? Essential hypertension ??? Mixed hyperlipidemia ??? 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, without long- term current use of insulin (CMS/HCC) ??? Iron deficiency anemia ??? Thrombocytosis (CMS/HCC) Diagnoses and all orders for this visit: Thrombocytosis (CMS/HCC) (Primary) - Clinic Appointment Request Follow up; SARAI VARGAS MD; Clinic Appointment Location: [facility] - CBC with auto differential; Future - Clinic Appointment Request Follow up; SARAI VARGAS; Clinic Appointment Location: [facility] MHE2 180; Future - Lab Draw Appt Request Arm Draw or Central Line Draw? Arm; What is your ordering location? [facility]/B[facility]; Where will this patient receive treatment? [facility]; Future Other iron deficiency anemia - Clinic Appointment Request Follow up; SARAI VARGAS MD; Clinic Appointment Location: [facility] Other orders - hydroxyurea (HYDREA) 500 mg capsule; Take 1 capsule (500 mg total) by mouth daily - ferrous sulfate 325 mg (65 mg of elemental iron) tablet; Take 1 tablet (325 mg total) by mouth 2 (two) times a day Subjective Interval History: 1. Mild normochromic normocytic anemia and thrombocytosis. -underlying autoimmune disorder with a positive JULIA 2. Patient changed primary care physicians in [...] had this type of procedure before. 7. Laboratory testing in October 2018 showed the following: FRANSISCO 2 mutation negative. JULIA is positive. C reactive protein is negative/normal at 0.47. TSH, vitamin B12 and RBC folate were all normal. Platelet count in early fall was up to 932 8. Patient was started on hydroxyurea 500 mg in December. Subsequently thereafter, her platelet count has slowly decreased and is now measuring 684. Interval Notes: I have reviewed: allergies, current [...] this encounter: BSA: 1.61 meters squared BP 147/74 (BP Location: Left arm) Pulse 67 Temp 36.8 ??C (98.2 ??F) (Oral) Resp 16 Ht 163.8cm (5' 4.49 ) Wt 57.3 kg (126 lb 6.4 oz) SpO2 100% BMI 21.37 kg/m?? Physical Exam Constitutional: Appearance: She is [...] Results: WBC Date Value Ref Range Status 04/05/2019 7.0 3.8 - 9.9 X10 3/ul Final 02/28/2019 7.5 3.8 - 10.8 Thousand/uL Final 01/04/2019 9.3 3.4 - 10.8 x10E3/uL Final Hgb Date Value Ref Range Status 02/28/2019 11.3 (L) 11.7 - 15.5 g/dL Final 01/04/2019 10.8 (L) 11.1 - 15.9 g/dL Final Hemoglobin Date Value Ref Range Status 04/05/2019 10.7 (L) 11.9 - 15.5 g/dL Final Hct Date Value Ref Range Status 04/05/2019 33.8 (L) 35.6 - 45.5 % Final 02/28/2019 34.7 (L) 35.0 - 45.0 % Final 01/04/2019 33.8 (L) 34.0 - 46.6 % Final Platelets Date Value Ref Range Status 02/28/2019 771 (H) 140 - 400 Thousand/uL Final 01/04/2019 932 (HH) 150 - 450 x10E3/uL Final Comment: Results verified by repeat testing Plt Count Date Value Ref Range Status 04/05/2019 684 (H) 150 - 400 x10 3/ul Final Lactate dehydrogenase (LDH) Date Value Ref Range Status 10/19/2018 164 119 - 226 IU/L Final Creatinine Date Value Ref Range Status 08/26/2018 1.07 (H) 0.50 - 0.99 mg/dL Final Comment: For patients >49 years of age, the reference limit for Creatinine is approximately 13% higher for people identified as -Panamanian. AST Date Value Ref Range Status 08/26/2018 18 10 - 35 U/L Final ultrasound of the spleen performed 2 weeks ago shows a normal spleen size and normal spleen appearance. TING CONTRACT MINER documented in this encounter Plan of Treatment Not on file documented as of this encounter Procedures Procedure Name Priority Date/Time Associated Diagnosis Comments CBC WITH AUTO DIFFERENTIAL Routine 07/05/2019 11:08 AM CDT Thrombocytosis (CMS/HCC) documented in this encounter Results * (ABNORMAL) CBC with auto differential (07/05/2019 11:08 AM CDT) WBC 8.6 3.8 - 9.9 X10 3/ul [facility] RBC 3.00(L) 3.90 - 5.20 x10 6/ul [facility] Hemoglobin 11.0(L) 11.9 - 15.5 g/dL [facility] Hct 33.5(L) 35.6 - 45.5 % [facility] MCV 111.7(H) 81.3 - 96.4 fl [facility] MCH 36.7(H) 27.1 - 33.3 pg [facility] MCHC 32.8 32.3 - 35.7 g/dl [facility] RDW 12.5 11.1 - 14.9 % [facility] Plt Count 713(H) 150 - 400 x10 3/ul [facility] MPV 9.0(L) 9.1 - 12.3 fl [facility] Neut % 65.6 % [facility] Immature Gran % 0.2 % [facility] Lymph % 24.0 % [facility] [place] % 7.3 % [facility] Eos % 2.4 % [facility] AUTO BASO % 0.5 % [facility] NEUTROPHIL ABS # 5.7 1.7 - 6.5 x10 3/ul [facility] Immature Gran # 0.0 0.0 - 0.1 x10 3/ul [facility] Absolute Lymphs (auto) 2.1 0.8 - 3.3 x10 3/ul [facility] Absolute Monos (auto) 0.6 0.2 - 0.8 x10 3/ul [facility] Absolute Eos (auto) 0.2 0.0 - 0.5 x10 3/ul [facility] BASOPHIL ABS # 0.0 0.0 - 0.1 x10 3/ul [facility] Nucleat RBC Rel Count 0.0 #/100WBC [facility] NRBC abs 0.00 0.00 - 0.01 x10 3/ul [facility] Absolute Neutrophils 5,700 200 - 8,000 /ul [facility] Blood specimen (specimen) 07/05/2019 11:08 AM CDT 07/05/2019 11:13 AM CDT Narrative Resulting Agency Comment RCR Sarai Vargas DO LAB BLOOD ORDERABLES Final R esult [facility] [address] [place] [address] documented in this encounter Visit Diagnoses Diagnosis Thrombocytosis- Primary Essential thrombocythemia Other iron deficiency anemia documented in this encounter Discontinued Medications Medication Sig Discontinue Reason Start Date End Da te hydroxyurea (HYDREA) 500 mg capsule Take 1 capsule (500 mg total) by mouth daily Reorder 01/04/2019 04/05/2019 ferrous sulfate 325 mg (65 mg of elemental iron) tablet TAKE 1 TABLET BY MOUTH THREE TIMES DAILY WITH MEALS Reorder 01/31/2019 04/05/2019 documented as of this encounter Orders Appointment Requests Count Last Ordered Date Fi rst Ordered Date ONCBCN CLINIC APPOINTMENT REQUEST 2 020 04/05/2019 ONCBCN LAB APPOINTMENT 1 07/05/2019 documented in this encounter Care Teams Care Manager Cna Relationship Specialty Start Date End Date Clive Wright MD PCP - General Family Medicine 09/15/18 Sarai Vargas DO [address] [place] [id number] Medical Oncologist/Linoleum Layer Apprentice Hematology and Oncology 10/27/18 documented as of this encounter
--- OUTSIDE RECORDS SUMMARY | 2024-03-10 20:17 | XMS_ITS | Encounter Summary ---
Author Organization [facility] Address [address] [place] [address] Phone Care Team Providers Care Diver Helper Name Role Phone Clive Wright MD Primary Care Provider [phone] Karthikeyan Elaine DO Unavailable [phone] Encounter Details Date Type Department Care Team (Late st Contact Info) Description 03/30/2019 Orders Only [facility] Oncology 1418 [facility] [address] [place] [phone] Karthikeyan Elaine DO [address] [facility] [address] [place] [phone] Thrombocytosis (CMS/HCC) (Primary Dx) Social History [...] on file Legal Sex Female 8:44 PM SALES FLOOR TEAM LEADER Gender Identity Not on file Sexual Orientation Not on file Occupation Industry Job Start Date Job End Date Retired Not on file Not on file Not on file documented as of this encounter Plan of Treatment Not on file documented as of this encounter Procedures Procedure Name Priority Date/Time Associated Diagnosis Comments CBC WITH AUTO DIFFERENTIAL Routine 04/05/2019 10:59 AM SALES FLOOR TEAM LEADER Thrombocytosis (CMS/HCC) documented in this encounter Results * (ABNORMAL) CBC with auto differential (04/05/2019 10:59 AM SALES FLOOR TEAM LEADER) WBC 7.0 3.8 - 9.9 X10 3/ul [facility] RBC 3.29(L) 3.90 - 5.20 x10 6/ul [facility] Hemoglobin 10.7(L) 11.9 - 15.5 g/dL [facility] Hct 33.8(L) 35.6 - 45.5 % [facility] MCV 102.7(H) 81.3 - 96.4 fl [facility] MCH 32.5 27.1 - 33.3 pg [facility] MCHC 31.7(L) 32.3 - 35.7 g/dl [facility] RDW 18.5(H) 11.1 - 14.9 % [facility] Plt Count 684(H) 150 - 400 x10 3/ul [facility] MPV 8.7(L) 9.1 - 12.3 fl [facility] Neut % 62.3 % [facility] Immature Gran % 0.3 % [facility] Lymph % 25.6 % [facility] [place] % 9.2 % [facility] Eos % 1.7 % [facility] AUTO BASO % 0.9 % [facility] NEUTROPHIL ABS # 4.3 1.7 - 6.5 x10 3/ul [facility] Immature Gran # 0.0 0.0 - 0.1 x10 3/ul [facility] Absolute Lymphs (auto) 1.8 0.8 - 3.3 x10 3/ul [facility] Absolute Monos (auto) 0.6 0.2 - 0.8 x10 3/ul [facility] Absolute Eos (auto) 0.1 0.0 - 0.5 x10 3/ul [facility] BASOPHIL ABS # 0.1 0.0 - 0.1 x10 3/ul [facility] Nucleat RBC Rel Count 0.0 #/100WBC [facility] NRBC abs 0.00 0.00 - 0.01 x10 3/ul [facility] Absolute Neutrophils 4,300 200 - 8,000 /ul [facility] Blood specimen (specimen) 04/05/2019 10:59 AM SALES FLOOR TEAM LEADER 04/05/2019 11:01 AM SALES FLOOR TEAM LEADER Narrative Resulting Agency Comment RCR Karthikeyan Elaine DO LAB BLOOD ORDERABLES Final R esult [address] [address] documented in this encounter Visit Diagnoses Diagnosis Thrombocytosis- Primary Essential thrombocythemia documented in this encounter Care Teams Diver Helper Relationship Specialty Start Date End Date Clive Wright MD PCP - General Family Medicine 09/15/18 Karthikeyan Elaine DO [address] [place] [address] Medical Oncologist/Gum Sprayer Hematology and Oncology 10/27/18 documented as of this encounter
--- OUTSIDE RECORDS SUMMARY | 2024-03-10 20:17 | XMS_ITS | Encounter Summary ---
Author Organization [facility] Address [address] [facility] [address] [place] [address] Care Team Providers Care Micrographics Services Supervisor Name Role Phone Clive Wright MD Primary Care Provider Encounter Details Date Type Department Care Team (Late st Contact Info) Description 09/24/2018 Orders Only [facility] Family Medicine [address] [facility] [address] [place] [address] Clive Wright MD [address] [place] [address] [address] [place] [address] Anemia, unspecified type (Primary Dx); Thrombocytosis (CMS/HCC) Social History Tobacco Use Types Packs/Day Years Used Date Smoking Tobacco: Never Smokeless Tobacco: Never Alcohol Use Standard Drinks/Week Comments Not Currently 0 (1 standard drink = 0.6 oz pur e alcohol) occasion Comments Unknown Sex and Gender Information Value Date Recorded Sex Assigned at Not on file Legal Sex Female 8:44 PM SURGEON PARTNER Gender Identity Not on file Sexual Orientation Not on file documented as of this encounter Progress Notes * Nenita Barahona RN - 09/24/2018 9:26 AM CDT Fecal occult lab ordered per last lab results documented in this encounter Plan of Treatment Scheduled Orders Name Type Priority Associated Diagnoses Orde r Schedule Occult blood, fecal non neoplasm screening Lab Routine Thrombocytosis (CMS/HCC) Anemia, unspecified type Expected: 09/24/2018, Expires: 09/25/2019 Occult blood, fecal non neoplasm screening Lab Routine Thrombocytosis (CMS/HCC) Anemia, unspecified type Expected: 09/24/2018, Expires: 09/25/2019 documented as of this encounter Procedures Procedure Name Priority Date/Time Associated Diagnosis Comments OCCULT BLOOD, FECAL (FIT) Routine 09/28/2018 8:56 AM CDT Thrombocytosis (CMS/HCC) Anemia, unspecified type documented in this encounter Results * Occult blood, fecal non neoplasm screening (09/28/2018 8:56 AM CDT) Fecal globulin by immunochemistry [facility] Comment: ??FECAL GLOBIN BY IMMUNOCHEMISTRY ?MICRO NUMBER: ?[id number] ??TEST STATUS: ? FINAL ??SPECIMEN SOURCE: ?? INSURE (TM) FOBT TEST CARD ??SPECIMEN QUALITY: ??ADEQUATE ??RESULT: ?Not Detected Stool 09/28/2018 8:56 AM CDT 09/28/2018 8:57 AM CDT Narrative Resulting Agency Comment Performing Organization Information: ?Site ID: [id number] ?Name: [facility] ?Address: [address] [place] [address] ?Director: Yoel Glez D.O., MPH Clive Wright MD LAB BODY FLUIDS AND STOOLS OR DERABLES Final Result [facility] [place] documented in this encounter Visit Diagnoses Diagnosis Anemia, unspecified type- Primary Thrombocytosis Essential thrombocythemia documented in this encounter Care Teams Micrographics Services Supervisor Relationship Specialty Start Date End Date Clive Wright MD PCP - General Family Medicine 09/15/18 documented as of this encounter
--- OUTSIDE RECORDS SUMMARY | 2024-03-10 20:17 | XMS_ITS | Encounter Summary ---
Author Organization [facility] Care Team Providers Care Pre Sales Technical Consultant Name Role Phone Clive Wright MD Primary Care Provider [phone] Encounter Details Date Type Department Care Team (Latest Contact Info) Description 09/15/2018 Travel Social History Tobacco Use Types Packs/Day Years Used Date Smoking Tobacco: Never Smokeless Tobacco: Never Alcohol Use Standard Drinks/Week Comments Not Currently 0 (1 standard drink = 0.6 oz pur e alcohol) occasion Comments Unknown Sex and Gender Information Value Date Recorded Sex Assigned at Not on file Legal Sex Female 8:44 PM QM CONSULTANT Gender Identity Not on file Sexual Orientation Not on file documented as of this encounter Plan of Treatment Not on file documented as of this encounter Visit Diagnoses Not on filedocumented in this encounter Care Teams Pre Sales Technical Consultant Relationship Specialty Start Date End Date Clive Wright MD PCP - General Family Medicine 09/15/18 documented as of this encounter
--- OUTSIDE RECORDS SUMMARY | 2024-03-10 20:17 | XMS_ITS | Encounter Summary ---
Author Organization [facility] Address [address] [place] [address] Phone Care Team Providers Care Machining Associate Name Role Phone Clive Wright MD Primary Care Provider [phone] Sarai Elaine DO Unavailable [phone] Reason for Visit * Reason Comments Follow-up Encounter Details Date Type Department Care Team (Latest Contact Info) Description 01/04/2019 1:15 PM CDT Office Visit [facility] Oncology [address] [facility] [place] [id number] Sarai Elaine, [address] [address] Thrombocytosis (CMS/HCC) (Primary Dx); Other iron [...] on file Legal Sex Female 8:44 PM ENGINEER OF SYSTEM DEVELOPMENT Gender Identity Not on file Sexual Orientation Not on file Occupation Industry Job Start Date Job End Date Retired Not on file Not on file Not on file documented as of this encounter Last Filed Vital Signs Vital Sign Reading Time Taken Comments Blood Pressure 183/88 01/04/2019 1:02 PM CDT rn notified Pulse 78 01/04/2019 1:02 PM CDT Temperature 36.9 ??C (98.4 ??F) 01/04/2019 1 :02 PM CDT Respiratory Rate 16 01/04/2019 1:02 PM CDT Oxygen Saturation 98% 01/04/2019 1:0 2 PM CDT Inhaled Oxygen Concentration - - Weight 60.9 kg (134 lb 3.2 oz) 01/05/20 19 1:02 PM CDT Height 163.8 cm (5' 4.49 ) 01/04/2019 1 :02 PM CDT Body Mass Index 22.69 01/04/2019 1:02 PM CDT documented in this encounter Patient Instructions * Patient Instructions* Jen Krueger CNS - 01/04/2019 1:15 PM CDT Patient Education Hydroxyurea (By mouth) Hydroxyurea (okm-ggus-ey-ure-EE-a) Treats cancer. Also treats sickle cell anemia by decreasing the number of crises and the need for blood transfusions. Brand Name(s): Droxia, Hydrea There may be other brand names for this medicine. When This Medicine Should Not Be Used: This medicine is not right for everyone. Do not use it if you had an allergic reaction to hydroxyurea, or if you are . How to Use This Medicine: Capsule, Tablet ?? Take your medicine as directed. Your dose may need to be changed several times to find what works best for you. ?? Do not touch this medicine with bare hands. ?? Wear disposable gloves when you handle the capsules or medicine bottles. ?? Wash your hands before and after you handle the capsules or bottles. ?? If powder from the capsule gets into your eyes, rinse them with water or an isotonic eyewash for15 minutes. ?? Do not open the capsule. If powder from the capsule spills out, wipe it up immediately with a damp disposable towel. Place the towel in a plastic bag and throw it away. Wash the area thoroughly with detergent 3 times. ?? Read and follow the patient instructions that come with this medicine. Talk to your doctor or pharmacist if you have any questions. ?? Missed dose: Take a dose as soon as you remember. If it is almost time for your next dose, wait until then and take a regular dose. Do not take extra medicine to make up for a missed dose. ?? Store the medicine in a closed container at room temperature, away from heat, moisture, and direct light. Drugs and Foods to Avoid: Ask your doctor or pharmacist before using any other medicine, including cypr-sms-lakxpqt medicines, vitamins, and herbal products. ?? Some medicines can affect how this medicine works. Tell your doctor if you are using any of the following: ?? Interferon ?? Cancer medicines and radiation treatment ?? HIV/AIDS medicine (including didanosine or stavudine) ?? This medicine may interfere with vaccines. Ask your doctor before you get a flu shot or any other vaccines. Avoid live vaccines while using this medicine. Warnings While Using This Medicine: ?? This medicine may cause defects if either partner is using it during conception or . Tell your doctor right away if you or your partner becomes . ?? Women: Use control during treatment and for at least 6 months after treatment ends. ?? Men: Use control during treatment and for at least 1 year after treatment ends. ?? Do not breastfeed while using this medicine. ?? Tell your doctor if you have kidney disease, liver disease, bone marrow problems, or HIV infection. ?? Medicines used to treat cancer are very strong and can have many side effects. Before receiving this medicine, make sure you understand all the risks and benefits. It is important for you to work closely with your doctor during your treatment. ?? This medicine may cause the following problems: ?? Increased risk of leukemia or skin cancer. Protect your skin from sunlight ?? Severe skin ulcers ?? This medicine may make you bleed, bruise, or get infections more easily. Take precautions to prevent illness and injury. Wash your hands often. ?? Talk with your doctor before using this medicine if you plan to have children. Some men who use this medicine have become infertile (unable to have children). ?? Tell any doctor or dentist who treats you that you are using this medicine. This medicine may affect certain medical test results. ?? Your doctor will do lab tests at regular visits to check on the effects of this medicine. Keep all appointments. ?? Keep all medicine out of the reach of children. Never share your medicine with anyone. Possible Side Effects While Using This Medicine: Call your doctor right away if you notice any of these side effects: ?? Allergic reaction: Itching or hives, swelling in your face or hands, swelling or tingling in your mouth or throat, chest tightness, trouble breathing ?? Fever, chills, cough, sore throat, body aches ?? Skin sores or ulcers, red or purple bumps ?? Unusual bleeding, bruising, or weakness If you notice other side effects that you think are caused by this medicine, tell your doctor. Call your doctor for medical advice about side effects. You may report side effects to FDA at 7-316-RIL-7786 ?? 2017 [employer] Information is for End User's use only and may not be sold, redistributed or otherwise used for commercial purposes. The above information is an certified medical aide only. It is not intended as medical advice for individual conditions or treatments. Talk to your doctor, nurse or pharmacist before following any medical regimen to see if it is safe and effective for you. documented in this encounter Ordered Prescriptions Prescription Sig Dispense Quantity Refills Last Filled Start Date End Date hydroxyurea (HYDREA) 500 mg capsule Take 1 capsule (500 mg total) by mouth daily 30 capsule 2 01/04/2019 0 documented in this encounter Progress Notes * Sarai Elaine, - 01/04/2019 1:15 PM CDT Patient ID: Ankita Perez is a 68 y.o. female. Primary Care Provider: Clive Wright MD Assessment/Plan 1. Persistent thrombocytosis-JAK2 negative. I suspect that this could be reactive from underlying autoimmune disorders if indeed her JULIA positive titers along with the anti Buenrostro and anti chromatin antibodies are real. I will placed on Hydrea 500 mg daily to reduce the quantity of her platelets in order to prevent thrombosis. She will continue with aspirin 81 mg daily. I will monitor her CBC every 4 weeks and see her back in 3 months. 2. Improved but persistent microcytic anemia. She will continue with ferrous sulfate 325 mg t.i.d.. I will continue monitor CBC on monthly basis. 3. 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 I did contact Dr. Clive Grande, her primary care physician, for advice and intervention and figuring out if indeed she has a rheumatological disorder. Patient Active Problem List Diagnosis ??? Essential hypertension ??? Mixed hyperlipidemia ??? 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, without long- term current use of insulin (CMS/HCC) ??? Iron deficiency anemia ??? Thrombocytosis (CMS/HCC) Diagnoses and all orders for this visit: Thrombocytosis (CMS/HCC) (Primary) - Clinic Appointment Request Follow up; SARAI ELAINE; Clinic Appointment Location: [facility] - Clinic Appointment Request Follow up; SARAI ELAINE MD; Clinic Appointment Location: [facility]; Future - CBC with auto differential; Standing - Lab Draw Appt Request Arm Draw or Central Line Draw? Arm; What is your ordering location? [facility]; Where will this patient receive treatment? [facility]; Future Other iron deficiency anemia - Clinic Appointment Request Follow up; SARAI ELAINE MD; Clinic Appointment Location: [facility]; Future - CBC with auto differential; Standing - Lab Draw Appt Request Arm Draw or Central Line Draw? Arm; What is your ordering location? [facility]Hem/B[facility]; Where will this patient receive treatment? [facility]; Future Anemia, unspecified type - Clinic Appointment Request Follow up; SARAI ELAINE; Clinic Appointment Location: [facility] Other orders - hydroxyurea (HYDREA) 500 mg capsule; Take 1 capsule (500 mg total) by mouth daily Subjective Interval History: 1. Mild normochromic normocytic anemia and thrombocytosis. 2. Patient changed primary [...] procedure before. 7. Laboratory testing in October showed the following: FRANSISCO 2 mutation negative. JULIA is positive. C reactive protein is negative/normal at 0.47. TSH, vitamin B12 and RBC folate were all normal. Interval Notes: I have reviewed: allergies, current [...] encounter: BSA: 1.66 meters squared BP (!) 183/88 (BP Location: Left arm) Comment: rn notified Pulse 78 Temp 36.9 ??C (98.4 ??F) (Oral) Resp 16 Ht 163.8 cm (5' 4.49 ) Wt 60.9 kg (134 lb 3.2 oz) SpO2 98% BMI 22.69 kg/m?? Physical Exam Constitutional: Appearance: She is [...] Results: WBC Date Value Ref Range Status 01/04/2019 9.3 3.4 - 10.8 x10E3/uL Final Hgb Date Value Ref Range Status 01/04/2019 10.8 (L) 11.1 - 15.9 g/dL Final Hct Date Value Ref Range Status 01/04/2019 33.8 (L) 34.0 - 46.6 % Final Platelets Date Value Ref Range Status 01/04/2019 932 (HH) 150 - 450 x10E3/uL Final Comment: Results verified by repeat testing Lactate dehydrogenase (LDH) Date Value Ref Range Status 10/19/2018 164 119 - 226 IU/L Final Creatinine Date Value Ref Range Status 08/26/2018 1.07 (H) 0.50 - 0.99 mg/dL Final Comment: For patients >49 years of age, the reference limit for Creatinine is approximately 13% higher for people identified as -Romanian. AST Date Value Ref Range Status 08/26/2018 18 10 - 35 U/L Final ultrasound of the spleen performed 2 weeks ago shows a normal spleen size and normal spleen appearance. NEER OF SYSTEM DEVELOPMENT documented in this encounter Plan of Treatment Scheduled Orders Name Type Priority Associated Diagnoses Orde r Schedule CBC with auto differential Lab Routine Thrombocytosis (CMS/HCC) Other iron deficiency anemia Every 4 Weeks for 3 Occurrences starting 01/04/2019 until 05/07/2019, 2 completed documented as of this encounter Procedures Procedure Name Priority Date/Time Associated Diagnosis Comments CBC WITH AUTO DIFFERENTIAL Routine 02/28/2019 7:03 AM ENGINEER OF SYSTEM DEVELOPMENT Thrombocytosis (CMS/HCC) Other iron deficiency anemia CBC WITH AUTO DIFFERENTIAL Routine 01/31/2019 7:21 AM ENGINEER OF SYSTEM DEVELOPMENT Thrombocytosis (CMS/HCC) Other iron deficiency anemia documented in this encounter Results * (ABNORMAL) CBC with auto differential (02/28/2019 7:03 AM ENGINEER OF SYSTEM DEVELOPMENT) Pathologist [facility] WBC 7.5 3.8 - 10.8 Thousand/ uL [facility] [place] RBC, POC 3.60(L) 3.80 - 5.10 Million/u L [facility] [place] Hgb 11.3(L) 11.7 - 15.5 g/dL [facility] [place] Hct 34.7(L) 35.0 - 45.0 % [facility] [place] MCV 96.4 80.0 - 100.0 fL [facility] [place] MCH 31.4 27.0 - 33.0 pg [facility] [place] MCHC 32.6 32.0 - 36.0 g/dL [facility] [place] Rdw 16.1(H) 11.0 - 15.0 % [facility] [place] Platelets 771(H) 140 - 400 Thousand/ uL [facility] [place] MPV 9.4 7.5 - 12.5 fL [facility] [place] Neutrophils, abs 4,740 1,500 - 7,800 cells/uL [facility] [place] Neutrophil bands, abs CANCELED 0 - 750 cells/uL [facility] [place] Comment:Result canceled by t he ancillary. Metamyelocytes, abs CANCELED 0 cells/uL [facility] [place] Comment:Result canceled by t he ancillary. Myelocytes, abs CANCELED 0 cells/uL [facility] [place] Comment:Result canceled by t he ancillary. Promyelocytes, abs CANCELED 0 cells/uL [facility] [place] Comment:Result canceled by t he ancillary. Lymphocytes, abs 1,958 850 - 3,900 cells/uL [facility] [place] Monocyte abs 533 200 - 950 cells/uL [facility] [place] Eosinophils, abs 218 15 - 500 cells/uL [facility] [place] Basophils, abs 53 0 - 200 cells/uL [facility] [place] Blast, cell CANCELED 0 cells/uL [facility] [place] Comment:Result canceled by t he ancillary. NRBC abs CANCELED 0 cells/uL [facility] [place] Comment:Result canceled by t he ancillary. Neutrophils 63.2 % [facility] [place] Neutrophilic bands CANCELED % [facility] [place] Comment:Result canceled by t he ancillary. Metamyelocyte pct CANCELED % [facility] [place] Comment:Result canceled by t he ancillary. Myelocyte pct CANCELED % [facility] [place] Comment:Result canceled by t he ancillary. Promyelocyte pct CANCELED % [facility] [place] Comment:Result canceled by t he ancillary. Lymphocyte pct 26.1 % [facility] [place] Reactive lymph CANCELED 0 - 10 % [facility] [place] Comment:Result canceled by t he ancillary. Monocytes 7.1 % [facility] [place] Eosinophils 2.9 % [facility] [place] Basophils 0.7 % [facility] [place] Blast pct CANCELED % [facility] [place] Comment:Result canceled by t he ancillary. NRBC CANCELED 0 /100 WBC [facility] [place] Comment:Result canceled by t he ancillary. Comment CANCELED [facility] [place] Comment:Result canceled by t he ancillary. Blood specimen (specimen) 02/28/2019 7:03 AM ENGINEER OF SYSTEM DEVELOPMENT 02/28/2019 7:04 AM ENGINEER OF SYSTEM DEVELOPMENT Narrative Resulting Agency Comment Performing Organization Information: ?Site ID: [id number] ?Name: [facility] ?Address: [address] [place] [address] [place] [address] ?Director: Yoel Glez D.O., MPH us Sarai Elaine DO LAB BLOOD ORDERABLES Final R esult [facility] [place] * (ABNORMAL) CBC with auto differential (01/31/2019 7:21 AM ENGINEER OF SYSTEM DEVELOPMENT) WBC 7.5 3.8 - 10.8 Thousand/ uL [facility] [place] RBC, POC 3.68(L) 3.80 - 5.10 Million/u L [facility] [place] Hgb 11.0(L) 11.7 - 15.5 g/dL [facility] [place] Hct 34.5(L) 35.0 - 45.0 % [facility] [place] MCV 93.8 80.0 - 100.0 fL [facility] [place] MCH 29.9 27.0 - 33.0 pg [facility] [place] MCHC 31.9(L) 32.0 - 36.0 g/dL [facility] [place] Rdw 15.8(H) 11.0 - 15.0 % [facility] [place] Platelets 846(H) 140 - 400 Thousand/ uL [facility] [place] MPV 9.2 7.5 - 12.5 fL [facility] [place] Neutrophils, abs 4,298 1,500 - 7,800 cells/uL [facility] [place] Neutrophil bands, abs CANCELED 0 - 750 cells/uL [facility] [place] Comment:Result canceled by t he ancillary. Metamyelocytes, abs CANCELED 0 cells/uL [facility] [place] Comment:Result canceled by t he ancillary. Myelocytes, abs CANCELED 0 cells/uL [facility] [place] Comment:Result canceled by t he ancillary. Promyelocytes, abs CANCELED 0 cells/uL [facility] [place] Comment:Result canceled by t he ancillary. Lymphocytes, abs 2,100 850 - 3,900 cells/uL [facility] [place] Monocyte abs 653 200 - 950 cells/uL [facility] [place] Eosinophils, abs 390 15 - 500 cells/uL [facility] [place] Basophils, abs 60 0 - 200 cells/uL [facility] [place] Blast, cell CANCELED 0 cells/uL [facility] [place] Comment:Result canceled by t he ancillary. NRBC abs CANCELED 0 cells/uL [facility] [place] Comment:Result canceled by t he ancillary. Neutrophils 57.3 % [facility] [place] Neutrophilic bands CANCELED % [facility] [place] Comment:Result canceled by t he ancillary. Metamyelocyte pct CANCELED % [facility] [place] Comment:Result canceled by t he ancillary. Myelocyte pct CANCELED % [facility] [place] Comment:Result canceled by t he ancillary. Promyelocyte pct CANCELED % [facility] [place] Comment:Result canceled by t he ancillary. Lymphocyte pct 28.0 % [facility] [place] Reactive lymph CANCELED 0 - 10 % [facility] [place] Comment:Result canceled by t he ancillary. Monocytes 8.7 % [facility] [place] Eosinophils 5.2 % [facility] [place] Basophils 0.8 % [facility] [place] Blast pct CANCELED % [facility] [place] Comment:Result canceled by t he ancillary. NRBC CANCELED 0 /100 WBC [facility] [place] Comment:Result canceled by t he ancillary. Comment CANCELED [facility] [place] Comment:Result canceled by t he ancillary. Blood specimen (specimen) 01/31/2019 7:21 AM ENGINEER OF SYSTEM DEVELOPMENT 01/31/2019 7:22 AM ENGINEER OF SYSTEM DEVELOPMENT Narrative Resulting Agency Comment Performing Organization Information: ?Site ID: [id number] ?Name: [facility] ?Address: [facility] [place] [address] ?Director: Yoel Glez D.O., MPH Sarai Elaine DO LAB BLOOD ORDERABLES Final R esult [facility] [place] documented in this encounter Visit Diagnoses Diagnosis Thrombocytosis- Primary Essential thrombocythemia Other iron deficiency anemia Anemia, unspecified type documented in this encounter Orders Appointment Requests Count Last Ordered Date Fi rst Ordered Date ONCBCN CLINIC APPOINTMENT REQUEST 2 020 01/04/2019 ONCBCN LAB APPOINTMENT 1 04/05/2019 documented in this encounter Care Teams Machining Associate Relationship Specialty Start Date End Date Clive Wright MD PCP - General Family Medicine 09/15/18 Sarai Elaine DO [address] [place] [id number] Medical Oncologist/Butadiene Converter Operator Hematology and Oncology 10/27/18 documented as of this encounter
--- OUTSIDE RECORDS SUMMARY | 2024-03-10 20:17 | XMS_ITS | Encounter Summary ---
Author Organization [facility] Healthcare Address [address] [place] [address] Care Team Providers Care Rn Intensive Care Unit Name Role Phone Clive Wright MD Primary Care Provider [phone] Karthikeyan Elaine DO Unavailable [phone] Encounter Details Date Type Department Care Team (Late st Contact Info) Description 04/05/2019 10:50 AM COINING PRESS OPERATOR - 04/08/2019 11:59 PM COINING PRESS OPERATOR Hospital Encounter [facility] Karthikeyan Elaine DO [address] [address] Social History Tobacco Use Types Packs/Day Years Used Date Smoking Tobacco: Never Smokeless Tobacco: Never Alcohol Use Standard Drinks/Week Comments Not Currently 0 (1 standard drink = 0.6 oz pur e alcohol) occasion PHQ-2 Answer Date Recorded PHQ-2 Score 0 10/27/2018 Comments Unknown Sex and Gender Information Value Date Recorded Sex Assigned at Not on file Legal Sex Female 8:44 PM COINING PRESS OPERATOR Gender Identity Not on file Sexual Orientation Not on file Occupation Industry Job Start Date Job End Date Retired Not on file Not on file Not on file documented as of this encounter Medications at Time of Discharge aspirin 81 mg enteric coated tablet Take 1 tablet (81 mg total) by mouth daily 30 tablet 11/02/2018 atorvastatin (LIPITOR) 20 mg tablet Take 1 tablet by mouth daily 3 06/21/2018 04/14/2019 blood glucose diagnostic (glucose blood) strip Test once daily 100 each 3 09/15/2018 09/15/2019 blood glucose diagnostic (ONETOUCH ULTRA BLUE TEST STRIP) strip daily 10/13/2019 ferrous sulfate 325 mg (65 mg of elemental iron) tablet Take 1 tablet (325 mg total) by mouth 2 (two) times a day 180 tablet 04/05/2019 07/12/2019 hydroCHLOROthiazi de (HYDRODIURIL) 25 mg tablet 25 mg daily 04/14/2019 hydroxyurea (HYDREA) 500 mg capsule Take 1 capsule (500 mg total) by mouth daily 90 capsule 04/05/2019 07/05/2019 lisinopril (PRINIVIL,ZESTRIL ) 20 mg tablet Take 1 tablet by mouth daily 3 06/21/2018 04/14/2019 metFORMIN (GLUCOPHAGE) 500 mg tablet Take 1 tablet by mouth 2 (two) times a day 3 06/21/2018 04/14/2019 metoprolol XL (TOPROL-XL) 25 mg 24 hr tablet Take 1 tablet by mouth daily 3 06/21/2018 04/14/2019 TRADJENTA 5 mg tablet Take 1 tablet by mouth daily 3 06/21/2018 04/14/2019 documented as of this encounter Plan of Treatment Not on file documented as of this encounter Visit Diagnoses Not on filedocumented in this encounter Care Teams Rn Intensive Care Unit Relationship Specialty Start Date End Date Clive Wright MD PCP - General Family Medicine 09/15/18 Karthikeyan Elaine DO [address] [place] [address] Medical Oncologist/Network Planner Hematology and Oncology 10/27/18 documented as of this encounter
--- OUTSIDE RECORDS SUMMARY | 2024-03-10 20:17 | XMS_ITS | Encounter Summary ---
Author Organization [facility] Address [address] [place] [address] Phone Care Team Providers Care Cook 3 Pastry Name Role Phone Clive Wright MD Primary Care Provider [phone] Encounter Details Date Type Department Care Team (Late st Contact Info) Description 10/19/2018 3:15 PM CDT Lab [facility] Oncology [address] [place] [id number] Anemia, unspecified type Social History Tobacco Use Types Packs/Day Years Used Date Smoking Tobacco: Never Smokeless Tobacco: Never Alcohol Use Standard Drinks/Week Comments Not Currently 0 (1 standard drink = 0.6 oz pur e alcohol) occasion Comments Unknown Sex and Gender Information Value Date Recorded Sex Assigned at Not on file Legal Sex Female 8:44 PM DRYING ROOM OPERATOR Gender Identity Not on file Sexual Orientation Not on file Occupation Industry Job Start Date Job End Date Retired Not on file Not on file Not on file documented as of this encounter Plan of Treatment Not on file documented as of this encounter Visit Diagnoses Diagnosis Anemia, unspecified type documented in this encounter Orders Appointment Requests Count Last Ordered Date Fi rst Ordered Date ONCBCN LAB APPOINTMENT 1 10/19/2018 documented in this encounter Care Teams Cook 3 Pastry Relationship Specialty Start Date End Date Clive Wright MD PCP - General Family Medicine 09/15/18 documented as of this encounter
--- OUTSIDE RECORDS SUMMARY | 2024-03-10 20:17 | XMS_ITS | Encounter Summary ---
Author Organization [facility] Address [address] [place] [address] Care Team Providers Care Seam Steamer Name Role Phone Clive Wright MD Primary Care Provider [phone] Reason for Visit * Reason Comments Diabetes 6 month f/u Hypertension 6 month f/u Encounter Details Date Type Department Care Team (Late st Contact Info) Description 09/15/2018 1:45 PM CDT Office Visit [facility] Family Medicine [address] [place] [address] Clive Wright MD [address] [place] [id number] Essential hypertension (Primary Dx); Other iron deficiency anemia; Mixed hyperlipidemia; Thrombocytosis (CMS/HCC); 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, without long-term current use of insulin ([facility]/HCC) Social History Tobacco Use Types Packs/Day Years Used Date Smoking Tobacco: Never Smokeless Tobacco: Never Alcohol Use Standard Drinks/Week Comments Not Currently 0 (1 standard drink = 0.6 oz pur e alcohol) occasion Comments Unknown Sex and Gender Information Value Date Recorded Sex Assigned at Not on file Legal Sex Female 8:44 PM 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 Gender Identity Not on file Sexual Orientation Not on file documented as of this encounter Last Filed Vital Signs Vital Sign Reading Time Taken Comments Blood Pressure 184/80 09/15/2018 2:12 PM CDT Pulse 69 09/15/2018 2:12 PM CDT Temperature 36.7 ??C (98 ??F) 09/15/2018 2:12 PM CDT Respiratory Rate 16 09/15/2018 2:12 PM CDT Oxygen Saturation 99% 09/15/2018 2:12 PM CDT Inhaled Oxygen Concentration - - Weight 59.4 kg (131 lb) 09/15/2018 2:12 PM CDT Height 163.8 cm (5' 4.5 ) 09/15/2018 2:12 PM CDT Body Mass Index 22.14 09/15/2018 2:12 PM CDT documented in this encounter Ordered Prescriptions Prescription Sig Dispense Quantity Refills Last Filled Start Date End Date blood glucose diagnostic (glucose blood) strip Test once daily 100 each 3 09/15/2018 09/15/2019 documented in this encounter Progress Notes * Clive Wright MD - 09/15/2018 1:45 PM CDT Subjective/Objective Patient ID: Ankita Perez is a 68 y.o. female. Chief Complaint Diabetes (6 month f/u) and Hypertension (6 month f/u) 68-year-old white female. Currently doing well. Weight stable. Presenting for routine blood work. Most labs looked good. A1c was 6.4. Platelets a little high and a little anemic. Repeat labs were drawn. These are pending. Review of Systems Constitutional: Positive for fatigue. Negative for fever. Respiratory: Negative for cough and shortness of breath. Cardiovascular: Negative for chest pain and leg swelling. Gastrointestinal: Negative for abdominal pain and nausea. Musculoskeletal: Negative for back pain and neck pain. Neurological: Negative for seizures and headaches. Psychiatric/Behavioral: Negative for confusion. The patient is not nervous/anxious. Vitals BP (!) 184/80 Pulse 69 Temp 36.7 ??C (98 ??F) Resp 16 Ht 163.8 cm (5' 4.5 ) Wt 59.4 kg (131 lb) SpO2 99% BMI 22.14 kg/m?? Physical Exam Constitutional: She is oriented to person, place, and time. She appears well- developed and well-nourished. Cardiovascular: Normal rate, regular rhythm and normal heart sounds. Pulmonary/Chest: Effort normal and breath sounds normal. Abdominal: Soft. Bowel sounds are normal. Neurological: She is alert and oriented to person, place, and time. Skin: Skin is warm and dry. Psychiatric: She has a normal mood and affect. Her speech is normal. Cognition and memory are normal. Chem/LFT Lab History Some values may be hidden. Unless noted otherwise, only the newest values recorded on each date aredisplayed. Labs-Chem/LFT Latest Ref Range 03/22/18 08/26/18 Sodium 135 - 146 mmol/L 136 134 (A) Potassium Lvl 3.5 - 5.3 mmol/L 5.1 4.5 BUN 7 - 25 mg/dL 36 (A) Creatinine 0.50 - 0.99 mg/dL 1.40 (A) 1.07 (A) Bilirubin, total 0.2 - 1.2 mg/dL 0.4 0.4 AST 10 - 35 U/L 14 18 ALT 6 - 29 U/L 10 13 CrCl- Actual Body Weight (Cockcroft-Gault) 37.2 46.7 (A) Abnormal value Comments are available for some flowsheets but are not being displayed. Assessment/Plan Diagnoses and all orders for this visit: Essential hypertension (I10) (Primary) Low-salt diet home readings are fine. Continue to follow Other iron deficiency anemia (D50.8) - POCT occult blood stool Has not had a colonoscopy could be due. Will see Hematology 1st. If they want to colonoscopy it will be ordered. No GI complaints. Mixed hyperlipidemia (E78.2) Continue meds. Thrombocytosis (CMS/HCC) (D47.3) Repeat platelets are elevated. Will send to Hematology. For eval. 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, without long-term current use of insulin (CMS/HCC) (E11.22, N18.2) A1c is doing well. Low-salt diet low carb diet exercise continue present management Other orders - blood glucose diagnostic (glucose blood) strip; Test once daily documented in this encounter Procedure Notes * Clive Wright MD - 09/15/2018 1:45 PM CDT Procedures documented in this encounter Plan of Treatment Not on file documented as of this encounter Visit Diagnoses Diagnosis Essential hypertension- Primary Unspecified essential hypertension Other iron deficiency anemia Mixed hyperlipidemia Thrombocytosis Essential thrombocythemia 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, without long-term current use of insulin (CMS/HCC) (HCC) documented in this encounter Historical Medications * This list may reflect changes made after this encounter. metoprolol XL (TOPROL-XL) 25 mg 24 hr tablet Take 1 tablet by mouth daily 3 06/21/2018 04/14/2019 metFORMIN (GLUCOPHAGE) 500 mg tablet Take 1 tablet by mouth 2 (two) times a day 3 06/21/2018 04/14/2019 TRADJENTA 5 mg tablet Take 1 tablet by mouth daily 3 06/21/2018 04/14/2019 lisinopril (PRINIVIL,ZESTRIL ) 20 mg tablet Take 1 tablet by mouth daily 3 06/21/2018 04/14/2019 hydroCHLOROthiazi de (HYDRODIURIL) 25 mg tablet 25 mg daily 04/14/2019 blood glucose diagnostic (ONETOUCH ULTRA BLUE TEST STRIP) strip daily 10/13/2019 atorvastatin (LIPITOR) 20 mg tablet Take 1 tablet by mouth daily 3 06/21/2018 04/14/2019 added in this encounter Care Teams Seam Steamer Relationship Specialty Start Date End Date Clive Wright MD PCP - General Family Medicine 09/15/18 documented as of this encounter
--- OUTSIDE RECORDS SUMMARY | 2024-03-10 20:17 | XMS_ITS | Encounter Summary ---
Author Organization [facility] Address [address] [place] [address] Phone Care Team Providers Care Neuropsychiatric Aide Name Role Phone Clive Wright MD Primary Care Provider [phone] Karthikeyan Elaine DO Unavailable [phone] Encounter Details Date Type Department Care Team (Late st Contact Info) Description 01/04/2019 12:45 PM CDT Lab [facility] Oncology [address] [place] [phone] Thrombocytosis (CMS/HCC); Anemia, unspecified type Social History [...] on file 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
--- OUTSIDE RECORDS SUMMARY | 2024-03-10 20:17 | XMS_ITS | Encounter Summary ---
Author Organization [facility] Address [address] [place] [address] Care Team Providers Care Tower Dragline Operator Name Role Phone Clive Wright MD Primary Care Provider Karthikeyan Elaine DO Unavailable [phone] Reason for Visit * Reason Comments Hypertension 6 mo f/u Encounter Details Date Type Department Care Team (Late st Contact Info) Description 04/14/2019 10:30 AM SIMULATION SOFTWARE ENGINEER Office Visit [facility] Family Medicine [address] [place] [address] Clive Wright MD [address] [place] [address] Essential hypertension (Primary Dx); 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, without long-term current use of insulin (CMS/HCC); Mixed hyperlipidemia; Thrombocytosis ([facility]) Social History Tobacco Use Types Packs/Day Years [...] on file Legal Sex Female 8:44 PM SIMULATION SOFTWARE ENGINEER Gender Identity Not on file Sexual Orientation Not on file Occupation Industry Job Start Date Job End Date Retired Not on file Not on file Not on file documented as of this encounter Last Filed Vital Signs Vital Sign Reading Time Taken Comments Blood Pressure 170/90 04/14/2019 11:23 AM SIMULATION SOFTWARE ENGINEER Pulse 75 04/14/2019 11:23 AM SIMULATION SOFTWARE ENGINEER Temperature 36.7 ??C (98 ??F) 04/14/2019 11:23 AM SIMULATION SOFTWARE ENGINEER Respiratory Rate 18 04/14/2019 11:23 AM SIMULATION SOFTWARE ENGINEER Oxygen Saturation 99% 04/14/2019 11:23 AM SIMULATION SOFTWARE ENGINEER Inhaled Oxygen Concentration - - Weight 57.3 kg (126 lb 6.4 oz) 04/14/2019 11:23 AM SIMULATION SOFTWARE ENGINEER Height 163.8 cm (5' 4.5 ) 04/14/2019 11:23 AM CS T Body Mass Index 21.36 04/14/2019 11:23 AM SIMULATION SOFTWARE ENGINEER documented in this encounter Ordered Prescriptions Prescription Sig Dispense Quantity Refills Last Filled Start Date End Date TRADJENTA 5 mg tablet Take 1 tablet (5 mg total) by mouth daily 90 tablet 3 04/14/2019 10/13/2019 metoprolol XL (TOPROL-XL) 25 mg 24 hr tablet Take 1 tablet (25 mg total) by mouth daily 90 tablet 3 04/14/2019 10/13/2019 metFORMIN (GLUCOPHAGE) 500 mg tablet Take 1 tablet (500 mg total) by mouth 2 (two) times a day 90 tablet 3 04/14/2019 10/13/2019 lisinopril (PRINIVIL,ZESTRIL) 20 mg tablet Take 1 tablet (20 mg total) by mouth daily 90 tablet 3 04/14/2019 10/13/2019 hydroCHLOROthiazid e (HYDRODIURIL) 25 mg tablet Take 1 tablet (25 mg total) by mouth daily 90 tablet 3 04/14/2019 10/13/2019 atorvastatin (LIPITOR) 20 mg tablet Take 1 tablet (20 mg total) by mouth daily 90 tablet 3 04/14/2019 10/13/2019 documented in this encounter Progress Notes * Clive Wright MD - 04/14/2019 10:30 AM CST Images from the original note were not included. Subjective/Objective Patient ID: Ankita Perez is a 68 y.o. female. Chief Complaint Hypertension (6 mo f/u) 68-year-old female. Currently doing okay. Had some recent family stress. She has seen Oncology. HerHematology. For high platelets. She is on hydroxy urea. Her platelets are down to 684,000. Otherwise active no shortness of breath or chest pain no nausea no vomiting Hypertension Pertinent negatives include no chest pain, headaches, neck pain or shortness of breath. Review of Systems Constitutional: Negative for fatigue and fever. Respiratory: Negative for cough and shortness of breath. Cardiovascular: Negative for chest pain and leg swelling. Gastrointestinal: Negative for abdominal pain and nausea. Musculoskeletal: Negative for back pain and neck pain. Neurological: Negative for seizures and headaches. Psychiatric/Behavioral: Positive for decreased concentration. Negative for confusion. The patient is nervous/anxious. Vitals BP 170/90 (BP Location: Right arm, Patient Position: Sitting) Pulse 75 Temp 36.7 ??C (98 ??F) (Oral) Resp 18 Ht 163.8 cm (5' 4.5 ) Wt 57.3 kg (126 lb 6.4 oz) SpO2 99% BMI 21.36 kg/m?? Physical Exam Constitutional: Appearance: She is [...] for this visit: Essential hypertension (I10) (Primary) 170/90 Doing ok Labs Home BP checks 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, without long-term current use of insulin ([facility]) (E11.22, N18.2) A1C 6.7 Diet Exercise Labs 6 mo Annual eye exams No PM Mixed hyperlipidemia (E78.2) Cont meds Thrombocytosis (CMS/HCC) (D47.3) Seeing ONC Other orders - atorvastatin (LIPITOR) 20 mg tablet; Take 1 tablet (20 mg total) by mouth daily - hydroCHLOROthiazide (HYDRODIURIL) 25 mg tablet; Take 1 tablet (25 mg total) by mouth daily - lisinopril (PRINIVIL,ZESTRIL) 20 mg tablet; Take 1 tablet (20 mg total) by mouth daily - metFORMIN (GLUCOPHAGE) 500 mg tablet; Take 1 tablet (500 mg total) by mouth 2 (two) times a day - metoprolol XL (TOPROL-XL) 25 mg 24 hr tablet; Take 1 tablet (25 mg total) by mouth daily - TRADJENTA 5 mg tablet; Take 1 tablet (5 mg total) by mouth daily LATION SOFTWARE ENGINEER documented in this encounter Plan of Treatment Not on file documented as of this encounter Procedures Procedure Name Priority Date/Time Associated Diagnosis Comments CBC WITH AUTO DIFFERENTIAL Routine 09/28/2019 6:57 AM CDT Essential hypertension 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, without long-term current use of insulin ([facility]) Mixed hyperlipidemia HEMOGLOBIN A1C Routine 09/28/2019 6:57 AM CDT Essential hypertension 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, without long-term current use of insulin ([facility]) Mixed hyperlipidemia LIPID PANEL Routine 09/28/2019 6:57 AM CDT Essential hypertension 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, without long-term current use of insulin ([facility]) Mixed hyperlipidemia COMPREHENSIVE METABOLIC PANEL Routine 09/28/2019 6:57 AM CDT Essential hypertension 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, without long-term current use of insulin ([facility]) Mixed hyperlipidemia documented in this encounter Results * (ABNORMAL) Hemoglobin A1c (09/28/2019 6:57 AM CDT) Hgb A1C 6.6(H) <5.7 % of total Hgb [facility] [...] for diagnosis of diabetes for children. ?? Blood specimen (specimen) 09/28/2019 6:57 AM CDT 09/28/2019 6:58 AM CDT Narrative [facility] - 09/29/2019 2:59 AM CDT FASTING:YES FASTING: YES Clive Wright MD LAB BLOOD ORDERABLES Final Re sult [facility] [address] [facility] [place] [phone] * Lipid panel (09/28/2019 6:57 AM CDT) Pathologist [facility] Cholesterol 168 <200 mg/dL [facility] HDL 59 > OR = 50 mg/dL [facility] Triglycerides 136 <150 mg/dL [facility] LDL 86 mg/dL (calc) [facility] Comment: Reference [...] LDL-C. Rishi SS et al. CARRIE. 2013;310(19): 0380-7063 (http://education.[employer]ical/faq/SOI112) Chol/HDL ratio 2.8 <5.0 (calc) [facility] Non-HDL, (LDL+VLDL) 109 <130 mg/dL (calc) [facility] Comment: For patients with diabetes plus 1 major ASCVD risk factor, treating to a non-HDL-C goal of <100 mg/dL (LDL-C of <70 mg/dL) is considered a therapeutic option. Blood specimen (specimen) 09/28/2019 6:57 AM CDT 09/28/2019 6:58 AM CDT Narrative [facility] - 09/29/2019 2:59 AM CDT FASTING:YES FASTING: YES us Clive Wright MD LAB BLOOD ORDERABLES Final Re sult [facility] [address] [place] [phone] * (ABNORMAL) Comprehensive metabolic panel (09/28/2019 6:57 AM CDT) Glucose 154(H) 65 - 99 mg/dL [facility] Comment: ? Fasting reference interval For someone without known diabetes, a glucose value >125 mg/dL indicates that they may have diabetes and this should be confirmed with a follow-up test. BUN 35(H) 7 - 25 mg/dL [facility] Creatinine 1.28(H) 0.60 - 0.93 mg/dL [facility] Comment: For patients >49 years of age, the reference limit for Creatinine is approximately 13% higher for people identified as -Surinamese. eGFR NON-AFR. BRAZILIAN 42(L) > OR = 60 mL/min/1. 73m2 [facility] EGFR 49(L) > OR = 60 mL/min/1. 73m2 [facility] BUN/creat ratio 27(H) 6 - 22 (calc) [facility] Sodium 138 135 - 146 mmol/L [facility] Potassium, pl 4.6 3.5 - 5.3 mmol/L [facility] Chloride 101 98 - 110 mmol/L [facility] [...] 1.2 mg/dL [facility] Alk phos 42 37 - 153 U/L [facility] AST 14 10 - 35 U/L [facility] ALT (SGPT) 13 6 - 29 U/L [facility] Blood specimen (specimen) 09/28/2019 6:57 AM CDT 09/28/2019 6:58 AM CDT Narrative [facility] - 09/29/2019 2:59 AM CDT FASTING:YES FASTING: YES us Clive Wright MD LAB BLOOD ORDERABLES Final Re sult [facility] [address] [place] [phone] * (ABNORMAL) CBC with auto differential (09/28/2019 6:57 AM CDT) WBC 7.1 3.8 - 10.8 Thousand/u L [facility] RBC, POC 2.89(L) 3.80 - 5.10 Million/uL [facility] Hgb 10.6(L) 11.7 - 15.5 g/dL [facility] Hct 31.8(L) 35.0 - 45.0 % [facility] MCV 110.0(H) 80.0 - 100.0 fL [facility] MCH 36.7(H) 27.0 - 33.0 pg [facility] MCHC 33.3 32.0 - 36.0 g/dL [facility] Rdw 12.1 11.0 - 15.0 % [facility] Platelets 697(H) 140 - 400 Thousand/u L [facility] MPV 9.2 7.5 - 12.5 fL [facility] Neutrophils, abs 4,686 1,500 - 7,800 cells/uL [facility] Lymphocytes, abs 1,562 850 - 3,900 cells/uL [facility] Monocyte abs 561 200 - 950 cells/uL [facility] Eosinophils, abs 234 15 - 500 cells/uL [facility] Basophils, abs 57 0 - 200 cells/uL [facility] Neutrophils 66 % [facility] Lymphocyte pct 22.0 % [facility] Monocytes 7.9 % [facility] Eosinophils 3.3 % [facility] Basophils 0.8 % [facility] Blood specimen (specimen) 09/28/2019 6:57 AM CDT 09/28/2019 6:58 AM CDT Narrative [facility] - 09/29/2019 2:59 AM CDT FASTING:YES FASTING: YES Clive Wright MD LAB BLOOD ORDERABLES Final Re sult [facility] [address] [place] [phone] documented in this encounter Visit Diagnoses Diagnosis Essential hypertension- Primary Unspecified essential hypertension 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, without long-term current use of insulin ([facility]) (HCC) Mixed hyperlipidemia Thrombocytosis Essential thrombocythemia documented in this encounter Discontinued Medications Medication Sig Discontinue Reason Start Date End Da te atorvastatin (LIPITOR) 20 mg tablet Take 1 tablet by mouth daily Reorder 06/21/2018 04/14/2019 hydroCHLOROthiazide (HYDRODIURIL) 25 mg tablet 25 mg daily Reorder 04/14/2019 lisinopril (PRINIVIL,ZESTRIL) 20 mg tablet Take 1 tablet by mouth daily Reorder 06/21/2018 04/14/2019 metFORMIN (GLUCOPHAGE) 500 mg tablet Take 1 tablet by mouth 2 (two) times a day Reorder 06/21/2018 04/14/2019 metoprolol XL (TOPROL-XL) 25 mg 24 hr tablet Take 1 tablet by mouth daily Reorder 06/21/2018 04/14/2019 TRADJENTA 5 mg tablet Take 1 tablet by mouth daily Reorder 06/21/2018 04/14/2019 documented as of this encounter Historical Medications * This list may reflect changes made after this encounter. ascorbic acid (VITAMIN C) 500 mg tablet,chewable Take 1 tablet/chew tab (500 mg total) by mouth daily cyanocobalamin (Vitamin B-12) 1,000 mcg tabletIndications :Prevention of Vitamin B12 Deficiency Take 1 tablet (1,000 mcg total) by mouth daily added in this encounter Care Teams Tower Dragline Operator Relationship Specialty Start Date End Date Clive Wright MD PCP - General Family Medicine 09/15/18 Karthikeyan Elaine DO [address] [place] [id number] Medical Oncologist/[employer] Hematology and Oncology 10/27/18 documented as of this encounter
--- OUTSIDE RECORDS SUMMARY | 2024-03-10 20:17 | XMS_ITS | Encounter Summary ---
Author Organization [facility] Address [address] [place] [address] Phone Care Team Providers Care Unarmed Security Guard Name Role Phone Clive Wright MD Primary Care Provider [phone] Reason for Visit * Reason Comments Consult Anemia * Consultation (Routine) - Closed Specialty Diagnoses / Procedures Referred By Contac t Referred To Contact Oncology Diagnoses Anemia, unspecified type Clive Wright MD Phone: tel: fax: [facility] [address] [place] [address] Phone: tel: fax: Referral ID Status Reason Start Date Expiration Date V isits Requested Visits Authorized [id number] Closed Specialty Services Required 10/04/2018 04/14/2020 99 99 Encounter Details Date Type Department Care Team (Latest Contact Info) Description 10/19/2018 2:30 PM CDT Office Visit [facility] [address] [place] [address] Sarai Vargas DO [address] [place] [address] [phone] Thrombocytosis (CMS/HCC) (Primary Dx); Anemia, unspecified type Social History Tobacco Use Types Packs/Day Years Used Date Smoking Tobacco: Never Smokeless Tobacco: Never Alcohol Use Standard Drinks/Week Comments Not Currently 0 (1 standard drink = 0.6 oz pur e alcohol) occasion Comments Unknown Sex and Gender Information Value Date Recorded Sex Assigned at Not on file 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 Gender Identity Not on file Sexual Orientation Not on file Occupation Industry Job Start Date Job End Date Retired Not on file Not on file Not on file documented as of this encounter Last Filed Vital Signs Vital Sign Reading Time Taken Comments Blood Pressure 157/84 10/19/2018 2:23 PM CDT Pulse 68 10/19/2018 2:23 PM CDT Temperature 36.4 ??C (97.6 ??F) 10/19/2018 2:23 PM CD T Respiratory Rate 16 10/19/2018 2:23 PM CDT Oxygen Saturation 99% 10/19/2018 2:23 PM CDT Inhaled Oxygen Concentration - - Weight 59.4 kg (131 lb) 10/19/2018 2:23 PM CDT Height 163.8 cm (5' 4.49 ) 10/19/2018 2:23 PM CD T Body Mass Index 22.15 10/19/2018 2:23 PM CDT documented in this encounter Progress Notes * Sarai Vargas, DO - 10/19/2018 2:30 PM CDT Patient ID: Ankita Perez is a 68 y.o. female. Referring Physician: Clive Wright MD [address] [facility] [place] [address] Primary Care Provider: Clive Wright MD Assessment/Plan 1. Normocytic normochromic anemia. Etiology is unclear at this time. 2. Thrombocytosis. 3. I suspect that these abnormal blood counts are not new and they been ongoing for some time sinceshe is relatively asymptomatic and probably compensated for the low red blood cell count. Recommendations: 1. I will proceed with a panel of testing that includes the following: Ferritin, iron profile, reticulocyte count, haptoglobin, LDH, SPEP, vitamin B12, TSH and RBC folate. 2. I will also obtain ESR and FRANSISCO 2 mutation analysis for the thrombocytosis. 3. I will see the patient back in 3 weeks for these results and further recommendations. Patient Active Problem List Diagnosis ??? Essential hypertension ??? Mixed hyperlipidemia ??? 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, without long- term current use of insulin (CMS/HCC) ??? Iron deficiency anemia ??? Thrombocytosis (CMS/HCC) Diagnoses and all orders for this visit: Thrombocytosis (CMS/HCC) (Primary) - JAK2 V617F Mutation Quantitative; Future - Lab Draw Appt Request Arm Draw or Central Line Draw? Arm; What is your ordering location? [facility]; [facility]; Future - CBC with auto differential; Future - Clinic Appointment Request Follow up; SARAI VARGAS MD; Clinic Appointment Location: [facility]; Future Anemia, unspecified type - Ambulatory referral to Oncology - Ferritin; Future - Iron profile w/ IBC; Future - Reticulocyte Count; Future - Lactate dehydrogenase (LD); Future - Protein Electrophoresis, With Reflex, Serum; Future - Vitamin B12; Future - Folate RBC; Future - TSH; Future - Lab Draw Appt Request Arm Draw or Central Line Draw? Arm; What is your ordering location? [facility]; Where will this patient receive treatment? [facility]; Future - Lab Draw Appt Request Arm Draw or Central Line Draw? Arm; What is your ordering location? [facility]; [facility] this [facility]; Future - CBC with auto differential; Future - Clinic Appointment Request Follow up; SARAI VARGAS MD; Clinic Appointment Location: [facility]; Future Subjective History of Present Illness: Mrs. Perez, 68-year-old female without much medical history, presents to my office for further evaluation of her underlying anemia and thrombocytosis. Patient changed primary care physicians in August and saw for the 1st time Dr. Wright. He performed extensive evaluation of the patient including laboratory assessment. CBC at that time showed hemoglobin of 9.0 with an elevated platelet count of 860. He repeated the CBC couple weeks ago showing the same type of anemia with a hemoglobin of 9.3 and the platelet count was still elevated. She does complain of mild fatigue and weakness but is very active and babysitting her grandchildren. She denies any melena, hematochezia, hematemesis, hemoptysis or hematuria. She denies any weight loss or change in appetite. She denies any change in bowel habits. She has no history of arthritis or arthralgias or myalgias. She denies any fever or chills or illnesses. Patient has been followed by a former primary care physician for many years but according to records, never ordered a CBC. However, patient has never complained of any type of fatigue or weakness or Pica. She underwent stool sample for occult blood and this was negative. She refuses a colonoscopy and therefore she has never had this type of procedure before. She has never been diagnosed with anemia outside of the last 2 months and has never required any blood product support. Past Medical History: Diagnosis Date ??? Diabetes mellitus (CMS/HCC) ??? Hyperlipidemia ??? Hypertension Past Surgical History: Procedure Laterality Date ??? CATARACT EXTRACTION Left 2012 Family History Problem Relation Age of Onset ??? Diabetes Mother ??? Hypertension Mother ??? Heart disease Mother ??? No Known Problems Father ??? Stomach cancer Sister Family Status Relation Name Status ??? Mother ??? Father ??? Sister Social History Occupational History ??? Occupation: Retired Tobacco Use ??? Smoking status: Never Smoker ??? Smokeless tobacco: Never Used Substance and Sexual Activity ??? Alcohol use: Not Currently Comment: occasion ??? Drug use: Never ??? Sexual activity: Yes No Known Allergies Current Outpatient Medications Medication Sig Dispense Refill ??? atorvastatin (LIPITOR) 20 mg tablet Take 1 tablet by mouth daily 3 ??? blood glucose diagnostic (glucose blood) strip Test once daily 100 each 3 ??? blood glucose diagnostic (ONETOUCH ULTRA BLUE TEST STRIP) strip daily ??? hydroCHLOROthiazide (HYDRODIURIL) 25 mg tablet 25 mg daily ??? lisinopril (PRINIVIL,ZESTRIL) 20 mg tablet Take 1 tablet by mouth daily 3 ??? metFORMIN (GLUCOPHAGE) 500 mg tablet Take 1 tablet by mouth 2 (two) times a day 3 ??? metoprolol XL (TOPROL-XL) 25 mg 24 hr tablet Take 1 tablet by mouth daily 3 ??? TRADJENTA 5 mg tablet Take 1 tablet by mouth daily 3 No current facility-administered medications for this visit. I have reviewed: allergies, current medications, past [...] this encounter: BSA: 1.64 meters squared BP 157/84 (BP Location: Right arm) Pulse 68 Temp 36.4 ??C (97.6 ??F) (Oral) Resp 16 Ht 163.8 cm (5' 4.49 ) Wt 59.4 kg (131 lb) SpO2 99% BMI 22.15 kg/m?? Physical Exam Constitutional: She is oriented [...] Results: WBC Date Value Ref Range Status 10/19/2018 10.6 3.4 - 10.8 x10E3/uL Final Hgb Date Value Ref Range Status 10/19/2018 9.4 (L) 11.1 - 15.9 g/dL Final Hct Date Value Ref Range Status 10/19/2018 30.1 (L) 34.0 - 46.6 % Final Platelets Date Value Ref Range Status 10/19/2018 939 (HH) 150 - 450 x10E3/uL Final Comment: Results verified by repeat testing Creatinine Date Value Ref Range Status 08/26/2018 1.07 (H) 0.50 - 0.99 mg/dL Final Comment: For patients >49 years of age, the reference limit for Creatinine is approximately 13% higher for people identified as -[place]. AST Date Value Ref Range Status 08/26/2018 18 10 - 35 U/L Final documented in this encounter Miscellaneous Notes * Addendum Note - Jen Lyons RN - 10/19/2018 2:30 PM CDTAddended by: JEN LYONS on: 10/20/2018 11:36 AM Modules accepted: Orders documented in this encounter Plan of Treatment Scheduled Orders Name Type Priority Associated Diagnoses Orde r Schedule JAK2 V617F Mutation Quantitative Lab Routine Thrombocytosis (CMS/HCC) Expected: 10/19/2018, Expires: 10/20/2019 documented as of this encounter Procedures Procedure Name Priority Date/Time Associated Diagnosis Comments CBC WITH AUTO DIFFERENTIAL Routine 11/02/2018 7:43 AM CDT Anemia, unspecified type Thrombocytosis (CMS/HCC) CBC WITH AUTO DIFFERENTIAL Routine 10/19/2018 3:47 PM CDT Anemia, unspecified type Thrombocytosis (CMS/HCC) JAK2 V617F MUTATION QUANTITATIVE Routine 10/19/2018 3:42 PM CDT IRON PROFILE W/ IBC Routine 10/19/2018 3 :42 PM CDT Anemia, unspecified type RETICULOCYTES Routine 10/19/2018 3:42 PM CDT Anemia, unspecified type TSH Routine 10/19/2018 3:42 PM CDT Anemia, unspecified type PROTEIN ELECTROPHORESIS, WITH REFLEX, SERUM Routine 10/19/2018 3:42 PM CDT Anemia, unspecified type LACTATE DEHYDROGENASE Routine 10/19/2018 3:42 PM CDT Anemia, unspecified type FOLATE RBC Routine 10/19/2018 3:42 PM CDT Anemia, unspecified type FERRITIN Routine 10/19/2018 3:42 PM CDT Anemia, unspecified type VITAMIN B12 Routine 10/19/2018 3:42 PM CDT Anemia, unspecified type documented in this encounter Results * (ABNORMAL) CBC with auto differential (11/02/2018 7:43 AM CDT) Pathologist [facility] WBC 7.7 3.4 - 10.8 x10E3/uL [facility] - 01 RBC 3.41(L) 3.77 - 5.28 x10E6/uL [facility] - 01 Hgb 9.2(L) 11.1 - 15.9 g/dL [facility] - 01 Hct 29.8(L) 34.0 - 46.6 % [facility] - 01 MCV 87 79 - 97 fL [facility] - 01 MCH 27.0 26.6 - 33.0 pg [facility] - 01 MCHC 30.9(L) 31.5 - 35.7 g/dL [facility] - 01 Rdw 15.1 12.3 - 15.4 % [facility] - 01 Platelets 947(HH) 150 - 450 x10E3/uL [facility] - 01 Comment:Results verified b y repeat testing Neutrophils pct 62 Not Estab. % [facility] - 01 Lymphs pct 25 Not Estab. % [facility] - 01 Monocytes pct 9 Not Estab. % [facility] - 01 Eosinophils pct 4 Not Estab. % [facility] - 01 Basophil pct 0 Not Estab. % [facility] - 01 Neutrophil abs 4.8 1.4 - 7.0 x10E3/uL [facility] - 01 Lymphs (Absolute) 2.0 0.7 - 3.1 x10E3/uL [facility] - 01 Monocyte abs 0.7 0.1 - 0.9 x10E3/uL [facility] - 01 Eosinophils, abs 0.3 0.0 - 0.4 x10E3/uL [facility] - 01 Basophils, abs 0.0 0.0 - 0.2 x10E3/uL [facility] - 01 Blood specimen (specimen) 11/02/2018 7:43 AM CDT 11/02/2018 Narrative [facility] - 11/02/2018 8:54 AM CDT Performed at: ??01 - [facility] [address], [place] ??[id number] Sap Bw Bi Developer: Gibson Camilo MD, Phone: ??[phone] us Sarai Vargas DO LAB BLOOD ORDERABLES Final R esult [facility] - 01 * (ABNORMAL) CBC with auto differential (10/19/2018 3:47 PM CDT) WBC 10.6 3.4 - 10.8 x10E3/uL [facility] - 01 RBC 3.41(L) 3.77 - 5.28 x10E6/uL [facility] - 01 Hgb 9.4(L) 11.1 - 15.9 g/dL [facility] - 01 Hct 30.1(L) 34.0 - 46.6 % [facility] - 01 MCV 88 79 - 97 fL [facility] - 01 MCH 27.6 26.6 - 33.0 pg [facility] - 01 MCHC 31.2(L) 31.5 - 35.7 g/dL [facility] - 01 Rdw 15.4 12.3 - 15.4 % [facility] - 01 Platelets 939(HH) 150 - 450 x10E3/uL [facility] - 01 Comment:Results verified b y repeat testing Neutrophils pct 68 Not Estab. % [facility] - 01 Lymphs pct 21 Not Estab. % [facility] - 01 Monocytes pct 8 Not Estab. % [facility] - 01 Eosinophils pct 3 Not Estab. % [facility] - 01 Basophil pct 0 Not Estab. % [facility] - 01 Neutrophil abs 7.1(H) 1.4 - 7.0 x10E3/uL [facility] - 01 Lymphs (Absolute) 2.3 0.7 - 3.1 x10E3/uL [facility] - 01 Monocyte abs 0.9 0.1 - 0.9 x10E3/uL [facility] - 01 Eosinophils, abs 0.4 0.0 - 0.4 x10E3/uL [facility] - 01 Basophils, abs 0.0 0.0 - 0.2 x10E3/uL [facility] - 01 Blood specimen (specimen) 10/19/2018 3:47 PM CDT 10/19/2018 Narrative [facility] - 10/19/2018 4:53 PM CDT Performed at: ??01 - [facility] [address], [place] ??[id number] Sap Bw Bi Developer: Gibson Camilo MD, Phone: ??[phone] us Sarai Vargas DO LAB BLOOD ORDERABLES Final R esult [facility] - Med * JAK2 V617F Mutation Quantitative (10/19/2018 3:42 PM CDT) JAK2 V617F Mutation Quant Rslt Comment [facility] 02 Comment: NEGATIVE The JAK2 V617F mutation is not detected in the provided specimen of this individual. This result does not rule out the presence of the JAK2 mutation at a level below the sensitivity of detection of this assay, or the presence of other mutations within JAK2 not detected by this assay. Background: Comment [facility] 02 Comment: The Quantitative Real-Time PCR assay detects V617F mutation (c.1849 G>T) observed in approximately 95% polycythemia vera (PV), 55% essential thrombocythemia (ET) and 55% primary myelofibrosis (PMF). It is also infrequently present (3-5%) in myelodysplastic syndrome, chronic myelomonocytic leukemia, and other atypical chronic myeloid disorders. The results should be interpreted in the context of all clinical and laboratory findings. No therapeutic action should be taken based solely on these results. This assay detects only the JAK2 V617F point mutation. Other mutations that may occur in the JAK2 gene will not be detected. Methodology Comment [facility] 02 Comment: Total genomic DNA was extracted and subjected to TaqMan real-time PCR amplification/detection. Two amplification products per sample were monitored by real-time PCR using primers/probes specific to JAK2 wild type (WT) and JAK2 mutant V617F. The [employer] Absolute Quantitation software will compare the patient specimen values to the standard curves and generate percent values for wild type and mutant type. The numerical values of Sample Mutant Quantity/(Sample Mutant Quantity+ Sample Wild Type Quantity)X100 is reported as a percentage. In vitro studies have indicated that this assay has an analytical sensitivity of 1%. References Comment [facility] 02 Comment: ??Levon EJ, Phuc PULIDO, Aristides PJ, et al. Acquired mutation of the tyrosine kinase JAK2 in human myeloproliferative disorders. Lancet. 2004May 25; 365(8140):7201-7802. Randall Gaona, Elmer V, Monserrat Beckwith PIPPA. A unique clonal JAK2 mutation leading to constitutive signaling causes polycythaemia vera. Nature. 2004Jul 04; 434(5092):0910-4906. Andrade R, Olivia F, Britni , et al. A [id number]-[id number] mutation of JAK2 in myeloproliferative disorders. N Engl J Med. 2004Jul 04; 35217):4585-2561. Director Review: Comment [facility] 02 Comment: Vani Shane MD, PhD Director, Molecular Oncology [facility] [place] [address] 10/19/2018 3:42 PM CDT 10/19/2018 Narrative [facility] - 10/25/2018 8:07 PM CDT Performed at: ??02 - [facility] [address] [place], [place] ??[id number] Sap Bw Bi Developer: Blanca Stone MD, Phone: ??[phone] Sarai Vargas DO LAB BLOOD ORDERABLES Final R esult [facility] 02 * TSH (10/19/2018 3:42 PM CDT) TSH 2.780 0.450 - 4.500 uIU/mL [facility] - 01 Blood specimen (specimen) 10/19/2018 3:42 PM CDT 10/19/2018 Narrative [facility] - 10/25/2018 8:07 PM CDT Performed at: ??01 - [facility] ??[id number] Sap Bw Bi Developer: Santosh Jenkins PhD, Phone: ??[phone] Sarai Vargas DO LAB BLOOD ORDERABLES Final R esult Performing Organization Address [facility] Co de Phone Number [facility] - * (ABNORMAL) Folate RBC (10/19/2018 3:42 PM CDT) Folate, Hemolysate 329.9 Not Estab. ng/mL [facility] - 01 Hct 28.1(L) 34.0 - 46.6 % [facility] - 01 Folate, RBC 1,174 >498 ng/mL [facility] - 01 Blood specimen (specimen) 10/19/2018 3:42 PM CDT 10/19/2018 Narrative [facility] - 10/25/2018 8:07 PM CDT Performed at: ??01 - [facility] ??[id number] Sap Bw Bi Developer: Santosh Jenkins PhD, Phone: ??[phone] Sarai Vargas DO LAB BLOOD ORDERABLES Final R esult Performing Organization Address [facility] de Phone Number [facility] - * Vitamin B12 (10/19/2018 3:42 PM CDT) Vitamin B12 255 232 - 1,245 pg/mL [facility] - 01 Blood specimen (specimen) 10/19/2018 3:42 PM CDT 10/19/2018 Narrative [facility] - 10/25/2018 8:07 PM CDT Performed at: ??01 - [address] ??[id number] Sap Bw Bi Developer: Santosh Jenkins PhD, Phone: ??[phone] Sarai Vargas DO LAB BLOOD ORDERABLES Final R esult Performing Organization Address [facility] Co de Phone Number [facility] - * Protein Electrophoresis, With Reflex, Serum (10/19/2018 3:42 PM CDT) Protein, sr 7.0 6.0 - 8.5 g/dL [facility] - 01 Albumin 3.8 2.9 - 4.4 g/dL [facility] - 01 Alpha-1 globulin 0.2 0.0 - 0.4 g/dL [facility] - 01 Alpha-2 globulin 0.9 0.4 - 1.0 g/dL [facility] - 01 Beta Globulin 1.0 0.7 - 1.3 g/dL [facility] - 01 Gamma globulin 1.0 0.4 - 1.8 g/dL [facility] - 01 M-Vivek Not Observed Not Observed g/dL [facility] - 01 Globulin 3.2 2.2 - 3.9 g/dL [facility] - 01 Alb/glob ratio 1.2 0.7 - 1.7 [facility] - 01 Please Note: Comment [facility] - 01 Comment: Protein electrophoresis scan will follow via computer, mail, or head machinist delivery. Blood specimen (specimen) 10/19/2018 3:42 PM CDT 10/19/2018 Narrative [facility] - 10/25/2018 8:07 PM CDT Performed at: ??01 - [facility] ??[id number] Sap Bw Bi Developer: Santosh Jenkins PhD, Phone: ??[phone] Sarai Vargas DO LAB BLOOD ORDERABLES Final R esult [facility] - * Lactate dehydrogenase (LD) (10/19/2018 3:42 PM CDT) Lactate dehydrogenase (LDH) 164 119 - 226 IU/L [facility] - 01 Blood specimen (specimen) 10/19/2018 3:42 PM CDT 10/19/2018 Narrative [facility] - 10/25/2018 8:07 PM CDT Performed at: ??01 - [facility] ??[id number] Sap Bw Bi Developer: Santosh Jenkins PhD, Phone: ??[phone] Sarai Vargas DO LAB BLOOD ORDERABLES Final R esult Performing Organization Address [facility] de Phone Number [facility] - * Reticulocyte Count (10/19/2018 3:42 PM CDT) Reticulocyte Count 1.2 0.6 - 2.6 % [facility] - 01 Blood specimen (specimen) 10/19/2018 3:42 PM CDT 10/19/2018 Narrative [facility] - 10/25/2018 8:07 PM CDT Performed at: ??01 - [facility] ??[id number] Sap Bw Bi Developer: Santosh Jenkins PhD, Phone: ??[phone] Sarai Vargas DO LAB BLOOD ORDERABLES Final R esult Performing Organization Address [facility] de Phone Number [facility] - * (ABNORMAL) Iron profile w/ IBC (10/19/2018 3:42 PM CDT) Iron Bind.Cap.(TIBC) 341 250 - 450 ug/dL [facility] - 01 UIBC 314 118 - 369 ug/dL [facility] - 01 Iron 27 27 - 139 ug/dL [facility] - 01 Iron saturation 8(LL) 15 - 55 % [facility] - 01 Blood specimen (specimen) 10/19/2018 3:42 PM CDT 10/19/2018 Narrative [facility] - 10/25/2018 8:07 PM CDT Performed at: ??01 - [facility] ??[id number] Sap Bw Bi Developer: Santosh Jenkins PhD, Phone: ??[phone] Sarai Vargas DO LAB BLOOD ORDERABLES Final R esult Performing Organization Address [facility] de Phone Number [facility] - 01 * (ABNORMAL) Ferritin (10/19/2018 3:42 PM CDT) Ferritin 8(L) 15 - 150 ng/mL [facility] - Blood specimen (specimen) 10/19/2018 3:42 PM CDT 10/19/2018 Narrative [facility] - 10/25/2018 8:07 PM CDT Performed at: ??01 - [facility] [address] ??[id number] Sap Bw Bi Developer: Santosh Jenkins PhD, Phone: ??[phone] Sarai Vargas DO LAB BLOOD ORDERABLES Final R esult [facility] - documented in this encounter Visit Diagnoses Diagnosis Thrombocytosis- Primary Essential thrombocythemia Anemia, unspecified type documented in this encounter Orders Outpatient Referral Count Last Ordered Date Fir st Ordered Date AMB REFERRAL TO ONCOLOGY 1 10/19/2018 Appointment Requests Count Last Ordered Date Fi rst Ordered Date [facility] APPOINTMENT REQUEST 1 019 [facility] APPOINTMENT 2 11/02/201810/19 documented in this encounter Care Teams Unarmed Security Guard Relationship Specialty Start Date End Date Clive Wright MD PCP - General Family Medicine 09/15/18 documented as of this encounter
--- OUTSIDE RECORDS SUMMARY | 2024-03-10 20:17 | XMS_ITS | Encounter Summary ---
Author Organization [facility] Address [address] [place] [address] Care Team Providers Care Energy Professional Name Role Phone Clive Wright MD Primary Care Provider [phone] Karthikeyan Elaine DO Unavailable [phone] Reason for Visit * Reason Onset Date Comments lab work order request 04/11/2019 [facility] Encounter Details Date Type Department Care Team (Late st Contact Info) Description 04/11/2019 Telephone [facility] Family Medicine [address] [place] [address] Clive Wright MD [address] [place] [id number] lab work order request ([facility] ) Social History Tobacco Use Types Packs/Day Years Used Date Smoking Tobacco: Never Smokeless Tobacco: Never Alcohol Use Standard Drinks/Week Comments Not Currently 0 (1 standard drink = 0.6 oz pur e alcohol) occasion PHQ-2 Answer Date Recorded PHQ-2 Score 0 10/27/2018 Comments Unknown Sex and Gender Information Value Date Recorded Sex Assigned at Not on file Legal Sex Female 8:44 PM PRECISION MACHINE 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 ISION MACHINE OPERATOR * Telephone Encounter - Zoe Bush PA - 04/11/2019 1:01 PM PRECISION MACHINE OPERATOR Ok, 12 hour fast. Orders sent ISION MACHINE OPERATOR * Telephone Encounter - Philly Blair - 04/11/2019 11:58 AM CST Patient has appointment for this the and she wanted to know if she could get her routine lab order [facility] for her to get done before her appointment. ISION MACHINE OPERATOR documented in this encounter Plan of Treatment Not on file documented as of this encounter Procedures Procedure Name Priority Date/Time Associated Diagnosis Comments HEMOGLOBIN A1C Routine 04/12/2019 7:04 AM PRECISION MACHINE OPERATOR 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, without long-term current use of insulin ([facility]) LIPID PANEL Routine 04/12/2019 7:04 AM PRECISION MACHINE OPERATOR Mixed hyperlipidemia COMPREHENSIVE METABOLIC PANEL Routine 04/12/2019 7:04 AM PRECISION MACHINE OPERATOR Essential hypertension 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, without long-term current use of insulin ([facility]) Mixed hyperlipidemia documented in this encounter Results * (ABNORMAL) Hemoglobin A1c (04/12/2019 7:04 AM PRECISION MACHINE OPERATOR) Hgb A1C 6.7(H) <5.7 % of total Hgb [facility] [place] Comment: For someone without known diabetes, a [...] diabetes for children. ?? Blood specimen (specimen) 04/12/2019 7:04 AM PRECISION MACHINE OPERATOR 04/12/2019 7:05 AM PRECISION MACHINE OPERATOR Narrative [facility] - 04/13/2019 2:40 AM PRECISION MACHINE OPERATOR FASTING:YES FASTING: YES Resulting Agency Comment Performing Organization Information: ?Site ID: [place] ?Name: [facility] ?Address: [address] [address] ?Director: Yoel Glez D.O., MPH us Zoe Valerio LAB BLOOD ORDERABLES Fin al Result [facility] [place] * Lipid panel (04/12/2019 7:04 AM PRECISION MACHINE OPERATOR) Cholesterol 142 <200 mg/dL [facility] [place] HDL 52 > OR = 50 mg/dL [facility] [place] Triglycerides 139 <150 mg/dL [facility] [place] LDL 68 mg/dL (calc) [facility] [place] Comment: Reference range: <100 Desirable range <100 mg/dL for primary prevention; ?? <70 mg/dL for patients with CHD or diabetic patients with > or = 2 CHD risk factors. LDL-C is now calculated using the Rishi-Nikki calculation, which is a validated novel method providing better accuracy than the Friedewald equation in the estimation of LDL-C. Rishi ZAMORA et al. CARRIE. 2013;310(19): 1129-8862 (http://education.Yumm.com.Xradia/faq/IPI591) Chol/HDL ratio 2.7 <5.0 (calc) [facility] [place] Non-HDL, (LDL+VLDL) 90 <130 mg/dL (calc) [facility] [place] Comment: For patients with diabetes plus 1 major ASCVD risk factor, treating to a non-HDL-C goal of <100 mg/dL (LDL-C of <70 mg/dL) is considered a therapeutic option. Blood specimen (specimen) 04/12/2019 7:04 AM PRECISION MACHINE OPERATOR 04/12/2019 7:05 AM PRECISION MACHINE OPERATOR Narrative [facility] - 04/13/2019 2:40 AM PRECISION MACHINE OPERATOR FASTING:YES FASTING: YES Resulting Agency Comment Performing Organization Information: ?Site ID: [place] ?Name: [facility] ?Address: [address] [address] ?Director: Yoel Glez D.O., MPH us Zoe Valerio LAB BLOOD ORDERABLES Fin al Result [facility] [place] * (ABNORMAL) Comprehensive metabolic panel (04/12/2019 7:04 AM PRECISION MACHINE OPERATOR) [facility] Glucose 147(H) 65 - 99 mg/dL [facility] [place] Comment: ? Fasting reference interval For someone without known diabetes, a glucose value >125 mg/dL indicates that they may have diabetes and this should be confirmed with a follow-up test. BUN 34(H) 7 - 25 mg/dL [facility] [place] Creatinine 1.13(H) 0.50 - 0.99 mg/dL [facility] [place] Comment: For patients >49 years of age, the reference limit for Creatinine is approximately 13% higher for people identified as -Guinean. eGFR NON-AFR. ANGOLAN 50(L) > OR = 60 mL/min/1. 73m2 [facility] [place] EGFR 57(L) > OR = 60 mL/min/1. 73m2 [facility] [place] BUN/creat ratio 30(H) 6 - 22 (calc) [facility] [place] Sodium 136 135 - 146 mmol/L [facility] [place] Potassium, pl 4.5 3.5 - 5.3 mmol/L [facility] [place] Chloride 101 98 - 110 mmol/L [facility] [place] CO2 25 20 - 32 mmol/L [facility] [place] Calcium 10.1 8.6 - 10.4 mg/dL [facility] [place] Protein, sr 6.9 6.1 - 8.1 g/dL [facility] [place] Albumin 4.2 3.6 - 5.1 g/dL [facility] [place] GLOBULIN 2.7 1.9 - 3.7 g/dL (calc) [facility] [place] Alb/glob ratio 1.6 1.0 - 2.5 (calc) [facility] [place] Bilirubin, total 0.6 0.2 - 1.2 mg/dL [facility] [place] Alk phos 42 37 - 153 U/L [facility] [place] AST 13 10 - 35 U/L [facility] [place] ALT (SGPT) 11 6 - 29 U/L [facility] [place] Blood specimen (specimen) 04/12/2019 7:04 AM PRECISION MACHINE OPERATOR 04/12/2019 7:05 AM PRECISION MACHINE OPERATOR Narrative [facility] - 04/13/2019 2:40 AM PRECISION MACHINE OPERATOR FASTING:YES FASTING: YES Resulting Agency Comment Performing Organization Information: ?Site ID: [place] ?Name: [facility] ?Address: [address] [place] [address] [place] [address] ?Director: Yoel Glez D.O., MPH us Zoe Valerio LAB BLOOD ORDERABLES Fin al Result [facility] [place] documented in this encounter Visit Diagnoses Diagnosis Essential hypertension- Primary Unspecified essential hypertension 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, without long-term current use of insulin (CMS/HCC) (HCC) Mixed hyperlipidemia documented in this encounter Care Teams Energy Professional Relationship Specialty Start Date End Date Clive Wright MD PCP - General Family Medicine 09/15/18 Karthikeyan Elaine DO [address] [place] [address] Medical Oncologist/Ballistics Expert Forensic Hematology and Oncology 10/27/18 documented as of this encounter
--- OUTSIDE RECORDS SUMMARY | 2024-03-10 20:17 | XMS_ITS | Encounter Summary ---
Author Organization [facility] Address [address] [place] [address] Phone Care Team Providers Care Delivery Nurse Name Role Phone Clive Wright MD Primary Care Provider [phone] Karthikeyan Elaine DO Unavailable [phone] Encounter Details Date Type Department Care Team (Late st Contact Info) Description 04/05/2019 11:15 AM REHABILITATION TEACHER Lab [facility] Oncology [address] [place] [phone] Thrombocytosis (CMS/HCC); Other iron deficiency anemia [...] on file Legal Sex Female 8:44 PM REHABILITATION TEACHER Gender Identity Not on file Sexual [...] rst Ordered Date ONCBCN LAB APPOINTMENT 1 04/05/2019 documented in this encounter Care Teams Delivery Nurse Relationship Specialty Start Date End Date Clive Wright MD PCP - General Family Medicine 09/15/18 Karthikeyan Elaine DO [address] [place] [id number] Medical Oncologist/Order Make Up Clerk Hematology and Oncology 10/27/18 documented as of this encounter
--- OUTSIDE RECORDS SUMMARY | 2024-03-10 20:17 | XMS_ITS | Encounter Summary ---
Author Organization [facility] Care Team Providers Care Floor Molder Name Role Phone Clive Wright MD Primary Care Provider [phone] Karthikeyan Elaine DO Unavailable [phone] Encounter Details Date Type Department Care Team (Latest Contact Info) Description 11/02/2018 Travel Social History Tobacco Use Types Packs/Day Years Used Date Smoking Tobacco: Never Smokeless Tobacco: Never Alcohol Use Standard Drinks/Week Comments Not Currently 0 (1 standard drink = 0.6 oz pur e alcohol) occasion PHQ-2 Answer Date Recorded PHQ-2 Score 0 10/27/2018 Comments Unknown Sex and Gender Information Value Date Recorded Sex Assigned at Not on file Legal Sex Female 8:44 PM MEDICAL BILLING 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
--- OUTSIDE RECORDS SUMMARY | 2024-03-10 20:17 | XMS_ITS | Encounter Summary ---
Author Organization [facility] Care Team Providers Care Medical Translator Name Role Phone Clive Wright MD Primary Care Provider [phone] Encounter Details Date Type Department Care Team (Latest Contact Info) Description 10/19/2018 Travel Social History Tobacco Use Types Packs/Day Years Used Date Smoking Tobacco: Never Smokeless Tobacco: Never Alcohol Use Standard Drinks/Week Comments Not Currently 0 (1 standard drink = 0.6 oz pur e alcohol) occasion Comments Unknown Sex and Gender Information Value Date Recorded Sex Assigned at Not on file Legal Sex Female 8:44 PM LAB TECHNOLOGIST Gender Identity Not on file Sexual Orientation Not on file Occupation Industry Job Start Date Job End Date Retired Not on file Not on file Not on file documented as of this encounter Plan of Treatment Not on file documented as of this encounter Visit Diagnoses Not on filedocumented in this encounter Care Teams Medical Translator Relationship Specialty Start Date End Date Clive Wright MD PCP - General Family Medicine 09/15/18 documented as of this encounter
--- OUTSIDE RECORDS SUMMARY | 2024-03-10 20:17 | XMS_ITS | Encounter Summary ---
Author Organization [facility] Address [address] [place] [address] Phone Care Team Providers Care Roof Assembler Name Role Phone Clive Wright MD Primary Care Provider [phone] Sarai Vargas DO Unavailable [phone] Reason for Visit * Reason Comments Follow-up * Consultation (Routine) - Closed Specialty Diagnoses / Procedures Referred By Estrella t Referred To Contact Oncology Diagnoses Anemia, unspecified type Clive Wright MD Phone: tel: fax: [facility] Oncology [address] [place] [address] Phone: tel: fax: Referral ID Status Reason Start Date Expiration Date V isits Requested Visits Authorized [id number] Closed Specialty Services Required 10/04/2018 04/14/2020 99 [phone] Encounter Details Date Type Department Care Team (Latest Contact Info) Description 11/30/2018 10:45 AM CDT Office Visit [facility] [address] [place] [address] Sarai Vargas DO [address] [place] [address] Thrombocytosis (CMS/HCC) (Primary Dx); Other iron deficiency [...] on file Legal Sex Female 8:44 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 Gender Identity Not on file Sexual Orientation Not on file Occupation Industry Job Start Date Job End Date Retired Not on file Not on file Not on file documented as of this encounter Last Filed Vital Signs Vital Sign Reading Time Taken Comments Blood Pressure 147/81 11/30/2018 11:06 AM CDT Pulse 76 11/30/2018 11:06 AM CDT Temperature 36.8 ??C (98.2 ??F) 11/30/2018 11:06 AM C DT Respiratory Rate 16 11/30/2018 11:06 AM CDT Oxygen Saturation 95% 11/30/2018 11:06 AM CDT Inhaled Oxygen Concentration - - Weight 59.1 kg (130 lb 3.2 oz) 11/30/2018 11:06 AM CDT Height 163.8 cm (5' 4.49 ) 11/30/2018 11:06 AM C DT Body Mass Index 22.01 11/30/2018 11:06 AM CDT documented in this encounter Progress Notes * Sarai Vargas, DO - 11/30/2018 10:45 AM CDT Patient ID: Ankita Perez is a 68 y.o. female. Referring Physician: Clive Wright MD [address] [facility] [place] [address] Primary Care Provider: Clive Wright MD Assessment/Plan 1. Persistent but improving anemia. This is due to underlying chronic inflammatory disorder. 2. Persistent thrombocytosis. 3. Positive JULIA. Recommendations: 1. We will proceed with a comprehensive panel to evaluate for lupus and lupus like disorders. 2. I will have her undergo ultrasound the spleen. 3. She will continue with 81 mg of aspirin daily to prevent thrombosis due to underlying thrombocytosis. 4. Very possible that I will start her on Hydrea after next visit if her platelet count does not improve. Patient Active Problem List Diagnosis ??? Essential hypertension ??? Mixed hyperlipidemia ??? 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, without long- term current use of insulin ([facility]/HCC) ??? Iron deficiency anemia ??? Thrombocytosis (CMS/HCC) Diagnoses and all orders for this visit: Thrombocytosis (CMS/HCC) (Primary) - Clinic Appointment Request Follow up; SARAI VARGAS MD; Clinic Appointment Location: [facility] - Clinic Appointment Request Follow up; SARAI VARGAS; Clinic Appointment Location: [facility]; Future - Lab Draw Appt Request Arm Draw or Central Line Draw? Arm; What is your ordering location? [facility]/Hem/BMT; Where will this patient receive treatment? [facility]; Future - CBC with auto differential; Future - US Spleen; Future Other iron deficiency anemia Anemia, unspecified type - Clinic Appointment Request Follow up; SARAI VARGAS MD; Clinic Appointment Location: [facility] - Clinic Appointment Request Follow up; SARAI VARGAS; Clinic Appointment Location: [facility]; Future - Lab Draw Appt Request Arm Draw or Central Line Draw? Arm; What is your ordering location? [facility]/Hem/BMT; Where will this patient receive treatment? [facility]; Future - CBC with auto differential; Future - US Spleen; Future Subjective Interval History: 1. New onset anemia [...] this encounter: BSA: 1.64 meters squared BP 147/81 (BP Location: Left arm) Pulse 76 Temp 36.8 ??C (98.2 ??F) (Oral) Resp 16 Ht 163.8cm (5' 4.49 ) Wt 59.1 kg (130 lb 3.2 oz) SpO2 95% BMI 22.01 kg/m?? Physical Exam Constitutional: She is oriented [...] Results: WBC Date Value Ref Range Status 11/30/2018 9.2 3.4 - 10.8 x10E3/uL Final Hgb Date Value Ref Range Status 11/30/2018 10.3 (L) 11.1 - 15.9 g/dL Final Hct Date Value Ref Range Status 11/30/2018 33.7 (L) 34.0 - 46.6 % Final Platelets Date Value Ref Range Status 11/30/2018 893 (HH) 150 - 450 x10E3/uL Final Comment: Results verified by repeat testing Lactate dehydrogenase (LDH) Date Value Ref Range Status 10/19/2018 164 119 - 226 IU/L Final Creatinine Date Value Ref Range Status 08/26/2018 1.07 (H) 0.50 - 0.99 mg/dL Final Comment: For patients >49 years of age, the reference limit for Creatinine is approximately 13% higher for people identified as -Wallisian. AST Date Value Ref Range Status 08/26/2018 18 10 - 35 U/L Final documented in this encounter Plan of Treatment Not on file documented as of this encounter Procedures Procedure Name Priority Date/Time Associated Diagnosis Comments CBC WITH AUTO DIFFERENTIAL Routine 01/04/2019 12:59 PM CDT Thrombocytosis (CMS/HCC) Anemia, unspecified type documented in this encounter Results * (ABNORMAL) CBC with auto differential (01/04/2019 12:59 PM CDT) WBC 9.3 3.4 - 10.8 x10E3/uL [facility] - 01 RBC 3.63(L) 3.77 - 5.28 x10E6/uL [facility] - 01 Hgb 10.8(L) 11.1 - 15.9 g/dL [facility] - 01 Hct 33.8(L) 34.0 - 46.6 % [facility] - 01 MCV 93 79 - 97 fL [facility] - 01 MCH 29.8 26.6 - 33.0 pg [facility] - 01 MCHC 32.0 31.5 - 35.7 g/dL [facility] - 01 Rdw 17.1(H) 12.3 - 15.4 % [facility] - 01 Platelets 932(HH) 150 - 450 x10E3/uL [facility] - 01 Comment:Results verified b y repeat testing Neutrophils pct 68 Not Estab. % [facility] - 01 Lymphs pct 21 Not Estab. % [facility] - 01 Monocytes pct 7 Not Estab. % [facility] - 01 Eosinophils pct 4 Not Estab. % [facility] - 01 Basophil pct 0 Not Estab. % [facility] - 01 Neutrophil abs 6.3 1.4 - 7.0 x10E3/uL [facility] - 01 Lymphs (Absolute) 2.0 0.7 - 3.1 x10E3/uL [facility] - 01 Monocyte abs 0.6 0.1 - 0.9 x10E3/uL [facility] - 01 Eosinophils, abs 0.4 0.0 - 0.4 x10E3/uL [facility] - 01 Basophils, abs 0.0 0.0 - 0.2 x10E3/uL [facility] - 01 Blood specimen (specimen) 01/04/2019 12:59 PM CDT 01/04/2019 Narrative [facility] - 01/04/2019 2:07 PM CDT Performed at: ??01 - [facility] [address], [place] ??[id number] Bike Mechanic: Gibson Camilo MD, Phone: ??[phone] Sarai Vargas DO LAB BLOOD ORDERABLES Final R esult Performing Organization Address City/State/[facility] Co de Phone Number [facility] - 01 documented in this encounter Visit Diagnoses Diagnosis Thrombocytosis- Primary Essential thrombocythemia Other iron deficiency anemia Anemia, unspecified type documented in this encounter Orders Appointment Requests Count Last Ordered Date Fi rst Ordered Date ONCBCN CLINIC APPOINTMENT REQUEST 2 019 11/30/2018 [facility] LAB APPOINTMENT 1 01/04/2019 documented in this encounter Care Teams Roof Assembler Relationship Specialty Start Date End Date Clive Wright MD PCP - General Family Medicine 09/15/18 Sarai Vargas DO [address] [place] [id number] Medical Oncologist/Crepe Box Tender Hematology and Oncology 10/27/18 documented as of this encounter
--- OUTSIDE RECORDS SUMMARY | 2024-03-10 20:17 | XMS_ITS | Encounter Summary ---
Author Organization [facility] Address [address] [place] [address] Care Team Providers Care Tower Supervisor Name Role Phone Unavailable Primary Care Provider Unavailabl e Encounter Details Date Type Department Care Team (Late st Contact Info) Description 08/31/2018 Telephone [facility] Medical [facility] Family Medicine [address] [place] [address] [place] [address] [place] [address] [address] [place] [address] Social History Tobacco Use Types Packs/Day Years Used Date Smoking Tobacco: Never Assessed Comments Unknown Sex and Gender Information Value Date Recorded Sex Assigned at Not on file Legal Sex Female 8:44 PM RESIDENTIAL APPRAISER Gender Identity Not on file Sexual Orientation Not on file documented as of this encounter Miscellaneous Notes * Telephone Encounter - Clive Wright MD - 09/18/2018 6:[address] [facility] the lab was not back then. Yet the lab was not back then so she should go ahead and see Dr. Elaine * Telephone Encounter - Jenny Teixeira MA - 08/31/2018 9:30 AM CDT Pt aware and lab order sent. * Telephone Encounter - Jenny Teixeira MA - 08/31/2018 9:28 AM CDT ----- Message from Clive Wright MD sent at 08/29/2018 4:03 PM CDT ----- Everything looks ok Platelets up, CBC/ ESR 2 weeks Keep FU documented in this encounter Plan of Treatment Not on file documented as of this encounter Procedures Procedure Name Priority Date/Time Associated Diagnosis Comments TEST AUTHORIZATION Routine 09/14/2018 7: 09 AM CDT CBC WITH AUTO DIFFERENTIAL Routine 09/14/2018 7:09 AM CDT ERYTHROCYTE SEDIMENTATION RATE Routine 09/14/2018 7:09 AM CDT Elevated sed rate documented in this encounter Results * (ABNORMAL) CBC with auto differential (09/14/2018 7:09 AM CDT) WBC 8.0 3.8 - 10.8 Thousand/u L [facility] RBC, POC 3.30(L) 3.80 - 5.10 Million/uL [facility] Hgb 9.0(L) 11.7 - 15.5 g/dL [facility] Hct 29.5(L) 35.0 - 45.0 % [facility] MCV 89.4 80.0 - 100.0 fL [facility] MCH 27.3 27.0 - 33.0 pg [facility] MCHC 30.5(L) 32.0 - 36.0 g/dL [facility] Rdw 14.6 11.0 - 15.0 % [facility] Platelets 836(H) 140 - 400 Thousand/u L [facility] MPV 10.3 7.5 - 12.5 fL [facility] Neutrophils, abs 4,648 1,500 - 7,800 cells/uL [facility] Lymphocytes, abs 2,384 850 - 3,900 cells/uL [facility] Monocyte abs 520 200 - 950 cells/uL [facility] Eosinophils, abs 400 15 - 500 cells/uL [facility] Basophils, abs 48 0 - 200 cells/uL [facility] Neutrophils 58.1 % [facility] Lymphocyte pct 29.8 % [facility] Monocytes 6.5 % [facility] Eosinophils 5.0 % [facility] Basophils 0.6 % [facility] 09/14/2018 7:09 AM CDT 09/14/2018 7:10 AM CDT Narrative Resulting Agency Comment Performing Organization Information: ?Site ID: ?Name: [facility] ?Address: [address] [place] [address] ?Director: Laquita Edwards us Clive Wright MD LAB BLOOD ORDERABLES Final Re sult [facility] MICHELE Mast * TEST AUTHORIZATION (09/14/2018 7:09 AM CDT) Test name CBC (INCLUDES DIFF/PLT) [facility] [place] TEST CODE: [id number] [facility] CLIENT CONTACT: JOURDAN SCHULTZ [facility] Report Always Message Signature [facility] Comment: The laboratory testing on this patient was verbally requested or confirmed by the ordering physician or his or her authorized termite control service representative after contact with an employee of [facility]. Federal regulations require that we maintain on file written authorization for all laboratory testing. ??Accordingly we are asking that the ordering physician or his or her authorized termite control service representative sign a copy of this report and promptly return it to the client services coordinator. Signature: Comment [facility] [place] Comment: Fax number: [phone] 09/14/2018 7:09 AM CDT 09/14/2018 7:10 AM CDT Narrative Resulting Agency Comment Performing Organization Information: ?Site ID: [place] ?Name: [facility] ?Address: [address] [address] ?Director: Yoel Glez D.O., MPH us Clive Wright MD LAB BLOOD ORDERABLES Final Re sult Performing Organization Address [facility] Co de Phone Number [facility] [place] * Erythrocyte sedimentation rate (09/14/2018 7:09 AM CDT) Erythrocyte sedimentation rate 14 < OR = 30 mm/h [facility] Blood specimen (specimen) 09/14/2018 7:09 AM CDT 09/14/2018 7:10 AM CDT Narrative Resulting Agency Comment Performing Organization Information: ?Site ID: ?Name: [facility] ?Address: [facility] [place] [address] ?Director: Laquita Edwards us Clive Wright MD LAB BLOOD ORDERABLES Final Re sult Performing Organization Address [facility] Co de Phone Number [facility] [place], [place] documented in this encounter Visit Diagnoses Diagnosis Elevated platelet count- Primary Essential thrombocythemia Elevated sed rate Elevated sedimentation rate documented in this encounter Orders Lab Orders Without Results Count Last Ordered D ate First Ordered Date CBC WITH AUTO DIFFERENTIAL 1 08/31/2018 documented in this encounter
--- OUTSIDE RECORDS SUMMARY | 2024-03-10 20:17 | XMS_ITS | Encounter Summary ---
Author Organization [facility] Medical [facility] Address [address] [place] [address] Care Team Providers Care Butadiene Compressor Operator Name Role Phone Clive Wright MD Primary Care Provider [phone] Karthikeyan Elaine DO Unavailable Encounter Details Date Type Department Care Team (Late st Contact Info) Description 01/11/2019 Telephone [facility] Medical [facility] Family Medicine 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 BOOSTER ENGINEER Gender Identity Not on file Sexual Orientation Not on file Occupation Industry Job Start Date Job End Date Retired Not on file Not on file Not on file documented as of this encounter Miscellaneous Notes * Addendum Note - Myke Garcia - 03/15/2019 12:24 PM CSTAddended by: MYKE GARCIA on: 03/15/2019 12:24 PM Modules accepted: Orders BOOSTER ENGINEER * Telephone Encounter - Myke Garcia - 03/15/2019 12:23 PM CST Order created and fxd BOOSTER ENGINEER * Telephone Encounter - Myke Garcia - 01/14/2019 2:20 PM CST She wants to stay close to here she said BOOSTER ENGINEER * Telephone Encounter - Clive Wright MD - 01/14/2019 1:49 PM CST Could try coco hernandez BOOSTER ENGINEER * Telephone Encounter - Myke Garcia - 01/14/2019 1:24 PM CST Pt called bk and said she will wait until mikal-I have my reminder in my future events BOOSTER ENGINEER * Telephone Encounter - Myke Garcia - 01/13/2019 5:36 PM CST LVM for pt to cb to let me know what she wants to do BOOSTER ENGINEER * Telephone Encounter - Clive Wright MD - 01/12/2019 5:32 PM CST Up to her BOOSTER ENGINEER * Telephone Encounter - Myke Garcia - 01/12/2019 4:56 PM CST Ok but I cant call them until actually Mikal BOOSTER ENGINEER * Telephone Encounter - Clive Wright MD - 01/12/2019 3:02 PM CST No hurry Not likely has anything auto immune BOOSTER ENGINEER * Telephone Encounter - Myke Garcia - 01/12/2019 12:44 PM CST Reema not scheduling until Mar BOOSTER ENGINEER * Telephone Encounter - Clive Wright MD - 01/11/2019 6:03 PM CST Could see if Reema will see her BOOSTER ENGINEER * Telephone Encounter - Myke Garcia - 01/11/2019 2:40 PM CST Yessica is [place] she does not want [place] BOOSTER ENGINEER * Telephone Encounter - Clive Wright MD - 01/11/2019 2:04 PM CST Elevated JULIA /elevated Buenrostro antibodies. Can go see BOOSTER ENGINEER * Telephone Encounter - Myke Garcia - 01/11/2019 12:53 PM CST Pt called and said Dr Elaine was suppose to contact Dr Gates about this pt to be sent to Rheumatology? I didn't see anything in her chart. Pt said she would like Dr Gates to call and talk with [place] andfind out what is going on Dr Elaine office number [phone] I did ask her preference [place] or [place] she said [place] We only have Petros here since Reema isn't taking new pts until Mar and the pt said she's fine withthat Please let me know BOOSTER ENGINEER documented in this encounter Plan of Treatment Not on file documented as of this encounter Visit Diagnoses Diagnosis Elevated antinuclear antibody (JULIA) level- Primary Other and unspecified nonspecific immunological findings documented in this encounter Care Teams Butadiene Compressor Operator Relationship Specialty Start Date End Date Clive Wright MD PCP - General Family Medicine 09/15/18 Karthikeyan Elaine DO [address] [place] [phone] Medical Oncologist/Print Color Matcher Hematology and Oncology 10/27/18 documented as of this encounter
--- OUTSIDE RECORDS SUMMARY | 2024-03-10 20:17 | XMS_ITS | Encounter Summary ---
Author Organization [facility] Medical Group Address [address] [place] [address] Care Team Providers Care Assistant Signal Maintainer Name Role Phone Clive Wright MD Primary Care Provider [phone] Encounter Details Date Type Department Care Team (Late st Contact Info) Description 09/20/2018 Telephone [facility] Family Medicine [address] [place] [address] Odalys Lunsford MA Social History Tobacco Use Types Packs/Day Years Used Date Smoking Tobacco: Never Smokeless Tobacco: Never Alcohol Use Standard Drinks/Week Comments Not Currently 0 (1 standard drink = 0.6 oz pur e alcohol) occasion Comments Unknown Sex and Gender Information Value Date Recorded Sex Assigned at Not on file Legal Sex Female 8:44 PM 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 Told pt that she was a little anemic, we want to check her stool guaiacs x3 and platelets are still elevated so we would like her to see the environmental field team member for eval on platelets. Pt stated understanding. Referral and labs were ordered. Notes recorded by Nenita Barahona RN on 09/17/2018 at 9:59 AM CDT [facility] ------ Notes recorded by Clive Wright MD on 09/15/2018 at 9:54 PM CDT A little more anemic. ??Check stool guaiacs x3. ??Platelets still elevated. ??Dr. Elaine for evalof platelets. ------ Notes recorded by STEFANO Mesa on 09/14/2018 at 4:59 PM CDT appt 09/15 documented in this encounter Plan of Treatment Scheduled Orders Name Type Priority Associated Diagnoses Orde r Schedule Stool culture Stool Rectum Microbiology Routine Elevated platelet count Other iron deficiency anemia Expected: 09/20/2018, Expires: 09/21/2019 documented as of this encounter Visit Diagnoses Diagnosis Elevated platelet count- Primary Essential thrombocythemia Other iron deficiency anemia documented in this encounter Care Teams Assistant Signal Maintainer Relationship Specialty Start Date End Date Clive Wright MD PCP - General Family Medicine 09/15/18 documented as of this encounter
--- OUTSIDE RECORDS SUMMARY | 2024-03-10 20:17 | XMS_ITS | Encounter Summary ---
Author Organization [facility] Address [address] [place] [address] Phone Care Team Providers Care Living Specialist Name Role Phone Clive Wright MD Primary Care Provider [phone] Karthikeyan Elaine DO Unavailable [phone] Encounter Details Date Type Department Care Team (Late st Contact Info) Description 11/02/2018 7:30 AM CDT Lab [facility] Oncology [address] [place] [phone] Anemia, unspecified type; Thrombocytosis (CMS/HCC) Social History Tobacco Use Types Packs/Day Years Used Date Smoking Tobacco: Never Smokeless Tobacco: Never Alcohol Use Standard Drinks/Week Comments Not Currently 0 (1 standard drink = 0.6 oz pur e alcohol) occasion PHQ-2 Answer Date Recorded PHQ-2 Score 0 10/27/2018 Comments Unknown Sex and Gender Information Value Date Recorded Sex Assigned at Not on file Legal Sex Female 8:44 PM SENIOR WEB APPLICATIONS DEVELOPER Gender Identity Not on file Sexual Orientation Not on file Occupation Industry Job Start Date Job End Date Retired Not on file Not on file Not on file documented as of this encounter Plan of Treatment Not on file documented as of this encounter Visit Diagnoses Diagnosis Anemia, unspecified type Thrombocytosis Essential thrombocythemia documented in this encounter Orders Appointment Requests Count Last Ordered Date Fi rst Ordered Date ONCBCN LAB APPOINTMENT 1 11/02/2018 documented in this encounter Care Teams Living Specialist Relationship Specialty Start Date End Date Clive Wright MD PCP - General Family Medicine 09/15/18 Karthikeyan Elaine DO [address] [place] [address] Medical Oncologist/Master [employer] Hematology and Oncology 10/27/18 documented as of this encounter
--- OUTSIDE RECORDS SUMMARY | 2024-03-10 20:18 | XMS_ITS | Encounter Summary ---
Author Organization [facility] Medical Group Address [address] [place] [address] Care Team Providers Care Carton Filling Machine Operator Name Role Phone Unavailable Primary Care Provider Unavailabl e Encounter Details Date Type Department Care Team (Late st Contact Info) Description 08/26/2018 Orders Only [facility] Family Medicine [address] [place] [address] [place] [address] [place] [address] [address] [place] [address] Social History Tobacco Use Types Packs/Day Years Used Date Smoking Tobacco: Never Assessed Comments Unknown Sex and Gender Information Value Date Recorded Sex Assigned at Not on file Legal Sex Female 8:44 PM HEEL BUFFER Gender Identity Not on file Sexual Orientation Not on file documented as of this encounter Plan of Treatment Not on file documented as of this encounter Procedures Procedure Name Priority Date/Time Associated Diagnosis Comments ALBUMIN CREATININE RATIO, URINE Routine 08/26/2018 8:02 AM CDT CBC WITHOUT DIFFERENTIAL Routine 08/26/2018 8:02 AM CDT HEMOGLOBIN A1C Routine 08/26/2018 8:02 AM CDT LIPID PANEL Routine 08/26/2018 8:02 AM CDT COMPREHENSIVE METABOLIC PANEL Routine 08/26/2018 8:02 AM CDT documented in this encounter Results * (ABNORMAL) Hemoglobin A1c (08/26/2018 8:02 AM CDT) Hgb A1C 6.5(H) <5.7 % of total Hgb [facility] [place] Comment: For someone without known diabetes, a [...] for diagnosis of diabetes for children. ?? 08/26/2018 8:02 AM CDT 08/26/2018 8:02 AM CDT Narrative [facility] - 08/27/2018 1:06 PM CDT 0; 0; 0; 0; 0 Resulting Agency Comment Performing Organization Information: ?Site ID: [place] ?Name: [facility] ?Address: [facility] [address] [address] ?Director: Yoel Glez D.O., MPH us Clive Wright MD LAB BLOOD ORDERABLES Final Re sult [facility] [place] * (ABNORMAL) CBC without differential (08/26/2018 8:02 AM CDT) [facility] WBC 7.5 3.8 - 10.8 Thousand/uL [facility] [place] RBC, POC 3.40(L) 3.80 - 5.10 Million/uL [facility] Hgb 9.3(L) 11.7 - 15.5 g/dL [facility] Hct 29.3(L) 35.0 - 45.0 % [facility] MCV 86.2 80.0 - 100.0 fL [facility] MCH 27.4 27.0 - 33.0 pg [facility] MCHC 31.7(L) 32.0 - 36.0 g/dL [facility] Rdw 14.3 11.0 - 15.0 % [facility] Platelets 867(H) 140 - 400 Thousand/uL [facility] [place] MPV 9.8 7.5 - 12.5 fL [facility] Verbal 08/26/2018 8:0 2 AM CDT 08/26/2018 8:02 AM CDT Narrative [facility] - 08/27/2018 1:06 PM CDT 0; 0; 0; 0; 0 Resulting Agency Comment Performing Organization Information: ?Site ID: [place] ?Name: [facility] ?Address: [address] [place] [address] ?Director: Yoel Glez D.O., MPH us Clive Wright MD LAB BLOOD ORDERABLES Final Re sult [facility] [place] * (ABNORMAL) Comprehensive metabolic panel (08/26/2018 8:02 AM CDT) Glucose 143(H) 65 - 99 mg/dL [facility] [place] Comment: ? Fasting reference interval For someone without known diabetes, a glucose value >125 mg/dL indicates that they may have diabetes and this should be confirmed with a follow-up test. BUN 26(H) 7 - 25 mg/dL [facility] [place] Creatinine 1.07(H) 0.50 - 0.99 mg/dL [facility] [place] Comment: For patients >49 years of age, the reference limit for Creatinine is approximately 13% higher for people identified as -Chilean. eGFR NON-AFR. HONDURAN 53(L) > OR = 60 mL/min/1. 73m2 [facility] EGFR 61 > OR = 60 mL/min/1. 73m2 [facility] BUN/creat ratio 24(H) 6 - 22 (calc) [facility] Sodium 134(L) 135 - 146 mmol/L [facility] Potassium, pl 4.5 3.5 - 5.3 mmol/L [facility] Chloride 99 98 - 110 mmol/L [facility] CO2 25 20 - 32 mmol/L [facility] Calcium 9.8 8.6 - 10.4 mg/dL [facility] Protein, sr 6.8 6.1 - 8.1 g/dL [facility] Albumin 3.9 3.6 - 5.1 g/dL [facility] GLOBULIN 2.9 1.9 - 3.7 g/dL (calc) [facility] Alb/glob ratio 1.3 1.0 - 2.5 (calc) [facility] Bilirubin, total 0.4 0.2 - 1.2 mg/dL [facility] [place] Alk phos 39 33 - 130 U/L [facility] [place] AST 18 10 - 35 U/L [facility] ALT (SGPT) 13 6 - 29 U/L [facility] [place] 08/26/2018 8:02 AM CDT 08/26/2018 8:02 AM CDT Narrative [facility] - 08/27/2018 1:06 PM CDT 0; 0; 0; 0; 0 Resulting Agency Comment Performing Organization Information: ?Site ID: [place] ?Name: [facility] ?Address: [address] [place] [address] [place] [address] ?Director: Yoel Glez D.O. MPH us Clive Wright MD LAB BLOOD ORDERABLES Final Re sult [facility] [place] * Albumin Creatinine Ratio, Urine (08/26/2018 8:02 AM CDT) Creatinine, ur 97 20 - 275 mg/dL [facility] [place] Microalbumin, ur 1.0 See Note: mg/dL [facility] [place] Comment: Reference Range: Reference Range Not established Microalbumin/creat ratio 10 <30 mcg/mg creat [facility] [place] Comment: The ADA defines abnormalities in albumin excretion as follows: Category ? Result (mcg/mg creatinine) Normal ?<30 Microalbuminuria ? 30-299 Clinical albuminuria ?? > OR = 300 The ADA recommends that at least two of three specimens collected within a 3-6 month period be abnormal before considering a patient to be within a diagnostic category. 08/26/2018 8:02 AM CDT 08/26/2018 8:02 AM CDT Narrative [facility] - 08/27/2018 1:06 PM CDT 0; 0; 0; 0; 0 Resulting Agency Comment Performing Organization Information: ?Site ID: [place] ?Name: [facility] ?Address: [address] [address] ?Director: Yoel Glez D.O., MPH us Clive Wright MD LAB URINE ORDERABLES Final Re sult [facility] [place] * (ABNORMAL) Lipid panel (08/26/2018 8:02 AM CDT) Cholesterol 163 <200 mg/dL [facility] HDL 56 >50 mg/dL [facility] Triglycerides 165(H) <150 mg/dL [facility] [place] LDL 81 mg/dL (calc) [facility] [place] Comment: Reference range: <100 Desirable range <100 mg/dL for primary prevention; ?? <70 mg/dL for patients with CHD or diabetic patients with > or = 2 CHD risk factors. LDL-C is now calculated using the Rishi-Jordan calculation, which is a validated novel method providing better accuracy than the Friedewald equation in the estimation of LDL-C. Rishi SS et al. CARRIE. 2013;310(19): 5931-6882 (http://education.[employer]Tr[employer].Traxian/faq/PBY337) Chol/HDL ratio 2.9 <5.0 (calc) [facility] [place] Non-HDL, (LDL+VLDL) 107 <130 mg/dL (calc) [facility] [place] Comment: For patients with diabetes plus 1 major ASCVD risk factor, treating to a non-HDL-C goal of <100 mg/dL (LDL-C of <70 mg/dL) is considered a therapeutic option. 08/26/2018 8:02 AM CDT 08/26/2018 8:02 AM CDT Narrative [facility] - 08/27/2018 1:06 PM CDT 0; 0; 0; 0; 0 Resulting Agency Comment Performing Organization Information: ?Site ID: [place] ?Name: [facility] ?Address: [address] [place] [address] ?Director: Yoel Glez D.O., MPH Clive Wright MD LAB BLOOD ORDERABLES Final Re sult [facility] [place] documented in this encounter Visit Diagnoses Not on filedocumented in this encounter
== END 2024-03-03 08:47 | disposition home or self-care (01) ==
LOC: ANHLAB 08:49
PROVIDERS: PCP Family Medicine; Visit Provider Nurse Practitioner
DX: N39.0 Urinary tract infection, site not specified (principal)
CPT/HCPCS: 81001; 87086

== ENCOUNTER 2024-04-04 13:52 | Emergency (ER) | payer MEDICARE, SELFPAY ==
[2024-04-04 14:30] VITALS: BP 200/84; PULSE 77; RESP 18; TEMP 36.4; O2SAT 99
--- NOTE | 2024-04-04 14:32 | ED_ITS ---
HPI - Female Genitourinary General Chief complaint: Urogenital-Female Stated complaint: UTI Time Seen by Provider: 04/04/24 14:33 Source: patient, RN notes reviewed and old records reviewed Mode of arrival: ambulatory Limitations: no limitations History of Present Illness HPI Narrative: Patient presents accompanied by her daughter. She reports that she noted a foul urine odor this morning. Reports last time she had UTI, foul odor was most obvious symptom. She denies any fever, chills, sweats. She denies any back her abdominal pain. She denies any urinary frequency or burning. Related Data Home Medications ?Medication ?Instructions ?Recorded ?Confirmed ?Last Taken ?Type aspirin 81 mg tablet,delayed 81 mg PO DAILY 02/14/24 02/14/24 Unknown History release atorvastatin 20 mg tablet 20 mg PO DAILY 02/14/24 02/14/24 Unknown History ferrous sulfate 325 mg (65 mg 325 mg PO BID 02/14/24 02/14/24 Unknown History iron) tablet (FeroSul) hydrochlorothiazide 25 mg tablet 25 mg PO DAILY 02/14/24 02/14/24 Unknown History hydroxyurea 500 mg capsule 500 mg PO DAILY 02/14/24 02/14/24 Unknown History linagliptin 5 mg tablet (Tradjenta) 5 mg PO DAILY 02/14/24 02/14/24 Unknown History lisinopril 20 mg tablet 20 mg PO DAILY 02/14/24 02/14/24 Unknown History metformin 500 mg tablet 500 mg PO BID 02/14/24 02/14/24 Unknown History metoprolol succinate 25 mg 25 mg PO DAILY 02/14/24 02/14/24 Unknown History tablet,extended release 24 hr ascorbic acid (vitamin C) 500 mg mg PO 04/04/24 Unknown History capsule Allergies Allergy/AdvReac Type Severity Reaction Status Date / Time No Known Allergies Allergy Verified 04/04/24 14:51 Review of Systems Review of Systems: All systems reviewed & are unremarkable except as noted in HPI and below Constitutional: Constitutional: Reports no additional constitutional complaints ENT: Reports system reviewed and no additional complaints, except as documented Cardiovascular: Cardiovascular: Reports no additional cardiovascular complaints Respiratory: Respiratory: Reports no additional respiratory complaints Gastrointestinal: Gastrointestinal: Reports no additional gastrointestinal complaints Genitourinary: Genitourinary: Reports no additional female genitourinary complaints and Reports as per HPI [facility] Past Medical History Medical History (Updated 04/04/24 @ 15:33 by Becca Martines APRN) Type 2 diabetes mellitus Essential thrombocytosis Iron deficiency anemia Hyperlipidemia Essential hypertension Surgical History Surgical History (Updated 02/14/24 @ 07:35 by Deann Mcleod DO) Status post cataract extraction and insertion of intraocular lens of left eye Family History Family History Mother Heart disease Social History Social History (Updated 02/14/24 @ 07:37 by Deann Mcleod DO) Social History: Patient reports she lives in her own home in [place]. She raised a daughter and a son who reportedly live locally. 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 She reports that she has been since proximally 2014. She denies history of tobacco or alcohol use. She still drives. Code status: The patient states that she does not know if she would want to be resuscitated. She becomes tearful when discussing her in seems depressed. I will leave patient has a full code until the patient's mentation clears or code status can be confirmed by family members. Surrogate decision maker: Michelle Jones (daughter) Smoking status: Never smoker Alcohol intake: never Substance use: never Do You Feel Safe in your Home?: Yes Lack of Transportation: No Lack of Food: Sometimes True Current Housing: I Have Housing Concerned About Future Housing: No Difficulty Paying Gas/Electric Bills: No Difficulty Paying for Meds: No Currently Unemployed: No Education: Decline to Answer Difficulty w/ Childcare or Family Care: No Spiritual care concerns: No Comments At the time of my signature, I reviewed and agree with the nursing past medical, surgical, social, and family history. There is no relevant family history pertinent to the patient complaint. Exam Const: General: cooperative, no acute distress, alert and awake Orientation/consciousness: oriented to person, oriented to place and oriented to time HENMT: Head: normal to inspection Mouth: Yes moist mucous membranes Resp: Effort & Inspection: normal respiratory effort and able to speak in complete sentences Auscultation: clear to auscultation bilaterally, no crackles, no rales, no rhonchi and no wheezes Cardio: Palpation: normal PMI Rate: regular rate Rhythm: regular rhythm Heart sounds: S1 normal heart sound present and S2 normal heart sound present GI: GI Palp: Yes Soft to palpation, No Tenderness to palpation present (GI) and No Guarding due to palpation present (GI) : General: Yes bladder normal to palpation and Yes no CVA tenderness Neuro: General: oriented to person, oriented to place and oriented to time Cranial nerves: Yes CN's II-XII intact bilaterally Psych: Appearance: grossly normal Thought process: Normal thought process present Insight: Good insight present (Psych) Judgement: Good judgement present (Psych) Course Course Level of Care: Express Care Visit Vital Signs Vital signs: Vital Signs Temperature 97.5 F L 04/04/24 14:30 Pulse Rate 77 04/04/24 14:30 Respiratory Rate 18 04/04/24 14:30 Blood Pressure 200/84 H 04/04/24 14:30 Pulse Oximetry 99 04/04/24 14:30 Oxygen Delivery Room Air 04/04/24 14:30 Temperature 97.5 F L 04/04/24 14:30 Pulse Rate 77 04/04/24 14:30 Respiratory Rate 18 04/04/24 14:30 Blood Pressure 200/84 H 04/04/24 14:30 Pulse Oximetry 99 04/04/24 14:30 Oxygen Delivery Room Air 04/04/24 14:30 Reviewed MDM - Female Genitourinary MDM Narrative Medical decision making narrative: Physical exam is reassuring, a UA is consistent with UTI. Patient with history of sepsis secondary to UTI in the past. Her and family members were both given strict emergency department precautions. She is nontoxic appearing at this time, stable for discharge home on p.o. antibiotic therapy Differential Diagnosis Differential diagnosis: Likely urinary tract infection Medical Records Attestation: I reviewed the patient's medical records. Lab Data Attestation: I reviewed the patient's lab results. Discharge Plan Discharge Clinical Impression: Elevated blood pressure reading Urinary tract infection Qualifiers: Urinary tract infection type: site unspecified Hematuria presence: with hematuria Qualified Code(s): N39.0 - Urinary tract infection, site not specified Patient Disposition: Home, Self-Care Condition: Stable Instructions: Antibiotic Form, Urinary Tract Infection in Older Adults (ED) Patient Language: Chadian Prescriptions: New nitrofurantoin monohyd/m-cryst [Macrobid] 100 mg capsule 100 mg PO Q12H 7 Days Qty: 14 0RF Rx Instructions: must administer with a meal/food No Action ascorbic acid (vitamin C) 500 mg capsule PO metformin 500 mg tablet 500 mg PO BID hydroxyurea 500 mg capsule 500 mg PO DAILY atorvastatin 20 mg tablet 20 mg PO DAILY lisinopril 20 mg tablet 20 mg PO DAILY ferrous sulfate [FeroSul] 325 mg (65 mg iron) tablet 325 mg PO BID hydrochlorothiazide 25 mg tablet 25 mg PO DAILY metoprolol succinate 25 mg tablet extended release 24 hr 25 mg PO DAILY Tradjenta 5 mg tablet 5 mg PO DAILY aspirin 81 mg Tablet,Delayed Release (Dr/Ec) 81 mg PO DAILY hydralazine 25 mg tablet 12.5 mg PO TID Qty: 0 0RF quetiapine 50 mg tablet 50 mg PO HS Qty: 30 0RF amlodipine 10 mg Tablet 10 mg PO DAILY Qty: 30 0RF (DME) blood-glucose meter [[employer] Verio Flex meter[place] [facility] [place] 1 0RF Rx Instructions: May substitute to in-stock meter and/or covered by insurance. Use As Directed (DME) [employer] Verio test strips Strip Qty: 1 0RF Rx Instructions: May substitute to in-stock and/or covered by insurance strips. Use As Directed (DME) lancets [[employer] St[employer] Delica Plus Lancet] 30 gauge [facility] [place] Qty: 1 0RF Rx Instructions: May substitute to in-stock and/or covered by insurance lancets. Use As Directed Follow-up/Referrals: Kyle,Clive Us MD [Primary Care Provider] - 2 Days Time of Disposition: 15:38
[2024-04-04 14:44] LABS: EDUAAPPEAR Cloudy; EDUABILI Negative (Negative); EDUABLOOD 1+ (Negative); EDUACOLOR1 Yellow; EDUAGLUCOSE Negative (Negative); EDUAKETONE Negative (Negative); EDUALEUKO Trace (Negative); EDUANITRATE Positive (Negative); EDUAPROTEIN 3+ (Negative); EDUASPGRAVITY 1.025; EDUAUROBILI 0.2
--- OUTSIDE RECORDS SUMMARY | 2024-04-04 15:00 | XMS_ITS | Clinical Summary ---
Author Organization [facility] Office Center Address [address] [place] [address] Care Team Providers Care Net Web Application Developer Name Role Phone Clive Wright MD Primary Care Provider [phone] Karthikeyan Elaine DO Unavailable [phone] Allergies No known active allergies Medications aspirin 81 mg enteric coated tablet Take 1 tablet (81 mg total) by mouth daily 30 tablet 9 Active cyanocobalamin (Vitamin B-12) 1,000 mcg tabletIndicati ons:Prevention of Vitamin B12 Deficiency Take 1 tablet (1,000 mcg total) by mouth daily Active ascorbic acid (VITAMIN C) 500 mg tablet,chewabl e Take 1 tablet/chew tab (500 mg total) by mouth daily Active blood glucose diagnostic (OneTouch Ultra Blue Test Strip) stripIndicatio ns: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, without long-term current use of insulin ([facility]) ([facility]) 1 each by other route as directed Checks blood sugar daily 100 each 3 2 Active blood-glucose meter miscIndication s: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, without long-term current use of insulin (CMS/HCC) ([facility]) Use daily or as directed for monitoring of diabetes. 1 each 2 Active vitamin D3-vitamin K2 25 mcg (1,000 unit)-90 mcg tablet,disinte grating Take 1,000 Units by mouth daily Active hydroxyurea (HYDREA) 500 mg capsule Take 2 capsules by mouth once daily 60 capsule 9 4 Active Additional Information Patient not taking.Reported on 03/07/2024 metoprolol XL (TOPROL-XL) 25 mg extended release tablet Take 1 tablet (25 mg total) by mouth daily 90 tablet 3 4 Active metFORMIN (GLUCOPHAGE) 500 mg tabletIndicati ons: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, without long-term current use of insulin (CMS/HCC) (HCC) Take 1 tablet (500 mg total) by mouth 2 (two) times a day 180 tablet 3 4 Active atorvastatin (LIPITOR) 20 mg tablet Take 1 tablet (20 mg total) by mouth daily 90 tablet 3 4 Active Iron, ferrous sulfate, 325 mg (65 mg iron) tablet Take 1 tablet by mouth twice daily 180 tablet 4 Active QUEtiapine (SEROquel) 50 mg tablet Take 1 tablet (50 mg total) by mouth nightly 4 Active hydrALAZINE (APRESOLINE) 25 mg tablet Take 0.5 tablets (12.5 mg total) by mouth 3 (three) times a day 4 Active hydroCHLOROthi azide (HYDRODIURIL) 25 mg tablet Take 1 tablet (25 mg total) by mouth daily 4 Active linaGLIPtin (TRADJENTA) 5 mg tabletIndicati ons:type 2 diabetes mellitus Take 1 tablet (5 mg total) by mouth daily 30 tablet 5 5 Active hydroCHLOROthi azide (HYDRODIURIL) 25 mg tablet Take 1 tablet (25 mg total) by mouth daily 90 tablet 3 4 03/07/20 24 Discontin ued(Reord er) amLODIPine (NORVASC) 10 mg tablet Take 1 tablet (10 mg total) by mouth daily 4 03/09/19 25 Discontin ued(Thera py completed ) Active Problems Problem Noted Date Diagnosed Date Myeloproliferative disease 04/28/2022 Iron deficiency anemia 09/15/2018 Thrombocytosis 09/15/2018 Essential hypertension 03/25/2016 Overview (09/15/2018): controlled Mixed hyperlipidemia 07/18/2015 Overview (09/15/2018): Controlled with atorvastatin Type 2 diabetes mellitus wit h stage 2 chronic kidney disease, without long-term current use of insulin ([facility]) 07/18/2015 Overview (09/15/2018): Controlled Resolved Problems Problem Noted Date Diagnosed Date Resolved Date CKD (chronic kidney disease) stage 3, GFR 30-59 ml/min 10/22/2021 03/07/2024 Chronic kidney disease, stage III (moderate) 6 09/15/2018 Overview (09/15/2018): stable Encounters Date Type Department Care Team Description 03/28/2024 Telephone [facility] at [address] [address] Clive Wright MD Symptom Based Call 03/15/2024 Telephone [facility] at [address] [address] Clive Wright MD med list 03/10/2024 Telephone [facility] at [address] [address] Clive Wright MD Med Refill 03/07/2024 10:45 AM MOBILE ENGINEER Office Visit [facility] at [address] [address] Clive Wright MD Acute cystitis without hematuria (Primary Dx); Encephalopathy, unspecified type; Mild cognitive impairment; Essential hypertension; 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, without long-term current use of insulin ([facility]) ([facility]); Thrombocytosis; Edema, lower extremity; Nonspecific abnormal electroencephalogram (EEG) 03/03/2024 Orders Only [facility] Health Information Management [address] [place] [address] Clive Wright MD 02/26/2024 Telephone [facility] at [address] [address] Clive Wright MD ROMÁN Questions 02/23/2024 Telephone [facility] at [address] [place] [address] Clive Wright MD 02/22/2024 Telephone [facility] Medicine at [address] [place] [address] Clive Wright MD Medical Question/Miscellaneous 02/18/2024 Orders Only [facility] Information Management [address] [place] [address] Gaby Swartz MD 02/17/2024 Orders Only [facility] Information Management [address] [place] [address] Clive Wright MD 02/16/2024 Orders Only [facility] Information Management [address] [place] [address] Clive Wright MD 02/14/2024 Orders Only [facility] Information Management [address] [place] [address] Deann Mcleod DO 02/13/2024 Orders Only [facility] Health Information Management [address] [place] [address] Clive Wright MD 01/28/2024 8:30 AM MOBILE ENGINEER Lab [facility] [address] [place] [address] 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, without long-term current use of insulin (CMS/HCC) (HCC); Essential hypertension; Mixed hyperlipidemia 01/26/2024 Telephone [facility] Medical [facility] Family Medicine at [address] [place] [address] Clive Wright MD Medical Question/Miscellaneous 01/15/2024 9:30 AM MOBILE ENGINEER Office Visit [facility] Oncology [address] [place] [address] [address] [place] [id number] Karthikeyan Elaine DO Myeloproliferative disease (HCC) (Primary Dx); Thrombocytosis; Macrocytic anemia from Last 3 Months Immunizations Name Administration [...] = 0.6 oz pur e alcohol) occasion [facility] Utilities Answer Date Recorded In the past 12 months has [employer] electric, gas, oil, or water company threatened [...] week 03/01/2024 How often do you attend [facility] or pentecostalism services? Never 03/01/2024 Do you belong to any clubs o r organizations such as voodoo groups, unions, fraternal or athletic groups, or [...] any time in the past 12 m [facility], were you homeless or living in a alf (including now)? No 03/01/2024 Comments Unknown Sex and Gender Information Value Date Recorded Sex Assigned at Not on file Legal Sex Female 8:44 PM MOBILE ENGINEER Gender Identity Not on file Sexual Orientation Not on file Occupation Industry Job Start Date Job End Date Retired Not on file Not on file Not on file Obstetrics History Last Filed Vital Signs Vital Sign Reading Time Taken Comments Blood Pressure 130/70 03/07/2024 11:13 AM MOBILE ENGINEER Pulse 69 03/07/2024 11:13 AM MOBILE ENGINEER Temperature 37.1 ??C (98.7 ??F) 03/07/2024 1 1:13 AM MOBILE ENGINEER Respiratory Rate 18 03/07/2024 11:1 3 AM MOBILE ENGINEER Oxygen Saturation 95% 03/07/2024 11: 13 AM MOBILE ENGINEER Inhaled Oxygen Concentration - - Weight 64.7 kg (142 lb 11.2 oz) 024 11:13 AM MOBILE ENGINEER Height 161.3 cm (5' 3.5 ) 03/07/2024 11 :13 AM MOBILE ENGINEER Body Mass Index 24.88 03/07/2024 11:13 AM MOBILE ENGINEER Plan of Treatment Health Maintenance Due Date [...] Additional history exists Lipid Panel 01/27/2025 01/28/2024, 05/0 03/2023, 04/15/2023, Additional history exists eGFR 01/27/2025 01/28/2024, 110 08/2023, 07/08/2023, Additional history exists Colon Cancer Screening-FIT Discontinued 11/15/2021, Influenza Vaccine Discontinued Procedures Procedure Name Priority Date/Time Associated Diagnosis Comments SCAN - LABS 03/03/2024 SCAN - RADIOLOGY/IMAGING 02/18/2024 SCAN - NEUROLOGY 02/17/2024 CARDIOLOGY DOCUMENT SCAN 02/17/2024 SCAN - RADIOLOGY/IMAGING 02/17/2024 SCAN - RADIOLOGY/IMAGING 02/16/2024 SCAN - RADIOLOGY/IMAGING 02/14/2024 SCAN - RADIOLOGY/IMAGING 02/13/2024 ALBUMIN CREATININE RATIO, URINE Routine 01/28/2024 9:21 AM MOBILE ENGINEER 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, without long-term current use of insulin ([facility]) ([facility]) EGFR Routine 01/28/2024 8:48 AM MOBILE ENGINEER Essential hypertension Mixed hyperlipidemia DIFFERENTIAL AUTO Routine 01/28/2024 8:4 8 AM MOBILE ENGINEER Essential hypertension HEMOGLOBIN A1C Routine 01/28/2024 8:48 AM MOBILE ENGINEER 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, without long-term current use of insulin ([facility]) ([facility]) LIPID PANEL Routine 01/28/2024 8:48 AM MOBILE ENGINEER Mixed hyperlipidemia COMPREHENSIVE METABOLIC PANEL Routine 01/28/2024 8:48 AM MOBILE ENGINEER Essential hypertension Mixed hyperlipidemia CBC WITH AUTO DIFFERENTIAL Routine 01/28/2024 8:48 AM MOBILE ENGINEER Essential hypertension COMPREHENSIVE METABOLIC PANEL Routine 01/13/2024 7:52 AM MOBILE ENGINEER Thrombocytosis CBC WITH AUTO DIFFERENTIAL Routine 01/13/2024 7:52 AM MOBILE ENGINEER Thrombocytosis DEXA AXIAL SKELETON BONE DENSITY 1 [...] Maintenance Results * SCAN - LABS (03/03/2024) us Clive Wright MD Final Result * [...] Other us Deann Mcleod DO Final Result * SCAN - RADIOLOGY/IMAGING (02/13/2024) Anatomical Region Laterality Modality Other us Clive Wright MD Edited Result - Final * (ABNORMAL) Albumin Creatinine Ratio, Urine (01/28/2024 9:21 AM MOBILE ENGINEER) Albumin Ur 3,802.0 mg/L Comment: Interpretive Data No reference range established. Current interpretive data was last revised 2018. Creatinine Ur 94.8 mg/dL JUAN F Comment: Interpretive Data No reference range established. Current interpretive data was last revised 2018. Albumin Creatinine Ratio, Ur 4,011(H) 1 - 29 mg/g JUAN F Urine 01/28/2024 9:21 AM MOBILE ENGINEER 01/28/2024 1:12 PM MOBILE ENGINEER us Clive Wright MD LAB URINE ORDERABLES Final Re sult JUAN F [address] [facility] Department [place] [address] * eGFR (01/28/2024 8:48 AM MOBILE ENGINEER) eGFR 64 >=60 mL/min/1. 73 m2 Comment: [...] of Race in Diagnosing Kidney Disease, JASN 202). The CKD-EPI equation should not be used for patients with unstable renal function and has not been validated in children and those over 70. Current interpretive data was last reviewed 2021. Blood 01/28/2024 8:48 AM MOBILE ENGINEER 01/28/2024 12:45 PM MOBILE ENGINEER us Clive Wright MD LAB BLOOD ORDERABLES Final Re sult JUAN F [address] [facility] Department [place] [address] * (ABNORMAL) Differential, auto (01/28/2024 8:48 AM MOBILE ENGINEER) Neutrophil abs 7.3(H) 1.5 - 6.5 K/cumm Imm gran abs 0.0 0.0 - 0.1 K/cumm [facility] Lymphocyte abs 1.4 0.8 - 3.3 K/cumm [facility] Monocyte abs 0.5 0.2 - 0.8 K/cumm [facility] Eosinophil abs 0.1 0.0 - 0.5 K/cumm [facility] Basophil abs 0.1 0.0 - 0.1 K/cumm [facility] Neutrophil pct 77.9 % [facility] Comment: Interpretive Data Percent cell count reference ranges are not reported, since discordance with absolute values may lead to misinterpretation of CBC data. Current Interpretive Data was last revised on 2017. Imm gran pct 0.3 % [facility] Comment: Interpretive Data Percent cell count reference ranges are not reported, since discordance with absolute values may lead to misinterpretation of CBC data. Current Interpretive Data was last revised on 2017. Lymphocyte pct 15.2 % [facility] Comment: Interpretive Data Percent cell count reference ranges are not reported, since discordance with absolute values may lead to misinterpretation of CBC data. Current Interpretive Data was last revised on 2017. Monocyte pct 5.3 % [facility] Comment: Interpretive Data Percent cell count reference ranges are not reported, since discordance with absolute values may lead to misinterpretation of CBC data. Current Interpretive Data was last revised on 2017. Eosinophil pct 0.7 % [facility] Comment: Interpretive Data Percent cell count reference ranges are not reported, since discordance with absolute values may lead to misinterpretation of CBC data. Current Interpretive Data was last revised on 2017. Basophil pct 0.6 % [facility] Comment: Interpretive Data Percent cell count reference ranges are not reported, since discordance with absolute values may lead to misinterpretation of CBC data. Current Interpretive Data was last revised on 2017. Blood 01/28/2024 8:48 AM MOBILE ENGINEER 01/28/2024 12:48 PM MOBILE ENGINEER Clive Wright MD LAB BLOOD ORDERABLES Final Re sult Performing Organization Address [facility] Co de Phone Number [address] [employer] [place] [address] * (ABNORMAL) CBC with auto differential (01/28/2024 8:48 AM MOBILE ENGINEER) WBC 9.4 3.8 - 9.9 K/cumm Hgb 11.5(L) 11.9 - 15.5 g/dL [facility] Hct 35.0(L) 35.6 - 45.5 % [facility] Plt 672(H) 150 - 400 K/cumm [facility] MPV 9.5 9.1 - 12.3 fL [facility] RBC 3.06(L) 3.90 - 5.20 M/cumm [facility] MCV 114.4(H) 81.3 - 96.4 fL [facility] MCH 37.6(H) 27.1 - 33.3 pg [facility] MCHC 32.9 32.3 - 35.7 g/dL [facility] RDW CV 13.1 11.1 - 14.9 % [facility] RDW SD 54.0(H) 35.7 - 48.1 fL [facility] NRBC abs 0.00 0.00 - 0.01 K/cumm [facility] Blood 01/28/2024 8:48 AM MOBILE ENGINEER 01/28/2024 12:48 PM MOBILE ENGINEER Clive Wright MD LAB BLOOD ORDERABLES Final Re sult Performing Organization Address [facility] Co de Phone Number [address] [employer] [place] [address] * (ABNORMAL) Hemoglobin A1c (01/28/2024 8:48 AM MOBILE ENGINEER) Hgb A1C 7.1(H) 4.0 - 5.6 % Estimated Average Glucose 157 mg/dL JUAN F MILLS Comment: The ADA recommends reporting an estimated Average Glucose (eAG) with all Hemoglobin A1c results using the equation derived from a study of 507 normal and diabetic adults. ??Minority populations were underrepresented and children were not included. ?? (Diabetes Care 31:0678-1223, 2008). ??The eAG is not equivalent to a fasting glucose. Blood 01/28/2024 8:48 AM MOBILE ENGINEER 01/28/2024 12:48 PM MOBILE ENGINEER us Clive Wright MD LAB BLOOD ORDERABLES Final Re sult JUAN F [address] [facility] Department [place] [address] * Lipid panel (01/28/2024 8:48 AM MOBILE ENGINEER) Pathologist [facility] Cholesterol 184 30 - 199 mg/dL Comment: [...] LDL, calculated 100 <=129 mg/dL JUAN F Comment: Interpretive Data Ages [...] 3 JUAN F Blood 01/28/2024 8:48 AM MOBILE ENGINEER 01/28/2024 12:45 PM MOBILE ENGINEER us Clive Wright MD LAB BLOOD ORDERABLES Final Re sult JUAN F [address] [facility] Department [place] [address] * (ABNORMAL) Comprehensive metabolic panel (01/28/2024 8:48 AM MOBILE ENGINEER) Sodium 137 135 - 145 mmol/L Potassium, pl 4.1 3.3 - 4.9 mmol/L [facility] Chloride 99 97 - 110 mmol/L [facility] CO2 25 22 - 32 mmol/L [facility] Anion gap 13 2 - 15 mmol/L [facility] BUN 17 6 - 25 mg/dL [facility] Creatinine 0.94 0.60 - 1.10 mg/dL [facility] Glucose 181 70 - 199 mg/dL [facility] Comment: Interpretive Data Fasting glucose >/= 126 [...] 2022. Calcium 9.5 8.5 - 10.3 mg/dL [facility] Bilirubin, total 0.4 0.1 - 1.2 mg/dL [facility] Protein, pl 6.9 6.5 - 8.5 g/dL [facility] Albumin 4.0 3.5 - 5.0 g/dL [facility] Alk phos 51 40 - 130 Units/L [facility] ALT <5(L) 7 - 45 Units/L [facility] Comment:Specimen is Lipemic; results may be inaccurate due to high levels of lipids. AST 24 10 - 45 Units/L [facility] Comment:Specimen is Lipemic; results may be inaccurate due to high levels of lipids. Blood 01/28/2024 8:48 AM MOBILE ENGINEER 01/28/2024 12:45 PM MOBILE ENGINEER us Clive Wright MD LAB BLOOD ORDERABLES Final Re sult [facility] [address] [facility] Department [place] [address] * (ABNORMAL) CBC with auto differential (01/13/2024 7:52 AM MOBILE ENGINEER) [facility] WBC 7.6 3.8 - 10.8 Thousand/u L [...] [facility] Blood 01/13/2024 7:52 AM MOBILE ENGINEER 01/13/2024 7:52 AM MOBILE ENGINEER us Karthikeyan Elaine DO LAB BLOOD ORDERABLES Final R esult [facility] [address] [address] * (ABNORMAL) Comprehensive metabolic panel (01/13/2024 7:52 AM MOBILE ENGINEER) Glucose 226(H) 65 - 99 mg/dL [facility] [...] [facility] Blood 01/13/2024 7:52 AM MOBILE ENGINEER 01/13/2024 7:52 AM MOBILE ENGINEER us Karthikeyan Elaine DO LAB BLOOD ORDERABLES Final R esult [facility] [address] [address] * SCREENING MAMMOGRAM BILATERAL W ARPAN (07/08/2022) Anatomical Region Laterality Modality Breast Bilateral Mammography 07/08/2022 Clive Wright MD IM MAMMO PROCEDURES Final Re sult * Dexa Axial Skeleton Bone Density 1 Or 2 Site (07/08/2022) Anatomical Region Laterality Modality Body N/A Radiographic Sonal ging 07/08/2022 Clive Wright MD [facility] DXA PROCEDURES Final Resu lt * Stool DNA - Cologuard (11/15/2021 9:05 AM CDT) Stool DNA - Cologuard Negative Negative [facility] (CLIA #:[id number]) Comment: NEGATIVE TEST RESULT. A negative Cologuard [...] cancer. ??Following a negative Cologuard result, the [place] [employer] Society and U.S. Multi-Society Task Force screening guidelines recommend a Cologuard re-screening interval of 3 years. References: [place] [employer] Guideline for Colorectal Cancer Screening: https://www.cancer.org/cancer/wbiwl-sjscyr-ckcxnx/hhajzedra-qeewjlmol-agyfwvb/ac s-rec ommendations.html.; Tio DK, Urbano PANCHAL, Sam NevilleK, Colorectal Cancer Screening: Recommendations for Physicians and Patients from the U.S. Multi-Society Task Force on Colorectal Cancer Screening , Am J Gastroenterology 2017; 112:3493-9012. TEST DESCRIPTION: Composite algorithmic analysis of stool [...] Hughes et al, N Engl J Med 2014;370(14):9329-5171.) Cologuard may produce a false negative or false positive result (no colorectal cancer or precancerous polyp present at colonoscopy follow up). A negative Cologuard test result does not guarantee the absence of CRC or advanced adenoma (pre-cancer). The current Cologuard screening interval is every 3 years. ([place] [employer] Society and U.S. Multi-Society Task Force). Cologuard performance data in a 10,000 patient pivotal study using colonoscopy as the reference method can be accessed at the following location: www.[employer]/results. Additional description of the Cologuard test process, warnings and precautions can be found at www.[employer]. Stool 11/15/2021 9:05 AM CDT 11/16/2021 6:26 PM CDT Clive Wright MD LAB BODY FLUIDS AND STOOLS OR DERABLES Final Result [employer] [facility] (CLIA #:[id number]) [address] [place] [address] from Last 3 Months or Most Recently Relevant to Health Maintenance [place] [address] [place] [address] ponUp [facility] ponUpRA [facility] ponUpRA [employer] [facility] ADVANTRA Advance Directives For more information, please contact: [phone] Documents on File Type Date Recorded Patient Distribution Center Administrator Expl anation Power of Pressing Machine Tender 03/07/2024 10:52 AM sebastián er of claims attorney 2024 Care Teams Net Web Application Developer Relationship Specialty Start Date End Date Clive Wright MD PCP - General Family Medicine 09/15/18 Karthikeyan Elaine DO [address] [place] [id number] Medical Oncologist/Chainsaw Mechanic Hematology and Oncology 10/27/18
--- OUTSIDE RECORDS SUMMARY | 2024-04-04 15:00 | XMS_ITS | Encounter Summary ---
Author Organization [facility] Healthcare Address [address] [place] [address] Care Team Providers Care Bobbin Cleaning Machine Operator Name Role Phone Clive Wright MD Primary Care Provider [phone] Karthikeyan Elaine DO Unavailable [phone] Alyssa Jones RN Unavailable [phone] Reason for Visit * Reason Onset Date Comments Med Refill 03/10/2024 Encounter Details Date Type Department Care Team (Late st Contact Info) Description 03/10/[address] [facility] Medical Group Family Medicine at [address] [place] [address] Clive Wright MD [address] [place] [address] [id number] Med Refill Social History Tobacco Use Types Packs/Day Years Used Date Smoking Tobacco: Never Smokeless Tobacco: Never Alcohol Use Standard Drinks/Week Comments Not Currently 0 (1 standard drink = 0.6 oz pur e alcohol) occasion [facility] Utilities Answer Date Recorded In the past 12 months has th [employer] electric, gas, oil, or water company threatened [...] week 03/01/2024 How often do you attend [facility] or buddhist services? Never 03/01/2024 Do you belong to any clubs o r organizations such as druze groups, unions, fraternal or athletic groups, or [...] money to buy more. Never true 03/01/20 24 Within the past 12 months, t he [...] any time in the past 12 m [facility], were you homeless or living in a long-term (including now)? No 03/01/2024 Comments Unknown Sex and Gender Information Value Date Recorded Sex Assigned at Not on file Legal Sex Female 8:44 PM LEASING MANAGER Gender Identity Not on file Sexual Orientation Not on file Occupation Industry Job Start Date Job End Date Retired Not on file Not on file Not on file documented as of this encounter Miscellaneous Notes * Telephone Encounter - Pratima Lopez - 03/10/2024 4:31 PM CST Medical Question/Miscellaneous Caller???s Concern: Pt's daughter, Sarai (on HIPAA) updated pharmacy information on pt's chart sinceshe moved into assisted living. Does message need to be routed? Yes-FYI Only ING MANAGER documented in this encounter Plan of Treatment Not on file documented as of this encounter Visit Diagnoses Not on filedocumented in this encounter Care Teams Bobbin Cleaning Machine Operator Relationship Specialty Start Date End Date Clive Wright MD PCP - General Family Medicine 09/15/18 Karthikeyan Elaine DO [address] [place] [address] Medical Oncologist/Owner Oral Surgeon Hematology and Oncology 10/27/18 Alyssa Jones RN [address] [place] [address] DR [address] [phone] Commercial Carpenter 02/29/24 03/24/24 documented as of this encounter
--- OUTSIDE RECORDS SUMMARY | 2024-04-04 15:00 | XMS_ITS | Encounter Summary ---
Author Organization [facility] Healthcare Address [address] [place] [address] Care Team Providers Care Md Allergy Immunology Name Role Phone Clive Wright MD Primary Care Provider [phone] Karthikeyan Elaine DO Unavailable [phone] Reason for Visit * Reason Onset Date Comments Symptom Based Call 03/28/2024 Encounter Details Date Type Department Care Team (Late st Contact Info) Description 03/28/2024 Telephone [facility] Family Medicine at [address] [place] [address] Clive Wrihgt MD [address] [place] [address] Symptom Based Call Social History Tobacco Use Types Packs/Day Years Used Date Smoking Tobacco: Never Smokeless Tobacco: Never Alcohol Use Standard Drinks/Week Comments Not Currently 0 (1 standard drink = 0.6 oz pur e alcohol) occasion [facility] Utilities Answer Date Recorded In the past 12 months has MOOI, gas, oil, or water Xtime threatened to shut off services in your [...] 03/01/2024 How often do you attend chur or restorationism services? Never 03/01/2024 Do you belong to any clubs o r organizations such as faith groups, unions, fraternal or athletic groups, or [...] any time in the past 12 m [facility], were you homeless or living in a nursing home (including now)? 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 Daughter states she wasn't advised of the BP reading but was aware it was elevated. CS transferred to the back line due to red flag symptoms and being unable to transfer the message to manager of sales since pt resides in a longterm. Call was warm transferred to [place]. Practice Accepted the Warm Transfer? Yes Additional Comments If YES above, and no barriers. GRADER OPERATOR documented in this encounter Plan of Treatment Not on file documented as of this encounter Visit Diagnoses Not on filedocumented in this encounter Care Teams Md Allergy Immunology Relationship Specialty Start Date End Date Clive Wright MD PCP - General Family Medicine 09/15/18 Karthikeyan Elaine DO [address] [place] [address] Medical Oncologist/Salt Cutter Hematology and Oncology 10/27/18 documented as of this encounter
--- OUTSIDE RECORDS SUMMARY | 2024-04-04 15:00 | XMS_ITS | Referral Summary ---
Author Organization [facility] Address [address] [place] [address] Care Team Providers Care Manager Athletics Name Role Phone Clive Wright MD Primary Care Provider [phone] Karthikeyan Elaine DO Unavailable [phone] Encounters Date Type Department Care Team Description 03/28/2024 Telephone [facility] Medical [facility] Family Medicine at [address] [place] [phone] Clive Wright MD Symptom Based Call 03/15/2024 Telephone [facility] Family Medicine at [address] [place] [address] Clive Wright MD med list 03/10/2024 Telephone [facility] Family Medicine at [address] [address] Clive Wright MD Med Refill 03/07/2024 10:45 AM SERVICE COUNSELOR Office Visit [facility] Medical [facility] Family Medicine at [address] [place] [phone] Clive Wright MD Acute cystitis without hematuria (Primary Dx); Encephalopathy, unspecified type; Mild cognitive impairment; Essential hypertension; 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, without long-term current use of insulin (CMS/HCC) (HCC); Thrombocytosis; Edema, lower extremity; Nonspecific abnormal electroencephalogram (EEG) 03/03/2024 Orders Only [facility] Health Information Management [address] [place], [place] [id number] Clive Wright MD 02/26/2024 Telephone [facility] at [address] [place] [address] Clive Wright MD ROMÁN Questions 02/23/2024 Telephone [facility] at [address] [place] [address] Clive Wright MD 02/22/2024 Telephone [facility] at [address] [place] [address] Clive Wright MD Medical Question/Miscellaneous 02/18/2024 Orders Only [facility] [place] [place] Health Information Management [address] [place] [address] Gaby Swartz MD 02/17/2024 Orders Only [facility] Health Information Management [address] [place] [address] Clive Wright MD 02/16/2024 Orders Only [facility] Information [facility] [address] [place] [address] Clive Wright MD 02/14/2024 Orders Only [facility] [address] [place] [address] Deann Mcleod DO 02/13/2024 Orders Only [facility] [place] [place] Health Information Management [address] [place] [address] Clive Wright MD 01/28/2024 8:30 AM SERVICE COUNSELOR Lab [facility] Medical Office Bld[address] [place] [address] 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, without long-term current use of insulin (CMS/HCC) (HCC); Essential hypertension; Mixed hyperlipidemia 01/26/2024 Telephone [facility] at [address] [address] Clive Wright MD Medical Question/Miscellaneous 01/15/2024 9:30 AM SERVICE COUNSELOR Office Visit [facility] Physicians [facility] [address] [place] [address] [address] [place] [address] Karthikeyan Elaine, Myeloproliferative disease (HCC) (Primary Dx); Thrombocytosis; Macrocytic anemia from Last 3 Months Allergies No known [...] without long-term current use of insulin (CMS/HCC) ([facility]) 1 each by other route as directed Checks blood sugar daily 100 each 3 2 Active blood-glucose meter miscIndication s: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, without long-term current use of insulin (CMS/HCC) ([facility]) Use daily or as directed for [...] disease, without long-term current use of insulin ([facility]) 07/18/2015 Overview (09/15/2018): Controlled Resolved Problems [...] = 0.6 oz pur e alcohol) occasion [facility] Utilities Answer Date Recorded In the [...] often do you attend chur ch or anglican services? Never 03/01/2024 Do you belong to any clubs o r organizations such as religious groups, unions, fraternal or athletic groups, or [...] any time in the past 12 m [facility], were you homeless or living in a intermediate (including now)? No 03/01/2024 Comments Unknown Sex and Gender Information Value Date Recorded Sex Assigned at Not on file Legal Sex Female 8:44 PM SERVICE COUNSELOR Gender Identity Not on file Sexual Orientation Not on file Occupation Industry Job Start Date Job End Date Retired Not on file Not on file Not on file Last Filed Vital Signs Vital Sign Reading Time Taken Comments Blood Pressure 130/70 03/07/2024 11:13 AM SERVICE COUNSELOR Pulse 69 03/07/2024 11:13 AM SERVICE COUNSELOR Temperature 37.1 ??C (98.7 ??F) 03/07/2024 1 1:13 AM SERVICE COUNSELOR Respiratory Rate 18 03/07/2024 11:1 3 AM SERVICE COUNSELOR Oxygen Saturation 95% 03/07/2024 11: 13 AM SERVICE COUNSELOR Inhaled Oxygen Concentration - - Weight 64.7 kg (142 lb 11.2 oz) 024 11:13 AM SERVICE COUNSELOR Height 161.3 cm (5' 3.5 ) 03/07/2024 11 :13 AM SERVICE COUNSELOR Body Mass Index 24.88 03/07/2024 11:13 AM SERVICE COUNSELOR Plan of Treatment Not on file Procedures Procedure Name Priority Date/Time Associated Diagnosis Comments SCAN - LABS 03/03/2024 SCAN - RADIOLOGY/IMAGING 02/18/2024 SCAN - NEUROLOGY 02/17/2024 CARDIOLOGY DOCUMENT SCAN 02/17/2024 SCAN - RADIOLOGY/IMAGING 02/17/2024 SCAN - RADIOLOGY/IMAGING 02/16/2024 SCAN - RADIOLOGY/IMAGING 02/14/2024 SCAN - RADIOLOGY/IMAGING 02/13/2024 ALBUMIN CREATININE RATIO, URINE Routine 01/28/2024 9:21 AM SERVICE COUNSELOR 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, without long-term current use of insulin (CMS/HCC) (HCC) EGFR Routine 01/28/2024 8:48 AM SERVICE COUNSELOR Essential hypertension Mixed hyperlipidemia DIFFERENTIAL AUTO Routine 01/28/2024 8:4 8 AM SERVICE COUNSELOR Essential hypertension HEMOGLOBIN A1C Routine 01/28/2024 8:48 AM SERVICE COUNSELOR 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, without long-term current use of insulin (CMS/[facility]) (HCC) LIPID PANEL Routine 01/28/2024 8:48 AM SERVICE COUNSELOR Mixed hyperlipidemia COMPREHENSIVE METABOLIC PANEL Routine 01/28/2024 8:48 AM SERVICE COUNSELOR Essential hypertension Mixed hyperlipidemia CBC WITH AUTO DIFFERENTIAL Routine 01/28/2024 8:48 AM SERVICE COUNSELOR Essential hypertension COMPREHENSIVE METABOLIC PANEL Routine 01/13/2024 7:52 AM SERVICE COUNSELOR Thrombocytosis CBC WITH AUTO DIFFERENTIAL Routine 01/13/2024 7:52 AM SERVICE COUNSELOR Thrombocytosis DEXA AXIAL SKELETON BONE DENSITY 1 [...] Albumin Creatinine Ratio, Urine (01/28/2024 9:21 AM SERVICE COUNSELOR) Albumin Ur 3,802.0 mg/L Comment: Interpretive Data No reference range established. Current interpretive data was last revised 2018. Creatinine Ur 94.8 mg/dL JUAN F Comment: Interpretive Data No reference range established. Current interpretive data was last revised 2018. Albumin Creatinine Ratio, Ur 4,011(H) 1 - 29 mg/g JUAN F Urine 01/28/2024 9:21 AM SERVICE COUNSELOR 01/28/2024 1:12 PM SERVICE COUNSELOR us Clive Wright MD LAB URINE ORDERABLES Final Re sult JUAN F [address] [facility] [place] [address] * eGFR (01/28/2024 8:48 AM SERVICE COUNSELOR) eGFR 64 >=60 mL/min/1. 73 m2 Comment: [...] last reviewed 2021. Blood 01/28/2024 8:48 AM SERVICE COUNSELOR 01/28/2024 12:45 PM SERVICE COUNSELOR us Clive Wright MD LAB BLOOD ORDERABLES Final Re sult JUAN F [address] [facility] [place] [address] * (ABNORMAL) Differential, auto (01/28/2024 8:48 AM SERVICE COUNSELOR) Neutrophil abs 7.3(H) 1.5 - 6.5 K/cumm Imm gran abs 0.0 0.0 - 0.1 K/cumm [facility] Lymphocyte abs 1.4 0.8 - 3.3 K/cumm [facility] Monocyte abs 0.5 0.2 - 0.8 K/cumm [facility] Eosinophil abs 0.1 0.0 - 0.5 K/cumm [facility] Basophil abs 0.1 0.0 - 0.1 K/cumm [facility] Neutrophil pct 77.9 % [facility] Comment: Interpretive Data Percent cell count reference ranges are not reported, since discordance with absolute values may lead to misinterpretation of CBC data. Current Interpretive Data was last revised on 2017. Imm gran pct 0.3 % [facility] Comment: Interpretive Data Percent cell count reference ranges are not reported, since discordance with absolute values may lead to misinterpretation of CBC data. Current Interpretive Data was last revised on 2017. Lymphocyte pct 15.2 % [facility] Comment: Interpretive Data Percent cell count reference ranges are not reported, since discordance with absolute values may lead to misinterpretation of CBC data. Current Interpretive Data was last revised on 2017. Monocyte pct 5.3 % [facility] Comment: Interpretive Data Percent cell count reference ranges are not reported, since discordance with absolute values may lead to misinterpretation of CBC data. Current Interpretive Data was last revised on 2017. Eosinophil pct 0.7 % [facility] Comment: Interpretive Data Percent cell count reference ranges are not reported, since discordance with absolute values may lead to misinterpretation of CBC data. Current Interpretive Data was last revised on 2017. Basophil pct 0.6 % [facility] Comment: Interpretive Data Percent cell count reference ranges are not reported, since discordance with absolute values may lead to misinterpretation of CBC data. Current Interpretive Data was last revised on 2017. Blood 01/28/2024 8:48 AM SERVICE COUNSELOR 01/28/2024 12:48 PM SERVICE COUNSELOR Clive Wright MD LAB BLOOD ORDERABLES Final Re sult Performing Organization Address [facility] Co de Phone Number JUAN F [address] [employer] [place] [address] * (ABNORMAL) CBC with auto differential (01/28/2024 8:48 AM SERVICE COUNSELOR) Pathologist [facility] WBC 9.4 3.8 - 9.9 K/cumm Hgb 11.5(L) 11.9 - 15.5 g/dL [facility] Hct 35.0(L) 35.6 - 45.5 % [facility] Plt 672(H) 150 - 400 K/cumm [facility] MPV 9.5 9.1 - 12.3 fL [facility] RBC 3.06(L) 3.90 - 5.20 M/cumm [facility] MCV 114.4(H) 81.3 - 96.4 fL [facility] MCH 37.6(H) 27.1 - 33.3 pg [facility] MCHC 32.9 32.3 - 35.7 g/dL [facility] RDW CV 13.1 11.1 - 14.9 % [facility] RDW SD 54.0(H) 35.7 - 48.1 fL [facility] NRBC abs 0.00 0.00 - 0.01 K/cumm [facility] Blood 01/28/2024 8:48 AM SERVICE COUNSELOR 01/28/2024 12:48 PM SERVICE COUNSELOR us Clive Wright MD LAB BLOOD ORDERABLES Final Re sult Performing Organization Address City/[facility]/ZIP Co de Phone Number JUAN F [address] [employer] [place] [address] * (ABNORMAL) Hemoglobin A1c (01/28/2024 8:48 AM SERVICE COUNSELOR) Pathologist [facility] Hgb A1C 7.1(H) 4.0 - 5.6 % Estimated Average Glucose 157 mg/dL [facility] Comment: The ADA recommends reporting an estimated Average Glucose (eAG) with all Hemoglobin A1c results using the equation derived from a study of 507 normal and diabetic adults. ??Minority populations were underrepresented and children were not included. ?? (Diabetes Care 31:5655-2221, 2008). ??The eAG is not equivalent to a fasting glucose. Blood 01/28/2024 8:48 AM SERVICE COUNSELOR 01/28/2024 12:48 PM SERVICE COUNSELOR us Clive Wright MD LAB BLOOD ORDERABLES Final Re sult JUAN F [address] [facility] [place] [address] * Lipid panel (01/28/2024 8:48 AM SERVICE COUNSELOR) Cholesterol 184 30 - 199 mg/dL Comment: [...] NCEP Expert Panel. Circulation 2004;110:227 3. Dmitriy M et al. CARRIE Cardiol. 2019July 07;5(5):540-548. doi: [...] 3 JUAN F Blood 01/28/2024 8:48 AM SERVICE COUNSELOR 01/28/2024 12:45 PM SERVICE COUNSELOR Clive Wright MD LAB BLOOD ORDERABLES Final Re sult JUAN F [address] [facility] [place] [address] * (ABNORMAL) Comprehensive metabolic panel (01/28/2024 8:48 AM SERVICE COUNSELOR) [facility] Sodium 137 135 - 145 mmol/L Potassium, pl 4.1 3.3 - 4.9 mmol/L [facility] Chloride 99 97 - 110 mmol/L [facility] CO2 25 22 - 32 mmol/L [facility] Anion gap 13 2 - 15 mmol/L [facility] BUN 17 6 - 25 mg/dL [facility] Creatinine 0.94 0.60 - 1.10 mg/dL [facility] Glucose 181 70 - 199 mg/dL [facility] Comment: Interpretive Data Fasting glucose [...] 2022. Calcium 9.5 8.5 - 10.3 mg/dL [facility] Bilirubin, total 0.4 0.1 - 1.2 mg/dL [facility] Protein, pl 6.9 6.5 - 8.5 g/dL [facility] Albumin 4.0 3.5 - 5.0 g/dL [facility] Alk phos 51 40 - 130 Units/L [facility] ALT <5(L) 7 - 45 Units/L [facility] Comment:Specimen is Lipemic; results may be inaccurate due to high levels of lipids. AST 24 10 - 45 Units/L [facility] Comment:Specimen is Lipemic; results may be inaccurate due to high levels of lipids. Blood 01/28/2024 8:48 AM SERVICE COUNSELOR 01/28/2024 12:45 PM SERVICE COUNSELOR us Clive Wright MD LAB BLOOD ORDERABLES Final Re sult [facility] [address] [facility] [place], [place] [id number] * (ABNORMAL) CBC with auto differential (01/13/2024 7:52 AM SERVICE COUNSELOR) Pathologist [facility] WBC 7.6 3.8 - 10.8 Thousand/u L [...] [facility] Blood 01/13/2024 7:52 AM SERVICE COUNSELOR 01/13/2024 7:52 AM SERVICE COUNSELOR us Karthikeyan Elaine DO LAB BLOOD ORDERABLES Final R esult [facility] [address] [place] [address] * (ABNORMAL) Comprehensive metabolic panel (01/13/2024 7:52 AM SERVICE COUNSELOR) Pathologist [facility] Glucose 226(H) 65 - 99 mg/dL [facility] [...] [facility] Blood 01/13/2024 7:52 AM SERVICE COUNSELOR 01/13/2024 7:52 AM SERVICE COUNSELOR us Karthikeyan Elaine DO LAB BLOOD ORDERABLES Final R esult [facility] [address] [address] [place] [address] * SCREENING MAMMOGRAM BILATERAL W ARPAN (07/08/2022) Anatomical Region Laterality Modality Breast Bilateral Mammography 07/08/2022 Clive Wright MD IMG MAMMO PROCEDURES Final Re sult * Dexa Axial Skeleton Bone Density 1 Or 2 Site (07/08/2022) Anatomical Region Laterality Modality Body N/A Radiographic Sonal ging 07/08/2022 Clive Wright MD IM DXA PROCEDURES Final Resu lt * Stool DNA - Cologuard (11/15/2021 9:05 AM CDT) Stool DNA - Cologuard Negative Negative [email or web address] (CLIA #:[id number]) Comment: NEGATIVE TEST RESULT. A negative Cologuard [...] cancer. ??Following a negative Cologuard result, the [place] Cancer Society and U.S. Multi-Society Task Force screening guidelines recommend a Cologuard re-screening interval of 3 years. References: [place] [employer] Guideline for Colorectal Cancer Screening: https://www.cancer.org/cancer/jdkaa-erwyet-svubde/fhclkvhhs-nuqrrwhtk-bwoxdjz/ac s-rec ommendations.html.; Tio OLEARY, [place]rb[place] CR, Sam NevilleK, Colorectal Cancer Screening: Recommendations for Physicians and Patients from the U.S. Multi-Society Task Force on Colorectal Cancer Screening , Am J Gastroenterology 2017; 112:9993-0869. TEST DESCRIPTION: Composite algorithmic analysis of stool [...] (Corona Espinoza al, N Engl J Med 2014;370(14):7494-1155.) Cologuard may produce a false negative or false positive result (no colorectal cancer or precancerous polyp present at colonoscopy follow up). A negative Cologuard test result does not guarantee the absence of CRC or advanced adenoma (pre-cancer). The current Cologuard screening interval is every 3 years. ([place] [employer] Society and U.S. Multi-Society Task Force). Cologuard performance data in a 10,000 patient pivotal study using colonoscopy as the reference method can be accessed at the following location: www.[employer]allyware/results. Additional description of the Cologuard test process, warnings and precautions can be found at www.[employer].com. Stool 11/15/2021 9:05 AM CDT 11/16/2021 6:26 PM CDT Clive Wright MD LAB BODY FLUIDS AND STOOLS OR DERABLES Final Result [facility] [email or web address] (CLIA #:[id number]) [address] [place] [address] from Last 3 Months or Most Recently Relevant to Health Maintenance Insurance [employer] [facility] [employer] [facility] [employer] [facility] ADVANTRA Advance Directives For more information, please contact: [phone] Documents on File Type Date Recorded Patient Rehabilitation Caseworker Expl anation Power of Head Of It 03/07/2024 10:52 AM pow er of compliance attorney 2024 Care Teams Manager Athletics Relationship Specialty Start Date End Date Clive Wright MD PCP - General Family Medicine 09/15/18 Karthikeyan Elaine DO [address] [place] [address] Medical Oncologist/Merchandise Buyer Hematology and Oncology 10/27/18
--- OUTSIDE RECORDS SUMMARY | 2024-04-04 15:00 | XMS_ITS | Encounter Summary ---
Author Organization [facility] Healthcare Address [address] [place] [address] Care Team Providers Care District Plant Supervisor Name Role Phone Clive Wright MD Primary Care Provider [phone] Karthikeyan Elaine DO Unavailable [phone] Aylssa Jones RN Unavailable [phone] Encounter Details Date Type Department Care Team (Late st Contact Info) Description 02/23/2024 Telephone [facility] Medical Group Family Medicine at [address] [place] [address] Clive Wright MD [facility] [address] [address] Social History Tobacco Use Types [...] on file Legal Sex Female 8:44 PM FLAP MAKER Gender Identity Not on file Sexual Orientation Not on file Occupation Industry Job Start Date Job End Date Retired Not on file Not on file Not on file documented as of this encounter Plan of Treatment Not on file documented as of this encounter Visit Diagnoses Not on filedocumented in this encounter Care Teams District Plant Supervisor Relationship Specialty Start Date End Date Clive Wright MD PCP - General Family Medicine 09/15/18 Karthikeyan Elaine DO [address] [place] [address] Medical Oncologist/Editor Hematology and Oncology 10/27/18 Alyssa Jones, JAMES [address] [place] [address] [address] [place] [address] Home Care Manager Rn 02/29/24 03/24/24 documented as of this encounter
[2024-04-04 15:28] VITALS: BP 173/94; PULSE 74
== END 2024-04-04 15:41 | disposition home or self-care (01) ==
PROVIDERS: Emergency Provider Nurse Practitioner Family; PCP Family Medicine
DX: I10 Essential (primary) hypertension (principal); N39.0 Urinary tract infection, site not specified; E11.9 Type 2 diabetes mellitus without complications; Z79.84 Long term (current) use of oral hypoglycemic drugs; D47.3 Essential (hemorrhagic) thrombocythemia; E78.5 Hyperlipidemia, unspecified; D50.9 Iron deficiency anemia, unspecified; Z79.82 Long term (current) use of aspirin
CPT/HCPCS: 81003; 87086; 99213; G0463